=== PATIENT | female | born 1940 | race Caucasian/White ===

== ENCOUNTER → 2017-01-23 | Outpatient (CLI) | payer MEDICARE ==
[2017-01-23 17:57] LABS: Blood Urea Nitrogen 28 mg/dL (7-17); Non-African American GFR(MDRD) 54 (>60 ml/min/1.73 sqM)
== END | disposition home or self-care (01) ==
LOC: LABWHC1 17:04
PROVIDERS: ATTEND Orthopaedic Surgery Orthopaedic Surgery of the Spine
DX: M50.121 Cervical disc disorder at C4-C5 level with radiculopathy (principal); M43.16 Spondylolisthesis, lumbar region; M47.22 Other spondylosis with radiculopathy, cervical region; M41.86 Other forms of scoliosis, lumbar region
CPT/HCPCS: 36415; 82565; 84520

== ENCOUNTER → 2017-04-11 | Outpatient (CLI) | payer MEDICARE ==
[2017-04-11 14:38] LABS: Basophils % (A) 1 %; Eosinophils # (A) 0.2 k/uL (0-0.7); Eosinophils % (A) 3 %; HGB 10.4 gm/dL (11.4-16.0); Lymphocytes % (A) 13 %; MCH 30.5 pg (25.0-35.0); MCHC 31.5 g/dL (31.0-37.0); MCV 96.8 fL (80.0-100.0); Mean Platelet Volume 6.8; Monocytes # (A) 0.5 k/uL (0-1.0); Monocytes % (A) 6 %; Neutrophils # (A) 6.2 k/uL (1.3-7.7); Neutrophils % (A) 77 %; Platelet Count 387 k/uL (150-450); RBC 3.41 m/uL (3.80-5.40); WBC 8.1 k/uL (3.8-10.6)
[2017-04-11 14:49] LABS: ALT 59 U/L (9-52); AST 46 U/L (14-36); Creatine Kinase 59 U/L (30-135)
== END | disposition home or self-care (01) ==
LOC: LABWHC1 13:59
PROVIDERS: ATTEND Physical Medicine & Rehabilitation
DX: M51.36 Other intervertebral disc degeneration, lumbar region (principal); M47.817 Spondylosis without myelopathy or radiculopathy, lumbosacral region
CPT/HCPCS: 36415; 82550; 84450; 84460; 85025

== ENCOUNTER → 2017-08-09 | Outpatient (CLI) | payer MEDICARE ==
--- NOTE | 2017-08-09 20:16 | CT ---
EXAMINATION TYPE: CT abdomen pelvis w con DATE OF EXAM: 08/09/2017 HISTORY: Left sided abdominal pain, bloating and gas x [address] DLP: 413.5mGycm Automated Exposure Control for Dose Reduction was Utilized. CONTRAST: CT scan of the abdomen and pelvis is performed with IV Contrast, patient injected with 100 mL of Isov ue M300. COMPARISON: None. FINDINGS: LUNG BASES: No significant abnormality is appreciated. LIVER/GB: No significant abnormality is appreciated. PANCREAS: No significant abnormality is seen. SPLEEN: No significant abnormality is seen. ADRENALS: No significant abnormality is seen. KIDNEYS: There are a few small simple appearing cyst anteriorly in the right kidney. BOWEL: The oral contrast reaches level of the proximal transverse colon. There is no suspicious small or large bowel dilatation. Diverticula are seen in the sigmoid colon without CT evidence for acute d iverticulitis. UTERUS/ADNEXA: Anteverted uterus with calcifications likely calcified fibroids is noted. LYMPH NODES: No greater than 1cm abdominal or pelvic lymph nodes are appreciated. OSSEOUS STRUCTURES: There is right-sided pars defect L4 level. There is grade 2 anterolisthesis of L4 on L5 measured 10 mm sagittal image 63. There is advanced disc space narrowing with vacuum disc phen omenon at this level. There is moderate to advanced disc space narrowing with vacuum disc phenomenon left L1-L2 level. There is moderate to advanced disc space narrowing at L2-L3 level. Underlying scoli osis is present. There is facet arthropathy mid to lower lumbar levels. There is prior surgery with r ight laminectomy defect L4 level felt present. There is moderate joint space loss in both hips. OTHER: There is mild/moderate mixed plaque in the abdominal aorta IMPRESSION: No bowel obstruction is seen. No ascites is present. No significant acute finding is iden tified to account for patient's symptoms.
== END | disposition home or self-care (01) ==
LOC: RADCTMAIN 17:37
PROVIDERS: ATTEND Physician Assistant Medical
DX: R10.30 Lower abdominal pain, unspecified (principal); R14.0 Abdominal distension (gaseous)
CPT/HCPCS: 82565; 84520; 74177; 36415; Q9967

== ENCOUNTER → 2018-07-02 | Day surgery (SDC) | payer MEDICARE ==
[2018-06-26 11:35] VITALS: BMI 23.2
[~2018-07-02] MED LIST: ASPIRIN 81 MG PO SCH; ATENOLOL 50 MG TAB PO SCH; CHOLECALCIFEROL 1,000 UNIT TAB PO SCH; CITALOPRAM HYDROBROMIDE 10 MG TAB PO SCH; FERROUS SULFATE 325 MG TAB PO SCH; FLUTICASONE 50MCG/SPRAY NASAL 16GM EA NOSTRIL SCH; HYDROCHLOROTHIAZIDE 12.5 MG CAP PO SCH; LEVOTHYROXINE 75 MCG TAB PO SCH; LISINOPRIL 30 MG PO SCH; MULTIVITAMINS, THERA 1 EACH TAB PO SCH; NON-FORMULARY DRUG (Omeprazole 20 MG) PO SCH; NON-FORMULARY DRUG (Vitamin B Complex [Vitamin B Complex] 1 EACH) PO SCH; SODIUM CHLORIDE 0.9% 1,000 ML IV ONE; SODIUM CHLORIDE 0.9% 1,000 ML IV SCH; amLODIPine 2.5 MG TAB PO SCH; fentaNYL (PF) 50 MCG/ML 2 ML AMP ONE; predniSONE 2.5 MG TAB PO SCH; traMADol-ACETAMINOP 37.5-325MG 1 EACH TAB PO SCH
[2018-07-02 06:48] VITALS: RESP 18; TEMP 98.4
[2018-07-02] MEDS: BENZOCAINE SPRAY 1 CAN MUCOUS MEM ONE ×2 (07:02→07:06)
[2018-07-02] MEDS: MIDAZOLAM 2 MG/2 ML VIAL IVP ONE ×2 (07:06→07:09)
[2018-07-02] MEDS: fentaNYL (PF) 50 MCG/ML 2 ML AMP IVP ONE ×2 (07:06→07:08)
--- NOTE | 2018-07-02 08:01 | ECHOT ---
TRANSESOPHAGEAL ECHOCARDIOGRAM INDICATION: Evaluation of mitral valve. PROCEDURE: After explaining the procedure to the patient, its risks and the complication, blood pressure, heart rate, O2 saturation was monitored. The throat was sprayed with Cetacaine. She received 2 mg intravenous Versed and 50 mcg intravenous fentanyl. The probe was introduced in the esophagus without difficulty. Images were obtained. Following that, the probe was removed. There was no immediate complication. FINDINGS: Left atrial size is mildly dilated. Left atrial appendage is normal. Left ventricular size and systolic function normal. The aortic valve is tricuspid valve with mild atherosclerotic changes and preserved opening. Mitral valve revealed mitral anulus calcification and mild calcification of the leaflets. Tricuspid valve is normal. The descending thoracic aorta revealed mild atherosclerotic changes of descending thoracic aorta. No pericardial effusion was noted. Contrast bubble study revealed no evidence of shunting across the interatrial septum with Valsalva maneuver. Doppler pulse wave and color Doppler obtained and revealed moderate to severe mitral regurgitation with a central jet with moderate tricuspid regurgitation. Estimated right ventricular systolic pressure was 46 mmHg consistent with mild pulmonary hypertension. Mild aortic regurgitation was noted. No shunting by color Doppler study was noted. CONCLUSION: 1. Mildly dilated left atrium with normal appearance of left atrial appendage. 2. Normal left ventricular size and systolic function. 3. Moderate to severe mitral regurgitation, 3+ with calcification of the mitral valve apparatus. 4. Moderate tricuspid regurgitation and mild pulmonary hypertension. 5. Aortic sclerosis with no evident stenosis. 6. Mild aortic regurgitation. 7. Mild atherosclerotic changes of the descending thoracic aorta. 8. No shunting across the interatrial septum. MMODL / IJN: [id number] /
[2018-07-02 08:53] VITALS: BP 171/76; PULSE 64
== END | disposition home or self-care (01) ==
LOC: CATHCVL 06:06
PROVIDERS: ATTEND Internal Medicine Interventional Cardiology
DX: I08.3 Combined rheumatic disorders of mitral, aortic and tricuspid valves (principal); I25.10 Atherosclerotic heart disease of native coronary artery without angina pectoris; E78.2 Mixed hyperlipidemia; I10 Essential (primary) hypertension; E11.9 Type 2 diabetes mellitus without complications; Z79.82 Long term (current) use of aspirin; Z79.899 Other long term (current) drug therapy; Z79.52 Long term (current) use of systemic steroids; Z79.51 Long term (current) use of inhaled steroids; I70.0 Atherosclerosis of aorta; I27.20 Pulmonary hypertension, unspecified; Z88.1 Allergy status to other antibiotic agents; Z88.2 Allergy status to sulfonamides
CPT/HCPCS: 93312; 93320; 93325; 99152; J2250; J3010

== ENCOUNTER 2018-08-25 06:02 | Inpatient (IN) | payer MEDICARE ==
[2018-08-25] MEDS ORDERED: ceFAZolin IN SWFI 2 GM/20 ML SYRINGE IVP STA (06:34)
[2018-08-25] MEDS ORDERED: LIDOCAINE 1% INJ 10MG/ML (20 ML MDV) ONE (06:35)
[2018-08-25] MEDS ORDERED: ceFAZolin IN SWFI 2 GM/20 ML SYRINGE IVP ONE (07:00)
[2018-08-25] MEDS ORDERED: MIDAZOLAM (PF) 2 MG/2 ML VIAL IVP ONE (07:00)
[2018-08-25] MEDS ORDERED: LIDOCAINE 1% INJ 10MG/ML (20 ML MDV) SQ ONE (07:03)
[2018-08-25] MEDS ORDERED: IV FLUID CONTINUATION 1,000 ML IV ONE (07:06)
[2018-08-25] MEDS ORDERED: HEPARIN SOD,PORK IN 0.45% NACL 25,000 UNIT in 0.45% NACL 1 250ML.BAG IV ONE (07:10)
[2018-08-25] MEDS ORDERED: HEPARIN SODIUM,PORCINE 5,000 UNIT/ML 1 ML VIAL IV PRN (07:31)
[2018-08-25] MEDS ORDERED: DOPamine DRIP 800 MG in DEXTROSE/WATER 1 250ML.BAG IV ONE (07:33)
--- NOTE | 2018-08-25 07:41 | P.PCN ---
Preoperative Diagnosis: Transvenous temporary pacing procedure Indication for the procedure: Severe underlying bradycardia and pauses secondary to postconversion pauses, patient with atrial fibrillation/atrial flutter with RVR, tachybradycardia syndrome, syncopal spells while lying in bed during prolonged postconversion pauses Patient was brought to the EP lab in a fasting state. Written informed consent was obtained prior to the procedure. The right groin was prepped and draped as a protocol. A 6-[place] Helen[place] sheath was placed in the right femoral vein. Via this, a temporary pacing catheter was placed in the right ventricle. Thresholds were interrogated. Temporary pacing was performed through the rest of the procedure. At the end of the entire procedure, the TVP was removed. The sheath was removed and hemostasis was assured. Patient tolerated the procedure well without any acute complications. Procedure performed Transvenous temporary pacing Patient underwent EP procedure under conscious sedation/moderate sedation, monitoring of the level of consciousness and physiologic parameters including but not limited to vital signs and oxygenation. Patient tolerated the procedure well without any acute complications. Start time: 701 Stop time: 728
[2018-08-25 08:09] LABS: Glucose,Whole Blood 121 mg/dL (75-99)
--- NOTE | 2018-08-25 08:17 | P.PN ---
Subjective Progress Note Date: 08/25/18 Principal diagnosis: Tachybradycardia syndrome This is a 77-year-old female patient who was admitted to the [facility] with atrial fibrillation with RVR and she was experiencing intermittent episodes of sinus pauses. She was seen and evaluated by Dr. Allen who brought the patient to [facility] where she underwent transvenous temporary pacemaker from right groin approach. The patient was seen today, 08/25/2018. She seems to be hemodynamically stable beside heart rate around 120 bpm. I am going to restart the patient on her home dose of atenolol. Continue IV heparin. Obtain a basic blood work including CBC, BMP, TSH. Obtain an echocardiogram from [facility] and also the cardiac consult from the [facility]. Continue following up with the patient. Objective - Vital Signs Vital signs: Intake & Output 08/24/18 08/25/18 08/25/18 18:59 06:59 18:59 Intake Total 50 Balance 50 Weight 53 kg Intake: IV 50 - Constitutional General appearance: Present: no acute distress - Respiratory Respiratory: bilateral: diminished - Cardiovascular Rhythm: irregularly irregular Heart sounds: normal: S1, S2 - Labs Labs: Abnormal Lab Results - Last 24 Hours (Table) 08/25/18 Range/Units 07:47 POC Glucose (mg/dL) 121 H (75-99) mg/dL Assessment and Plan Assessment: Assessment #1 paroxysmal atrial fibrillation #2 tachybradycardia syndrome #3 hypertension #4 dyslipidemia #5 thyroid disorder Plan Continue the current medical regimen The patient is in process of having permanent pacemaker Follow-up with the patient
[2018-08-25] MEDS ORDERED: ATENOLOL 50 MG TAB PO SCH ×2 (09:00→21:00)
[2018-08-25] MEDS: HEPARIN SOD,PORK IN 0.45% NACL 25,000 UNIT in 0.45% NACL 1 250ML.BAG IV SCH (09:12)
[2018-08-25] MEDS ORDERED: SODIUM CHLORIDE 0.9% 1,000 ML IV SCH (09:30)
[2018-08-25] MEDS ORDERED: DILTIAZEM 125 MG in SODIUM CHLORIDE 0.9% 100 ML IV SCH (09:45)
[2018-08-25 09:53] LABS: Basophils % (A) 0 %; Eosinophils # (A) 0.3 k/uL (0-0.7); Eosinophils % (A) 2 %; HCT 39.7 % (34.0-46.0); HGB 12.6 gm/dL (11.4-16.0); Lymphocytes # (A) 1.7 k/uL (1.0-4.8); Lymphocytes % (A) 13 %; MCH 30.5 pg (25.0-35.0); MCHC 31.7 g/dL (31.0-37.0); MCV 96.1 fL (80.0-100.0); Mean Platelet Volume 7.5; Monocytes # (A) 0.6 k/uL (0-1.0); Monocytes % (A) 4 %; Neutrophils % (A) 80 %; Platelet Count 258 k/uL (150-450); RBC 4.13 m/uL (3.80-5.40); RDW 14.5 % (11.5-15.5); WBC 13.7 k/uL (3.8-10.6)
[2018-08-25 10:01] LABS: Prothrombin Time 10.5 sec (9.0-12.0)
[2018-08-25 10:13] LABS: Albumin 3.9 g/dL (3.5-5.0); Calcium 10.1 mg/dL (8.4-10.2); Magnesium 2.4 mg/dL (1.6-2.3); Potassium 4.2 mmol/L (3.5-5.1); Total Bilirubin 0.4 mg/dL (0.2-1.3); Total Protein 6.7 g/dL (6.3-8.2)
[2018-08-25] MEDS: PANTOPRAZOLE 40 MG TABLET PO SCH (10:14)
[2018-08-25 10:25] LABS: Partial Thromboplastin Time 194.3 sec (22.0-30.0)
[2018-08-25 10:29] LABS: T4, Free (Free Thyroxine) 1.46 ng/dL (0.78-2.19)
[2018-08-25] MEDS: SODIUM CHLORIDE 0.9% 1,000 ML IV SCH (10:42)
[2018-08-25] MEDS ORDERED: traMADol-ACETAMINOP 37.5-325MG 1 EACH TAB PO PRN (11:46)
[2018-08-25 13:09] VITALS: BMI 24.9
[2018-08-25] MEDS: predniSONE 5 MG TAB PO SCH (13:41)
[2018-08-25] MEDS: FLUCONAZOLE 100 MG TAB PO SCH (13:41)
[2018-08-25 14:10] LABS: Appearance,Urine Clear (Clear); Bilirubin,Urine Negative (Negative); Blood,Urine Moderate (Negative); Color,Urine Light Yellow; Glucose,Urine (UA) Negative (Negative); Ketones,Urine Negative (Negative); Leukocyte Esterase,Urine Trace (Negative); Mucus,Urine Rare /hpf; Nitrite,Urine Negative (Negative); PH, Urine 5.5 (5.0-8.0); Protein,Urine Negative (Negative); RBC,Urine >182 /hpf (0-5); Specific Gravity,Urine 1.018 (1.001-1.035); Urobilinogen,Urine <2.0 mg/dL (<2.0)
--- NOTE | 2018-08-25 14:53 | P.HPIM ---
History of Present Illness Chief Complaint: Tachybradycardia syndrome This very pleasant 77-year-old female who was transferred from [facility]. Patient at the time examination was alert oriented 3. Her daughter was there at the bedside. She went to [facility] last night as she was having heaviness in the chest, shortness of breath lightheadedness and she had a few passing out spells previously. She apparently was diagnosed with A. fib with RVR and was admitted over there overnight apparently the patient had sinus pauses and she passed out. She was evaluated by Dr. Allen from cardiology who got transferred to [facility] and she had a transvenous temporary pacemaker placed through a right groin approach. She is in ICU status post temporary pacemaker placement. She does not complain of any chest pain right now. She says that her shortness of breath is better. She does not complain of any racing heart, she complains of abdominal cramps but not anymore at this moment, no nausea and vomiting, no diarrhea constipation, no tingling numbness on in the extremities, and additional rest. She's been started on heparin drip. Patient had lab work done which showed WBC of 13.7 hemoglobin of 12.6 platelets 258 sodium 139 potassium 4.2 B1 21 creatinine 0.80 UA shows more than 182 RBCs. 9 WBCs. Review of Systems All systems: negative Past Medical History Past Medical History: Atrial Fibrillation, Cancer, Hyperlipidemia, Hypertension, Osteoarthritis (OA), Thyroid Disorder Additional Past Medical History / Comment(s): heart murmer, scoliosis, spondylolisthoesis, BREAST CANCER with radiation. CHRONIC BACK PAIN., anemia, "prediabetic"-no rx or special diet, pessary for prolapse, fx lower back from fall May 2018. PMR(polymyalgia rheumatica), unsteady on feet History of Any Multi-Drug Resistant Organisms: None Reported Past Surgical History: Back Surgery, Breast Surgery, Heart Catheterization, Hernia Repair, Orthopedic Surgery, Tonsillectomy Additional Past Surgical History / Comment(s): LEFT BREAST LUMPECTOMY, rt breast biopsy, back surgery x2-herniated disk L5S1 and L4 and 5 cyst, anuradha cataracts, anuradha hand trigger finger( 2 on left hand, one on rt hand), heel spur removed from left foot Past Anesthesia/Blood Transfusion Reactions: Previous Problems w/ Anesthesia Additional Past Anesthesia/Blood Transfusion Reaction / Comment(s): "slow coming out" Past Psychological History: Anxiety Smoking Status: Never smoker Past Alcohol Use History: None Reported Past Drug Use History: None Reported - Past Family History Brother(s) Family Medical History: Cancer Mother Family Medical History: Congestive Heart Failure (CHF) Medications and Allergies Home Medications Medication Instructions Recorded Confirmed Type Atenolol [Tenormin] 50 mg PO BID 08/04/14 08/25/18 History Citalopram Hydrobromide [CeleXA] 10 mg PO HS 08/04/14 08/25/18 History Lisinopril 30 mg PO BID 08/04/14 08/25/18 History Simvastatin [Zocor] 20 mg PO HS 08/04/14 08/25/18 History Hydrochlorothiazide 12.5 mg PO QAM 06/26/18 08/25/18 History Levothyroxine Sodium [Synthroid] 75 mcg PO MOTUWETHFRSA 06/26/18 08/25/18 History Omeprazole [PriLOSEC] 20 mg PO AC-BRKFST 06/26/18 08/25/18 History predniSONE 7.5 mg PO DAILY 06/26/18 08/25/18 History DULoxetine HCL [Cymbalta] 30 mg PO DAILY 08/25/18 08/25/18 History Fluconazole [Diflucan] 100 mg PO DAILY 08/25/18 08/25/18 History Fluticasone Nasal [place] [Flonase 1 spray EA NOSTRIL BID 08/25/18 08/25/18 History Nasal [place]] amLODIPine [Norvasc] 5 mg PO DAILY 08/25/18 08/25/18 History traMADol HCL/ACETAMINOPHEN 1 - 2 tab PO Q8H 08/25/18 08/25/18 History [Ultracet 37.5-325] Allergies Allergy/AdvReac Type Severity Reaction Status Date / Time doxycycline calcium Allergy SWELLING Verified 08/25/18 08:35 [From Vibramycin] AND RASH ON TONGUE doxycycline hyclate Allergy SWELLING Verified 08/25/18 08:35 [From Vibramycin] AND RASH ON TONGUE doxycycline monohydrate Allergy SWELLING Verified 08/25/18 08:35 [From Vibramycin] AND RASH ON TONGUE Milk Containing Products Allergy mouth sores Verified 08/25/18 08:35 [Dairy] propoxyphene HCl AdvReac Nausea & Verified 08/25/18 08:35 [From Darvon] Vomiting Sulfa (Sulfonamide AdvReac Nausea & Verified 08/25/18 08:35 Antibiotics) Vomiting Physical Exam Vitals: Vital Signs Temp Pulse Resp BP Pulse Ox 08/25/18 13:45 95 08/25/18 13:30 76 15 138/62 96 08/25/18 13:20 80 18 138/62 96 08/25/18 13:10 80 12 138/62 96 08/25/18 13:00 81 20 152/87 96 08/25/18 12:50 74 15 152/87 96 08/25/18 12:40 87 19 152/87 96 08/25/18 12:30 82 10 L 160/71 95 08/25/18 12:20 86 9 L 160/71 96 08/25/18 12:10 76 17 140/67 96 08/25/18 12:00 97.7 F 74 16 151/65 97 08/25/18 11:50 81 18 151/65 97 08/25/18 11:40 85 31 H 152/74 97 08/25/18 11:30 76 18 151/73 95 08/25/18 11:20 76 12 151/73 96 08/25/18 11:10 87 49 H 146/74 96 08/25/18 11:04 85 37 H 146/74 96 08/25/18 08:00 16 Intake and Output 08/24/18 08/25/18 08/25/18 22:59 06:59 14:59 Intake Total 58.056 Output Total 890 Balance -831.944 Intake: IV 50 Intake, IV Titration 8.056 Amount Heparin Sod,Pork in 0.45% 8.056 NaCl 25,000 unit In 0.45 % NaCl 1 250ml.bag @ 12 UNITS/KG/HR 6.36 mls/hr IV .Q24H [facility] Rx#: [id number] Output: Urine 890 Other: Voiding Method Indwelling Catheter Weight 53 kg On exam, alert and oriented x3. HEENT: Conjunctivae normal. eyes normal. NECK: No JVD. No thyroid enlargement. No LNs CARDIOVASCULAR: S1, S2 muffled. No murmur RESPIRATION: Breath sounds diminished in the bases. No rhonchi or crackles. No bronchial breathing. ABDOMEN: Soft, nontender . No guarding. no masses palpable. No ascites, No hepatosplenomegaly.Bowel sounds heard. LEGS: No edema. no swelling NERVOUS SYSTEM: Cranial N 2-12 grossly normal. Moves all 4 limbs. No focal deficits. No sensory deficit. No signs of cerebellar dysfucntion. Skin: no ulcer no rash Joints: No active swelling. No inflammation. Lymphatic system. No LN neck axilla or groin. Results CBC & Chem 7: 08/25/18 09:33 08/25/18 09:33 Labs: Abnormal Lab Results - Last 24 Hours (Table) 08/25/18 08/25/18 08/25/18 Range/Units 07:47 09:33 09:33 WBC 13.7 H (3.8-10.6) k/uL Neutrophils # 11.0 H (1.3-7.7) k/uL APTT (22.0-30.0) sec BUN 21 H (7-17) mg/dL Glucose 128 H (74-99) mg/dL POC Glucose (mg/dL) 121 H (75-99) mg/dL Magnesium 2.4 H (1.6-2.3) mg/dL Urine Blood (Negative) Ur Leukocyte Esterase (Negative) Urine RBC (0-5) /hpf Urine WBC (0-5) /hpf Urine Mucus (None) /hpf 08/25/18 08/25/18 Range/Units 09:40 13:20 WBC (3.8-10.6) k/uL Neutrophils # (1.3-7.7) k/uL APTT 194.3 H* (22.0-30.0) sec BUN (7-17) mg/dL Glucose (74-99) mg/dL POC Glucose (mg/dL) (75-99) mg/dL Magnesium (1.6-2.3) mg/dL Urine Blood Moderate H (Negative) Ur Leukocyte Esterase Trace H (Negative) Urine RBC >182 H (0-5) /hpf Urine WBC 9 H (0-5) /hpf Urine Mucus Rare H (None) /hpf Thrombosis Risk Factor Assmnt - Choose All That Apply Any of the Below Risk Factors Present?: Yes Each Factor Represents 1 point: Medical pt on bed rest, Minor surgery planned Other Risk Factors: Yes Each Risk Factor Represents 2 Points: Central venous access, Patient confined to bed Each Risk Factor Represents 3 Points: Age 75 years or older Thrombosis Risk Factor Assessment Total Risk Factor Score: 9 Thrombosis Risk Factor Assessment Level: High Risk Assessment and Plan Assessment: - Tachycardia bradycardia syndrome status post every pacemaker placement - Paroxysmal atrial fibrillation - Hypertension - Hyperlipidemia - Hypothyroidism plan - Patient is admitted to ICU - We'll resume the patient's home medications - Continue heparin drip as per cardiology recommendations - Patient to get permanent pacemaker tomorrow in the morning - Nothing by mouth after midnight - DVT and GI prophylaxis - We'll order for lab work in the morning - Expected length of stay more than 2 midnights - Patient is full code Time with Patient: Greater than 30
[2018-08-25] MEDS ORDERED: ceFAZolin IN SWFI 2 GM/20 ML SYRINGE IVP SCH (15:00)
[2018-08-25] MEDS: traMADol-ACETAMINOP 37.5-325MG 1 EACH TAB PO SCH (16:08)
[2018-08-25] MEDS ORDERED: ATORVASTATIN 20 MG TAB PO SCH (21:00)
[2018-08-25] MEDS ORDERED: CITALOPRAM HYDROBROMIDE 10 MG TAB PO SCH (21:00)
[2018-08-25] MEDS: ATORVASTATIN 10 MG TAB PO SCH (21:47)
[2018-08-25] MEDS: LISINOPRIL 10 MG TAB PO SCH (21:47)
[2018-08-25] MEDS: CITALOPRAM HYDROBROMIDE 10 MG TAB PO SCH (21:47)
[2018-08-25] MEDS: FLUTICASONE 50MCG/SPRAY NASAL 16GM EA NOSTRIL SCH (21:47)
[2018-08-26] MEDS: traMADol-ACETAMINOP 37.5-325MG 1 EACH TAB PO SCH ×3 (01:47→16:34)
[2018-08-26] MEDS: SODIUM CHLORIDE 0.9% 1,000 ML IV SCH (05:29)
[2018-08-26] MEDS ORDERED: ceFAZolin 1,000 MG in SODIUM CHLORIDE 0.9% IRRIGATIO 250 ML IRRIGATION ONE (06:00)
[2018-08-26] MEDS ORDERED: ceFAZolin IN SWFI 2 GM/20 ML SYRINGE IVP ONE ×2 (06:00→09:00)
[2018-08-26 06:02] LABS: Basophils % (A) 0 %; Eosinophils # (A) 0.1 k/uL (0-0.7); Eosinophils % (A) 1 %; HCT 37.7 % (34.0-46.0); HGB 11.7 gm/dL (11.4-16.0); Lymphocytes # (A) 1.3 k/uL (1.0-4.8); Lymphocytes % (A) 17 %; MCH 30.5 pg (25.0-35.0); MCHC 31.2 g/dL (31.0-37.0); MCV 97.9 fL (80.0-100.0); Mean Platelet Volume 7.7; Monocytes # (A) 0.5 k/uL (0-1.0); Monocytes % (A) 6 %; Neutrophils # (A) 5.8 k/uL (1.3-7.7); Neutrophils % (A) 74 %; Platelet Count 239 k/uL (150-450); RBC 3.85 m/uL (3.80-5.40); RDW 14.5 % (11.5-15.5); WBC 7.8 k/uL (3.8-10.6)
[2018-08-26 06:21] LABS: Calcium 8.8 mg/dL (8.4-10.2); Potassium 4.5 mmol/L (3.5-5.1)
[2018-08-26] MEDS: LEVOTHYROXINE 75 MCG TAB PO SCH (06:51)
[2018-08-26] MEDS ORDERED: NON-FORMULARY DRUG (Omeprazole 20 MG) PO SCH (07:30)
--- NOTE | 2018-08-26 07:44 | P.PN ---
Subjective Progress Note Date: 08/26/18 Principal diagnosis: Tachybradycardia syndrome This is a 77-year-old female patient who was admitted to the [facility] with atrial fibrillation with RVR and she was experiencing intermittent episodes of sinus pauses. She was seen and evaluated by Dr. Allen who brought the patient to [facility] where she underwent transvenous temporary pacemaker from right groin approach. On follow-up with the patient today, 08/26/2018, the patient seems to be he modynamically stable beside a heart rate around 110 bpm with atrial fibrillation. Currently she is on Cardizem IV. The blood pressure is stable. She continues to be on Cardizem IV as well as heparin IV and the plan is to have permanent pacemaker later on today. Objective - Vital Signs Vital signs: Vital Signs Temp 98.6 F 08/26/18 04:00 Pulse 82 08/26/18 07:00 Resp 8 L 08/26/18 07:00 BP 121/77 08/26/18 07:00 Pulse Ox 95 08/26/18 07:01 Intake & Output 08/25/18 08/26/18 08/26/18 18:59 06:59 18:59 Intake Total 0670.556 1987 50 Output Total 1215 865 130 Balance -48.315 275 -80 Weight 57.7 kg Intake: IV 650 700 50 Sodium Chloride 0.9% 1, 550 600 50 000 ml @ 50 mls/hr IV . Q20H [facility] Rx#:[id number] ceFAZolin 1,000 mg In 50 100 Sodium Chloride 0.9% 50 ml @ 100 mls/hr IVPB Q8HR [facility] Rx#:[id number] Intake, IV Titration 41.685 Amount Heparin Sod,Pork in 0.45% 41.685 NaCl 25,000 unit In 0.45 % NaCl 1 250ml.bag @ 12 UNITS/KG/HR 6.36 mls/hr IV .Q24H [facility] Rx#: [id number] Oral 475 440 Output: Urine 1215 865 130 Other: Voiding Method Indwelling Catheter Indwelling Catheter - Constitutional General appearance: Present: no acute distress - Respiratory Respiratory: bilateral: CTA - Cardiovascular Rhythm: irregularly irregular Heart sounds: normal: S1, S2 - Labs CBC & Chem 7: 08/26/18 05:08/26/18 05:05 Labs: Abnormal Lab Results - Last 24 Hours (Table) 08/25/18 08/25/18 08/25/18 Range/Units 07:47 09:33 09:33 WBC 13.7 H (3.8-10.6) k/uL Neutrophils # 11.0 H (1.3-7.7) k/uL APTT (22.0-30.0) sec Chloride (98-107) mmol/L BUN 21 H (7-17) mg/dL Glucose 128 H (74-99) mg/dL POC Glucose (mg/dL) 121 H (75-99) mg/dL Magnesium 2.4 H (1.6-2.3) mg/dL Urine Blood (Negative) Ur Leukocyte Esterase (Negative) Urine RBC (0-5) /hpf Urine WBC (0-5) /hpf Urine Mucus (None) /hpf 08/25/18 08/25/18 08/25/18 Range/Units 09:40 13:20 17:46 WBC (3.8-10.6) k/uL Neutrophils # (1.3-7.7) k/uL APTT 194.3 H* 38.8 H (22.0-30.0) sec Chloride (98-107) mmol/L BUN (7-17) mg/dL Glucose (74-99) mg/dL POC Glucose (mg/dL) (75-99) mg/dL Magnesium (1.6-2.3) mg/dL Urine Blood Moderate H (Negative) Ur Leukocyte Esterase Trace H (Negative) Urine RBC >182 H (0-5) /hpf Urine WBC 9 H (0-5) /hpf Urine Mucus Rare H (None) /hpf 08/26/18 08/26/18 Range/Units 00:57 05:05 WBC (3.8-10.6) k/uL Neutrophils # (1.3-7.7) k/uL APTT 60.4 H (22.0-30.0) sec Chloride 108 H (98-107) mmol/L BUN (7-17) mg/dL Glucose (74-99) mg/dL POC Glucose (mg/dL) (75-99) mg/dL Magnesium (1.6-2.3) mg/dL Urine Blood (Negative) Ur Leukocyte Esterase (Negative) Urine RBC (0-5) /hpf Urine WBC (0-5) /hpf Urine Mucus (None) /hpf Assessment and Plan Assessment: Assessment #1 paroxysmal atrial fibrillation #2 tachybradycardia syndrome #3 hypertension #4 dyslipidemia #5 thyroid disorder Plan Continue the current medical regimen The patient is in process of having permanent pacemaker later on today Follow-up with the patient
[2018-08-26] MEDS ORDERED: fentaNYL (PF) 50 MCG/ML 2 ML AMP ONE (08:10)
[2018-08-26] MEDS ORDERED: MIDAZOLAM 2 MG/2 ML VIAL ONE (08:10)
[2018-08-26] MEDS ORDERED: ESMOLOL 100 MG/10 ML VIAL ONE (08:10)
[2018-08-26] MEDS ORDERED: LIDOCAINE 1% INJ 10MG/ML (20 ML MDV) ONE ×3 (08:25→09:23)
[2018-08-26] MEDS ORDERED: SODIUM CHLORIDE 0.9% 1,000 ML IV ONE (08:34)
[2018-08-26] MEDS ORDERED: SODIUM CHLORIDE 0.9% 500 ML 500 ML IV ONE (08:34)
[2018-08-26] MEDS ORDERED: IOPAMIDOL-370 100ML BTL INJ ONE (08:50)
[2018-08-26] MEDS ORDERED: HYDROCHLOROTHIAZIDE 12.5 MG CAP PO SCH (09:00)
[2018-08-26] MEDS ORDERED: predniSONE 2.5 MG TAB PO SCH (09:00)
[2018-08-26] MEDS ORDERED: LIDOCAINE 1% INJ 10MG/ML (20 ML MDV) SQ ONE ×4 (09:01→09:30)
[2018-08-26] MEDS ORDERED: ACETAMINOPHEN TAB 325 MG TAB PO PRN (11:15)
[2018-08-26] MEDS ORDERED: HYDROcodone/APAP 5-325MG 1 EACH TAB PO PRN (11:15)
[2018-08-26] MEDS ORDERED: ONDANSETRON 4 MG/2 ML VIAL IVP PRN (11:40)
[2018-08-26] MEDS: HEPARIN SOD,PORK IN 0.45% NACL 25,000 UNIT in 0.45% NACL 1 250ML.BAG IV SCH (11:44)
[2018-08-26] MEDS ORDERED: ACETAMINOPHEN IV (For NPO) 1,000 MG in EMPTY BAG 1 BAG IVPB ONE (12:00)
[2018-08-26] MEDS: PANTOPRAZOLE 40 MG TABLET PO SCH (12:01)
[2018-08-26] MEDS: FLUCONAZOLE 100 MG TAB PO SCH (12:02)
[2018-08-26] MEDS: predniSONE 5 MG TAB PO SCH (12:02)
[2018-08-26] MEDS: amLODIPine 5 MG TAB PO SCH (12:02)
--- NOTE | 2018-08-26 12:04 | P.PCN ---
Preoperative Diagnosis: TVP removal After implantation of the bilateral ventricular pacemaker, transient was gently pace was removed under fluoroscopy. The atrial, His bundle and RV leads remained stable. Venous sheaths was removed hemostasis was assured
--- NOTE | 2018-08-26 13:08 | PCN ---
PROCEDURE NOTE Yanely Hilario is a 77-year-old female who presented with atrial fibrillation with RVR and recurrent syncope associated with post-conversion pauses. A TVP was placed yesterday. Today the biventricular pacemaker was placed since it is quite likely that she will pace the RV almost 100% following AV node modification in the future. Patient was brought to the EP lab in a fasting state. Written informed consent was obtained prior to the procedure. The left shoulder area was prepped and draped as per protocol. 1% lidocaine was used for local anesthesia. Left axillary vein was accessed at 3 separate points under fluoroscopy and via appropriately-sized introducer sheaths, 3 leads were positioned the right heart. The atrial lead was a model #4574, 53 cm in length, serial number [id number]. this was a tined lead placed in the right atrial appendage. The P waves were 1 mV. Pacing threshold 0.4 V at 0.5 milliseconds, pacing impedance 72 ohms, 10 V test negative. The RV lead was positioned in the right ventricular apex. This was also a passive lead tined lead model #4074, 58 cm length and serial number [id number]. The R-waves were 17 mV. Pacing impedance 1239, pacing threshold 0.4 V at 0.5 milliseconds. 10 V test negative. The third lead was screwed in the His bundle area. The HV interval was about 56 milliseconds at this point with nonselective capture was noted down to 3.3 V at 1 millisecond and thereafter there was RV capture with complete loss of R-wave capture at 1.3 V at 1 millisecond. All 3 leads were secured to the underlying pectoralis fascia using 2 nonabsorbable sutures. Pocket was irrigated with antibiotic solution. Leads were connected to the generator ([employer] Mary CRTP MRI model number W1TR02 serial number [id number]. The leads and the generator were then placed in subfascial pocket. The wound was closed in 3 layers and dressed per protocol. RESULTS: Successful biventricular pacemaker generator implantation with physiologic septal pacing. PLAN: Change atenolol to metoprolol 100 mg twice daily and maximize rate control medications. If rate control medications do not succeed, AV junction modification may be considered. MMODL / IJN: [id number] /
[2018-08-26] MEDS ORDERED: LEVOTHYROXINE 75 MCG TAB PO SCH (14:42)
[2018-08-26] MEDS: ceFAZolin IN SWFI 2 GM/20 ML SYRINGE IVP SCH ×2 (15:30→20:15)
[2018-08-26] MEDS: ATORVASTATIN 10 MG TAB PO SCH (20:14)
[2018-08-26] MEDS: CITALOPRAM HYDROBROMIDE 10 MG TAB PO SCH (20:15)
[2018-08-26] MEDS: FLUTICASONE 50MCG/SPRAY NASAL 16GM EA NOSTRIL SCH (20:16)
[2018-08-26] MEDS: LISINOPRIL 20 MG TAB PO SCH (20:16)
[2018-08-26] MEDS: METOPROLOL TARTRATE 50 MG TAB PO SCH (20:16)
[2018-08-26] MEDS ORDERED: APIXABAN 5 MG TAB PO SCH (21:00)
[2018-08-27] MEDS: LISINOPRIL 10 MG TAB PO SCH (00:09)
[2018-08-27] MEDS: traMADol-ACETAMINOP 37.5-325MG 1 EACH TAB PO SCH ×3 (00:21→17:31)
[2018-08-27] MEDS: ceFAZolin IN SWFI 2 GM/20 ML SYRINGE IVP SCH ×2 (05:31→08:55)
[2018-08-27] MEDS: LEVOTHYROXINE 75 MCG TAB PO SCH (05:35)
[2018-08-27] MEDS: PANTOPRAZOLE 40 MG TABLET PO SCH (05:36)
[2018-08-27 06:34] VITALS: RESP 18
[2018-08-27 07:30] LABS: Basophils % (A) 0 %; Eosinophils # (A) 0.2 k/uL (0-0.7); Eosinophils % (A) 2 %; HCT 39.4 % (34.0-46.0); HGB 11.8 gm/dL (11.4-16.0); Hypochromasia Slight; Lymphocytes # (A) 1.1 k/uL (1.0-4.8); Lymphocytes % (A) 12 %; MCH 29.5 pg (25.0-35.0); MCHC 29.9 g/dL (31.0-37.0); MCV 98.7 fL (80.0-100.0); Mean Platelet Volume 7.3; Monocytes # (A) 0.5 k/uL (0-1.0); Monocytes % (A) 5 %; Neutrophils # (A) 6.7 k/uL (1.3-7.7); Neutrophils % (A) 79 %; Platelet Count 206 k/uL (150-450); RBC 3.99 m/uL (3.80-5.40); RDW 14.4 % (11.5-15.5); WBC 8.5 k/uL (3.8-10.6)
[2018-08-27] MEDS: amLODIPine 5 MG TAB PO SCH (07:46)
[2018-08-27] MEDS: METOPROLOL TARTRATE 50 MG TAB PO SCH (07:46)
[2018-08-27] MEDS: FLUCONAZOLE 100 MG TAB PO SCH (07:46)
[2018-08-27] MEDS: predniSONE 5 MG TAB PO SCH (07:46)
[2018-08-27] MEDS: LISINOPRIL 20 MG TAB PO SCH (07:46)
--- NOTE | 2018-08-27 08:47 | XR ---
EXAMINATION TYPE: XR chest 2V DATE OF EXAM: 08/27/2018 COMPARISON: NONE HISTORY: Lead placement tract TECHNIQUE: Frontal and lateral views of the chest are obtained. FINDINGS: There is a multilead left-sided cardiac device with 3 cardiac leads, 2 ventricular and one sinonodal. Cardia mediastinal silhouette is mildly enlarged. There are bilateral trace pleural effus ions. No pulmonary vascular congestion or pneumothorax. Osseous structures are intact but diffusely d emineralized. Vertebral body heights within the thoracic spine are difficult to evaluate however ther e appears to be age-indeterminate mid thoracic compression deformities. IMPRESSION: 1. Multilead left-sided cardiac device without postprocedural pneumothorax. Trace pleural effusions a re seen. 2. Diffuse osseous demineralization limits evaluation of the osseous structures however there appear to be multiple midthoracic mild age-indeterminate compression deformities.
[2018-08-27] MEDS ORDERED: APIXABAN 5 MG TAB PO SCH (09:00)
[2018-08-27 11:47] VITALS: BP 136/65; PULSE 83; TEMP 97.7
[2018-08-27] MEDS ORDERED: POLYETHYLENE GLYCOL 3350 17 GM POWD.PACK PO STA (12:07)
--- NOTE | 2018-08-27 16:14 | P.PN ---
Subjective Progress Note Date: 08/27/18 This is a 77-year-old female patient who was admitted to the [facility] with atrial fibrillation with RVR and she was experiencing intermittent episodes of sinus pauses. She was seen and evaluated by Dr. Allen who brought the patient to [facility] where she underwent transvenous temporary pacemaker from right groin approach. Subsequent to that, yesterday patient underwent successful biventricular pacemaker implantation. She was seen and examined this morning sitting up in the chair at bedside, overall doing well. She is complaining of some mild discomfort at the pacemaker site. Blood pressure 136/60 with a heart rate in the 80s, 92% on room air. Device was interrogated and is functioning appropriately, chest x-ray was performed and there is no evidence of a pneumothorax. Objective - Vital Signs Vital signs: Vital Signs Temp 97.7 F 08/27/18 11:43 Pulse 83 08/27/18 11:43 Resp 18 08/27/18 11:43 BP 136/65 08/27/18 11:43 Pulse Ox 92 L 08/27/18 11:43 Intake & Output 08/26/18 08/27/18 08/27/18 18:59 06:59 18:59 Intake Total 1394.164 0 Output Total 515 1250 600 Balance 879.164 -1250 -600 Weight 54.3 kg Intake: IV 590 ACETAMINOPHEN IV (For NPO 100 ) 1,000 mg In Empty Bag 1 bag @ 400 mls/hr IVPB ONCE ONE Rx#:[id number] Sodium Chloride 0.9% 1, 140 000 ml @ 50 mls/hr IV . Q20H [facility] Rx#:[id number] Intake, IV Titration 444.164 Amount Heparin Sod,Pork in 0.45% 84.164 NaCl 25,000 unit In 0.45 % NaCl 1 250ml.bag @ 12 UNITS/KG/HR 6.36 mls/hr IV .Q24H [facility] Rx#: [id number] IV Fluid Continuation 1, 360 000 ml @ 0 mls/hr IV .STK -MED ONE Rx#:[id number] Oral 360 0 Output: Urine 515 1250 600 Other: Voiding Method Indwelling Catheter Toilet Toilet # Voids 1 - Exam PHYSICAL EXAMINATION: GENERAL: 77-year-old female in no acute distress at the time of my examination HEENT: Head is atraumatic, normocephalic. Pupils equal, round. Sclera anicteric. Conjunctiva are clear. Mucous membranes of the mouth are moist. Neck is supple. There is no elevated jugular venous pressure. No carotid bruit is heard. HEART EXAMINATION: Heart S1, S2 irregularly irregular . No murmur or gallop heard. CHEST EXAMINATION: Lungs are clear to auscultation and precussion. No chest wall tenderness is noted on palpation or with deep breathing. Site of pacemaker implantation dressing is dry and intact ABDOMEN: Soft, nontender. Bowel sounds are heard. No organomegaly noted. EXTREMITIES: 2+ peripheral pulses with no evidence of peripheral edema and no calf tenderness noted. NEUROLOGIC patient is awake, alert and oriented 3 . . - Labs CBC & Chem 7: 08/27/18 06:47 08/26/18 05:05 Labs: Abnormal Lab Results - Last 24 Hours (Table) 08/27/18 Range/Units 06:47 MCHC 29.9 L (31.0-37.0) g/dL Assessment and Plan Plan: Assessment #1 paroxysmal atrial fibrillation, on Eliquis for anticoagulation #2 tachybradycardia syndrome, status post implantation of a bi-V pacemaker #3 hypertension #4 dyslipidemia #5 thyroid disorder Plan Device was interrogated and is functioning appropriately. Chest x-ray does not reveal any evidence of a pneumothorax. Patient may be able to be discharged home from our perspective. Follow-up appointment in the device clinic and with lusterer as directed by Dr. Allen. DNP note has been reviewed, I agree with a documented findings and plan of care. Patient was seen and examined.
--- NOTE | 2018-08-29 01:46 | CDI ---
Documentation Clarification Form Date: 08/29/18 From: Rudy Valencia Phone: call to [phone] Admit Date: 08/25/2018 6:08:00 AM Patient Name: Yanely Hilario Visit Number: [id number] Discharge Date: 08/27/2018 7:10:00 PM ATTENTION: The Clinical Documentation Specialists (CDI) and [facility] Coding Staff appreciate your assistance in clarifying documentation. Please respond to the clarification below the line at the bottom and electronically sign. The CDI & [facility] Coding staff will review the response and follow-up if needed. Please note: Queries are made part of the Legal Health Record. If you have any questions, please contact the author of this message via ITS. Dr. Kasi Allen Atrial Flutter is documented in the Procedure note 08/25 under indication as "Severe underlying bradycardia and pauses secondary to postconversion pauses, patient with atrial fibrillation/atrial flutter with RVR," History/Risk factors:Tachybrady syndrome. Treatment: IV cardizem In your professional opinion, in order to capture the severity of condition; can you please clarify the type of Atrial Flutter if known? Typical/Type I Atypical/Type II Other, please specify Unable to determine MTDD
--- NOTE | 2018-09-04 21:59 | P.DS ---
Providers Date of admission: 08/25/18 06:08 Expected date of discharge: 08/27/18 Attending physician: Bibiana Oliveira Consults: 08/25/18 10:22 Consult Physician Routine Consulting Provider: Kasi Allen Consult Reason/Comments: TVP Do you want consulting provider notified?: Already Contacted Primary care physician: Smooth Patel [facility] Course: Discharge diagnosis - Tachycardia bradycardia syndrome status post biventricular pacemaker placement - Paroxysmal atrial fibrillation. On anticoagulation with Eliquis - Hypertension - Hyperlipidemia - Hypothyroidism Hospital course This very pleasant 77-year-old female who was transferred from [facility]. Patient at the time examination was alert oriented 3. Her daughter was there at the bedside. She went to [facility] last night as she was having heaviness in the chest, shortness of breath lightheadedness and she had a few passing out spells previously. She apparently was diagnosed with A. fib with RVR and was admitted over there overnight apparently the patient had sinus pauses and she passed out. She was evaluated by Dr. Allen from cardiology who got transferred to [facility] and she had a transvenous temporary pacemaker placed through a right groin approach. She is in ICU status post temporary pacemaker placement. She does not complain of any chest pain right now. She says that her shortness of breath is better. She does not complain of any racing heart, she complains of abdominal cramps but not anymore at this moment, no nausea and vomiting, no diarrhea constipation, no tingling numbness on in the extremities, and additional rest. She's been started on heparin drip. Patient had lab work done which showed WBC of 13.7 hemoglobin of 12.6 platelets 258 sodium 139 potassium 4.2 B1 21 creatinine 0.80 UA shows more than 182 RBCs. 9 WBCs. yesterday patient underwent successful biventricular pacemaker implantation. She was seen and examined this morning sitting up in the chair at bedside, overall doing well. She is complaining of some mild discomfort at the pacemaker site. Blood pressure 136/60 with a heart rate in the 80s, 92% on room air. Device was interrogated and is functioning appropriately, chest x-ray was performed and there is no evidence of a pneumothorax. PHYSICAL EXAMINATION: Patient is lying in the bed comfortably, no acute distress, awake alert and oriented.. HEENT: Normocephalic. Neck is supple. Pupils reactive. Nostrils clear. Oral cavity is moist. Ears reveal no drainage. Neck reveals no JVD, carotid bruits, or thyromegaly. CHEST EXAMINATION: Trachea is central. Symmetrical expansion. Lung cantu clear to auscultation and percussion. CARDIAC: Normal S1, S2 with no gallops. No murmurs ABDOMEN: Soft. Bowel sounds normal. No organomegaly. No abdominal bruits. Extremities: reveal no edema. No clubbing or cyanosis Neurologically awake, alert, oriented x3 with well-coordinated movements. No focal deficits noted Skin: No rash or skin lesions. Psychiatric: Coperative. Nonsuicidal Musculoskeletal: No joint swelling or deformity. Normal range of motion. Vital Signs Temp 97.7 F 08/27/18 11:43 Pulse 83 08/27/18 11:43 Resp 18 08/27/18 11:43 BP 136/65 08/27/18 11:43 Pulse Ox 92 L 08/27/18 11:43 Intake & Output 08/26/18 08/27/18 08/27/18 18:59 06:59 18:59 Intake Total 1394.164 0 Output Total 515 1250 600 Balance 879.164 -1250 -600 Weight 54.3 kg Intake: IV 590 ACETAMINOPHEN IV (For NPO 100 ) 1,000 mg In Empty Bag 1 bag @ 400 mls/hr IVPB ONCE ONE Rx#:[id number] Sodium Chloride 0.9% 1, 140 000 ml @ 50 mls/hr IV . Q20H [facility] Rx#:[id number] Intake, IV Titration 444.164 Amount Heparin Sod,Pork in 0.45% 84.164 NaCl 25,000 unit In 0.45 % NaCl 1 250ml.bag @ 12 UNITS/KG/HR 6.36 mls/hr IV .Q24H [facility] Rx#: [id number] IV Fluid Continuation 1, 360 000 ml @ 0 mls/hr IV .STK -MED ONE Rx#:[id number] Oral 360 0 Output: Urine 515 1250 600 Other: Voiding Method Indwelling Catheter Toilet Toilet # Voids 1 Patient Condition at Discharge: Stable Plan - Discharge Summary Discharge Rx Participant: No New Discharge Prescriptions: New Atorvastatin [Lipitor] 10 mg PO HS #30 tab Apixaban [Eliquis] 5 mg PO BID #60 tab Metoprolol Tartrate [Lopressor] 100 mg PO BID #60 tab Lisinopril [Zestril] 20 mg PO BID #60 tab Continue Citalopram Hydrobromide [CeleXA] 10 mg PO HS Omeprazole [PriLOSEC] 20 mg PO AC-BRKFST predniSONE 7.5 mg PO DAILY Levothyroxine Sodium [Synthroid] 75 mcg PO MOTUWETHFRSA Fluticasone Nasal [place] [Flonase Nasal [place]] 1 spray EA NOSTRIL BID traMADol HCL/ACETAMINOPHEN [Ultracet 37.5-325] 1 - 2 tab PO Q8H amLODIPine [Norvasc] 5 mg PO DAILY Fluconazole [Diflucan] 100 mg PO DAILY Discontinued Simvastatin [Zocor] 20 mg PO HS Lisinopril 30 mg PO BID Atenolol [Tenormin] 50 mg PO BID Hydrochlorothiazide 12.5 mg PO QAM DULoxetine HCL [Cymbalta] 30 mg PO DAILY Discharge Medication List Citalopram Hydrobromide [CeleXA] 10 mg PO HS 08/04/14 [History] Levothyroxine Sodium [Synthroid] 75 mcg PO MOTUWETHFRSA 06/26/18 [History] Omeprazole [PriLOSEC] 20 mg PO [facility] 06/26/18 [History] predniSONE 7.5 mg PO DAILY 06/26/18 [History] Fluconazole [Diflucan] 100 mg PO DAILY 08/25/18 [History] Fluticasone Nasal [place] [Flonase Nasal [place]] 1 spray EA NOSTRIL BID 08/25/18 [History] amLODIPine [Norvasc] 5 mg PO DAILY 08/25/18 [History] traMADol HCL/ACETAMINOPHEN [Ultracet 37.5-325] 1 - 2 tab PO Q8H 08/25/18 [History] Apixaban [Eliquis] 5 mg PO BID #60 tab 08/27/18 [Rx] Atorvastatin [Lipitor] 10 mg PO HS #30 tab 08/27/18 [Rx] Lisinopril [Zestril] 20 mg PO BID #60 tab 08/27/18 [Rx] Metoprolol Tartrate [Lopressor] 100 mg PO BID #60 tab 08/27/18 [Rx] Follow up Appointment(s)/Referral(s): Erlin Jack MD [STAFF PHYSICIAN] - 10/04/18 2:45 pm (Follow-up in the device clinic within 7 days - Sunday September 02, 2018 at 2:45 PM at cardiology [facility]. Dr. Jack as previously scheduled in September.) Smooth Dent III, MD [Primary Care Provider] - 09/04/18 11:00 am [facility] Visiting Nurse, [NON-STAFF] - Patient Instructions/Handouts: Safe Use of Anticoagulants (DC), Pacemaker (DC) Activity/Diet/Wound Care/Special Instructions: PATIENT EDUCATION MATERIAL Instructions following a heart rhythm device implant. 1. Keep dressing DRY for 5 DAYS. You may cover the area with Saran or Cling Wrap, prior to a shower. 2. The dressing will be removed in the Device Clinic at [facility]. Absorbable sutures were used to close the wound. 3. Avoid raising the left arm above the shoulder level. 4 week restriction 4. Avoid arm movements, like backscratching, rubbing the head, or pulling on a cord. 4 weeks restriction 5. Gentle range of motion movements of the shoulder, closest to the incision should be performed to avoid a frozen shoulder. (Pendulum exercises of the shoulder) 6. The opposite arm may be used freely. 7. Avoid driving for 7 days. 8. Avoid activities such as golfing, swimming, weed whacking, lifting more than 10 pounds weight, bowling, gymnastics and weight training/lifting. (6 weeks restriction) 9. Activities such as wood chopping with an axe, pull-ups in the gymnasium, power lifting, arc-welding, being close to home induction cooktops will always be a problem. 10. Arm sling is only a reminder not to raise the arm above the head. You do not need to keep the arm completely immobilized. Your free to move the arm and use it and for normal activities. In case of any problems, please call [facility], Angelia Amin, @ [phone], Attention: Device Clinic Device clinic follow-up in 5 days Follow-up with primary vending machine coin collector as previously scheduled Discharge Disposition: HOME WITH HOME HEALTH SERVICES
== END 2018-08-27 19:10 | disposition home health service (06) | DRG 243 ==
LOC: 2SICU 06:08 → 3SCARD 08-26 16:50
PROVIDERS: ADMIT Internal Medicine; ATTEND Internal Medicine
PROC: 4A023FZ Measurement of Cardiac Rhythm, Percutaneous Approach (ICD-10-PCS; principal; 2018-08-25 06:30)
PROC: 4A0234Z Measurement of Cardiac Electrical Activity, Percutaneous Approach (ICD-10-PCS; principal; 2018-08-25 06:30)
PROC: 02HK3JZ Insertion of Pacemaker Lead into Right Ventricle, Percutaneous Approach (ICD-10-PCS; 2018-08-26 07:45)
PROC: 02H63JZ Insertion of Pacemaker Lead into Right Atrium, Percutaneous Approach (ICD-10-PCS; 2018-08-26 07:45)
PROC: 0JH607Z Insertion of Cardiac Resynchronization Pacemaker Pulse Generator into Chest Subcutaneous Tissue and Fascia, Open Approach (ICD-10-PCS; 2018-08-26 07:45)
DX: I49.5 Sick sinus syndrome (principal); I48.92 Unspecified atrial flutter; I48.0 Paroxysmal atrial fibrillation; E78.5 Hyperlipidemia, unspecified; E03.9 Hypothyroidism, unspecified; M19.90 Unspecified osteoarthritis, unspecified site; I10 Essential (primary) hypertension; F41.9 Anxiety disorder, unspecified; M35.3 Polymyalgia rheumatica; Z90.89 Acquired absence of other organs; Z98.890 Other specified postprocedural states; Z98.42 Cataract extraction status, left eye; Z98.41 Cataract extraction status, right eye; Z82.49 Family history of ischemic heart disease and other diseases of the circulatory system; Z85.3 Personal history of malignant neoplasm of breast; Z92.3 Personal history of irradiation; Z80.9 Family history of malignant neoplasm, unspecified; Z79.01 Long term (current) use of anticoagulants; Z79.890 Hormone replacement therapy; Z79.899 Other long term (current) drug therapy; Z88.0 Allergy status to penicillin; Z88.2 Allergy status to sulfonamides; Z88.8 Allergy status to other drugs, medicaments and biological substances; Z88.1 Allergy status to other antibiotic agents; Z91.011 Allergy to milk products
CPT/HCPCS: 33208; 33210; 33225; 71046; 80048; 80053; 81001; 83735; 84439; 84443; 85025; 85610; 85730

== ENCOUNTER 2018-09-06 15:47 | Inpatient (IN) | payer MEDICARE ==
[2018-09-06] MEDS ORDERED: SODIUM CHLORIDE 0.9% 500 ML 500 ML IV ONE (16:35)
--- NOTE | 2018-09-06 16:38 | ED ---
General Adult HPI - General Chief complaint: Chest Pain Stated complaint: High heart rate Time Seen by Provider: 09/06/18 16:17 Source: patient, family, RN notes reviewed, old records reviewed Mode of arrival: wheelchair Limitations: no limitations - History of Present Illness Initial comments: 77 -year-old female presented for evaluation of tachycardia and palpitations. Patient has history of atrial fibrillation which was recently diagnosed, she had pacemaker placed approximately 2 weeks ago. She is currently anticoagulated and taking 100 mg of metoprolol twice daily. She took her morning dose at the usual time. In early afternoon hours she noted that her heart rate was in the 140s and 150s, she did call the hospital admissions clerk's office who recommended she present to the emergency department for evaluation. Prior to arrival she took a second do se of 100 mg of metoprolol. She states her symptoms have improved. She did endorse some mild chest tightness and dyspnea. Denies lower extremity swelling. Denies current significant chest pain. - Related Data Home Medications Medication Instructions Recorded Confirmed Citalopram Hydrobromide [CeleXA] 10 mg PO HS 08/04/14 09/06/18 Levothyroxine Sodium [Synthroid] 75 mcg PO MOTUWETHFRSA 06/26/18 09/06/18 Omeprazole [PriLOSEC] 20 mg PO AC-BRKFST 06/26/18 09/06/18 predniSONE 7.5 mg PO DAILY 06/26/18 09/06/18 Fluticasone Nasal [place] [Flonase 1 spray EA NOSTRIL BID 08/25/18 09/06/18 Nasal [place]] amLODIPine [Norvasc] 5 mg PO DAILY 08/25/18 09/06/18 traMADol HCL/ACETAMINOPHEN 1 - 2 tab PO Q8H 08/25/18 09/06/18 [Ultracet 37.5-325] DULoxetine HCL [Cymbalta] 30 mg PO BID 09/06/18 09/06/18 Hydrochlorothiazide 12.5 mg PO DAILY 09/06/18 09/06/18 Previous Rx's Medication Instructions Recorded Apixaban [Eliquis] 5 mg PO BID #60 tab 08/27/18 Atorvastatin [Lipitor] 10 mg PO HS #30 tab 08/27/18 Lisinopril [Zestril] 20 mg PO BID #60 tab 08/27/18 Metoprolol Tartrate [Lopressor] 100 mg PO BID #60 tab 08/27/18 Allergies Allergy/AdvReac Type Severity Reaction Status Date / Time doxycycline calcium Allergy SWELLING Verified 09/06/18 16:24 [From Vibramycin] AND RASH ON TONGUE doxycycline hyclate Allergy SWELLING Verified 09/06/18 16:24 [From Vibramycin] AND RASH ON TONGUE doxycycline monohydrate Allergy SWELLING Verified 09/06/18 16:24 [From Vibramycin] AND RASH ON TONGUE Milk Containing Products Allergy mouth sores Verified 09/06/18 16:24 [Dairy] propoxyphene HCl AdvReac Nausea & Verified 09/06/18 16:24 [From Darvon] Vomiting Sulfa (Sulfonamide AdvReac Nausea & Verified 09/06/18 16:24 Antibiotics) Vomiting Review of Systems ROS Statement: Those systems with pertinent positive or pertinent negative responses have been documented in the HPI. ROS Other: All systems not noted in ROS Statement are negative. Past Medical History Past Medical History: Atrial Fibrillation, Cancer, Hyperlipidemia, Hypertension, Osteoarthritis (OA), Thyroid Disorder Additional Past Medical History / Comment(s): heart murmer, scoliosis, spondylolisthoesis, BREAST CANCER with radiation. CHRONIC BACK PAIN., anemia, "prediabetic"-no rx or special diet, pessary for prolapse, fx lower back from fallMay 2018. PMR(polymyalgia rheumatica), unsteady on feet History of Any Multi-Drug Resistant Organisms: None Reported Past Surgical History: Back Surgery, Breast Surgery, Heart Catheterization, Hernia Repair, Orthopedic Surgery, Tonsillectomy Additional Past Surgical History / Comment(s): LEFT BREAST LUMPECTOMY, rt breast biopsy, back surgery x2-herniated disk L5S1 and L4 and 5 cyst, anuradha cataracts, anuradha hand trigger finger( 2 on left hand, one on rt hand), heel spur removed from left foot. pace maker placed Past Anesthesia/Blood Transfusion Reactions: Previous Problems w/ Anesthesia Additional Past Anesthesia/Blood Transfusion Reaction / Comment(s): "slow coming out" Past Psychological History: Anxiety Smoking Status: Never smoker Past Alcohol Use History: None Reported Past Drug Use History: None Reported - Past Family History Brother(s) Family Medical History: Cancer Mother Family Medical History: Congestive Heart Failure (CHF) General Exam Limitations: no limitations General appearance: alert, in no apparent distress Head exam: Present: atraumatic, normocephalic Eye exam: Present: normal appearance, PERRL ENT exam: Present: normal exam Neck exam: Present: normal inspection. Absent: tenderness, meningismus Respiratory exam: Present: normal lung sounds bilaterally. Absent: respiratory distress, wheezes, rales Cardiovascular Exam: Present: regular rate, irregular rhythm, systolic murmur GI/Abdominal exam: Present: soft. Absent: distended, tenderness, guarding Extremities exam: Present: normal inspection, normal capillary refill. Absent: pedal edema, calf tenderness Neurological exam: Present: alert, oriented X3, CN II-XII intact. Absent: motor sensory deficit Psychiatric exam: Present: normal affect, normal mood Skin exam: Present: warm, dry, intact. Absent: cyanosis, diaphoretic Course Vital Signs 09/06/18 15:53 Temperature 97.5 F L Pulse Rate 99 Respiratory 18 Rate Blood Pressure 85/61 O2 Sat by Pulse 96 Oximetry EKG Findings - EKG Comments: EKG Findings:: Atrial fibrillation with RVR, left axis deviation, left bundle branch block, rate of 104, QRS duration 118, QTC 426, similar compared to previous EKG on 08/25/2018, previous left bundle. Medical Decision Making - Medical Decision Making 77-year-old female with previous history of atrial fibrillation, anticoagulated presenting with palpitations, high heart rate and chest pain. Pain is quite minimal. EKG shows atrial fibrillation with left bundle branch block. She has a normal CBC, creatinine mildly elevated 1.07, magnesium is low at 1.3 which is replaced. Initial troponin 0.033, BNP is mildly elevated 3000. Chest x-ray negative for laura congestive heart failure. Patient is initiated on a Cardizem infusion, for rate control. She will be admitted with cardiology on consult, she is admitted to telemetry, serial cardiac enzymes will be obtained. Case discussed with the admitting physician. - Lab Data Result diagrams: 09/06/18 16:40 09/06/18 16:40 Lab Results 09/06/18 09/06/18 09/06/18 Range/Units 16:40 16:40 16:40 WBC 8.4 (3.8-10.6) k/uL RBC 4.16 (3.80-5.40) m/uL Hgb 12.7 (11.4-16.0) gm/dL Hct 40.0 (34.0-46.0) % MCV 96.2 (80.0-100.0) fL MCH 30.5 (25.0-35.0) pg MCHC 31.7 (31.0-37.0) g/dL RDW 13.7 (11.5-15.5) % Plt Count 270 (150-450) k/uL Neutrophils % 72 % Lymphocytes % 19 % Monocytes % 6 % Eosinophils % 2 % Basophils % 0 % Neutrophils # 6.1 (1.3-7.7) k/uL Lymphocytes # 1.6 (1.0-4.8) k/uL Monocytes # 0.5 (0-1.0) k/uL Eosinophils # 0.1 (0-0.7) k/uL Basophils # 0.0 (0-0.2) k/uL PT (9.0-12.0) sec INR (<1.2) APTT (22.0-30.0) sec Sodium 140 (137-145) mmol/L Potassium 4.6 (3.5-5.1) mmol/L Chloride 106 (98-107) mmol/L Carbon Dioxide 26 (22-30) mmol/L Anion Gap 8 mmol/L BUN 26 H (7-17) mg/dL Creatinine 1.07 H (0.52-1.04) mg/dL Est GFR (CKD-EPI)AfAm 58 (>60 ml/min/1.73 sqM) Est GFR (CKD-EPI)NonAf 50 (>60 ml/min/1.73 sqM) Glucose 163 H (74-99) mg/dL Calcium 10.0 (8.4-10.2) mg/dL Magnesium 1.3 L (1.6-2.3) mg/dL Total Bilirubin 0.3 (0.2-1.3) mg/dL AST 26 (14-36) U/L ALT 25 (9-52) U/L Alkaline Phosphatase 55 (38-126) U/L Troponin I (0.000-0.034) ng/mL NT-Pro-B Natriuret Pep 3170 pg/mL Total Protein 6.2 L (6.3-8.2) g/dL Albumin 3.8 (3.5-5.0) g/dL 09/06/18 09/06/18 Range/Units 16:40 16:40 WBC (3.8-10.6) k/uL RBC (3.80-5.40) m/uL Hgb (11.4-16.0) gm/dL Hct (34.0-46.0) % MCV (80.0-100.0) fL MCH (25.0-35.0) pg MCHC (31.0-37.0) g/dL RDW (11.5-15.5) % Plt Count (150-450) k/uL Neutrophils % % Lymphocytes % % Monocytes % % Eosinophils % % Basophils % % Neutrophils # (1.3-7.7) k/uL Lymphocytes # (1.0-4.8) k/uL Monocytes # (0-1.0) k/uL Eosinophils # (0-0.7) k/uL Basophils # (0-0.2) k/uL PT 10.9 (9.0-12.0) sec INR 1.0 (<1.2) APTT 23.5 (22.0-30.0) sec Sodium (137-145) mmol/L Potassium (3.5-5.1) mmol/L Chloride (98-107) mmol/L Carbon Dioxide (22-30) mmol/L Anion Gap mmol/L BUN (7-17) mg/dL Creatinine (0.52-1.04) mg/dL Est GFR (CKD-EPI)AfAm (>60 ml/min/1.73 sqM) Est GFR (CKD-EPI)NonAf (>60 ml/min/1.73 sqM) Glucose (74-99) mg/dL Calcium (8.4-10.2) mg/dL Magnesium (1.6-2.3) mg/dL Total Bilirubin (0.2-1.3) mg/dL AST (14-36) U/L ALT (9-52) U/L Alkaline Phosphatase (38-126) U/L Troponin I 0.033 (0.000-0.034) ng/mL NT-Pro-B Natriuret Pep pg/mL Total Protein (6.3-8.2) g/dL Albumin (3.5-5.0) g/dL Critical Care Time Critical Care Time: Yes Disposition Clinical Impression: Atrial fibrillation with RVR, Chest pain Disposition: ADMITTED IP TO THIS [facility] Condition: Stable Is patient prescribed a controlled substance at d/c from ED?: No Referrals: Smooth Dent III, MD [Primary Care Provider] - 1-2 days Decision to Admit Reason: Admit from EC Decision Date: 09/06/18 Decision Time: 18:36
[2018-09-06 17:15] LABS: Basophils % (A) 0 %; Eosinophils # (A) 0.1 k/uL (0-0.7); Eosinophils % (A) 2 %; HGB 12.7 gm/dL (11.4-16.0); Lymphocytes # (A) 1.6 k/uL (1.0-4.8); Lymphocytes % (A) 19 %; MCH 30.5 pg (25.0-35.0); MCHC 31.7 g/dL (31.0-37.0); MCV 96.2 fL (80.0-100.0); Mean Platelet Volume 6.9; Monocytes # (A) 0.5 k/uL (0-1.0); Monocytes % (A) 6 %; Neutrophils # (A) 6.1 k/uL (1.3-7.7); Neutrophils % (A) 72 %; Platelet Count 270 k/uL (150-450); RBC 4.16 m/uL (3.80-5.40); RDW 13.7 % (11.5-15.5); WBC 8.4 k/uL (3.8-10.6)
[2018-09-06 17:22] LABS: Albumin 3.8 g/dL (3.5-5.0); Magnesium 1.3 mg/dL (1.6-2.3); Potassium 4.6 mmol/L (3.5-5.1); Total Bilirubin 0.3 mg/dL (0.2-1.3); Total Protein 6.2 g/dL (6.3-8.2)
--- NOTE | 2018-09-06 17:26 | XR ---
EXAMINATION TYPE: XR chest 2V DATE OF EXAM: 09/06/2018 COMPARISON: 08/27/2018 HISTORY: Chest tightness TECHNIQUE: Frontal and lateral views of the chest are obtained. FINDINGS: There is no heart failure nor confluent pneumonic infiltrate. Thoracic aorta is atheromato us. There is a left axillary pacemaker. There are chest leads. There is osteopenia. There is 50% comp ression deformity of T7. There is 40% compression of T11. IMPRESSION: No active cardiopulmonary disease. There is clearing of small pleural effusions compared to old exam.
[2018-09-06 17:29] LABS: Partial Thromboplastin Time 23.5 sec (22.0-30.0); Prothrombin Time 10.9 sec (9.0-12.0)
[2018-09-06] MEDS ORDERED: NALOXONE 0.4 MG/ML 1 ML VIAL IV PRN (18:31)
[2018-09-06] MEDS ORDERED: ACETAMINOPHEN TAB 325 MG TAB PO PRN (18:31)
[2018-09-06] MEDS: MAGNESIUM SULFATE-D5W PMX 1 GM in DEXTROSE/WATER 1 100ML.BAG IVPB SCH ×2 (18:40→21:23)
[2018-09-06] MEDS ORDERED: ATORVASTATIN 10 MG TAB PO SCH (21:00)
[2018-09-06] MEDS ORDERED: CITALOPRAM HYDROBROMIDE 10 MG TAB PO SCH (21:00)
[2018-09-06] MEDS: METOPROLOL TARTRATE 50 MG TAB PO SCH (21:22)
[2018-09-06] MEDS: DULoxetine HCL 30 MG CAPSULE.DR PO SCH (21:22)
[2018-09-06] MEDS: APIXABAN 5 MG TAB PO SCH (21:22)
[2018-09-06] MEDS: FLUTICASONE 50MCG/SPRAY NASAL 16GM EA NOSTRIL SCH (22:01)
[2018-09-07 04:47] LABS: HCT 35.4 % (34.0-46.0); HGB 11.2 gm/dL (11.4-16.0); MCH 30.5 pg (25.0-35.0); MCHC 31.7 g/dL (31.0-37.0); MCV 96.3 fL (80.0-100.0); Mean Platelet Volume 7.2; Platelet Count 230 k/uL (150-450); RBC 3.67 m/uL (3.80-5.40); RDW 15.1 % (11.5-15.5); WBC 7.4 k/uL (3.8-10.6)
[2018-09-07 04:54] LABS: Calcium 9.1 mg/dL (8.4-10.2); Magnesium 1.8 mg/dL (1.6-2.3); Potassium 4.6 mmol/L (3.5-5.1); Total Bilirubin 0.1 mg/dL (0.2-1.3); Total Protein 5.2 g/dL (6.3-8.2)
[2018-09-07] MEDS ORDERED: LEVOTHYROXINE 75 MCG TAB PO SCH (06:30)
[2018-09-07] MEDS ORDERED: PANTOPRAZOLE 40 MG TABLET PO SCH (07:30)
[2018-09-07] MEDS: DULoxetine HCL 30 MG CAPSULE.DR PO SCH (08:29)
[2018-09-07] MEDS: DILTIAZEM 125 MG in SODIUM CHLORIDE 0.9% 100 ML IV SCH ×2 (08:31→11:00)
[2018-09-07] MEDS: METOPROLOL TARTRATE 50 MG TAB PO SCH (08:35)
[2018-09-07] MEDS: FLUTICASONE 50MCG/SPRAY NASAL 16GM EA NOSTRIL SCH (08:36)
[2018-09-07] MEDS: APIXABAN 5 MG TAB PO SCH (08:36)
[2018-09-07 08:37] VITALS: RESP 18
[2018-09-07] MEDS ORDERED: predniSONE 2.5 MG TAB PO SCH (09:00)
[2018-09-07] MEDS ORDERED: traMADol-ACETAMINOP 37.5-325MG 1 EACH TAB PO PRN (09:06)
--- NOTE | 2018-09-07 11:25 | P.CRDCN ---
History of Present Illness Consult date: 09/07/18 Requesting physician: Nickolas Serrano Consult reason: atrial fibrillation Chief complaint: Palpitations History of present illness: This is a pleasant 77-year-old female who follows with Dr. Jack in the office. She has a known history of diabetes, hypertension, hyperlipidemia, cardiac catheterization performed in 2007 revealed 70% disease in the ostial portion of the diagonal branch with a normal ejection fraction, echo performed in May 2018 revealed a normal LV function with mild to moderate AR, moderate to severe MR and moderate TR. Most recently the patient was in the hospital last month diagnosed at that time with atrial fibrillation, also underwent implantation of a permanent pacemaker by Dr. Allen. She presents to the hospital on this occasion with symptoms of palpitations and heart racing. Chest x-ray on arrival here did not reveal any active cardiopulmonary disease. Her EKG on presentation here showed atrial fibrillation with a rapid ventricular response. White blood cell count is normal, hemoglobin 11.2, platelet count 2:30. Sodium 139, potassium 4.6, BUN 21 and creatinine 0.8. Magnesium on arrival here was 1.3, 1.8 this morning. BNP level 3170, troponin 0.033, 0.028, 0.029. Blood pressure on arrival here 85/60 with a heart rate in the 120 range, afebrile, 96% on room air. Patient is currently in a normal sinus rhythm. Patient normally takes 100 mg of metoprolol twice a day, she today Her dose prior to coming to the hospital and subsequently converted to normal sinus rhythm. At the time of my examination this morning she continues to be in a normal sinus rhythm. Past Medical History Past Medical History: Atrial Fibrillation, Cancer, Hyperlipidemia, Hypertension, Osteoarthritis (OA), Thyroid Disorder Additional Past Medical History / Comment(s): heart murmer, scoliosis, spondylolisthoesis, BREAST CANCER with radiation. CHRONIC BACK PAIN., anemia, "prediabetic"-no rx or special diet, pessary for prolapse, fx lower back from fallMay 2018. PMR(polymyalgia rheumatica), unsteady on feet History of Any Multi-Drug Resistant Organisms: None Reported Past Surgical History: Back Surgery, Breast Surgery, Heart Catheterization, Hernia Repair, Orthopedic Surgery, Tonsillectomy Additional Past Surgical History / Comment(s): LEFT BREAST LUMPECTOMY, rt breast biopsy, back surgery x2-herniated disk L5S1 and L4 and 5 cyst, anuradha cataracts, anuradha hand trigger finger( 2 on left hand, one on rt hand), heel spur removed from left foot. pace maker placed Past Anesthesia/Blood Transfusion Reactions: Previous Problems w/ Anesthesia Additional Past Anesthesia/Blood Transfusion Reaction / Comment(s): "slow coming out" Past Psychological History: Anxiety Smoking Status: Never smoker Past Alcohol Use History: None Reported Past Drug Use History: None Reported - Past Family History Brother(s) Family Medical History: Cancer Mother Family Medical History: Congestive Heart Failure (CHF) Medications and Allergies Home Medications Medication Instructions Recorded Confirmed Type Citalopram Hydrobromide [CeleXA] 10 mg PO HS 08/04/14 09/06/18 History Levothyroxine Sodium [Synthroid] 75 mcg PO MOTUWETHFRSA 06/26/18 09/06/18 History Omeprazole [PriLOSEC] 20 mg PO AC-BRKFST 06/26/18 09/06/18 History predniSONE 7.5 mg PO DAILY 06/26/18 09/06/18 History Fluticasone Nasal [place] [Flonase 1 spray EA NOSTRIL BID 08/25/18 09/06/18 History Nasal [place]] amLODIPine [Norvasc] 5 mg PO DAILY 08/25/18 09/06/18 History traMADol HCL/ACETAMINOPHEN 1 - 2 tab PO Q8H 08/25/18 09/06/18 History [Ultracet 37.5-325] Apixaban [Eliquis] 5 mg PO BID #60 tab 08/27/18 09/06/18 Rx Atorvastatin [Lipitor] 10 mg PO HS #30 tab 08/27/18 09/06/18 Rx Lisinopril [Zestril] 20 mg PO BID #60 tab 08/27/18 09/06/18 Rx Metoprolol Tartrate [Lopressor] 100 mg PO BID #60 tab 08/27/18 09/06/18 Rx DULoxetine HCL [Cymbalta] 30 mg PO BID 09/06/18 09/06/18 History Hydrochlorothiazide 12.5 mg PO DAILY 09/06/18 09/06/18 History Allergies Allergy/AdvReac Type Severity Reaction Status Date / Time doxycycline calcium Allergy SWELLING Verified 09/06/18 16:24 [From Vibramycin] AND RASH ON TONGUE doxycycline hyclate Allergy SWELLING Verified 09/06/18 16:24 [From Vibramycin] AND RASH ON TONGUE doxycycline monohydrate Allergy SWELLING Verified 09/06/18 16:24 [From Vibramycin] AND RASH ON TONGUE Milk Containing Products Allergy mouth sores Verified 09/06/18 16:24 [Dairy] propoxyphene HCl AdvReac Nausea & Verified 09/06/18 16:24 [From Darvon] Vomiting Sulfa (Sulfonamide AdvReac Nausea & Verified 09/06/18 16:24 Antibiotics) Vomiting Physical Exam Vitals: Vital Signs Temp Pulse Pulse Resp BP BP Pulse Ox 09/07/18 11:09 81 09/07/18 08:00 97.8 F 81 18 131/70 96 09/07/18 03:20 97.9 F 74 16 176/77 96 09/06/18 23:40 97.8 F 71 16 156/72 94 L 09/06/18 20:23 97.6 F 105 H 16 126/92 98 09/06/18 18:35 96 18 115/87 95 09/06/18 15:53 97.5 F L 99 18 85/61 96 Intake and Output 09/06/18 09/07/18 09/07/18 22:59 06:59 14:59 Intake Total 240 Output Total 250 450 Balance -250 -450 240 Intake: Oral 240 Output: Urine 250 450 Other: Voiding Method Toilet # Voids 1 1 Weight 50.802 kg 53.5 kg PHYSICAL EXAMINATION: GENERAL: 77-year-old female in no acute distress at the time of my examination HEENT: Head is atraumatic, normocephalic. Pupils equal, round. Sclera anicteric. Conjunctiva are clear. Mucous membranes of the mouth are moist. Neck is supple. There is no elevated jugular venous pressure. No carotid] bruit is heard. HEART EXAMINATION: Heart S1 and S2 systolic ejection murmur is heard at the base , holosystolic murmur heard at the apex CHEST EXAMINATION: Lungs are clear to auscultation and precussion. No chest wall tenderness is noted on palpation or with deep breathing. ABDOMEN: Soft, nontender. Bowel sounds are heard. No organomegaly noted. EXTREMITIES: 2+ peripheral pulses with no evidence of peripheral edema and no calf tenderness noted. NEUROLOGIC patient is awake, alert and oriented 3. . Results 09/07/18 04:25 09/07/18 04:25 Cardiac Enzymes 09/06/18 09/06/18 09/06/18 Range/Units 16:40 16:40 22:21 AST 26 (14-36) U/L Troponin I 0.033 0.028 (0.000-0.034) ng/mL 09/07/18 09/07/18 Range/Units 04:25 04:25 AST 22 (14-36) U/L Troponin I 0.029 (0.000-0.034) ng/mL Coagulation 09/06/18 Range/Units 16:40 PT 10.9 (9.0-12.0) sec APTT 23.5 (22.0-30.0) sec CBC 09/06/18 09/07/18 Range/Units 16:40 04:25 WBC 8.4 7.4 (3.8-10.6) k/uL RBC 4.16 3.67 L (3.80-5.40) m/uL Hgb 12.7 11.2 L (11.4-16.0) gm/dL Hct 40.0 35.4 (34.0-46.0) % Plt Count 270 230 (150-450) k/uL Comprehensive Metabolic Panel 09/06/18 09/07/18 Range/Units 16:40 04:25 Sodium 140 139 (137-145) mmol/L Potassium 4.6 4.6 (3.5-5.1) mmol/L Chloride 106 108 H (98-107) mmol/L Carbon Dioxide 26 25 (22-30) mmol/L BUN 26 H 21 H (7-17) mg/dL Creatinine 1.07 H 0.82 (0.52-1.04) mg/dL Glucose 163 H 106 H (74-99) mg/dL Calcium 10.0 9.1 (8.4-10.2) mg/dL AST 26 22 (14-36) U/L ALT 25 24 (9-52) U/L Alkaline Phosphatase 55 50 (38-126) U/L Total Protein 6.2 L 5.2 L (6.3-8.2) g/dL Albumin 3.8 3.0 L (3.5-5.0) g/dL Current Medications Generic Name Dose Route Start Last Admin Trade Name Freq PRN Reason Stop Dose Admin Acetaminophen 650 mg 09/06/18 18:31 09/07/18 08:41 Tylenol Tab PO 650 mg Q6HR PRN Administration Mild Pain or Fever > 100.5 Apixaban 5 mg 09/06/18 21:00 09/07/18 08:36 Eliquis PO 5 mg BID CLAUDY Administration Atorvastatin Calcium 10 mg 09/06/18 21:00 09/06/18 21:22 Lipitor PO 10 mg HS CLAUDY Administration Citalopram Hydrobromide 10 mg 09/06/18 21:00 09/06/18 21:22 Celexa PO 10 mg HS CLAUDY Administration Duloxetine HCl 30 mg 09/06/18 21:00 09/07/18 08:29 Cymbalta PO Not Given BID CLAUDY Fluticasone Propionate 1 spray 09/06/18 21:00 09/07/18 08:36 Flonase Nasal [place] EA NOSTRIL Not Given BID CLAUDY Diltiazem HCl 125 mg/ Sodium 125 mls @ 5 mls/hr 09/06/18 18:45 09/07/18 11:00 Chloride IV Not Given .Q24H CLAUDY 5 MG/HR Levothyroxine Sodium 75 mcg 09/07/18 06:30 09/07/18 06:23 Synthroid PO 75 mcg [id number] CLAUDY Administration Metoprolol Tartrate 100 mg 09/06/18 21:00 09/07/18 08:35 Lopressor PO 100 mg BID CLAUDY Administration Naloxone HCl 0.2 mg 09/06/18 18:31 Narcan IV Q2M PRN Opioid Reversal Pantoprazole Sodium 40 mg 09/07/18 07:30 09/07/18 08:35 Protonix PO 40 mg AC-BRKFST CLAUDY Administration Prednisone 7.5 mg 09/07/18 09:00 09/07/18 08:35 PO 7.5 mg DAILY CLAUDY Administration Tramadol/Acetaminophen 2 each 09/07/18 09:06 09/07/18 09:14 Ultracet PO 2 each Q8HR PRN Administration Pain Intake and Output 09/06/18 09/07/18 09/07/18 22:59 06:59 14:59 Intake Total 240 Output Total 250 450 Balance -250 -450 240 Intake: Oral 240 Output: Urine 250 450 Other: Voiding Method Toilet # Voids 1 1 Weight 50.802 kg 53.5 kg 09/07/18 04:25 09/07/18 04:25 EKG Interpretations (text) Initial EKG shows atrial fibrillation with a rapid ventricular response Assessment and Plan Plan: Assessment and plan #1 atrial fibrillation with rapid ventricular response, paroxysmal, currently in normal sinus rhythm #2 recent pacemaker implantation for tachybradycardia syndrome #3 hypothyroidism #4 hypertension Plan Patient just had an echocardiogram with Doppler study performed in May which revealed a normal left ventricular systolic function, we will not repeat an echo at this time. We will increase the dose of beta consuelo to 100 mg by mouth 3 times a day, continue anticoagulation with Eliquis, and check a TSH level. From our perspective she should be able to be discharged home, she has a follow-up appointment with Dr. Jack in early September. DNP note has been reviewed, I agree with a documented findings and plan of care. Patient was seen and examined.
--- NOTE | 2018-09-07 12:47 | P.HPIM ---
History of Present Illness Patient is a pleasant 71-year-old female with known history of fatigability syndrome or sick sinus syndrome has a pacemaker in place takes metoprolol 100 twice a day came in with complaints of palpitations and elevated blood pressure. Patient is found to have elevated pulse when she checked her blood pressure. Patient took an additional dose of metoprolol and the patient came to ER even before she was to started on Cardizem patient converted to sinus rhythm. Troponins are minimally elevated to 0.033 0.028 and 0.029 which is stable at that level patient blood pressure is kind of low when she came in. Cardiology evaluated the patient increase the dose of metoprolol 200 3 times a day and patient will be discharged on the dose patient denied any fever chills cough patient does not have any signs or symptoms of sepsis at this time. Since her blood pressure is low I'll discontinue Norvasc and I'll leave the addition of t he continuing or discontinuing CADEN inhibitor to cardiology. Patient has not been taking her hydrochlorothiazide at home. Patient's TSH is within normal limits and was counseled regarding appropriate way of checking blood pressure and will be discharged today. Review of Systems REVIEW OF SYSTEMS: CONSTITUTIONAL: No fever, no malaise, no fatigue. HEENT: No recent visual problems or hearing problems. Denied any sore throat. CARDIOVASCULAR: No chest pain, orthopnea, PND, no syncope. PULMONARY: No shortness of breath, no cough, no hemoptysis. GASTROINTESTINAL: No diarrhea, no nausea, no vomiting, no abdominal pain. NEUROLOGICAL: No headaches, no weakness, no numbness. HEMATOLOGICAL: Denies any bleeding or petechiae. GENITOURINARY: Denies any burning micturition, frequency, or urgency. MUSCULOSKELETAL/RHEUMATOLOGICAL: Denies any joint pain, swelling, or any muscle pain. ENDOCRINE: Denies any polyuria or polydipsia. The rest of the 14-point review of systems is negative. Past Medical History Past Medical History: Atrial Fibrillation, Cancer, Hyperlipidemia, Hypertension, Osteoarthritis (OA), Thyroid Disorder Additional Past Medical History / Comment(s): heart murmer, scoliosis, spondylolisthoesis, BREAST CANCER with radiation. CHRONIC BACK PAIN., anemia, "prediabetic"-no rx or special diet, pessary for prolapse, fx lower back from fall May 2018. PMR(polymyalgia rheumatica), unsteady on feet History of Any Multi-Drug Resistant Organisms: None Reported Past Surgical History: Back Surgery, Breast Surgery, Heart Catheterization, Hernia Repair, Orthopedic Surgery, Tonsillectomy Additional Past Surgical History / Comment(s): LEFT BREAST LUMPECTOMY, rt breast biopsy, back surgery x2-herniated disk L5S1 and L4 and 5 cyst, anuradha cataracts, anuradha hand trigger finger( 2 on left hand, one on rt hand), heel spur removed from left foot. pace maker placed Past Anesthesia/Blood Transfusion Reactions: Previous Problems w/ Anesthesia Additional Past Anesthesia/Blood Transfusion Reaction / Comment(s): "slow coming out" Past Psychological History: Anxiety Smoking Status: Never smoker Past Alcohol Use History: None Reported Past Drug Use History: None Reported - Past Family History Brother(s) Family Medical History: Cancer Mother Family Medical History: Congestive Heart Failure (CHF) Medications and Allergies Home Medications Medication Instructions Recorded Confirmed Type Citalopram Hydrobromide [CeleXA] 10 mg PO HS 08/04/14 09/06/18 History Levothyroxine Sodium [Synthroid] 75 mcg PO MOTUWETHFRSA 06/26/18 09/06/18 History Omeprazole [PriLOSEC] 20 mg PO AC-BRKFST 06/26/18 09/06/18 History predniSONE 7.5 mg PO DAILY 06/26/18 09/06/18 History Fluticasone Nasal [place] [Flonase 1 spray EA NOSTRIL BID 08/25/18 09/06/18 History Nasal [place]] traMADol HCL/ACETAMINOPHEN 1 - 2 tab PO Q8H 08/25/18 09/06/18 History [Ultracet 37.5-325] Apixaban [Eliquis] 5 mg PO BID #60 tab 08/27/18 09/06/18 Rx Atorvastatin [Lipitor] 10 mg PO HS #30 tab 08/27/18 09/06/18 Rx Lisinopril [Zestril] 20 mg PO BID #60 tab 08/27/18 09/06/18 Rx DULoxetine HCL [Cymbalta] 30 mg PO BID 09/06/18 09/06/18 History Metoprolol Tartrate [Lopressor] 100 mg PO TID tab 09/07/18 Rx Allergies Allergy/AdvReac Type Severity Reaction Status Date / Time doxycycline calcium Allergy SWELLING Verified 09/06/18 16:24 [From Vibramycin] AND RASH ON TONGUE doxycycline hyclate Allergy SWELLING Verified 09/06/18 16:24 [From Vibramycin] AND RASH ON TONGUE doxycycline monohydrate Allergy SWELLING Verified 09/06/18 16:24 [From Vibramycin] AND RASH ON TONGUE Milk Containing Products Allergy mouth sores Verified 09/06/18 16:24 [Dairy] propoxyphene HCl AdvReac Nausea & Verified 09/06/18 16:24 [From Darvon] Vomiting Sulfa (Sulfonamide AdvReac Nausea & Verified 09/06/18 16:24 Antibiotics) Vomiting Physical Exam Vitals: Vital Signs Temp Pulse Pulse Resp BP BP Pulse Ox 09/07/18 11:09 81 09/07/18 08:00 97.8 F 81 18 131/70 96 09/07/18 03:20 97.9 F 74 16 176/77 96 09/06/18 23:40 97.8 F 71 16 156/72 94 L 09/06/18 20:23 97.6 F 105 H 16 126/92 98 09/06/18 18:35 96 18 115/87 95 09/06/18 15:53 97.5 F L 99 18 85/61 96 Intake and Output 09/06/18 09/07/18 09/07/18 22:59 06:59 14:59 Intake Total 240 Output Total 250 450 Balance -250 -450 240 Intake: Oral 240 Output: Urine 250 450 Other: Voiding Method Toilet # Voids 1 1 Weight 50.802 kg 53.5 kg PHYSICAL EXAMINATION: GENERAL: The patient is alert and oriented x3, not in any acute distress. Well developed, well nourished. HEENT: Pupils are round and equally reacting to light. EOMI. No scleral icterus. No conjunctival pallor. Normocephalic, atraumatic. No pharyngeal erythema. No thyromegaly. CARDIOVASCULAR: S1 and S2 present. No murmurs, rubs, or gallops. PULMONARY: Chest is clear to auscultation, no wheezing or crackles. ABDOMEN: Soft, nontender, nondistended, normoactive bowel sounds. No palpable organomegaly. MUSCULOSKELETAL: No joint swelling or deformity. EXTREMITIES: No cyanosis, clubbing, or pedal edema. NEUROLOGICAL: Gross neurological examination did not reveal any focal deficits. SKIN: No rashes. Results CBC & Chem 7: 09/07/18 04:25 09/07/18 04:25 Labs: Abnormal Lab Results - Last 24 Hours (Table) 09/06/18 09/07/18 09/07/18 Range/Units 16:40 04:25 04:25 RBC 3.67 L (3.80-5.40) m/uL Hgb 11.2 L (11.4-16.0) gm/dL Chloride 108 H (98-107) mmol/L BUN 26 H 21 H (7-17) mg/dL Creatinine 1.07 H (0.52-1.04) mg/dL Glucose 163 H 106 H (74-99) mg/dL Magnesium 1.3 L (1.6-2.3) mg/dL Total Bilirubin 0.1 L (0.2-1.3) mg/dL Total Protein 6.2 L 5.2 L (6.3-8.2) g/dL Albumin 3.0 L (3.5-5.0) g/dL Thrombosis Risk Factor Assmnt - Choose All That Apply Any of the Below Risk Factors Present?: Yes Each Factor Represents 1 point: Swollen legs (current) Other Risk Factors: Yes Each Risk Factor Represents 3 Points: Age 75 years or older Other congenital or acquired thrombophilia - If yes, enter type in comment: No Thrombosis Risk Factor Assessment Total Risk Factor Score: 4 Thrombosis Risk Factor Assessment Level: Moderate Risk Assessment and Plan Plan: Atrial fibrillation with rapid ventricular rate presently sinus rhythm rate controlled management as mentioned above -sinus syndrome for which patient has and pacemaker -Hypothyroidism -Hypertension -Hyperlipidemia -Osteoarthritis Plan as mentioned above possibly of discharge. By cardiology today
--- NOTE | 2018-09-07 12:47 | P.DS ---
Providers Date of admission: 09/06/18 18:31 Attending physician: Nickolas Serrano Consults: 09/06/18 18:32 Consult Physician Routine Consulting Provider: Jono Alanis Consult Reason/Comments: A. fib with RVR, chest pain Do you want consulting provider notified?: Yes Primary care physician: [facility] Course: As mentioned in HPI Patient Condition at Discharge: Stable Plan - Discharge Summary Discharge Rx Participant: Yes New Discharge Prescriptions: New Metoprolol Tartrate [Lopressor] 100 mg PO TID tab Continue Citalopram Hydrobromide [CeleXA] 10 mg PO HS Omeprazole [PriLOSEC] 20 mg PO AC-BRKFST predniSONE 7.5 mg PO DAILY Levothyroxine Sodium [Synthroid] 75 mcg PO MOTUWETHFRSA Fluticasone Nasal [place] [Flonase Nasal [place]] 1 spray EA NOSTRIL BID traMADol HCL/ACETAMINOPHEN [Ultracet 37.5-325] 1 - 2 tab PO Q8H Atorvastatin [Lipitor] 10 mg PO HS #30 tab Apixaban [Eliquis] 5 mg PO BID #60 tab DULoxetine HCL [Cymbalta] 30 mg PO BID Changed Lisinopril [Zestril] 20 mg PO DAILY #60 tab Discontinued amLODIPine [Norvasc] 5 mg PO DAILY Metoprolol Tartrate [Lopressor] 100 mg PO BID #60 tab Hydrochlorothiazide 12.5 mg PO DAILY Discharge Medication List Citalopram Hydrobromide [CeleXA] 10 mg PO HS 08/04/14 [History] Levothyroxine Sodium [Synthroid] 75 mcg PO MOTUWETHFRSA 06/26/18 [History] Omeprazole [PriLOSEC] 20 mg PO AC-BRKFST 06/26/18 [History] predniSONE 7.5 mg PO DAILY 06/26/18 [History] Fluticasone Nasal [place] [Flonase Nasal [place]] 1 spray EA NOSTRIL BID 08/25/18 [History] traMADol HCL/ACETAMINOPHEN [Ultracet 37.5-325] 1 - 2 tab PO Q8H 08/25/18 [History] Apixaban [Eliquis] 5 mg PO BID #60 tab 08/27/18 [Rx] Atorvastatin [Lipitor] 10 mg PO HS #30 tab 08/27/18 [Rx] DULoxetine HCL [Cymbalta] 30 mg PO BID 09/06/18 [History] Lisinopril [Zestril] 20 mg PO DAILY #60 tab 09/07/18 [Rx] Metoprolol Tartrate [Lopressor] 100 mg PO TID tab 09/07/18 [Rx] Follow up Appointment(s)/Referral(s): Smooth Dent III, MD [Primary Care Provider] - 3 Days Discharge Disposition: HOME SELF-CARE
[2018-09-07 13:46] VITALS: BP 145/70; PULSE 69; TEMP 97.5
[2018-09-07] MEDS ORDERED: METOPROLOL TARTRATE 50 MG TAB PO SCH (16:00)
== END 2018-09-07 14:04 | disposition home or self-care (01) | DRG 310 ==
LOC: EC 15:47 → 3SCARD 18:31
PROVIDERS: ADMIT Hospitalist; ATTEND Hospitalist
DX: I48.91 Unspecified atrial fibrillation (principal); E03.9 Hypothyroidism, unspecified; E11.9 Type 2 diabetes mellitus without complications; E78.5 Hyperlipidemia, unspecified; F41.9 Anxiety disorder, unspecified; I10 Essential (primary) hypertension; I44.7 Left bundle-branch block, unspecified; M19.90 Unspecified osteoarthritis, unspecified site; I49.5 Sick sinus syndrome; M35.3 Polymyalgia rheumatica; M41.9 Scoliosis, unspecified; G89.29 Other chronic pain; Z79.01 Long term (current) use of anticoagulants; Z79.890 Hormone replacement therapy; Z79.899 Other long term (current) drug therapy; Z82.49 Family history of ischemic heart disease and other diseases of the circulatory system; Z95.0 Presence of cardiac pacemaker; Z85.3 Personal history of malignant neoplasm of breast; Z90.89 Acquired absence of other organs; Z98.42 Cataract extraction status, left eye; Z98.41 Cataract extraction status, right eye; Z80.9 Family history of malignant neoplasm, unspecified; Z88.1 Allergy status to other antibiotic agents; Z88.2 Allergy status to sulfonamides; Z91.011 Allergy to milk products; Z98.61 Coronary angioplasty status; Z98.890 Other specified postprocedural states
CPT/HCPCS: 36415; 71046; 80053; 83735; 83880; 84443; 84484; 85025; 85027; 85610; 85730; 96361; 96365; 99285

== ENCOUNTER → 2020-04-12 | Outpatient (CLI) | payer MEDICARE ==
--- NOTE | 2020-04-12 12:41 | CT ---
EXAMINATION TYPE: CT chest w con DATE OF EXAM: 04/12/2020 COMPARISON: NONE HISTORY: Follow up scan. History of breast cancer. Lung nodule per order. CT DLP: 116.8 mGycm. Automated Exposure Control for Dose Reduction was Utilized. TECHNIQUE: CT scan of the thorax is performed following with IV Contrast, patient injected with 65 m L of Isovue 300. FINDINGS: LUNGS: Biapical pleural/parenchymal scarring. Additional scattered areas of mild linear scarring bila terally. There is nodularity medially in the right lower lobe in the linear distribution seen best sa gittal image 35 measuring over a 2.5 x 0.8 cm distribution inferior and lateral to this there is foca l mild to moderate linear scarring. No pleural effusion or pneumothorax seen bilaterally. MEDIASTINUM: There are no greater than 1 cm hilar or mediastinal lymph nodes. No pericardial effusi on is seen. Cardiomegaly with dual-lead pacemaker. Coronary artery calcification is present which is noted marker for underlying coronary artery disease. OTHER: Cortical thinning in both kidneys with a few simple appearing thin-walled cysts and visualized portion of right kidney. Osseous structures are demineralized. Underlying scoliosis is present. Mild to moderate chronic compression fracture deformity at T12 level. Additional mild chronic compression type fracture deformities in the midthoracic spine. IMPRESSION: Linear distributed small nodules or lobulated single nodule, former favored, findings see n best on sagittal imaging. Adjacent linear scarring. Findings favor postinflammatory. Without prior comparison PET CT may be warranted to exclude neoplasm.
== END | disposition home or self-care (01) ==
LOC: RADCTMAIN 10:47
PROVIDERS: ATTEND Internal Medicine Critical Care Medicine
DX: J98.4 Other disorders of lung (principal); Z88.2 Allergy status to sulfonamides; Z88.5 Allergy status to narcotic agent; Z88.8 Allergy status to other drugs, medicaments and biological substances; R91.1 Solitary pulmonary nodule
CPT/HCPCS: 82565; 84520; 71260; 36415; Q9967

== ENCOUNTER → 2020-10-15 | Outpatient (CLI) | payer MEDICARE ==
--- NOTE | 2020-10-15 14:37 | CT ---
EXAMINATION TYPE: CT chest wo con DATE OF EXAM: 10/15/2020 COMPARISON: 04/12/2020 HISTORY: Follow up scan per patient CT DLP: 161.3 mGycm. Automated Exposure Control for Dose Reduction was Utilized. TECHNIQUE: CT scan of the thorax is performed without IV contrast. FINDINGS: LUNGS: The lungs are grossly clear, there is no concerning parenchymal mass or nodule identified. T here is no pleural effusion or pneumothorax seen. The tracheobronchial tree is patent. Biapical pleu ral thickening. Area of tubular nodular density in the right lower lobe posterior segment measuring 2 .5 x 0.8 cm is similar in appearance the prior exam. Additional areas of subsegmental consolidation m ost typical of atelectasis. MEDIASTINUM: Lack of IV contrast is noted to limit evaluation for mediastinal and especially hilar ad enopathy. There are no definitive greater than 1 cm hilar or mediastinal lymph nodes. Cardiomegaly with dual-lead pacemaker. Coronary artery calcification is present which is noted marker for underlyi ng coronary artery disease. OTHER: Indeterminate renal lesions by noncontrast technique similar in size to the prior exam. Osseou s structures are demineralized. Underlying scoliosis is present. Mild to moderate degenerative change s. Chronic compression fracture deformity at T12 level. Additional mild chronic compression type frac ture deformities in the midthoracic spine. . IMPRESSION: 1. Area of nodularity or lobulated nodule in the right lower lobe is similar in appearance to the cassandra or exam demonstrating no significant interval change.
== END | disposition home or self-care (01) ==
LOC: RADCTMAIN 12:20
PROVIDERS: ATTEND Internal Medicine Critical Care Medicine
DX: R91.8 Other nonspecific abnormal finding of lung field (principal)
CPT/HCPCS: 36415; 71250; 82565; 84520

== ENCOUNTER → 2021-05-26 | Outpatient (CLI) | payer MEDICARE ==
[2021-05-26 09:37] VITALS: BP 143/65; PULSE 71; RESP 18
--- NOTE | 2021-05-26 09:55 | P.CON ---
Consult Note - . Consult date: 05/26/21 Assessment/Plan:: HISTORY OF PRESENT ILLNESS: 80 yr old wheelchair-bound female with daughter at side as a referral from Dr. Almeida presents today with lower back pain due to disc bulges, spondylolisthesis, bilateral neuroforaminal stenoses, facet arthropathy and left L4 nerve root encroachment for an evaluation. Patient states her lower back pain has been a problem since 1992, is 7 out of 10 in intensity, sore, achy, waxes and wanes in intensity with radiation of pain like a band left and right of midline, and shooting pain to the hips bilaterally, and right lower extremities. Patient also admits to numbness in her feet right greater than left. Pain is provoked when sitting for periods of 1 hour or more, standing for 20 minutes or more or walking for 5 minutes. Pain is relieved with Tylenol extra strength, topical Biofreeze gel, injections in the past, ice, heat, physical therapy on and off since 1992, use of a wheelchair or cane for ambulation, laying supine and rest. PMH: HTN, aFib, MDD, Hyperlipidemia, GERD, Hypothyroidism, Osteoporosis, Insulin Dependent Diabetes Mellitus PSH: LESI x 3. Lumbar surgeries x 2. Pacemaker insertion, Cataract repair SH: Negative x 3. FH: HTN All: See list Meds: See list REVIEW OF ORGAN SYSTEMS: CONSTITUTIONAL: No fevers or chills. No recent weight loss. HEENT: No visual acuity loss, eye pain, difficulties with hearing. No nosebleeds. No difficulty swallowing. RESPIRATORY: Denies any troubles with breathing or dyspnea on exertion. CARDIOVASCULAR: Denies any chest pain, palpitations, or recent heart attacks. GASTROINTESTINAL: Denies fatty food intolerance. Has change in bowel habits and gas bloat. GENITOURINARY: Denies any blood in urine. Has increased urinary frequency. NEUROLOGICAL: + numbness and tingling along the distal extremities. No seizure disorders or headaches. MUSCULOSKELETAL: + back pain SKIN: No skin cancer. No rash. PSYCHIATRIC: Denies current depression or suicidal thoughts. ENDOCRINE: Denies current thyroid disorders. Denies any blood sugar glucose intolerance. HEME/LYMPHATIC: Denies any lumps and bumps around the neck. History of deep venous thrombosis. ALLERGY/IMMUNOLOGY: No immunoglobulin therapy. No immune deficiencies. BREAST: Denies current breast lumps, pain or nipple discharge. Physical Examinations : Constitutional : Cooperative , not in acute distress . HEENT: Neck supple. No Lymphadenopathy. Normal thyroid size . Eyes no ptosis , no icterus, no photophobia . Hearing intact. Normal oropharynx. No Thrush. Respiratory : Chest clear to auscultations bilaterally. No wheezing. No rhonchi. Cardiovascular : Regular rate and rhythm , S1 / S2. No S3 . No S4. Gastrointestinal : Abdomen soft. No tenderness. Bowel sounds x 4. No organomegaly . Genitourinary : Deferred. Neurologic : Cranial nerve II to XII intact. No focal neurological deficits. Psychiatric : alert & oriented x 3. Matching mood & appropriate affect. Judgment & insight intact. Lymphatic No Lymphadenopathy. Musculoskeletal : Cervical Spine Motor strength in the deltoid and biceps: Normal right side. Normal Left side Motor strength biceps and the wrist extensors: Normal right side . Normal left side Motor strength in the triceps muscle: Normal right side. Normal left side Deep tendon reflexes: Normal at the biceps. Normal at Brachioradialis. Normal at triceps Cervical facet loading test: positive bilaterally Spurling test: positive bilaterally Neck distraction test: positive bilaterally Constantine sign: positive bilaterally Lumbar spine Motor strength lower extremities ,thigh and legs 5/5 Right side , 5/5 Left side Deep tendon reflexes : Normal Knee Jerk. Normal Ankle Jerk Vertebral body tenderness over L4, L5 Lumbar facet Loading Test: positive Right / positive Left Range of motion of the lumbar spine Flexion 30 degrees, extension 10 degrees Straight Leg Raise test: Left/ Right positive at 40 degree Roz test: positive right / positive left. Severe tenderness over the Sacroiliac joint on the Right / Left sides Gaenslen test: positive bilaterally Seated flexion test: positive bilaterally. Imaging: Computed tomography scan without contrast of the lumbar spine from 12/01/20 reviewed Assessment/ Plan : Recommendation of LESI L4-L5 May need a series of injections to obtain sufficient pain relief Risks, benefits of procedure discussed and patient verbalized understanding. Will need medical clearance from her medical artist regarding Eliquis use. Patient also admits to a medical history of diabetes. All questions answered. I have spent greater than 50 minutes on patient care today. Dr Phelan was available by phone for the evaluation of this patient. The time was used to review the medical records including relevant urine studies and Prescription history (MAPs), review of the available imaging, evaluation and examination of the patient, coordination of care with the medical staff and if applicable referring physicians, as well as creation of the medical record PQRS Measure Charge Sheet Mode of Arrival: Ambulatory - Pain Location Lower Back Non-Pharmacological Interventions: Heat, Ice Pharmacological Interventions: PRN Medication, Topical Medication PQRS Narrative: Smoking Status Never smoker Blood Pressure 143/65 Pain Intensity [Lower Back] 7 Scale Used Numeric (1 - 10) Hx Alcohol Use (MH) No Home Medications: Ambulatory Orders Levothyroxine Sodium [Synthroid] 75 mcg PO MOTUWETHFRSA 06/26/18 Omeprazole [PriLOSEC] 20 mg PO AC-BRKFST 06/26/18 Fluticasone Nasal [place] [Flonase Nasal [place]] 1 spray EA NOSTRIL BID 08/25/18 DULoxetine HCL [Cymbalta] 30 mg PO DAILY 09/06/18 lisinopriL [Zestril] 20 mg PO DAILY #60 tab 09/07/18 Alendronate Sodium [Fosamax] 70 mg PO WE 05/25/21 Apixaban [Eliquis] 2.5 mg PO BID 05/25/21 Cholecalciferol [Vitamin D3 (25 Mcg = 1000 Iu)] 50 mcg PO DAILY 05/25/21 Diphenox-Atrop 2.5-0.025 mg [Lomotil] 1 tab PO 5XD PRN 05/25/21 Ferrous Sulfate [Feosol] 325 mg PO DAILY 05/25/21 Furosemide [Lasix] 20 mg PO DAILY 05/25/21 Insulin Aspart [NovoLOG Flexpen] 0 units SQ ACHS 05/25/21 Insulin Glargine,Hum.rec.anlog [Toujeo Max Solostar] 30 units SQ HS 05/25/21 Loratadine [Claritin] 10 mg PO HS 05/25/21 Magnesium Oxide [Mag-Ox] 400 mg PO DAILY 05/25/21 Metoprolol Tartrate 25 mg PO 1700 05/25/21 Metoprolol Tartrate [Lopressor] 75 mg PO BID 05/25/21 Pantoprazole [Protonix] 40 mg PO DAILY 05/25/21 Vitamin B Complex 1 each PO DAILY 05/25/21 amLODIPine [Norvasc] 5 mg PO DAILY 05/25/21 hydroCHLOROthiazide [Hydrodiuril] 25 mg PO DAILY 05/25/21 predniSONE 5 mg PO DAILY 05/25/21
== END ==
LOC: PNWHC3 08:34
PROVIDERS: ATTEND Physician Assistant Medical
DX: M51.26 Other intervertebral disc displacement, lumbar region (principal); M43.16 Spondylolisthesis, lumbar region; M48.061 Spinal stenosis, lumbar region without neurogenic claudication; M47.816 Spondylosis without myelopathy or radiculopathy, lumbar region; I10 Essential (primary) hypertension; I48.91 Unspecified atrial fibrillation; E78.5 Hyperlipidemia, unspecified; E03.9 Hypothyroidism, unspecified; E11.9 Type 2 diabetes mellitus without complications; Z79.4 Long term (current) use of insulin; Z88.1 Allergy status to other antibiotic agents; Z88.2 Allergy status to sulfonamides; Z88.5 Allergy status to narcotic agent
CPT/HCPCS: 99211

== ENCOUNTER → 2021-06-14 | Outpatient (CLI) | payer MEDICARE ==
--- NOTE | 2021-06-15 08:19 | CT ---
EXAMINATION TYPE: CT chest wo con DATE OF EXAM: 06/14/2021 COMPARISON: CT chest 10/15/2020, CT 08/09/2017 HISTORY: nodule in lung, R 91.1 CT DLP: 177.7 mGycm. Automated Exposure Control for Dose Reduction was Utilized. TECHNIQUE: CT scan of the thorax is performed without IV contrast. FINDINGS: LUNGS: The lungs are stable, there is no concerning parenchymal mass or nodule identified. Right low er lobe lung nodule is documented as being stable for approximately 4 years. There is no pleural effu eliezer or pneumothorax seen. The tracheobronchial tree is patent. MEDIASTINUM: Lack of IV contrast is noted to limit evaluation for mediastinal and especially hilar ad enopathy. There are no definitive greater than 1 cm hilar or mediastinal lymph nodes. No cardiomega ly or pericardial effusion is seen. There are intracardiac leads present. Mitral annular metallic den sities present. OTHER: Upper pole cystic focus in the right kidney shows increased attenuation, possible proteinaceou s cyst measuring 19 mm, smaller focus is present in the upper pole the left kidney and the right kidn ey. Some punctate nonobstructive calculi present along the anterior pole calyx. IMPRESSION: Benign right lower lobe lung nodule
== END | disposition home or self-care (01) ==
LOC: RADCTMAIN 17:08
PROVIDERS: ATTEND Internal Medicine Critical Care Medicine
DX: R91.1 Solitary pulmonary nodule (principal)
CPT/HCPCS: 36415; 71250; 82565; 84520

== ENCOUNTER → 2021-07-21 | Outpatient (CLI) | payer MEDICARE ==
--- NOTE | 2021-07-22 15:52 | US ---
EXAMINATION TYPE: US pelvic complete DATE OF EXAM: 07/21/2021 COMPARISON: NONE CLINICAL HISTORY: N95.0 POST MENOPAUSAL BLEEDING. Patient states she had bleeding when her doctor rem deb her pessary TECHNIQUE: . Transabdominal sonographic images of the pelvis were acquired. Date of LMP: 30+ years ago EXAM MEASUREMENTS: Uterus: 5.8 x 3.0 x 4.5 cm Endometrial Stripe: 0.4 cm Right Ovary: 1.4 x 0.8 x 1.3 cm Left Ovary: 2.0 x 0.9 x 1.3 cm 1. Uterus: anteverted, calcified uterus 2. Endometrium: appears wnl 3. Right Ovary: wnl 4. Left Ovary: wnl 5. Bilateral Adnexa: wnl 6. Posterior cul-de-sac: wnl IMPRESSION: 1. No suspicious pelvic ultrasound changes
== END | disposition home or self-care (01) ==
LOC: RADUSWWP 16:33
PROVIDERS: ATTEND Obstetrics & Gynecology
DX: N95.0 Postmenopausal bleeding (principal)
CPT/HCPCS: 76856

== ENCOUNTER 2021-07-28 08:05 | Day surgery (SDC) | payer MEDICARE ==
[2021-07-27 11:07] VITALS: BMI 25.0
[2021-07-28 08:31] VITALS: BP 170/82; PULSE 74; RESP 16
== END 2021-07-28 08:34 | disposition home or self-care (01) ==
LOC: ORPAIN 08:05
DX: M51.36 Other intervertebral disc degeneration, lumbar region (principal); M51.26 Other intervertebral disc displacement, lumbar region; Z53.9 Procedure and treatment not carried out, unspecified reason

== ENCOUNTER 2021-08-02 08:07 | Day surgery (SDC) | payer MEDICARE ==
[2021-08-01 11:37] VITALS: BMI 25.7
[~2021-08-02 08:07] MED LIST changes: -ASPIRIN 81 MG PO SCH; -ATENOLOL 50 MG TAB PO SCH; -CHOLECALCIFEROL 1,000 UNIT TAB PO SCH; -CITALOPRAM HYDROBROMIDE 10 MG TAB PO SCH; -FERROUS SULFATE 325 MG TAB PO SCH; -FLUTICASONE 50MCG/SPRAY NASAL 16GM EA NOSTRIL SCH; -HYDROCHLOROTHIAZIDE 12.5 MG CAP PO SCH; +LACTATED RINGERS 1,000 ML IV SCH; -LEVOTHYROXINE 75 MCG TAB PO SCH; -LISINOPRIL 30 MG PO SCH; -MULTIVITAMINS, THERA 1 EACH TAB PO SCH; -NON-FORMULARY DRUG (Omeprazole 20 MG) PO SCH; -NON-FORMULARY DRUG (Vitamin B Complex [Vitamin B Complex] 1 EACH) PO SCH; -SODIUM CHLORIDE 0.9% 1,000 ML IV ONE; -SODIUM CHLORIDE 0.9% 1,000 ML IV SCH; -amLODIPine 2.5 MG TAB PO SCH; -fentaNYL (PF) 50 MCG/ML 2 ML AMP ONE; -predniSONE 2.5 MG TAB PO SCH; -traMADol-ACETAMINOP 37.5-325MG 1 EACH TAB PO SCH
[2021-08-02 08:39] VITALS: RESP 16; TEMP 97.7
[2021-08-02 08:46] LABS: Glucose,Whole Blood 84 mg/dL (75-99)
[2021-08-02] MEDS ORDERED: fentaNYL (PF) 50 MCG/ML 2 ML AMP ONE (08:46)
[2021-08-02] MEDS ORDERED: IOPAMIDOL M200 10 ML VIAL ONE (08:46)
[2021-08-02] MEDS ORDERED: methylPREDNISolone ACETATE 40 MG/ML 1 ML VIAL ONE (08:46)
[2021-08-02] MEDS ORDERED: MIDAZOLAM 2 MG/2 ML VIAL ONE (08:46)
--- NOTE | 2021-08-02 09:03 | P.PCN ---
Date of Procedure: 08/02/21 Description of Procedure: Procedure: 1. L4-L5 Epidural steroid injection under fluoroscopic guidance # 1 , 2. Lumbar epidurogram PREOPERATIVE DIAGNOSIS: Lumbar degenerative disc disease, and Lumbar radiculopathy. POSTOPERATIVE DIAGNOSIS: Lumbar degenerative disc disease, and Lumbar radiculopathy. SURGEON: Loreta El ANESTHESIA: Local with 1% lidocaine, and IV sedation with midazolam 1 mg, and fentanyl 50 g EBL: None. Specimen removed: None Fluoroscopic image: saved to electronic medical records PROCEDURE INDICATION: The patient had history of Lumbar degenerative disc disease and Lumbar radiculopathy. Failed to conservative therapy. Presented for epidural steroid injection. PROCEDURE DESCRIPTION: The patient was seen and identified in the preoperative area. Risks, benefits, complications, and alternatives were discussed with the patient. The patient agreed to proceed with the procedure and signed the consent. IV was started, and vital signs were stable. Patient was taken to the procedure area, and time out was completed. The patient was placed in the prone position on procedure table and a pillow was placed under the abdomen to reduce lumbar lordosis. The lumbosacral area was prepped and draped in the usual sterile fashion. Critical pause was taken. Vital signs were closely monitored during the procedure. Using anterior-posterior fluoroscopy, the L4-L5 interlaminar space was identified, and skin and deeper tissues were localized with 1% lidocaine. Using anterior-posterior fluoroscopy, lateral fluoroscopy, and [id number] technique, a 18 gauge 3.5 Tuohy epidural needle entered the epidural space. After negative aspiration of CSF and blood with no paresthesias, 2 ml of [id number] contrast dye was injected and an excellent epidurogram was seen. Again after negative aspiration of CSF and blood with no paresthesias, 8mL of block s olution was injected into the epidural space. Block solution contained 40 mg of Depo-Medrol, and 7 mL of preservative-free normal saline. Needle was withdrawn intact, skin was cleansed, and bandages were applied. COMPLICATIONS: None. DISPOSITION / PLANS: The patient was placed in a supine position and transferred to the recovery area in a stable condition for observation. Patient was discharged from the recovery room after meeting discharge criteria. Home discharge instructions given to the patient by the staff. The patient was reexamined prior to discharge. The patient will schedule a follow up in the clinic in 4 weeks.
[2021-08-02] MEDS ORDERED: IV FLUID CONTINUATION 1,000 ML IV ONE (09:11)
[2021-08-02 09:27] VITALS: BP 134/67; PULSE 65
--- NOTE | 2021-08-02 09:41 | FL ---
EXAMINATION TYPE: FL guided pain mgmt statistic DATE OF EXAM: 08/02/2021 CLINICAL HISTORY: Low back pain. TECHNIQUE: Fluoroscopy. COMPARISON: None. FINDINGS: Fluoroscopic guidance was provided during pain relief procedure performed by Dr. El . A total of 10 seconds of fluoroscopic time was utilized during the procedure and two spot images ar e acquired. Images acquired shows needle localization at L4-L5 level with contrast injection. IMPRESSION: As Above.
== END 2021-08-02 09:54 | disposition home or self-care (01) ==
LOC: ORPAIN 08:07
DX: M51.16 Intervertebral disc disorders with radiculopathy, lumbar region (principal)
CPT/HCPCS: 62323; J2250; J1030; J3010; Q9966; 99152

== ENCOUNTER → 2021-08-25 | Outpatient (CLI) | payer MEDICARE | LOC: PNWHC3 09:34 | PROVIDERS: ATTEND Specialist | DX: M54.50 Low back pain, unspecified (principal); Z88.1 Allergy status to other antibiotic agents; Z88.2 Allergy status to sulfonamides; Z88.0 Allergy status to penicillin; Z91.011 Allergy to milk products | CPT/HCPCS: 99211 ==

== ENCOUNTER 2021-09-29 07:39 | Day surgery (SDC) | payer MEDICARE ==
[~2021-09-29 07:39] MED LIST changes: +LIDOCAINE 1% (10MG/ML) FOR IV START INTRADERMA PRN
[2021-09-29 08:00] VITALS: TEMP 96
[2021-09-29 08:26] LABS: Glucose,Whole Blood 109 mg/dL (70-110)
[2021-09-29] MEDS ORDERED: MIDAZOLAM 2 MG/2 ML VIAL ONE (08:26)
[2021-09-29] MEDS ORDERED: fentaNYL (PF) 50 MCG/ML 2 ML AMP ONE (08:26)
[2021-09-29] MEDS ORDERED: IOPAMIDOL M200 10 ML VIAL ONE (08:26)
[2021-09-29] MEDS ORDERED: methylPREDNISolone ACETATE 40 MG/ML 1 ML VIAL ONE (08:26)
--- NOTE | 2021-09-29 08:47 | P.PCN ---
Date of Procedure: 09/29/21 Procedure(s) Performed: PREOPERATIVE DIAGNOSIS: 1-Lumbar radiculopathy . 2-lumbar degenerative disc disease. 3-lumbar spondylosis with lumbar facet arthropathy POSTOPERATIVE DIAGNOSIS: Same as preoperative diagnoses. PROCEDURE 1. Transforaminal epidural steroid injection under fluoroscopic guidance at right L4-5 level. (Fluoroscopy images stored on file in the radiology Department ) 2. Lumbar epidurogram . ANESTHESIA: Local with 1% lidocaine 3 ml , moderate sedation with intravenous Versed 0.5 mg and fentanyle 25 micrograms. EBL: Minimal PROCEDURE INDICATION: The patient with low back pain and radiculopathy symptoms unresponsive to conservative treatment. PROCEDURE DESCRIPTION / TECHNIQUE: The patient was seen and identified in the preoperative area. Risks, benefits, complications, and alternatives were discussed with the patient. The patient agreed to proceed with the procedure and signed the consent. IV was started, and vital signs were stable. Patient was taken to the OR and time out was completed. The patient was placed in the prone position on procedure table and a pillow was placed under the abdomen to reduce lumbar lordosis. The lumbosacral area was prepped and draped in the usual sterile fashion. Critical pause was taken. Vital signs were closely monitored during the procedure. Conscious sedation was used during the procedure to decrease patient s anxiety. Using oblique fluoroscopy, the chin of the `[place] dog at right L4-5 level was identified, and the skin and deeper tissues just below was localized with 1% lidocaine. Subsequently, a 22-gauge 3.5-inch spinal needle was advanced under a tunneled view fluoroscopic guidance just underneath the chin of the `[place] dog at the right L4-5 Under lateral fluoroscopy, the needle was then advanced to the posterior border of the interforaminal space. After negative aspiration of CSF and blood and with no paresthesias, 1 mL Isovue 200 contrast dye was injected excellent epidurogram and outlining of the nerve root Subsequently, 3 mL of block solution containing 40 mg Depo-Medrol and 2 mL of 0.9% normal saline PF was injected. Needle was removed . At the end of the procedure, skin was cleansed, and bandages were applied. COMPLICATIONS:none DISPOSITION / PLANS: The patient was placed in a supine position and transferred to the recovery area in a stable condition for observation. There was no evidence of lower extremity motor or sensory deficit after the procedure. Patient was discharged from the recovery room after meeting discharge criteria. Home discharge instructions were given to the patient by the staff. The patient was reexamined prior to discharge.
[2021-09-29] MEDS ORDERED: IV FLUID CONTINUATION 800 ML IV ONE (08:50)
--- NOTE | 2021-09-29 09:00 | FL ---
Fluoroscopy History: Transforaminal Inj 8sec fluoro time. Transforaminal Inj. 2 Images to PACS.
[2021-09-29 09:14] VITALS: BP 131/68; PULSE 58; RESP 20
== END 2021-09-29 09:45 | disposition home or self-care (01) ==
LOC: ORPAIN 07:39
PROVIDERS: ATTEND Specialist
DX: M51.16 Intervertebral disc disorders with radiculopathy, lumbar region (principal); M47.26 Other spondylosis with radiculopathy, lumbar region; Z79.01 Long term (current) use of anticoagulants
CPT/HCPCS: 64483; J2250; J1030; J3010; Q9966; 99152

== ENCOUNTER → 2021-10-13 | Outpatient (CLI) | payer MEDICARE ==
[2021-10-13 11:14] VITALS: BP 124/62; PULSE 63; RESP 18; TEMP 98.1
--- NOTE | 2021-10-13 11:40 | P.PAINPG ---
PQRS Measure Charge Sheet Comment: A 80 yr old female with a history of severe and chronic low back pain secondary to lumbar degenerative disc diseases and lumbar spondylosis with facet arthropathy presents today for evaluation s/p R TFESI L4-L5. Pt states she experienced 30% pain relief s/p procedure. Pain level is currently at 5/10 in intensity, constant, localized in R lower back, dull/ achy in character shooting towards the LLE. Pain is provoked by bending & lifting. Pain is alleviated with PT years ago and therapists are unsure if she can balance for PT currently, medications (Tylenol ), heat, repositioning and rest. Interventional pain procedures completed include R TFESI L4-L5, LESI L4-L5 Patient is currently on Tylenol Patient denies any side effects of the medication(s), denies excessive drowsiness or sleepiness, denies suicidal ideation and reports that the current pain medication is helping to control the pain and improve activities of daily living. Patient denies any motor or sensory deficits. Patient denies any fever or night sweats, denies any change in the bowel movements or urination. Physical Examination: -Constitutional: Cooperative. Not in acute distress . - Neurologic: Cranial nerve II to XII intact. No focal neurological deficits. - Psychatric: Alert & oriented x 3. Matching mood & appropriate affect. Judgment and insight intact. - Musculoskeletal: Cervical spine: Muscle bulk/ tone/ strength in the bilateral upper extremities normal Vertebral body tenderness to palpation over Spurling test positive Distraction test positive Facet loading test positive Thoracic spine Muscle bulk / tone/ strength in the bilateral paraspinal muscles normal Vertebral body tender to palpation over Facet loading test positive Lumbar spine: Motor bulk/ tone/ strength lower extremities , thigh and legs : 5/5 Deep tendon reflexes : Normal Knee Jerk. Normal Ankle Jerk . Vertebral body tenderness to palpation over Lumbar Facet Loading Test positive over BL L4-L5, L5-S1, R > L Straight Leg Raise: positive at 30 degrees right side/ left side Gaenslen's Test positive Sacral spine : Severe tenderness over the Sacroiliac joint: right side / left side Range of motion: Flexion of the lumbar spine <60 degrees Range of motion: Extension of the lumbar spine <20 degrees Gaenslen's Test positive Brodie's Test positive Roz test: positive right side / left side Thigh Thrust Test Sacral Thrust Test Assessment and plan: Chronic low back pain secondary to lumbar degenerative disc disease , lumbar spondylosis with facet arthropathy without myelopathy Recommendation of BL MBB of L4-L5, L5-S1 #1. May need a series of injections, up until RFA, for optimal pain relief. Risks, benefits of procedure discussed and pt verbalized understanding. Denies anticoagulant use or medical history of diabetes. All patient questions answered MAPS reviewed and it was appropriate. Fill Diclofenac gel 3% apply to AA QID prn pain, disp 1 tube w 1 refill. Use, side effects and adverse reactions discussed and pt verbalized understanding. I have spent less than 30 minutes on patient care today. Dr Phelan was available by phone for the evaluation of this patient. The time was used to review the medical records including relevant urine studies and Prescription history (MAPs), review of the available imaging, evaluation and examination of the patient, coordination of care with the medical staff and if applicable referring physicians, as well as creation of the medical record PQRS Narrative: Smoking Status Never smoker Hx Alcohol Use (MH) No Home Medications: Ambulatory Orders Levothyroxine Sodium [Synthroid] 75 mcg PO MOTUWETHFRSA 06/26/18 Fluticasone Nasal [place] [Flonase Nasal [place]] 1 spray EA NOSTRIL DAILY 08/25/18 DULoxetine HCL [Cymbalta] 30 mg PO DAILY 09/06/18 Alendronate Sodium [Fosamax] 70 mg PO WE 05/25/21 Apixaban [Eliquis] 2.5 mg PO BID 05/25/21 Cholecalciferol [Vitamin D3 (25 Mcg = 1000 Iu)] 50 mcg PO DAILY 05/25/21 Diphenox-Atrop 2.5-0.025 mg [Lomotil] 1 tab PO 5XD PRN 05/25/21 Ferrous Sulfate [Feosol] 325 mg PO DAILY 05/25/21 Furosemide [Lasix] 20 mg PO DAILY 05/25/21 Insulin Aspart [NovoLOG Flexpen] 0 units SQ AC-TID 05/25/21 Insulin Glargine,Hum.rec.anlog [Toujeo Max Solostar] 30 units SQ HS 05/25/21 Loratadine [Claritin] 10 mg PO HS 05/25/21 Magnesium Oxide [Mag-Ox] 400 mg PO DAILY 05/25/21 Metoprolol Tartrate 25 mg PO 1700 05/25/21 Metoprolol Tartrate [Lopressor] 75 mg PO BID 05/25/21 Pantoprazole [Protonix] 40 mg PO DAILY 05/25/21 Vitamin B Complex 1 each PO DAILY 05/25/21 amLODIPine [Norvasc] 5 mg PO HS 05/25/21 hydroCHLOROthiazide [Hydrodiuril] 25 mg PO DAILY 05/25/21 predniSONE 5 mg PO DAILY 05/25/21 lisinopriL [Zestril] 20 mg PO BID 07/27/21 Controlled Substance Measures - Controlled Substance Measures Is patient prescribed a controlled substance at discharge?: No
== END ==
LOC: PNWHC3 09:34
PROVIDERS: ATTEND Specialist
DX: M51.36 Other intervertebral disc degeneration, lumbar region (principal); M47.816 Spondylosis without myelopathy or radiculopathy, lumbar region; G89.29 Other chronic pain; Z88.1 Allergy status to other antibiotic agents; Z88.0 Allergy status to penicillin; Z88.2 Allergy status to sulfonamides; Z91.011 Allergy to milk products; Z88.5 Allergy status to narcotic agent
CPT/HCPCS: 99211

== ENCOUNTER 2022-02-14 09:30 | Day surgery (SDC) | payer MEDICARE ==
[2022-02-08 16:10] VITALS: BMI 25.0
[~2022-02-14 09:30] MED LIST changes: -LIDOCAINE 1% (10MG/ML) FOR IV START INTRADERMA PRN
[2022-02-14 09:54] VITALS: TEMP 96.9
[2022-02-14 10:01] LABS: Glucose,Whole Blood 66 mg/dL (70-110)
[2022-02-14] MEDS ORDERED: ROPIVACAINE 5 MG/ML 20 ML AMPULE ONE (10:03)
--- NOTE | 2022-02-14 10:14 | P.PCN ---
Date of Procedure: 02/14/22 Description of Procedure: Procedure: BILATERAL L4-5, L5-S1 Diagnosis: Lumbar spondylosis without myelopathy ANESTHESIA: Local only Imaging: Fluoroscopy was used, images where saved to the medical record The patient was seen and examined in the [facility]. Procedure risks and benefits were fully reviewed with the patient. The patient understands this is diagnostic if local only is used, as will be the case today. The goal of the procedure is to inject medication onto the medial branch or small nerves that innervate the facet joints. In this way, we can hopefully identify which of these joints, if any, may be contributing to their pain. Informed consent for procedure was obtained. The patient was taken into the office fluoroscopy procedure room and placed prone on the table. A pillow was placed under the abdomen to reduce lumbar lordosis. Vital signs were closely monitored during the procedure. The skin over the area was prepped with Betadine X 3 and draped in usual sterile manner. Sterile technique was observed throughout procedure. Under biplanar fluoroscopic guidance, the target injection area of the L4, L5, Sacral Ala were targeted. A 25 gauge 3 1/2 inch spinal needle was then placed at the most medial and superior aspect of the transverse process near the "eye of the Savage dog". Aspiration for blood was negative. 1 cc of 0.5% Ropivacaine was injected into the targeted areas separately. [place] were withdrawn intact. No complications were noted during the procedure. The patient tolerated the procedure well. The patient was placed in supine position and transferred to the recovery area for observation and remained stable until discharged home. Home discharge instructions were given to the patient by the staff. The patient will schedule a follow up as directed.
--- NOTE | 2022-02-14 10:23 | FL ---
Intraoperative/procedural fluoroscopic services were provided for bilateral lumbar facet block. Total fluoroscopy time is 9 seconds with a total of 6 submitted images to PACS. Please see the operative n ote for further details.
[2022-02-14 10:34] VITALS: RESP 20
[2022-02-14 10:47] VITALS: BP 124/64; PULSE 56
== END 2022-02-14 10:49 | disposition home or self-care (01) ==
LOC: ORPAIN 09:30
PROVIDERS: ATTEND Hospitalist
DX: M47.816 Spondylosis without myelopathy or radiculopathy, lumbar region (principal)
CPT/HCPCS: 64493; 64494 ×2; J2795

== ENCOUNTER → 2022-03-02 | Outpatient (CLI) | payer MEDICARE ==
[2022-03-02 11:54] VITALS: BP 121/60; PULSE 75; RESP 16; TEMP 98
--- NOTE | 2022-03-02 14:23 | P.PAINPG ---
Objective - Vital Signs Vital signs: Intake & Output 03/01/22 03/02/22 03/02/22 18:59 06:59 18:59 Weight 53.07 kg PQRS Measure Charge Sheet Comment: A 81 yr old female w daughter at side with a history of severe and chronic low back pain secondary to lumbar DDD and spondylosis with facet arthropathy without myelopathy presents today for evaluation s/p BL facet block of the medial branches L4-L5, L5-S1#1. Pt states she experienced 50% pain relief x 12 hrs s/p procedure. Pain level is currently at 8/10 in intensity, intermittent, achy/ sharp in charczter w shooting towards . Pain is provoked by sitting for periods of 20 min or more. Pain is alleviated with PT yrs ago, medications, heat, ice, topicals, sitting and laying supine. Interventional pain procedures completed include BL MBB L3-L5 x1 Patient is currently on Tylenol Patient denies any side effects of the medication(s), denies excessive drowsiness or sleepiness, denies suicidal ideation and reports that the current pain medication is helping to control the pain and improve activities of daily living. Patient denies any motor or sensory deficits. Patient denies any fever or night sweats, denies any change in the bowel movements or urination. Physical Examination: -Constitutional: Cooperative. Not in acute distress . - Neurologic: Cranial nerve II to XII intact. No focal neurological deficits. - Psychatric: Alert & oriented x 3. Matching mood & appropriate affect. Judgment and insight intact. - Musculoskeletal: Cervical spine: Muscle bulk/ tone/ strength in the bilateral upper extremities normal Vertebral body tenderness to palpation over Spurling test positive Distraction test positive Facet loading test positive Thoracic spine Muscle bulk / tone/ strength in the bilateral paraspinal muscles normal Vertebral body tender to palpation over Facet loading test positive Lumbar spine: Motor bulk/ tone/ strength lower extremities , thigh and legs : 5/5 Deep tendon reflexes : Normal Knee Jerk. Normal Ankle Jerk . Vertebral body tenderness to palpation over Lumbar Facet Loading Test positive w TTP over BL L4-L5, L5-S1 facets Straight Leg Raise: positive at 30 degrees right side/ left side Gaenslen's Test positive Sacral spine : Severe tenderness over the Sacroiliac joint: right side / left side Range of motion: Flexion of the lumbar spine <60 degrees Range of motion: Extension of the lumbar spine <20 degrees Gaenslen's Test positive Roz test: positive right side / left side Thigh Thrust Test Sacral Thrust Test Assessment and plan: Chronic low back pain secondary to lumbar degenerative disc disease, spondylosis with facet arthropathy without myelopathy Pt did not experience substantial pain relief w prior MBB procedure. Will consider IPG placement. Video provided. Script for Behavioral Health Eval provided. Will follow up within 4 wks for a re evaluation. Risks, benefits of procedure discussed and pt verbalized understanding. Denies anticoagulant use or medical history of diabetes. All patient questions answered I have spent less than 30 minutes on patient care today. Dr Phelan was available by phone for the evaluation of this patient. The time was used to review the medical records including relevant urine studies and Prescription history (MAPs), review of the available imaging, evaluation and examination of the patient, coordination of care with the medical staff and if applicable referring physicians, as well as creation of the medical record PQRS Narrative: Smoking Status Never smoker Hx Alcohol Use (MH) No Home Medications: Ambulatory Orders Levothyroxine Sodium [Synthroid] 75 mcg PO MOTUWETHFRSA 06/26/18 Fluticasone Nasal [place] [Flonase Nasal [place]] 1 spray EA NOSTRIL DAILY 08/25/18 DULoxetine HCL [Cymbalta] 30 mg PO DAILY 09/06/18 Alendronate Sodium [Fosamax] 70 mg PO WE 05/25/21 Apixaban [Eliquis] 2.5 mg PO BID 05/25/21 Cholecalciferol [Vitamin D3 (25 Mcg = 1000 Iu)] 50 mcg PO DAILY 05/25/21 Diphenox-Atrop 2.5-0.025 mg [Lomotil] 1 tab PO 5XD PRN 05/25/21 Ferrous Sulfate [Feosol] 325 mg PO DAILY 05/25/21 Furosemide [Lasix] 20 mg PO DAILY 05/25/21 Insulin Aspart [NovoLOG Flexpen] 0 units SQ AC-TID 05/25/21 Insulin Glargine,Hum.rec.anlog [Toujeo Max Solostar] 35 units SQ HS 05/25/21 Loratadine [Claritin] 10 mg PO HS 05/25/21 Metoprolol Tartrate 25 mg PO 1700 05/25/21 Metoprolol Tartrate [Lopressor] 75 mg PO BID 05/25/21 Pantoprazole [Protonix] 40 mg PO DAILY 05/25/21 Vitamin B Complex 1 each PO DAILY 05/25/21 amLODIPine [Norvasc] 5 mg PO HS 05/25/21 predniSONE 5 mg PO DAILY 05/25/21 lisinopriL [Zestril] 20 mg PO BID 07/27/21 Diclofenac Sodium Gel [Voltaren Gel] 100 gm TOPICAL QID PRN 30 Days #100 gm 10/13/21 Rosuvastatin [Crestor] 10 mg PO DAILY 02/08/22 hydroCHLOROthiazide 25 mg PO DAILY 02/08/22 sitaGLIPtin [Januvia] 25 mg PO DAILY 02/08/22 Controlled Substance Measures - Controlled Substance Measures Is patient prescribed a controlled substance at discharge?: No
== END ==
LOC: PNWHC3 09:52
PROVIDERS: ATTEND Specialist
DX: M47.816 Spondylosis without myelopathy or radiculopathy, lumbar region (principal); M51.36 Other intervertebral disc degeneration, lumbar region; G89.29 Other chronic pain; Z88.1 Allergy status to other antibiotic agents; Z88.2 Allergy status to sulfonamides; Z88.0 Allergy status to penicillin; Z91.011 Allergy to milk products; Z88.8 Allergy status to other drugs, medicaments and biological substances
CPT/HCPCS: 99211

== ENCOUNTER 2022-07-12 17:07 | Inpatient (IN) | payer MEDICARE ==
--- NOTE | 2022-07-12 19:57 | ED ---
SOB HPI - General Chief Complaint: Shortness of Breath Stated Complaint: SOB/COUGH REF BY DOCTOR Time Seen by Provider: 07/12/22 18:58 Source: patient Mode of arrival: wheelchair Limitations: no limitations - History of Present Illness Initial Comments: This is a 81-year-old female to the ER for evaluation. Patient presents today for evaluation multiple complaints cough congestion runny nose symptoms for 3+ weeks, patient seen by her primary care 3 different occasions with symptoms of been persistent not getting improved. Patient also becomes emotional during history of present illness recently lost her a few months ago and has been doing with senna motion increased regarding this issue. She denies chest pain. MD Complaint: shortness of breath, pain with inspiration, "asthma attack", anxiety -: week(s) Severity: mild Severity scale (1-10): 3 Consistency: intermittent Improves With: nothing Worsens With: nothing Known History Of: COPD Context: recent URI, recent illness Associated Symptoms: cough Treatments Prior to Arrival: none - Related Data Home Medications Medication Instructions Recorded Confirmed Levothyroxine Sodium [Synthroid] 75 mcg PO MOTUWETHFRSA 06/26/18 07/12/22 Fluticasone Nasal [place] [Flonase 1 spray EA NOSTRIL HS 08/25/18 07/12/22 Nasal [place]] Apixaban [Eliquis] 2.5 mg PO BID 05/25/21 07/12/22 Diphenox-Atrop 2.5-0.025 mg 1 tab PO QID PRN 05/25/21 07/12/22 [Lomotil] Furosemide [Lasix] 20 mg PO DAILY 05/25/21 07/12/22 Insulin Aspart [NovoLOG Flexpen] 10 units SQ AC-TID 05/25/21 07/12/22 Metoprolol Tartrate 25 mg PO TID 05/25/21 07/12/22 Metoprolol Tartrate [Lopressor] 50 mg PO TID 05/25/21 07/12/22 Pantoprazole [Protonix] 40 mg PO DAILY 05/25/21 07/12/22 amLODIPine [Norvasc] 5 mg PO DAILY 05/25/21 07/12/22 predniSONE See Taper PO DIRECTED 05/25/21 07/12/22 lisinopriL [Zestril] 20 mg PO BID 07/27/21 07/12/22 hydroCHLOROthiazide 25 mg PO DAILY 02/08/22 07/12/22 Budesonide [Pulmicort] 0.5 mg INHALATION RT-BID 07/12/22 07/12/22 Insulin Glargine,Hum.rec.anlog 35 units SQ DAILY 07/12/22 07/12/22 [[place] Joselinefinesse] Allergies Allergy/AdvReac Type Severity Reaction Status Date / Time doxycycline calcium Allergy SWELLING Verified 07/12/22 21:45 [From Vibramycin] AND RASH ON TONGUE doxycycline hyclate Allergy SWELLING Verified 07/12/22 21:45 [From Vibramycin] AND RASH ON TONGUE doxycycline monohydrate Allergy SWELLING Verified 07/12/22 21:45 [From Vibramycin] AND RASH ON TONGUE Milk Containing Products Allergy mouth sores Verified 07/12/22 21:45 [Dairy] Penicillins Allergy Unknown Verified 07/12/22 21:45 propoxyphene HCl AdvReac Nausea & Verified 07/12/22 21:45 [From Darvon] Vomiting Sulfa (Sulfonamide AdvReac Nausea & Verified 07/12/22 21:45 Antibiotics) Vomiting Review of Systems ROS Statement: Those systems with pertinent positive or pertinent negative responses have been documented in the HPI. ROS Other: All systems not noted in ROS Statement are negative. Past Medical History Past Medical History: Atrial Fibrillation, Cancer, Diabetes Mellitus, Hyperlipidemia, Hypertension, Osteoarthritis (OA), Thyroid Disorder Additional Past Medical History / Comment(s): heart murmer, scoliosis, spondylo listhoesis, BREAST CANCER with radiation. CHRONIC BACK PAIN., anemia, , pessary for prolapse, fx lower back from fallMay 2018. PMR(polymyalgia rheumatica), unsteady on feet,. frequent loose stools - takes lomotil. pt states she hurts all, more since last pain clinic visit. History of Any Multi-Drug Resistant Organisms: None Reported Past Surgical History: Back Surgery, Breast Surgery, Heart Catheterization, Hernia Repair, Orthopedic Surgery, Pacemaker, Tonsillectomy Additional Past Surgical History / Comment(s): LEFT BREAST LUMPECTOMY, rt breast biopsy, back surgery x2 -herniated disk L5S1 and L4 and 5 cyst, anuradha cataracts, anuradha hand trigger finger( 2 on left hand, one on rt hand), heel spur removed from left foot, COLONOSCOPY. Past Anesthesia/Blood Transfusion Reactions: Previous Problems w/ Anesthesia Additional Past Anesthesia/Blood Transfusion Reaction / Comment(s): "slow coming out" Type of Cardiac Device: Permanent Pacemaker Device Placement Date:: 2018 Past Psychological History: Anxiety Smoking Status: Never smoker Past Alcohol Use History: None Reported Past Drug Use History: None Reported - Past Family History Brother(s) Family Medical History: Cancer Mother Family Medical History: Congestive Heart Failure (CHF) General Exam Limitations: no limitations General appearance: alert, in no apparent distress, anxious Head exam: Present: atraumatic, normocephalic, normal inspection Eye exam: Present: normal appearance, PERRL, EOMI. Absent: scleral icterus, conjunctival injection, periorbital swelling ENT exam: Present: normal exam, mucous membranes moist Neck exam: Present: normal inspection. Absent: tenderness, meningismus, lymphadenopathy Respiratory exam: Present: normal lung sounds bilaterally. Absent: respiratory distress, wheezes, rales, rhonchi, stridor Cardiovascular Exam: Present: tachycardia, irregular rhythm, normal heart sounds. Absent: systolic murmur, diastolic murmur, rubs, gallop, clicks GI/Abdominal exam: Present: soft, normal bowel sounds. Absent: distended, tenderness, guarding, rebound, rigid Extremities exam: Present: normal inspection, full ROM, normal capillary refill. Absent: tenderness, pedal edema, joint swelling, calf tenderness Back exam: Present: normal inspection Neurological exam: Present: alert, oriented X3, CN II-XII intact Psychiatric exam: Present: depressed (sad and emotional during HPI) Skin exam: Present: warm, dry, intact, normal color. Absent: rash Course Vital Signs 07/12/22 07/12/22 07/12/22 17:40 20:00 21:00 Temperature 98.4 F Pulse Rate 79 85 82 Respiratory 20 17 16 Rate Blood Pressure 130/65 118/48 144/66 O2 Sat by Pulse 97 98 100 Oximetry 07/12/22 07/12/22 07/12/22 21:10 21:30 22:00 Temperature Pulse Rate 83 112 H 144 H Respiratory 16 Rate Blood Pressure 155/72 O2 Sat by Pulse 98 Oximetry 07/12/22 07/12/22 07/13/22 23:00 23:07 01:00 Temperature Pulse Rate 100 101 H 90 Respiratory 16 16 16 Rate Blood Pressure 124/67 134/65 O2 Sat by Pulse 97 98 96 Oximetry 07/13/22 07/13/22 07/13/22 02:00 04:00 06:00 Temperature 98.7 F Pulse Rate 93 86 158 H Respiratory 16 16 16 Rate Blood Pressure 153/64 154/68 148/68 O2 Sat by Pulse 95 96 97 Oximetry 07/13/22 07/13/22 07/13/22 06:42 07:35 08:30 Temperature Pulse Rate 149 H 128 H 126 H Respiratory 16 18 18 Rate Blood Pressure 111/88 123/69 116/68 O2 Sat by Pulse 95 97 97 Oximetry 07/13/22 07/13/22 07/13/22 08:32 11:17 11:47 Temperature Pulse Rate 70 67 Respiratory 18 18 Rate Blood Pressure 116/62 118/55 O2 Sat by Pulse 97 97 98 Oximetry 07/13/22 07/13/22 07/13/22 12:29 13:00 13:45 Temperature Pulse Rate 110 H 131 H 71 Respiratory 20 18 18 Rate Blood Pressure 149/78 156/80 145/84 O2 Sat by Pulse 95 97 97 Oximetry 07/13/22 07/13/22 14:00 14:34 Temperature Pulse Rate 57 L 53 L Respiratory 22 20 Rate Blood Pressure 116/64 108/69 O2 Sat by Pulse 98 97 Oximetry - Reevaluation(s) Reevaluation #1: 07/12/22 23:30 Medical records reviewed Reevaluation #2: 07/12/22 23:30 Patient has no change in symptoms here in the ER patient in ED today did develop Atrial Fibrillation here in the ED Reevaluation #3: 07/12/22 23:30 Patient informed results and questions answered Reevaluation #4: 07/12/22 23:30 Was pt. sent in by a medical professional or institution? @ -no Did you speak to anyone other than the patient for history? @ -daughter at bedside concern for how patient is dealing with husbands recent passing Did you review nursing and triage notes? @ -agree Were old charts reviewed? @ -prior admission records and ECHO Differential Diagnosis? @ -prior EKG interpreted by me (3pts min.)? @ -yes X-rays interpreted by me (1pt min.)? @ -yes CT interpreted by me (1pt min.)? @ -no U/S interpreted by me (1pt. min.)? @ -no What testing was considered but not performed? (CT, X-rays, U/S, labs)? Why? @ -no What meds were considered but not given? Why? @ -[none] Did you discuss the management of the patient with other professionals? @ -spoke with PCP re admission and they are agreeable Did you reconcile home meds? @ -yes Was smoking cessation discussed for >3mins.? @ -no Was critical care preformed (if so, how long)? @ -no Were there social determinants of health that impacted care today? How? (Homelessness, low income, unemployed, alcoholism, drug addiction, transportation, low edu. Level, literacy, decrease access to med. care, usp, rehab)? @ -[no Was there de-escalation of care discussed even if they declined? (Discuss DNR or withdrawal of care, Hospice)? @ -no What co-morbidities impacted this encounter? (DM, HTN, Smoking, COPD, CAD, Cancer, CVA, Hep., AIDS, mental health diagnosis, sleep apnea, morbid obesity)? @ -COPD not following with [facility] Was patient admitted / discharged? @ -admit Undiagnosed new problem with uncertain prognosis? @ -no Drug Therapy requiring intensive monitoring for toxicity (Heparin, Nitro, Insulin, Cardizem)? @ -no Were any procedures done? @ -no Diagnosis/symptom? @ -COPD,CHF,AfibRVR Acute, or Chronic, or Acute on Chronic? @ -acute Uncomplicated (without systemic symptoms) or Complicated (systemic symptoms)? @ -[default] Side effects of treatment? @ -no Exacerbation, Progression, or Severe Exacerbation] @ -exacerbation Poses a threat to life or bodily function? @ -no Reevaluation #5: 07/12/22 23:30 Differential Dyspnea: Coronary syndrome, arrhythmia, tamponade, asthma, COPD, pulmonary embolism, pneumonia, pneumothorax, pulmonary effusion, anaphylaxis, diabetic ketoacidosis, flailed chest, pulmonary contusion, diaphragmatic rupture, anemia, neuromuscular, this is not meant to be an all-inclusive list. - Consultations Consultation #1: Spoke with PMH were agreeable with this patient Medical Decision Making - Medical Decision Making 81 female to the ER for evaluation of weakness lightheadedness shortness of breath. Patient has multiple presentations recently for similar symptoms. Seen by primary care, patient is having mild CHF and is found to be a new onset atrial fibrillation with RVR. Patient goes in and out of A. fib here in the ER. Patient occasionally gets nature fibrillation at home. She does have a defibrillator which is checked and has not been checked here in the ER - Lab Data Result diagrams: 07/13/22 14:51 07/14/22 07:49 Lab Results 07/12/22 07/12/22 07/12/22 Range/Units 19:51 19:51 19:51 WBC 9.9 (3.8-10.6) k/uL RBC 3.75 L (3.80-5.40) m/uL Hgb 12.0 (11.4-16.0) gm/dL Hct 36.7 (34.0-46.0) % MCV 97.8 (80.0-100.0) fL MCH 32.0 (25.0-35.0) pg MCHC 32.7 (31.0-37.0) g/dL RDW 13.1 (11.5-15.5) % Plt Count 302 (150-450) k/uL MPV 8.7 Neutrophils % 90 % Lymphocytes % 6 % Monocytes % 4 % Eosinophils % 0 % Basophils % 0 % Neutrophils # 8.9 H (1.3-7.7) k/uL Lymphocytes # 0.6 L (1.0-4.8) k/uL Monocytes # 0.4 (0-1.0) k/uL Eosinophils # 0.0 (0-0.7) k/uL Basophils # 0.0 (0-0.2) k/uL PT 10.7 (9.0-12.0) sec INR 1.0 (<1.2) APTT 22.6 (22.0-30.0) sec Sodium 141 (137-145) mmol/L Potassium 4.5 (3.5-5.1) mmol/L Chloride 105 (98-107) mmol/L Carbon Dioxide 26 (22-30) mmol/L Anion Gap 10 mmol/L BUN 74 H (7-17) mg/dL Creatinine 1.68 H (0.52-1.04) mg/dL Est GFR (CKD-EPI)AfAm 32 (>60 ml/min/1.73 sqM) Est GFR (CKD-EPI)NonAf 28 (>60 ml/min/1.73 sqM) Glucose 75 (74-99) mg/dL Plasma Lactic Acid Ramon (0.7-2.0) mmol/L Calcium 9.5 (8.4-10.2) mg/dL Magnesium 2.1 (1.6-2.3) mg/dL Total Bilirubin 0.7 (0.2-1.3) mg/dL AST 38 H (14-36) U/L ALT 45 H (4-34) U/L Alkaline Phosphatase 48 (38-126) U/L Troponin I (0.000-0.034) ng/mL NT-Pro-B Natriuret Pep pg/mL Total Protein 6.8 (6.3-8.2) g/dL Albumin 4.1 (3.5-5.0) g/dL TSH (0.465-4.680) mIU/L Influenza Type A (PCR) (Not Detectd) Influenza Type B (PCR) (Not Detectd) RSV (PCR) (Not Detectd) SARS-CoV-2 (PCR) (Not Detectd) 07/12/22 07/12/22 07/12/22 Range/Units 19:51 19:51 19:51 WBC (3.8-10.6) k/uL RBC (3.80-5.40) m/uL Hgb (11.4-16.0) gm/dL Hct (34.0-46.0) % MCV (80.0-100.0) fL MCH (25.0-35.0) pg MCHC (31.0-37.0) g/dL RDW (11.5-15.5) % Plt Count (150-450) k/uL MPV Neutrophils % % Lymphocytes % % Monocytes % % Eosinophils % % Basophils % % Neutrophils # (1.3-7.7) k/uL Lymphocytes # (1.0-4.8) k/uL Monocytes # (0-1.0) k/uL Eosinophils # (0-0.7) k/uL Basophils # (0-0.2) k/uL PT (9.0-12.0) sec INR (<1.2) APTT (22.0-30.0) sec Sodium (137-145) mmol/L Potassium (3.5-5.1) mmol/L Chloride (98-107) mmol/L Carbon Dioxide (22-30) mmol/L Anion Gap mmol/L BUN (7-17) mg/dL Creatinine (0.52-1.04) mg/dL Est GFR (CKD-EPI)AfAm (>60 ml/min/1.73 sqM) Est GFR (CKD-EPI)NonAf (>60 ml/min/1.73 sqM) Glucose (74-99) mg/dL Plasma Lactic Acid Ramon 1.1 (0.7-2.0) mmol/L Calcium (8.4-10.2) mg/dL Magnesium (1.6-2.3) mg/dL Total Bilirubin (0.2-1.3) mg/dL AST (14-36) U/L ALT (4-34) U/L Alkaline Phosphatase (38-126) U/L Troponin I 0.054 H* (0.000-0.034) ng/mL NT-Pro-B Natriuret Pep 1890 pg/mL Total Protein (6.3-8.2) g/dL Albumin (3.5-5.0) g/dL TSH (0.465-4.680) mIU/L Influenza Type A (PCR) (Not Detectd) Influenza Type B (PCR) (Not Detectd) RSV (PCR) (Not Detectd) SARS-CoV-2 (PCR) (Not Detectd) 07/12/22 07/12/22 Range/Units 19:51 20:14 WBC (3.8-10.6) k/uL RBC (3.80-5.40) m/uL Hgb (11.4-16.0) gm/dL Hct (34.0-46.0) % MCV (80.0-100.0) fL MCH (25.0-35.0) pg MCHC (31.0-37.0) g/dL RDW (11.5-15.5) % Plt Count (150-450) k/uL MPV Neutrophils % % Lymphocytes % % Monocytes % % Eosinophils % % Basophils % % Neutrophils # (1.3-7.7) k/uL Lymphocytes # (1.0-4.8) k/uL Monocytes # (0-1.0) k/uL Eosinophils # (0-0.7) k/uL Basophils # (0-0.2) k/uL PT (9.0-12.0) sec INR (<1.2) APTT (22.0-30.0) sec Sodium (137-145) mmol/L Potassium (3.5-5.1) mmol/L Chloride (98-107) mmol/L Carbon Dioxide (22-30) mmol/L Anion Gap mmol/L BUN (7-17) mg/dL Creatinine (0.52-1.04) mg/dL Est GFR (CKD-EPI)AfAm (>60 ml/min/1.73 sqM) Est GFR (CKD-EPI)NonAf (>60 ml/min/1.73 sqM) Glucose (74-99) mg/dL Plasma Lactic Acid Ramon (0.7-2.0) mmol/L Calcium (8.4-10.2) mg/dL Magnesium (1.6-2.3) mg/dL Total Bilirubin (0.2-1.3) mg/dL AST (14-36) U/L ALT (4-34) U/L Alkaline Phosphatase (38-126) U/L Troponin I (0.000-0.034) ng/mL NT-Pro-B Natriuret Pep pg/mL Total Protein (6.3-8.2) g/dL Albumin (3.5-5.0) g/dL TSH 1.050 (0.465-4.680) mIU/L Influenza Type A (PCR) Not Detected (Not Detectd) Influenza Type B (PCR) Not Detected (Not Detectd) RSV (PCR) Not Detected (Not Detectd) SARS-CoV-2 (PCR) Not Detected (Not Detectd) - EKG Data -: EKG Interpreted by Me (EKG is paced 80 NC 131 QRS 152 QTC 453) Rate: tachycardia (EKG shows atrial fibrillation with RVR 134 QRS 134 QTc 44 interpreted by me) - Radiology Data Radiology results: report reviewed (Chest x-rays negative for acute disease), image reviewed Disposition Clinical Impression: New onset atrial fibrillation, Atrial fibrillation with RVR, NSTEMI (non-ST elevated myocardial infarction), Elevated troponin Disposition: ADMITTED IP TO THIS HOSP Condition: Fair Is patient prescribed a controlled substance at d/c from ED?: No Time of Disposition: 22:25
[2022-07-12] MEDS ORDERED: IPRATROPIUM-ALBUTEROL 3 ML NEB INHALATION STA (20:11)
[2022-07-12] MEDS ORDERED: SODIUM CHLORIDE 0.9% 1,000 ML IV STA (20:11)
[2022-07-12 20:23] LABS: Albumin 4.1 g/dL (3.5-5.0); Calcium 9.5 mg/dL (8.4-10.2); Magnesium 2.1 mg/dL (1.6-2.3); Potassium 4.5 mmol/L (3.5-5.1); Total Bilirubin 0.7 mg/dL (0.2-1.3); Total Protein 6.8 g/dL (6.3-8.2)
[2022-07-12 20:34] LABS: Basophils % (A) 0 %; Eosinophils % (A) 0 %; HCT 36.7 % (34.0-46.0); Lymphocytes # (A) 0.6 k/uL (1.0-4.8); Lymphocytes % (A) 6 %; MCHC 32.7 g/dL (31.0-37.0); MCV 97.8 fL (80.0-100.0); Mean Platelet Volume 8.7; Monocytes # (A) 0.4 k/uL (0-1.0); Monocytes % (A) 4 %; Neutrophils # (A) 8.9 k/uL (1.3-7.7); Neutrophils % (A) 90 %; Platelet Count 302 k/uL (150-450); RBC 3.75 m/uL (3.80-5.40); RDW 13.1 % (11.5-15.5); WBC 9.9 k/uL (3.8-10.6)
--- NOTE | 2022-07-12 20:58 | XR ---
EXAMINATION TYPE: XR chest 2V DATE OF EXAM: 07/12/2022 COMPARISON: 09/06/2018 TECHNIQUE: PA and lateral views submitted. HISTORY: Difficulty breathing FINDINGS: The lungs are clear and there is no pneumothorax, pleural effusion, or focal pneumonia. Heart size normal and no overt failure. Osseous structures demonstrate hypertrophic and degenerative changes of the spine. Elevated left hemidiaphragm. Cardiac device seen with atherosclerotic change aorta. Biapic al pleural thickening. IMPRESSION: 1. No acute process.
[2022-07-12 21:28] LABS: Partial Thromboplastin Time 22.6 sec (22.0-30.0); Prothrombin Time 10.7 sec (9.0-12.0)
[2022-07-12] MEDS ORDERED: NALOXONE 0.4 MG/ML 1 ML VIAL IV PRN (23:04)
[2022-07-12] MEDS: SODIUM CHLORIDE 0.9% 1,000 ML IV SCH (23:15)
[2022-07-13] MEDS: HYDROcodone/APAP 5-325MG 1 EACH TAB PO PRN (02:08)
[2022-07-13] MEDS ORDERED: DILTIAZEM 125 MG in SODIUM CHLORIDE 0.9% 100 ML IV SCH (05:45)
--- NOTE | 2022-07-13 06:31 | P.CNPUL ---
History of Present Illness Consult date: 07/13/22 Requesting physician: Pantera Esparza Reason for consult: COPD Chief complaint: Shortness of breath History of present illness: Seeing this patient in consultation today 07/13/2022 in the emergency room waiting for a bed on the selective care unit. Patient is an 81-year-old white female with past significant medical history of atrial fibrillation, permanent pacemaker, coronary artery disease, breast cancer post radiation therapy and lumpectomy, hypertension, hyperlipidemia, diabetes mellitus, hypothyroidism, and is a lifelong nonsmoker. Patient does follow with Dr. Haile in the office for a solitary lung nodule. Patient presented to the emergency room yesterday evening with chief complaint of shortness of breath over the past 2 weeks. Also, reports chest congestion and a frequent cough with occasional phlegm. Patient denies any chest pain, heart palpitations, lightheadedness or syncope, fever, hemoptysis. Patient apparently was seen by Dr Babcock, her primary care provider, and was given a course of prednisone and a Z-Sherman. Patient had no improvement in symptoms. Patient is currently resting emergency room, on room air, in no acute distress. Chest x-ray arrival showed no acute cardiopulmonary process. While the emergency room, patient did have an episode of A. fib RVR, which has currently resolved, as the patient is in normal sinus rhythm around 80 bpm. troponins are mildly elevated most recent troponin 0.068. EKG currently shows normal sinus rhythm without any obvious ischemic changes. NT proBNP is 1890. Normal saline is infusing at 130 mL per hour. Patient's CBC on arrival showed a WBC count 9.9, hemoglobin 12, hematocrit 36.7, platelets 302. 41, potassium 4.5, chloride 105, serum CO2 26, BUN 74, creatinine 1.68, 75. LFTs are mildly elevated. Patient was negative for influenza, RSV, COVID-19. Vital signs are stable. Review of Systems REVIEW OF SYSTEMS: CONSTITUTIONAL: Denies any recent significant weight loss or weight gain. EYES: Denies change in vision. EARS, NOSE, MOUTH, THROAT: Denies headaches, denies sore throat. CARDIOVASCULAR: Denies chest pain, palpitations or syncopal episodes. RESPIRATORY: See HPI GASTROINTESTINAL: Denies change in appetite, abdominal pain, nausea and vomiti ng, or diarrhea GENITOURINARY: Denies hematuria, denies infections. MUSKULOSKELETAL: Denies pain, denies swelling. INTEGUMENTARY: Denies rash, denies eczema. NEUROLOGICAL: Denies recent memory loss, no recent seizure activity. PSYCHIATRIC: Denies anxiety, denies depression. HEMATOLOGIC/LYMPHATIC: Denies anemia, denies enlarged lymph node Past Medical History Past Medical History: Atrial Fibrillation, Cancer, Diabetes Mellitus, Hyperlipidemia, Hypertension, Osteoarthritis (OA), Thyroid Disorder Additional Past Medical History / Comment(s): heart murmer, scoliosis, spondylolisthoesis, BREAST CANCER with radiation. CHRONIC BACK PAIN., anemia, , pessary for prolapse, fx lower back from fall May 2018. PMR(polymyalgia rheumatica), unsteady on feet,. frequent loose stools - takes lomotil. pt states she hurts all, more since last pain clinic visit. History of Any Multi-Drug Resistant Organisms: None Reported Past Surgical History: Back Surgery, Breast Surgery, Heart Catheterization, Hernia Repair, Orthopedic Surgery, Pacemaker, Tonsillectomy Additional Past Surgical History / Comment(s): LEFT BREAST LUMPECTOMY, rt breast biopsy, back surgery x2 -herniated disk L5S1 and L4 and 5 cyst, anuradha cataracts, anuradha hand trigger finger( 2 on left hand, one on rt hand), heel spur removed from left foot, COLONOSCOPY. Past Anesthesia/Blood Transfusion Reactions: Previous Problems w/ Anesthesia Additional Past Anesthesia/Blood Transfusion Reaction / Comment(s): "slow coming out" Type of Cardiac Device: Permanent Pacemaker Device Placement Date:: 2018 Past Psychological History: Anxiety Smoking Status: Never smoker Past Alcohol Use History: None Reported Past Drug Use History: None Reported - Past Family History Brother(s) Family Medical History: Cancer Mother Family Medical History: Congestive Heart Failure (CHF) Medications and Allergies Home Medications Medication Instructions Recorded Confirmed Type Levothyroxine Sodium [Synthroid] 75 mcg PO MOTUWETHFRSA 06/26/18 07/12/22 History Fluticasone Nasal [place] [Flonase 1 spray EA NOSTRIL HS 08/25/18 07/12/22 History Nasal [place]] Apixaban [Eliquis] 2.5 mg PO BID 05/25/21 07/12/22 History Diphenox-Atrop 2.5-0.025 mg 1 tab PO QID PRN 05/25/21 07/12/22 History [Lomotil] Furosemide [Lasix] 20 mg PO DAILY 05/25/21 07/12/22 History Insulin Aspart [NovoLOG Flexpen] 10 units SQ AC-TID 05/25/21 07/12/22 History Metoprolol Tartrate 25 mg PO TID 05/25/21 07/12/22 History Metoprolol Tartrate [Lopressor] 50 mg PO TID 05/25/21 07/12/22 History Pantoprazole [Protonix] 40 mg PO DAILY 05/25/21 07/12/22 History amLODIPine [Norvasc] 5 mg PO DAILY 05/25/21 07/12/22 History predniSONE See Taper PO DIRECTED 05/25/21 07/12/22 History lisinopriL [Zestril] 20 mg PO BID 07/27/21 07/12/22 History hydroCHLOROthiazide 25 mg PO DAILY 02/08/22 07/12/22 History Budesonide [Pulmicort] 0.5 mg INHALATION RT-BID 07/12/22 07/12/22 History Insulin Glargine,Hum.rec.anlog 35 units SQ DAILY 07/12/22 07/12/22 History [Tokelin Tovar] Allergies Allergy/AdvReac Type Severity Reaction Status Date / Time doxycycline calcium Allergy SWELLING Verified 07/12/22 21:45 [From Vibramycin] AND RASH ON TONGUE doxycycline hyclate Allergy SWELLING Verified 07/12/22 21:45 [From Vibramycin] AND RASH ON TONGUE doxycycline monohydrate Allergy SWELLING Verified 07/12/22 21:45 [From Vibramycin] AND RASH ON TONGUE Milk Containing Products Allergy mouth sores Verified 07/12/22 21:45 [Dairy] Penicillins Allergy Unknown Verified 07/12/22 21:45 propoxyphene HCl AdvReac Nausea & Verified 07/12/22 21:45 [From Darvon] Vomiting Sulfa (Sulfonamide AdvReac Nausea & Verified 07/12/22 21:45 Antibiotics) Vomiting Physical Exam Vitals: Vital Signs Temp Pulse Resp BP Pulse Ox 07/12/22 23:07 101 H 16 98 07/12/22 23:00 100 16 124/67 97 07/12/22 22:00 144 H 16 155/72 98 07/12/22 21:30 112 H 07/12/22 21:10 83 07/12/22 21:00 82 16 144/66 100 07/12/22 20:00 85 17 118/48 98 07/12/22 17:40 98.4 F 79 20 130/65 97 Intake and Output 07/12/22 07/12/22 07/13/22 14:59 22:59 06:59 Other: Weight 52.163 kg GENERAL EXAM: Alert, 81-year-old white female, comfortable in no apparent distress. HEAD: Normocephalic and atraumatic EYES: Normal reaction of pupils, equal size. NOSE: Clear with pink turbinates. THROAT: No erythema or exudates. NECK: No masses, no JVD. CHEST: No chest wall deformity. LUNGS: Equal air entry with scattered rhonchi. no crackles, wheeze, or dullness. On room air. No conversational dyspnea or accessory muscle use.. CVS: S1 and S2 normal with no audible murmur, regular rhythm. No extra heart sounds ABDOMEN: No hepatosplenomegaly, active bowel sounds, no guarding or rigidity. SPINE: No scoliosis or deformity SKIN: No rashes CENTRAL NERVOUS SYSTEM: No focal deficits, tone is normal in all 4 extremities. EXTREMITIES: There is no peripheral edema, clubbing, or cyanosis. Peripheral pulses are intact. Results - Laboratory Findings CBC and BMP: 07/12/22 19:51 07/12/22 19:51 PT/INR, D-dimer PT 10.7 sec (9.0-12.0) 07/12/22 19:51 INR 1.0 (<1.2) 07/12/22 19:51 Abnormal lab findings: Abnormal Labs 07/12/22 07/12/22 07/12/22 19:51 19:51 19:51 RBC 3.75 L Neutrophils # 8.9 H Lymphocytes # 0.6 L BUN 74 H Creatinine 1.68 H AST 38 H ALT 45 H Troponin I 0.054 H* 07/13/22 00:10 RBC Neutrophils # Lymphocytes # BUN Creatinine AST ALT Troponin I 0.052 H* - Diagnostic Findings Chest x-ray: image reviewed Assessment and Plan Assessment: Suspected acute bronchitis. Failing outpatient treatment with a course of prednisone and Z-Sherman. Negative for influenza, RSV, COVID-19 Atrial fibrillation with rapid ventricular rate. Currently in normal sinus rhythm Dyspnea secondary to above. Currently oxygenating at 98% on room air Elevated troponins, likely secondary to demand Acute kidney injury, creatinine 1.68 History of sick sinus syndrome post permanent pacemaker implantation coronary artery disease Diabetes mellitus, insulin-dependent Hypertension Hyperlipidemia History of pulmonary nodules History of breast cancer post radiation therapy and lumpectomy Lifelong nonsmoker Plan: Patient's medications, labs, chest x-ray reviewed On room air Continue bronchodilators Check procalcitonin Cardiology is consulted Consider restarting the patient's Eliquis Patient is stable Patient will be admitted to the selective care unit once bed available We will continue to follow I have personally seen and examined the patient, performed the documentation and the assessment and plan as written. Number of minutes spent on the visit:20 Time with Patient: Greater than 30
[2022-07-13] MEDS: SODIUM CHLORIDE 0.9% 1,000 ML IV SCH ×2 (06:40→14:12)
[2022-07-13 07:33] LABS: Glucose,Whole Blood 36 mg/dL (70-110)
[2022-07-13 08:46] LABS: Glucose,Whole Blood 159 mg/dL (70-110)
[2022-07-13 08:46] LABS: Glucose,Whole Blood 49 mg/dL (70-110)
[2022-07-13] MEDS ORDERED: DEXTROSE 50% SYRINGE 50 ML IVP PRN ×2 (08:50)
[2022-07-13] MEDS ORDERED: METOPROLOL TARTRATE 50 MG TAB PO SCH (12:15)
--- NOTE | 2022-07-13 12:53 | P.CRDCN ---
History of Present Illness Consult date: 07/13/22 Reason for Consult (text): NSTEMI Consult reason: atrial fibrillation (rvr) History of present illness: History of present illness: This is an 81-year-old female patient of Dr. Jack with past medical history of dyslipidemia, hypertension, diabetes, hypothyroidism, coronary artery disease, paroxysmal atrial fibrillation, status post pacemaker. Patient states that she has had a sore throat starting 2 weeks ago that gradually moved into her chest with a cough, had nasal congestion. She states the cough is been quite severe and uncontrolled despite being on antibiotic and redness on taper. Patient came in for those symptoms and after having a coughing spell she went into atrial fibrillation. Patient was started on Cardizem drip and subsequently was converted around 10:30 this morning. Currently her heart rate is 68 and blood pressure 118/50. Patient is seen today in the emergency center waiting for a bed on the cardiac stepdown unit. EKG atrial fibrillation with RVR, 134 bpm, #2 ventricular paced rhythm at 82 bpm Chest x-ray: No acute process WBC 9.9, hemoglobin 12, platelet count 302. INR 1.0. Electrodes are normal. BUN 74 creatinine 1.68. AST 38, ALT 45. Troponins 0.054, 0.052, 0.068. Pro- calcitonin 0.11. Home cardiac medications: Amlodipine 5 mg daily, eliquis 2.5 mg twice daily, [place] 20 mg daily, hydrochlorothiazide 25 mg daily, lisinopril 20 mg twice daily, Lopressor 75 mg 3 times daily, levothyroxine 75 g Sunday through Sunday. Cardiac catheterization 2007 normal EF, 70% ostial Echocardiogram 12/2021 normal EF, moderate MR, mild to moderate AR, moderate TR, estimated RVSP 54 mmHg Permanent pacemaker Medtronic 07/2018 Lexiscan stress test 2019: normal EF, normal study Review Of Systems: At the time of my evaluation: Constitutional: No fever, no chills. No weakness, fatigue or lethargy. EENT: No headache. No dizziness. Lungs: No shortness of breath, cough, no sputum production. No wheezing. Cardiovascular: No chest pain, no lower extremity edema. No palpitations. No paroxysmal nocturnal dyspnea. No orthopnea. No lightheadedness or dizziness. No syncopal episodes. Abdominal: No abdominal pain. No nausea, vomiting. No diarrhea. No constipation. No bloody or tarry stools. Genitourinary: No dysuria.. No urinary retention. Musculoskeletal: No myalgias. No muscle weakness, no frequent falls. No back pain. No neck pain. Integumentary: No wounds. No rash. No unusual bruising. Neurologic: No aphasia. No facial droop. No change in mentation. No head injury. No headache. Physical examination: Gen: This is an 81-year-old female. She is resting on the ER stretcher and appears to be comfortable and in no acute distress. VS: reviewed HEENT: Head is atraumatic, normocephalic. Pupils equal, round. Sclerae is anicteric. NECK: Supple. No JVD. . LUNGS: Clear to auscultation. No wheezes or rhonchi. No intercostal retractions. HEART: Regular rate and rhythm. 2/6 systolic murmur. ABDOMEN: Soft No tenderness. EXTREMITIES: No pedal edema. No calf tenderness. NEUROLOGICAL: Patient is awake, alert and oriented x3. Assessment: Bronchitis Paroxysmal atrial fibrillation presenting with RVR Hypertension Dyslipidemia Diabetes Hypothyroidism Coronary artery disease Status post pacemaker Plan: Discontinue Cardizem drip Start patient on Lopressor 75 mg 3 times daily Resume patient's home cardiac medications Start patient on azithromycin 500 mg daily 2 days to complete her course Obtain TSH free T4 Further recommendations to follow based upon clinical course Thank you kindly for this consultation. Nurse practitioner note has been reviewed, I agree with documented findings and plan of care. Patient was seen and examined. Past Medical History Past Medical History: Atrial Fibrillation, Cancer, Diabetes Mellitus, Hyperlipidemia, Hypertension, Osteoarthritis (OA), Thyroid Disorder Additional Past Medical History / Comment(s): heart murmer, scoliosis, s pondylolisthoesis, BREAST CANCER with radiation. CHRONIC BACK PAIN., anemia, , pessary for prolapse, fx lower back from fall May 2018. PMR(polymyalgia rheumatica), unsteady on feet,. frequent loose stools - takes lomotil. pt states she hurts all, more since last pain clinic visit. History of Any Multi-Drug Resistant Organisms: None Reported Past Surgical History: Back Surgery, Breast Surgery, Heart Catheterization, Hernia Repair, Orthopedic Surgery, Pacemaker, Tonsillectomy Additional Past Surgical History / Comment(s): LEFT BREAST LUMPECTOMY, rt breast biopsy, back surgery x2 -herniated disk L5S1 and L4 and 5 cyst, anuradha cataracts, anuradha hand trigger finger( 2 on left hand, one on rt hand), heel spur removed from left foot, COLONOSCOPY. Past Anesthesia/Blood Transfusion Reactions: Previous Problems w/ Anesthesia Additional Past Anesthesia/Blood Transfusion Reaction / Comment(s): "slow coming out" Type of Cardiac Device: Permanent Pacemaker Device Placement Date:: 2018 Past Psychological History: Anxiety Smoking Status: Never smoker Past Alcohol Use History: None Reported Past Drug Use History: None Reported - Past Family History Brother(s) Family Medical History: Cancer Mother Family Medical History: Congestive Heart Failure (CHF) Medications and Allergies Home Medications Medication Instructions Recorded Confirmed Type Levothyroxine Sodium [Synthroid] 75 mcg PO MOTUWETHFRSA 06/26/18 07/12/22 History Fluticasone Nasal [place] [Flonase 1 spray EA NOSTRIL HS 08/25/18 07/12/22 History Nasal [place]] Apixaban [Eliquis] 2.5 mg PO BID 05/25/21 07/12/22 History Diphenox-Atrop 2.5-0.025 mg 1 tab PO QID PRN 05/25/21 07/12/22 History [Lomotil] Furosemide [Lasix] 20 mg PO DAILY 05/25/21 07/12/22 History Insulin Aspart [NovoLOG Flexpen] 10 units SQ AC-TID 05/25/21 07/12/22 History Metoprolol Tartrate 25 mg PO TID 05/25/21 07/12/22 History Metoprolol Tartrate [Lopressor] 50 mg PO TID 05/25/21 07/12/22 History Pantoprazole [Protonix] 40 mg PO DAILY 05/25/21 07/12/22 History amLODIPine [Norvasc] 5 mg PO DAILY 05/25/21 07/12/22 History predniSONE See Taper PO DIRECTED 05/25/21 07/12/22 History lisinopriL [Zestril] 20 mg PO BID 07/27/21 07/12/22 History hydroCHLOROthiazide 25 mg PO DAILY 02/08/22 07/12/22 History Budesonide [Pulmicort] 0.5 mg INHALATION RT-BID 07/12/22 07/12/22 History Insulin Glargine,Hum.rec.anlog 35 units SQ DAILY 07/12/22 07/12/22 History [Dalila Tovar] Allergies Allergy/AdvReac Type Severity Reaction Status Date / Time doxycycline calcium Allergy SWELLING Verified 07/12/22 21:45 [From Vibramycin] AND RASH ON TONGUE doxycycline hyclate Allergy SWELLING Verified 07/12/22 21:45 [From Vibramycin] AND RASH ON TONGUE doxycycline monohydrate Allergy SWELLING Verified 07/12/22 21:45 [From Vibramycin] AND RASH ON TONGUE Milk Containing Products Allergy mouth sores Verified 07/12/22 21:45 [Dairy] Penicillins Allergy Unknown Verified 07/12/22 21:45 propoxyphene HCl AdvReac Nausea & Verified 07/12/22 21:45 [From Darvon] Vomiting Sulfa (Sulfonamide AdvReac Nausea & Verified 07/12/22 21:45 Antibiotics) Vomiting Physical Exam Vitals: Vital Signs Temp Pulse Resp BP Pulse Ox 07/13/22 11:47 67 18 118/55 98 07/13/22 08:32 97 07/13/22 08:30 126 H 18 116/68 97 07/13/22 07:35 128 H 18 123/69 97 07/13/22 06:42 149 H 16 111/88 95 07/13/22 06:00 158 H 16 148/68 97 07/13/22 04:00 98.7 F 86 16 154/68 96 07/13/22 02:00 93 16 153/64 95 07/13/22 01:00 90 16 134/65 96 07/12/22 23:07 101 H 16 98 07/12/22 23:00 100 16 124/67 97 07/12/22 22:00 144 H 16 155/72 98 07/12/22 21:30 112 H 07/12/22 21:10 83 07/12/22 21:00 82 16 144/66 100 07/12/22 20:00 85 17 118/48 98 07/12/22 17:40 98.4 F 79 20 130/65 97 Intake and Output 07/12/22 07/13/22 07/13/22 22:59 06:59 14:59 Other: Weight 52.163 kg Results 07/12/22 19:51 07/12/22 19:51 Cardiac Enzymes 07/12/22 07/12/22 07/13/22 Range/Units 19:51 19:51 00:10 AST 38 H (14-36) U/L Troponin I 0.054 H* 0.052 H* (0.000-0.034) ng/mL 07/13/22 Range/Units 03:55 AST (14-36) U/L Troponin I 0.068 H* (0.000-0.034) ng/mL Coagulation 07/12/22 Range/Units 19:51 PT 10.7 (9.0-12.0) sec APTT 22.6 (22.0-30.0) sec CBC 07/12/22 Range/Units 19:51 WBC 9.9 (3.8-10.6) k/uL RBC 3.75 L (3.80-5.40) m/uL Hgb 12.0 (11.4-16.0) gm/dL Hct 36.7 (34.0-46.0) % Plt Count 302 (150-450) k/uL Comprehensive Metabolic Panel 07/12/22 Range/Units 19:51 Sodium 141 (137-145) mmol/L Potassium 4.5 (3.5-5.1) mmol/L Chloride 105 (98-107) mmol/L Carbon Dioxide 26 (22-30) mmol/L BUN 74 H (7-17) mg/dL Creatinine 1.68 H (0.52-1.04) mg/dL Glucose 75 (74-99) mg/dL Calcium 9.5 (8.4-10.2) mg/dL AST 38 H (14-36) U/L ALT 45 H (4-34) U/L Alkaline Phosphatase 48 (38-126) U/L Total Protein 6.8 (6.3-8.2) g/dL Albumin 4.1 (3.5-5.0) g/dL Current Medications Generic Name Dose Route Start Last Admin Trade Name Freq PRN Reason Stop Dose Admin Hydrocodone Bitart/Acetaminophen 1 each 07/13/22 01:28 07/13/22 02:08 Hydrocodone/Apap 5-325mg 1 Each Tab PO 1 each Q6HR PRN Administration Pain Albuterol/Ipratropium 3 ml 07/12/22 23:04 Ipratropium-Albuterol 3 Ml Neb INHALATION RT-QID PRN Shortness Of Breath Or Wheezing Amlodipine Besylate 5 mg 07/14/22 09:00 Amlodipine 5 Mg Tab PO DAILY [facility] Apixaban 2.5 mg 07/13/22 12:00 Apixaban 2.5 Mg Tablet PO BID [facility] Protocol Azithromycin 500 mg 07/13/22 12:00 Azithromycin 500 Mg Tab PO 07/15/22 12:01 DAILY [facility] Protocol Budesonide 0.5 mg 07/13/22 20:00 Budesonide 0.5 Mg/2 Ml Nebu INHALATION RT-BID [facility] Dextrose/Water 25 ml 07/13/22 08:50 Dextrose 50% Syringe 50 Ml IVP PER PROTOCOL PRN Hypoglycemia Protocol Dextrose/Water 50 ml 07/13/22 08:50 Dextrose 50% Syringe 50 Ml IVP PER PROTOCOL PRN Hypoglycemia Protocol Fluticasone Propionate 1 spray 07/13/22 21:00 Fluticasone 50mcg/[place] Nasal 16gm EA NOSTRIL HS [facility] Furosemide 20 mg 07/14/22 09:00 Furosemide 20 Mg Tab PO DAILY [facility] Hydrochlorothiazide 25 mg 07/14/22 09:00 Hydrochlorothiazide 25 Mg Tab PO DAILY [facility] Sodium Chloride 1,000 mls @ 130 mls/hr 07/12/22 23:15 07/13/22 06:40 Saline 0.9% IV Not Given .[id number] [facility] Insulin Aspart 0 unit 07/13/22 12:30 Insulin Aspart (Novolog) 100 Unit/Ml Vial SQ ACHS [facility] Protocol Levothyroxine Sodium 75 mcg 07/13/22 12:15 Levothyroxine 75 Mcg Tab PO [id number] [facility] Lisinopril 20 mg 07/13/22 12:15 Lisinopril 20 Mg Tab PO BID [facility] Metoprolol Tartrate 75 mg 07/13/22 12:15 Metoprolol Tartrate 25 Mg Tab PO TID [facility] Naloxone HCl 0.2 mg 07/12/22 23:04 Naloxone 0.4 Mg/Ml 1 Ml Vial IV Q2M PRN Opioid Reversal Ondansetron HCl 4 mg 07/12/22 23:04 Ondansetron 4 Mg/2 Ml Vial IVP Q8HR PRN Nausea And Vomiting Pantoprazole Sodium 40 mg 07/14/22 07:30 Pantoprazole 40 Mg Tablet PO AC-BRKFST CLAUDY Intake and Output 07/12/22 07/13/22 07/13/22 22:59 06:59 14:59 Other: Weight 52.163 kg 07/12/22 19:51 07/12/22 19:51
[2022-07-13] MEDS: lisinopriL 20 MG TAB PO SCH ×2 (12:59→20:18)
[2022-07-13] MEDS: METOPROLOL TARTRATE 25 MG TAB PO SCH ×3 (12:59→20:17)
[2022-07-13] MEDS: LEVOTHYROXINE 75 MCG TAB PO SCH (12:59)
[2022-07-13] MEDS: APIXABAN 2.5 MG TABLET PO SCH ×2 (12:59→20:18)
[2022-07-13] MEDS: AZITHROMYCIN 500 MG TAB PO SCH (13:01)
[2022-07-13] MEDS: INSULIN ASPART (NovoLOG) 100 UNIT/ML VIAL SQ SCH ×3 (13:15→20:19)
[2022-07-13 13:16] LABS: Glucose,Whole Blood 142 mg/dL (70-110)
[2022-07-13 13:22] LABS: Glucose,Whole Blood 163 mg/dL (70-110)
--- NOTE | 2022-07-13 14:25 | P.CN ---
Psychiatric Consult - . Consult date: 07/13/22 Consult:: 07/13/22 14:24 IDENTIFYING DATA: This patient is a , retired, 81-year-old female with significant history of age of fibrillation, diabetes, hyperlipidemia, hypertension, thyroid disorder, and cancer who presented to our hospital on 07/13/2019. Chief complaint of shortness of breath. HISTORY OF PRESENT ILLNESS: The patient presented to the hospital on 07/12/2022 with a chief complaint of shortness of breath. Psychiatry has been consulted for evaluation of depression and grief. Upon evaluation by this provider, the patient reports that she is dealing with the passing of her of 60 years. She reports that he this past March. She does endorse significant symptoms of bereavement and grief including low mood, crying episodes, and at times excessive guilt. She is however not endorsing any suicidal or homicidal ideation, intention, and/or plan. She vehemently denies any prior attempts at suicide. She reports no issues regarding her appetite or her ability to take care of her hygiene and grooming. She does report that she has 3 daughters who occasionally check in on her however she feels guilty if she was to reach out to them. She was encouraged to do so regardless. She is not endorsing any significant symptoms of bipolar disorder. She reports no history of auditory or visual hallucinations. She denies any history of paranoia or other delusions. PAST PSYCHIATRIC HISTORY: Patient has no significant psychiatric history. Patient denies being on any psychiatric medications. Patient denies any previous psychiatric hospitalizations. Patient denies any psychiatric outpatient follow- up. Patient denies any history of suicide attempts in the past. PAST MEDICAL HISTORY: Past Medical History: Atrial Fibrillation, Cancer, Diabetes Mellitus, Hyperlipidemia, Hypertension, Osteoarthritis (OA), Thyroid Disorder Additional Past Medical History / Comment(s): heart murmer, scoliosis, spondylolisthoesis, BREAST CANCER with radiation. CHRONIC BACK PAIN., anemia, , pessary for prolapse, fx lower back from fallMay 2018. PMR(polymyalgia rheumatica), unsteady on feet,. frequent loose stools - takes lomotil. pt states she hurts all, more since last pain clinic visit. History of Any Multi-Drug Resistant Organisms: None Reported Past Surgical History: Back Surgery, Breast Surgery, Heart Catheterization, Hernia Repair, Orthopedic Surgery, Pacemaker, Tonsillectomy Additional Past Surgical History / Comment(s): LEFT BREAST LUMPECTOMY, rt breast biopsy, back surgery x2 -herniated disk L5S1 and L4 and 5 cyst, anuradha cataracts, anuradha hand trigger finger( 2 on left hand, one on rt hand), heel spur removed from left foot, COLONOSCOPY. Past Anesthesia/Blood Transfusion Reactions: Previous Problems w/ Anesthesia Additional Past Anesthesia/Blood Transfusion Reaction / Comment(s): "slow coming out" Type of Cardiac Device: Permanent Pacemaker Device Placement Date:: 2018 Past Psychological History: Anxiety Smoking Status: Never smoker Past Alcohol Use History: None Reported Past Drug Use History: None Reported ALLERGIES: Allergies Allergy/AdvReac Type Severity Reaction Status Date / Time doxycycline calcium Allergy SWELLING Verified 07/12/22 21:45 [From Vibramycin] AND RASH ON TONGUE doxycycline hyclate Allergy SWELLING Verified 07/12/22 21:45 [From Vibramycin] AND RASH ON TONGUE doxycycline monohydrate Allergy SWELLING Verified 07/12/22 21:45 [From Vibramycin] AND RASH ON TONGUE Milk Containing Products Allergy mouth sores Verified 07/12/22 21:45 [Dairy] Penicillins Allergy Unknown Verified 07/12/22 21:45 propoxyphene HCl AdvReac Nausea & Verified 07/12/22 21:45 [From Darvon] Vomiting Sulfa (Sulfonamide AdvReac Nausea & Verified 07/12/22 21:45 Antibiotics) Vomiting CHEMICAL DEPENDENCY HISTORY: Patient denies any tobacco, alcohol, marijuana, or illicit drug use. FAMILY PSYCHIATRIC/SUBSTANCE USE HISTORY: No reported family psychiatric history. SOCIAL HISTORY: Patient was born and raised in [place], [place]. Her of 60 years this past March. They have 3 daughters together who all have their own families. The patient lives by herself with her cat. She reports no access to transportation. 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 MENTAL STATUS EXAM: General Appearance: Patient appears to be stated age is alert, pleasant, and cooperative. Patient appears to have fair hygiene and grooming wearing hospital gown with fair eye contact. Behavior: Patient is calmly lying in bed without any agitated behavior. Appropriately tearful. Speech: Patient's speech is fluent and nonpressured. Mood/Affect: Patient reports their mood is "sad", affect is congruent and tearful. Suicidality/Homicidality: Patient denies any suicidal or homicidal ideation, intention, and/or plan. Perceptions: Patient denies any visual hallucinations and denies any auditory hallucinations Though content/process: There is no evidence of any delusional thought content and thought process is linear and goal-directed. Memory and concentration: AOX3, grossly intact for the purposes of this session. Can spell "WORLD" backwards Judgment and insight: Fair Vital Signs Temp 98.7 F 07/13/22 04:00 Pulse 57 L 07/13/22 14:00 Resp 22 07/13/22 14:00 BP 116/64 07/13/22 14:00 Pulse Ox 98 07/13/22 14:00 FiO2 Intake & Output 07/12/22 07/13/22 07/13/22 18:59 06:59 18:59 Weight 52.163 kg Laboratory Results WBC 9.9 k/uL (3.8-10.6) 07/12/22 19:51 RBC 3.75 m/uL (3.80-5.40) L 07/12/22 19:51 Hgb 12.0 gm/dL (11.4-16.0) 07/12/22 19:51 Hct 36.7 % (34.0-46.0) 07/12/22 19:51 MCV 97.8 fL (80.0-100.0) 07/12/22 19:51 MCH 32.0 pg (25.0-35.0) 07/12/22 19:51 MCHC 32.7 g/dL (31.0-37.0) 07/12/22 19:51 RDW 13.1 % (11.5-15.5) 07/12/22 19:51 Plt Count 302 k/uL (150-450) 07/12/22 19:51 MPV 8.7 07/12/22 19:51 Neutrophils % 90 % 07/12/22 19:51 Lymphocytes % 6 % 07/12/22 19:51 Monocytes % 4 % 07/12/22 19:51 Eosinophils % 0 % 07/12/22 19:51 Basophils % 0 % 07/12/22 19:51 Neutrophils # 8.9 k/uL (1.3-7.7) H 07/12/22 19:51 Lymphocytes # 0.6 k/uL (1.0-4.8) L 07/12/22 19:51 Monocytes # 0.4 k/uL (0-1.0) 07/12/22 19:51 Eosinophils # 0.0 k/uL (0-0.7) 07/12/22 19:51 Basophils # 0.0 k/uL (0-0.2) 07/12/22 19:51 PT 10.7 sec (9.0-12.0) 07/12/22 19:51 INR 1.0 (<1.2) 07/12/22 19:51 APTT 22.6 sec (22.0-30.0) 07/12/22 19:51 Sodium 141 mmol/L (137-145) 07/12/22 19:51 Potassium 4.5 mmol/L (3.5-5.1) 07/12/22 19:51 Chloride 105 mmol/L (98-107) 07/12/22 19:51 Carbon Dioxide 26 mmol/L (22-30) 07/12/22 19:51 Anion Gap 10 mmol/L 07/12/22 19:51 BUN 74 mg/dL (7-17) H 07/12/22 19:51 Creatinine 1.68 mg/dL (0.52-1.04) H 07/12/22 19:51 Est GFR (CKD-EPI)AfAm 32 (>60 ml/min/1.73 sqM) 07/12/22 19:51 Est GFR (CKD-EPI)NonAf 28 (>60 ml/min/1.73 sqM) 07/12/22 19:51 Glucose 75 mg/dL (74-99) 07/12/22 19:51 POC Glucose (mg/dL) 142 mg/dL (70-110) H 07/13/22 13:13 POC Glu Support Services Coordinator ID Tameka Gaona 07/13/22 13:13 Plasma Lactic Acid Ramon 1.1 mmol/L (0.7-2.0) 07/12/22 19:51 Calcium 9.5 mg/dL (8.4-10.2) 07/12/22 19:51 Magnesium 2.1 mg/dL (1.6-2.3) 07/12/22 19:51 Total Bilirubin 0.7 mg/dL (0.2-1.3) 07/12/22 19:51 AST 38 U/L (14-36) H 07/12/22 19:51 ALT 45 U/L (4-34) H 07/12/22 19:51 Alkaline Phosphatase 48 U/L (38-126) 07/12/22 19:51 Troponin I 0.068 ng/mL (0.000-0.034) H* 07/13/22 03:55 NT-Pro-B Natriuret Pep 1890 pg/mL 07/12/22 19:51 Total Protein 6.8 g/dL (6.3-8.2) 07/12/22 19:51 Albumin 4.1 g/dL (3.5-5.0) 07/12/22 19:51 Procalcitonin 0.11 ng/mL (0.02-0.09) H 07/13/22 06:35 Influenza Type A (PCR) Not Detected (Not Detectd) 07/12/22 20:14 Influenza Type B (PCR) Not Detected (Not Detectd) 07/12/22 20:14 RSV (PCR) Not Detected (Not Detectd) 07/12/22 20:14 SARS-CoV-2 (PCR) Not Detected (Not Detectd) 07/12/22 20:14 IMPRESSIONS: Bereavement PLAN: -Continue your medical management -At this time patient DOES NOT meet criteria for inpatient psychiatric admission. She is not overtly manic or psychotic. She is not endorsing any suicidal or homicidal ideation, intention, and/or plan. Although endorsing significant symptoms of bereavement she is not having any severe disruption in terms of her day-to-day functioning. -Would recommend the following medication changes/additions: No medication recommendations made at this time. The patient does not wish to start any medications. -Approximately 20 minutes was spent providing the patient with grief counseling. -Recommend outpatient resources for grief counseling, transportation services, and outpatient psychotherapy. -Psychiatry will sign off at this point, please contact with any questions. 07/13/22 14:25
[2022-07-13] MEDS ORDERED: SODIUM CHLORIDE 0.9% 1,000 ML IV SCH (14:45)
[2022-07-13 14:54] LABS: Basophils % (A) 0 %; Eosinophils # (A) 0.1 k/uL (0-0.7); Eosinophils % (A) 1 %; HCT 36.8 % (34.0-46.0); HGB 11.7 gm/dL (11.4-16.0); Lymphocytes # (A) 1.2 k/uL (1.0-4.8); Lymphocytes % (A) 11 %; MCH 31.4 pg (25.0-35.0); MCHC 31.9 g/dL (31.0-37.0); MCV 98.6 fL (80.0-100.0); Mean Platelet Volume 9.3; Monocytes # (A) 0.6 k/uL (0-1.0); Monocytes % (A) 6 %; Neutrophils # (A) 8.9 k/uL (1.3-7.7); Neutrophils % (A) 82 %; Platelet Count 306 k/uL (150-450); RBC 3.73 m/uL (3.80-5.40); RDW 13.2 % (11.5-15.5); WBC 10.8 k/uL (3.8-10.6)
[2022-07-13 14:55] LABS: Glucose,Whole Blood 137 mg/dL (70-110)
[2022-07-13 15:06] LABS: Calcium 9.4 mg/dL (8.4-10.2)
[2022-07-13 15:21] LABS: Glucose,Whole Blood 135 mg/dL (70-110)
[2022-07-13 16:48] LABS: Glucose,Whole Blood 147 mg/dL (70-110)
[2022-07-13] MEDS: ACETAMINOPHEN TAB 325 MG TAB PO PRN (18:32)
[2022-07-13] MEDS: polyethylene glycoL 3350 17 GM POWD.PACK PO SCH (18:33)
[2022-07-13] MEDS ORDERED: HYDROmorphone 0.5 MG/0.5 ML SYRINGE IVP ONE (19:00)
[2022-07-13 20:03] LABS: Glucose,Whole Blood 165 mg/dL (70-110)
[2022-07-13] MEDS: FLUTICASONE 50MCG/SPRAY NASAL 16GM EA NOSTRIL SCH (20:19)
[2022-07-13] MEDS: IPRATROPIUM-ALBUTEROL 3 ML NEB INHALATION PRN (22:22)
[2022-07-13] MEDS: BUDESONIDE 0.5 MG/2 ML NEBU INHALATION SCH (22:22)
--- NOTE | 2022-07-14 01:04 | P.HPIM ---
History of Present Illness H&P Date: 07/13/22 Chief Complaint: Cough and congestion Patient is a 81-year-old female with a known history of atrial fibrillation on anticoagulation with Eliquis, history of permanent pacemaker placement, hypertension, hyperlipidemia, diabetes type 2 insulin-dependent, hypothyroidism, osteoarthritis and chronic back pain and anxiety presents ER with complaints of shortness of breath for past 2 weeks. Patient was having chest congestion and cough with clear to greenish sputum production. Patient was seen by her primary care physician and was given Z-Sherman and prednisone course. Patient still having symptoms without much improvement presented to ER. Denies any fever or chills. No leg swelling. No nausea vomiting abdominal pain or diarrhea. Chest x-ray in the ER showed no acute process. EKG showed atrial fibrillation with rapid regular rate with heart rate 134 Laboratory data showed WBC 9.9 hemoglobin 12.0 and platelets 302 Sodium 141 potassium 4.5 chloride 105 bicarb is 26 BUN 74 and creatinine 1.68, AST 38 ALT 45 alk phos 48 and troponin 0.054, 0.052 and 0.068, procalcitonin level is 0.11 TSH within normal limits and proBNP is 1890 Influenza A, B, RSV and COVID-19 PCR not detected. Review of Systems Constitutional: Patient denies any fever or chills . no Generalized weakness. Abdomen: Patient denied any nausea or vomiting or abd. pain Cardiovascular: Patient was complaining of cough congestion shortness of breath. No palpitations. Respiratory: Cough with green sputum production and shortness of breath Neurologic: Patient denied any numbness or tingling headache. Musculoskeletal: Patient denies any complaints of joint swelling or deformity. Skin: Negative Psychiatric: Negative Endocrine: No heat or cold intolerance. No recent weight gain. Genitourinary: No dysuria or hematuria. All other 14 point ROS negative except the above Past Medical History Past Medical History: Atrial Fibrillation, Cancer, Diabetes Mellitus, Hyperlipidemia, Hypertension, Osteoarthritis (OA), Thyroid Disorder Additional Past Medical History / Comment(s): heart murmer, scoliosis, spon dylolisthoesis, BREAST CANCER with radiation. CHRONIC BACK PAIN., anemia, , pessary for prolapse, fx lower back from fall May 2018. PMR(polymyalgia rheumatica), unsteady on feet,. frequent loose stools - takes lomotil. pt states she hurts all, more since last pain clinic visit. History of Any Multi-Drug Resistant Organisms: None Reported Past Surgical History: Back Surgery, Breast Surgery, Heart Catheterization, Hernia Repair, Orthopedic Surgery, Pacemaker, Tonsillectomy Additional Past Surgical History / Comment(s): LEFT BREAST LUMPECTOMY, rt breast biopsy, back surgery x2 -herniated disk L5S1 and L4 and 5 cyst, anuradha cataracts, anuradha hand trigger finger( 2 on left hand, one on rt hand), heel spur removed from left foot, COLONOSCOPY. Past Anesthesia/Blood Transfusion Reactions: Previous Problems w/ Anesthesia Additional Past Anesthesia/Blood Transfusion Reaction / Comment(s): "slow coming out" Type of Cardiac Device: Permanent Pacemaker Device Placement Date:: 2018 Past Psychological History: Anxiety Smoking Status: Never smoker Past Alcohol Use History: None Reported Past Drug Use History: None Reported - Past Family History Brother(s) Family Medical History: Cancer Mother Family Medical History: Congestive Heart Failure (CHF) Medications and Allergies Home Medications Medication Instructions Recorded Confirmed Type Levothyroxine Sodium [Synthroid] 75 mcg PO MOTUWETHFRSA 06/26/18 07/12/22 History Fluticasone Nasal [place] [Flonase 1 spray EA NOSTRIL HS 08/25/18 07/12/22 History Nasal [place]] Apixaban [Eliquis] 2.5 mg PO BID 05/25/21 07/12/22 History Diphenox-Atrop 2.5-0.025 mg 1 tab PO QID PRN 05/25/21 07/12/22 History [Lomotil] Furosemide [Lasix] 20 mg PO DAILY 05/25/21 07/12/22 History Insulin Aspart [NovoLOG Flexpen] 10 units SQ AC-TID 05/25/21 07/12/22 History Metoprolol Tartrate 25 mg PO TID 05/25/21 07/12/22 History Metoprolol Tartrate [Lopressor] 50 mg PO TID 05/25/21 07/12/22 History Pantoprazole [Protonix] 40 mg PO DAILY 05/25/21 07/12/22 History amLODIPine [Norvasc] 5 mg PO DAILY 05/25/21 07/12/22 History predniSONE See Taper PO DIRECTED 05/25/21 07/12/22 History lisinopriL [Zestril] 20 mg PO BID 07/27/21 07/12/22 History hydroCHLOROthiazide 25 mg PO DAILY 02/08/22 07/12/22 History Budesonide [Pulmicort] 0.5 mg INHALATION RT-BID 07/12/22 07/12/22 History Insulin Glargine,Hum.rec.anlog 35 units SQ DAILY 07/12/22 07/12/22 History [Tokelin Tovar] Allergies Allergy/AdvReac Type Severity Reaction Status Date / Time doxycycline calcium Allergy SWELLING Verified 07/12/22 21:45 [From Vibramycin] AND RASH ON TONGUE doxycycline hyclate Allergy SWELLING Verified 07/12/22 21:45 [From Vibramycin] AND RASH ON TONGUE doxycycline monohydrate Allergy SWELLING Verified 07/12/22 21:45 [From Vibramycin] AND RASH ON TONGUE Milk Containing Products Allergy mouth sores Verified 07/12/22 21:45 [Dairy] Penicillins Allergy Unknown Verified 07/12/22 21:45 propoxyphene HCl AdvReac Nausea & Verified 07/12/22 21:45 [From Darvon] Vomiting Sulfa (Sulfonamide AdvReac Nausea & Verified 07/12/22 21:45 Antibiotics) Vomiting Physical Exam Vitals: Vital Signs Temp Pulse Resp BP Pulse Ox 07/13/22 14:00 57 L 22 116/64 98 07/13/22 13:45 71 18 145/84 97 07/13/22 13:00 131 H 18 156/80 97 07/13/22 12:29 110 H 20 149/78 95 07/13/22 11:47 67 18 118/55 98 07/13/22 11:17 70 18 116/62 97 07/13/22 08:32 97 07/13/22 08:30 126 H 18 116/68 97 07/13/22 07:35 128 H 18 123/69 97 07/13/22 06:42 149 H 16 111/88 95 07/13/22 06:00 158 H 16 148/68 97 07/13/22 04:00 98.7 F 86 16 154/68 96 07/13/22 02:00 93 16 153/64 95 07/13/22 01:00 90 16 134/65 96 07/12/22 23:07 101 H 16 98 07/12/22 23:00 100 16 124/67 97 07/12/22 22:00 144 H 16 155/72 98 07/12/22 21:30 112 H 07/12/22 21:10 83 07/12/22 21:00 82 16 144/66 100 07/12/22 20:00 85 17 118/48 98 07/12/22 17:40 98.4 F 79 20 130/65 97 Intake and Output 07/12/22 07/13/22 07/13/22 22:59 06:59 14:59 Other: Weight 52.163 kg PHYSICAL EXAMINATION: Patient is lying in the bed comfortably, no acute distress, awake alert and oriented.. HEENT: Normocephalic. Neck is supple. Pupils reactive. Nostrils clear. Oral cavity is moist. Neck reveals no JVD, carotid bruits, or thyromegaly. CHEST EXAMINATION: Trachea is central. Symmetrical expansion. Lung cantu clear to auscultation and percussion. CARDIAC: Normal S1, S2 with no gallops. No murmurs ABDOMEN: Soft. Bowel sounds present. Nontender. No organomegaly. No abdominal bruits. Extremities: reveal no edema. No clubbing or cyanosis Neurologically awake, alert, oriented x3 with well-coordinated movements. No focal deficits noted Skin: No rash or skin lesions. Psychiatric: Coperative. Nonsuicidal, Musculoskeletal: No joint swelling or deformity. Normal range of motion. Results CBC & Chem 7: 07/13/22 14:51 07/13/22 14:51 Labs: Abnormal Lab Results - Last 24 Hours (Table) 07/12/22 07/12/22 07/12/22 Range/Units 19:51 19:51 19:51 RBC 3.75 L (3.80-5.40) m/uL Neutrophils # 8.9 H (1.3-7.7) k/uL Lymphocytes # 0.6 L (1.0-4.8) k/uL BUN 74 H (7-17) mg/dL Creatinine 1.68 H (0.52-1.04) mg/dL POC Glucose (mg/dL) (70-110) mg/dL AST 38 H (14-36) U/L ALT 45 H (4-34) U/L Troponin I 0.054 H* (0.000-0.034) ng/mL Procalcitonin (0.02-0.09) ng/mL 07/13/22 07/13/22 07/13/22 Range/Units 00:10 03:55 06:35 RBC (3.80-5.40) m/uL Neutrophils # (1.3-7.7) k/uL Lymphocytes # (1.0-4.8) k/uL BUN (7-17) mg/dL Creatinine (0.52-1.04) mg/dL POC Glucose (mg/dL) (70-110) mg/dL AST (14-36) U/L ALT (4-34) U/L Troponin I 0.052 H* 0.068 H* (0.000-0.034) ng/mL Procalcitonin 0.11 H (0.02-0.09) ng/mL 07/13/22 07/13/22 07/13/22 Range/Units 07:31 07:52 08:43 RBC (3.80-5.40) m/uL Neutrophils # (1.3-7.7) k/uL Lymphocytes # (1.0-4.8) k/uL BUN (7-17) mg/dL Creatinine (0.52-1.04) mg/dL POC Glucose (mg/dL) 36 L 49 L 159 H (70-110) mg/dL AST (14-36) U/L ALT (4-34) U/L Troponin I (0.000-0.034) ng/mL Procalcitonin (0.02-0.09) ng/mL 07/13/22 07/13/22 Range/Units 12:14 13:13 RBC (3.80-5.40) m/uL Neutrophils # (1.3-7.7) k/uL Lymphocytes # (1.0-4.8) k/uL BUN (7-17) mg/dL Creatinine (0.52-1.04) mg/dL POC Glucose (mg/dL) 163 H 142 H (70-110) mg/dL AST (14-36) U/L ALT (4-34) U/L Troponin I (0.000-0.034) ng/mL Procalcitonin (0.02-0.09) ng/mL Thrombosis Risk Factor Assmnt - DVT/VTE Prophylaxis DVT/VTE Prophylaxis: Pharmacologic Prophylaxis ordered Assessment and Plan Assessment: Atrial fibrillation with rapid ventricular rate. On anticoagulation with Eliquis at home Acute tracheobronchitis. Patient was on Z-Sherman as an outpatient. Moderate to severe MR, moderate TR and mild pulmonary hypertension Elevated troponin possible demand ischemia Acute kidney injury with creatinine 1.68 on admission Diabetes type 2 Episode of hypoglycemia. Hypothyroidism Hypertension Hyperlipidemia Osteoarthritis Chronic back pain and fibromyalgia Anxiety History of pulm pacemaker placement Depression/bereavement. Plan: Patient was started on Cardizem drip. Heart rate is controlled today and patient was started on metoprolol 75 mg 3 times daily. Continue with antibiotic course with azithromycin and follow-up sputum culture report. Current insulin sliding scale and CBG before meals and at bedtime. Cardiology, pulmonary and psychiatry is on board. Discussed with the patient and her daughter at bedside in detail. Prognosis guarded. Time with Patient: Greater than 30
[2022-07-14 06:17] LABS: Glucose,Whole Blood 52 mg/dL (70-110)
[2022-07-14] MEDS: INSULIN ASPART (NovoLOG) 100 UNIT/ML VIAL SQ SCH ×4 (06:20→20:18)
[2022-07-14] MEDS: LEVOTHYROXINE 75 MCG TAB PO SCH (06:21)
[2022-07-14] MEDS: PANTOPRAZOLE 40 MG TABLET PO SCH (06:21)
[2022-07-14 06:34] LABS: Glucose,Whole Blood 62 mg/dL (70-110)
[2022-07-14 06:51] LABS: Glucose,Whole Blood 96 mg/dL (70-110)
[2022-07-14] MEDS: lisinopriL 20 MG TAB PO SCH ×2 (07:48→07:49)
[2022-07-14] MEDS: polyethylene glycoL 3350 17 GM POWD.PACK PO SCH (07:48)
[2022-07-14] MEDS: METOPROLOL TARTRATE 25 MG TAB PO SCH ×3 (07:48→20:14)
[2022-07-14] MEDS: hydroCHLOROthiazide 25 MG TAB PO SCH (07:49)
[2022-07-14] MEDS: FUROSEMIDE 20 MG TAB PO SCH (07:49)
[2022-07-14] MEDS: APIXABAN 2.5 MG TABLET PO SCH ×2 (07:49→20:15)
[2022-07-14] MEDS: AZITHROMYCIN 500 MG TAB PO SCH (07:49)
[2022-07-14 08:48] LABS: Potassium 5.2 mmol/L (3.5-5.1)
[2022-07-14 08:49] LABS: Calcium 9.2 mg/dL (8.4-10.2)
[2022-07-14] MEDS ORDERED: amLODIPine 5 MG TAB PO SCH (09:00)
[2022-07-14] MEDS: IPRATROPIUM-ALBUTEROL 3 ML NEB INHALATION PRN (09:29)
[2022-07-14] MEDS: BUDESONIDE 0.5 MG/2 ML NEBU INHALATION SCH (09:29)
[2022-07-14 11:54] LABS: Glucose,Whole Blood 114 mg/dL (70-110)
--- NOTE | 2022-07-14 12:36 | P.PN ---
Subjective Progress Note Date: 07/14/22 Principal diagnosis: Shortness of breath. Seeing this patient in consultation today 07/13/2022 in the emergency room waiting for a bed on the selective care unit. Patient is an 81-year-old white female with past significant medical history of atrial fibrillation, permanent pacemaker, coronary artery disease, breast cancer post radiation therapy and lumpectomy, hypertension, hyperlipidemia, diabetes mellitus, hypothyroidism, and is a lifelong nonsmoker. Patient does follow with Dr. Haile in the office for a solitary lung nodule. Patient presented to the emergency room yesterday evening with chief complaint of shortness of breath over the past 2 weeks. Also, reports chest congestion and a frequent cough with occasional phlegm. Patient denies any chest pain, heart palpitations, lightheadedness or syncope, fever, hemoptysis. Patient apparently was seen by Dr Babcock, her primary care provider, and was given a course of prednisone and a Z-Sherman. Patient had no improvement in symptoms. Patient is currently resting emergency room, on room air, in no acute distress. Chest x-ray arrival showed no acute cardiopulmonary process. While the emergency room, patient did have an episode of A. fib RVR, which has currently resolved, as the patient is in normal sinus rhythm around 80 bpm. troponins are mildly elevated most recent troponin 0.068. EKG currently shows no rmal sinus rhythm without any obvious ischemic changes. NT proBNP is 1890. Normal saline is infusing at 130 mL per hour. Patient's CBC on arrival showed a WBC count 9.9, hemoglobin 12, hematocrit 36.7, platelets 302. 41, potassium 4.5, chloride 105, serum CO2 26, BUN 74, creatinine 1.68, 75. LFTs are mildly elevated. Patient was negative for influenza, RSV, COVID-19. Vital signs are stable. Progress note dated 07/14/2022. 82-year-old female seen by myself and our nurse practitioner in the emergency department yesterday, in consultation. The patient presented with increasing shortness of breath, most likely secondary to atrial fibrillation. She has a history of atrial fibrillation, previous pacemaker implantation, CAD, rest cancer, hypertension, hyperlipidemia, diabetes, and hypothyroidism. Currently, the patient's on room air. She's not receiving any IV fluids. Laboratory data includes a sodium 140, potassium 5.2, chlorides 108, CO2 28, BUN 48 and creatinine 1.30. Glucose 131. Calcium is 9.2. Chest x-ray showed nothing acute. Objective - Vital Signs Vital signs: Vital Signs Temp 97.5 F L 07/14/22 12:18 Pulse 76 07/14/22 12:18 Resp 16 07/14/22 12:18 BP 127/68 07/14/22 12:18 Pulse Ox 94 L 07/14/22 12:18 FiO2 Intake & Output 07/13/22 07/14/22 07/14/22 18:59 06:59 18:59 Intake Total 10 Balance 10 Weight 52.163 kg 51.5 kg Intake: IV 10 Invasive Line 1 5 Invasive Line 2 5 Other: Voiding Method Toilet Toilet # Voids 1 # Bowel Movements 1 - Exam No acute distress, oriented 3. Currently on room air. HEENT examination is grossly unremarkable. Neck supple. Full range of motion. No adenopathy thyromegaly or neck vein distention. Cardiovascular examination reveals regular rhythm rate. S1-S2 normal. No S3 or S4. No discernible murmur noted. Heart rate 76 bpm. Lungs reveal few scattered crackles. No wheezes or rhonchi. Breath sounds equal bilaterally. Room air saturations are in the low 90s. Abdomen soft bowel sounds are heard. No masses or tenderness. Extremities are intact. No cyanosis clubbing or edema. Skin is without rash or lesion. Neurologic examination is brief but nonfocal. - Labs CBC & Chem 7: 07/13/22 14:51 07/14/22 07:49 Labs: Abnormal Lab Results - Last 24 Hours (Table) 07/13/22 07/13/22 07/13/22 Range/Units 12:14 13:13 14:51 WBC 10.8 H (3.8-10.6) k/uL RBC 3.73 L (3.80-5.40) m/uL Neutrophils # 8.9 H (1.3-7.7) k/uL Potassium (3.5-5.1) mmol/L Chloride (98-107) mmol/L BUN (7-17) mg/dL Creatinine (0.52-1.04) mg/dL Glucose (74-99) mg/dL POC Glucose (mg/dL) 163 H 142 H (70-110) mg/dL 07/13/22 07/13/22 07/13/22 Range/Units 14:51 14:52 15:19 WBC (3.8-10.6) k/uL RBC (3.80-5.40) m/uL Neutrophils # (1.3-7.7) k/uL Potassium (3.5-5.1) mmol/L Chloride 109 H (98-107) mmol/L BUN 63 H (7-17) mg/dL Creatinine 1.33 H (0.52-1.04) mg/dL Glucose 35 L* (74-99) mg/dL POC Glucose (mg/dL) 137 H 135 H (70-110) mg/dL 07/13/22 07/13/22 07/14/22 Range/Units 16:46 20:01 06:16 WBC (3.8-10.6) k/uL RBC (3.80-5.40) m/uL Neutrophils # (1.3-7.7) k/uL Potassium (3.5-5.1) mmol/L Chloride (98-107) mmol/L BUN (7-17) mg/dL Creatinine (0.52-1.04) mg/dL Glucose (74-99) mg/dL POC Glucose (mg/dL) 147 H 165 H 52 L (70-110) mg/dL 07/14/22 07/14/22 07/14/22 Range/Units 06:33 07:49 11:52 WBC (3.8-10.6) k/uL RBC (3.80-5.40) m/uL Neutrophils # (1.3-7.7) k/uL Potassium 5.2 H (3.5-5.1) mmol/L Chloride 108 H (98-107) mmol/L BUN 48 H (7-17) mg/dL Creatinine 1.30 H (0.52-1.04) mg/dL Glucose 131 H (74-99) mg/dL POC Glucose (mg/dL) 62 L 114 H (70-110) mg/dL Assessment and Plan Assessment: Acute bronchitis with bronchospasm and bronchial inflammation. Failed outpatient treatment with prednisone/Z-Sherman. Negative for influenza, RSV, COVID- 19. Atrial fibrillation with rapid ventricular rate. Currently in normal sinus rhythm. Elevated troponins, likely secondary to supply/demand mismatch. Acute kidney injury, creatinine 1.68. History of sick sinus syndrome S/P permanent pacemaker implantation. Coronary artery disease. Diabetes mellitus, insulin-dependent. Hypertension. Hyperlipidemia. History of pulmonary nodules. History of breast cancer S/P radiation therapy and lumpectomy. Lifelong nonsmoker. Plan: Plan dated 07/14/2022. The patient remains on breathing treatments, as well as oral azithromycin. We will continue to follow. She's feeling much better today. She's doing much better. She's on room air. Saturations are in the mid 90s labs, x-rays, and medications are all reviewed. The patient will start on a Medrol Dosepak today. We will continue to follow make recommendations along the way. Prognosis is guarded. Time with Patient: Less than 30
[2022-07-14] MEDS: methylPREDNISolone 4 MG TAB TAPER PO SCH (13:23)
--- NOTE | 2022-07-14 13:38 | P.PN ---
Subjective Progress Note Date: 07/14/22 History of present illness: This is an 81-year-old female patient of Dr. Jack with past medical history of dyslipidemia, hypertension, diabetes, hypothyroidism, coronary artery disease, paroxysmal atrial fibrillation, status post pacemaker. Patient states that she has had a sore throat starting 2 weeks ago that gradually moved into her chest with a cough, had nasal congestion. She states the cough is been quite severe and uncontrolled despite being on antibiotic and redness on taper. Patient came in for those symptoms and after having a coughing spell she went into atrial fibrillation. Patient was started on Cardizem drip and subsequently was converted around 10:30 this morning. Currently her heart rate is 68 and blood pressure 118/50. Patient is seen today in the emergency center waiting for a bed on the cardiac stepdown unit. EKG atrial fibrillation with RVR, 134 bpm, #2 ventricular paced rhythm at 82 bpm Chest x-ray: No acute process WBC 9.9, hemoglobin 12, platelet count 302. INR 1.0. Electrodes are normal. BUN 74 creatinine 1.68. AST 38, ALT 45. Troponins 0.054, 0.052, 0.068. Pro- calcitonin 0.11. Home cardiac medications: Amlodipine 5 mg daily, eliquis 2.5 mg twice daily, Lasix 20 mg daily, hydrochlorothiazide 25 mg daily, lisinopril 20 mg twice daily, Lopressor 75 mg 3 times daily, levothyroxine 75 g Sunday through Sunday. Cardiac catheterization 2007 normal EF, 70% ostial Echocardiogram 12/2021 normal EF, moderate MR, mild to moderate AR, moderate TR, estimated RVSP 54 mmHg Permanent pacemaker Med[employer] 07/2018 Lexiscan stress test 2018: normal EF, normal study 07/14 The patient is currently paced rhythm, 70s and 80s. Blood pressure 127/68. Repeat blood work reveals potassium of 5.2, BUN 48 creatinine 1.3. TSH 1.05. Patient states that she feels a little stronger today. She continues to cough with phlegm production. We are making some medication adjustments for her blood pressure. Physical examination: Gen: This is an 81-year-old female. She is resting in bed and appears to be comfortable and in no acute distress. VS: reviewed HEENT: Head is atraumatic, normocephalic. Pupils equal, round. Sclerae is anicteric. NECK: Supple. No JVD. . LUNGS: Clear to auscultation. No wheezes or rhonchi. No intercostal retractions. HEART: Regular rate and rhythm. 2/6 systolic murmur. ABDOMEN: Soft No tenderness. EXTREMITIES: No pedal edema. No calf tenderness. NEUROLOGICAL: Patient is awake, alert and oriented x3. Assessment: Bronchitis Paroxysmal atrial fibrillation presenting with RVR, in sinus rhythm Hypertension Dyslipidemia Diabetes Hypothyroidism Coronary artery disease Status post pacemaker Plan: Continue patient on Lopressor 75 mg 3 times daily Continue patient's home cardiac medications Start patient on Tessalon Perles Decrease frequency of lisinopril to 20 mg daily Change frequency of amlodipine to 5 mg twice daily. Patient is cleared for discharge from cardiology. Cardiology will sign off and follow on an as-needed basis. Nurse practitioner note has been reviewed, I agree with documented findings and plan of care. Patient was seen and examined. Objective - Vital Signs Vital signs: Vital Signs Temp 98.1 F 07/14/22 07:59 Pulse 91 07/14/22 07:59 Resp 18 07/14/22 07:59 BP 159/70 07/14/22 07:59 Pulse Ox 95 07/14/22 07:59 FiO2 Intake & Output 07/13/22 07/14/22 07/14/22 18:59 06:59 18:59 Intake Total 10 Balance 10 Weight 52.163 kg 51.5 kg Intake: IV 10 Invasive Line 1 5 Invasive Line 2 5 Other: Voiding Method Toilet Toilet - Labs CBC & Chem 7: 07/13/22 14:51 07/14/22 07:49 Labs: Abnormal Lab Results - Last 24 Hours (Table) 07/13/22 07/13/22 07/13/22 Range/Units 06:35 12:14 13:13 WBC (3.8-10.6) k/uL RBC (3.80-5.40) m/uL Neutrophils # (1.3-7.7) k/uL Potassium (3.5-5.1) mmol/L Chloride (98-107) mmol/L BUN (7-17) mg/dL Creatinine (0.52-1.04) mg/dL Glucose (74-99) mg/dL POC Glucose (mg/dL) 163 H 142 H (70-110) mg/dL Procalcitonin 0.11 H (0.02-0.09) ng/mL 07/13/22 07/13/22 07/13/22 Range/Units 14:51 14:51 14:52 WBC 10.8 H (3.8-10.6) k/uL RBC 3.73 L (3.80-5.40) m/uL Neutrophils # 8.9 H (1.3-7.7) k/uL Potassium (3.5-5.1) mmol/L Chloride 109 H (98-107) mmol/L BUN 63 H (7-17) mg/dL Creatinine 1.33 H (0.52-1.04) mg/dL Glucose 35 L* (74-99) mg/dL POC Glucose (mg/dL) 137 H (70-110) mg/dL Procalcitonin (0.02-0.09) ng/mL 07/13/22 07/13/22 07/13/22 Range/Units 15:19 16:46 20:01 WBC (3.8-10.6) k/uL RBC (3.80-5.40) m/uL Neutrophils # (1.3-7.7) k/uL Potassium (3.5-5.1) mmol/L Chloride (98-107) mmol/L BUN (7-17) mg/dL Creatinine (0.52-1.04) mg/dL Glucose (74-99) mg/dL POC Glucose (mg/dL) 135 H 147 H 165 H (70-110) mg/dL Procalcitonin (0.02-0.09) ng/mL 07/14/22 07/14/22 07/14/22 Range/Units 06:16 06:33 07:49 WBC (3.8-10.6) k/uL RBC (3.80-5.40) m/uL Neutrophils # (1.3-7.7) k/uL Potassium 5.2 H (3.5-5.1) mmol/L Chloride 108 H (98-107) mmol/L BUN 48 H (7-17) mg/dL Creatinine 1.30 H (0.52-1.04) mg/dL Glucose 131 H (74-99) mg/dL POC Glucose (mg/dL) 52 L 62 L (70-110) mg/dL Procalcitonin (0.02-0.09) ng/mL
[2022-07-14] MEDS: BENZONATATE 100 MG CAP PO SCH ×2 (15:57→20:15)
[2022-07-14 16:40] LABS: Glucose,Whole Blood 143 mg/dL (70-110)
[2022-07-14 20:10] LABS: Glucose,Whole Blood 149 mg/dL (70-110)
[2022-07-14] MEDS: amLODIPine 5 MG TAB PO SCH (20:14)
[2022-07-14] MEDS: FLUTICASONE 50MCG/SPRAY NASAL 16GM EA NOSTRIL SCH (20:15)
--- NOTE | 2022-07-15 01:44 | P.PN ---
Subjective Patient is a 81-year-old female with a known history of atrial fibrillation on anticoagulation with Eliquis, history of permanent pacemaker placement, hypertension, hyperlipidemia, diabetes type 2 insulin-dependent, hypothyroidism, osteoarthritis and chronic back pain and anxiety presents ER with complaints of shortness of breath for past 2 weeks. Patient was having chest congestion and cough with clear to greenish sputum production. Patient was seen by her primary care physician and was given Z-Sherman and prednisone course. Patient still having symptoms without much improvement presented to ER. Denies any fever or chills. No leg swelling. No nausea vomiting abdominal pain or diarrhea. Chest x-ray in the ER showed no acute process. EKG showed atrial fibrillation with rapid regular rate with heart rate 134 Laboratory data showed WBC 9.9 hemoglobin 12.0 and platelets 302 Sodium 141 potassium 4.5 chloride 105 bicarb is 26 BUN 74 and creatinine 1.68, AST 38 ALT 45 alk phos 48 and troponin 0.054, 0.052 and 0.068, procalcitonin level is 0.11 TSH within normal limits and proBNP is 1890 Influenza A, B, RSV and COVID-19 PCR not detected. 07/14/2022 This is a pleasant 81 years old female was admitted with A. fib and RVR consult with evidence with acute bronchitis. She's been treated with Zithromax, normal saline for acute kidney injury and her Lopressor dose was increased to 75 mg 3 times a day by hardware designer, currently heart rate is controlled and she is on Eliquis home dose of 2.5 mg However patient lying in bed and she still feels short of breath and she still was not ready for discharge.. Cartilage team adjusted some of her blood pressure medication and they cleared her for discharge Pulmonary team on the case and patient was started on Medrol Dosepak. Objective - Vital Signs Vital signs: Vital Signs Temp 98.1 F 07/14/22 07:59 Pulse 80 07/14/22 09:43 Resp 18 07/14/22 07:59 BP 159/70 07/14/22 07:59 Pulse Ox 94 L 07/14/22 10:03 FiO2 Intake & Output 07/13/22 07/14/22 07/14/22 18:59 06:59 18:59 Intake Total 10 Balance 10 Weight 52.163 kg 51.5 kg Intake: IV 10 Invasive Line 1 5 Invasive Line 2 5 Other: Voiding Method Toilet Toilet # Voids 1 # Bowel Movements 1 - Labs CBC & Chem 7: 07/13/22 14:51 07/14/22 07:49 Labs: Abnormal Lab Results - Last 24 Hours (Table) 07/13/22 07/13/22 07/13/22 Range/Units 12:14 13:13 14:51 WBC 10.8 H (3.8-10.6) k/uL RBC 3.73 L (3.80-5.40) m/uL Neutrophils # 8.9 H (1.3-7.7) k/uL Potassium (3.5-5.1) mmol/L Chloride (98-107) mmol/L BUN (7-17) mg/dL Creatinine (0.52-1.04) mg/dL Glucose (74-99) mg/dL POC Glucose (mg/dL) 163 H 142 H (70-110) mg/dL 07/13/22 07/13/22 07/13/22 Range/Units 14:51 14:52 15:19 WBC (3.8-10.6) k/uL RBC (3.80-5.40) m/uL Neutrophils # (1.3-7.7) k/uL Potassium (3.5-5.1) mmol/L Chloride 109 H (98-107) mmol/L BUN 63 H (7-17) mg/dL Creatinine 1.33 H (0.52-1.04) mg/dL Glucose 35 L* (74-99) mg/dL POC Glucose (mg/dL) 137 H 135 H (70-110) mg/dL 07/13/22 07/13/22 07/14/22 Range/Units 16:46 20:01 06:16 WBC (3.8-10.6) k/uL RBC (3.80-5.40) m/uL Neutrophils # (1.3-7.7) k/uL Potassium (3.5-5.1) mmol/L Chloride (98-107) mmol/L BUN (7-17) mg/dL Creatinine (0.52-1.04) mg/dL Glucose (74-99) mg/dL POC Glucose (mg/dL) 147 H 165 H 52 L (70-110) mg/dL 07/14/22 07/14/22 Range/Units 06:33 07:49 WBC (3.8-10.6) k/uL RBC (3.80-5.40) m/uL Neutrophils # (1.3-7.7) k/uL Potassium 5.2 H (3.5-5.1) mmol/L Chloride 108 H (98-107) mmol/L BUN 48 H (7-17) mg/dL Creatinine 1.30 H (0.52-1.04) mg/dL Glucose 131 H (74-99) mg/dL POC Glucose (mg/dL) 62 L (70-110) mg/dL Assessment and Plan Assessment: Atrial fibrillation with rapid ventricular rate. On anticoagulation with Eliquis at home Acute tracheobronchitis. Patient was on Z-Sherman as an outpatient. Moderate to severe MR, moderate TR and mild pulmonary hypertension Elevated troponin possible demand ischemia Acute kidney injury with creatinine 1.68 on admission Diabetes type 2 Episode of hypoglycemia. Hypothyroidism Hypertension Hyperlipidemia Osteoarthritis Chronic back pain and fibromyalgia Anxiety History of pulm pacemaker placement Depression/bereavement. Plan: Continue with Zithromax Continue with gentle hydration Continue with Lopressor and other cardiac medication per cardiology team She was started on Medrol Dosepak Scouring Machine Operator team signed off the case Pulmonary team on the case Labs and medication were reviewed.. Continue same treatment. Continue with symptomatic treatment. Resume home medication. Monitor labs and vitals. DVT and GI prophylaxis. Further recommendations as per clinical course of the patient DVT prophylaxis: Liquids GI Prophylaxis: Ppi PT/OT: Pending Prognosis is guarded
[2022-07-15 06:09] LABS: Glucose,Whole Blood 93 mg/dL (70-110)
[2022-07-15] MEDS: LEVOTHYROXINE 75 MCG TAB PO SCH (06:21)
[2022-07-15] MEDS: PANTOPRAZOLE 40 MG TABLET PO SCH (06:21)
[2022-07-15] MEDS: INSULIN ASPART (NovoLOG) 100 UNIT/ML VIAL SQ SCH ×4 (06:23→20:26)
[2022-07-15] MEDS: AZITHROMYCIN 500 MG TAB PO SCH (08:47)
[2022-07-15] MEDS: METOPROLOL TARTRATE 25 MG TAB PO SCH ×3 (08:47→20:27)
[2022-07-15] MEDS: lisinopriL 20 MG TAB PO SCH (08:47)
[2022-07-15] MEDS: polyethylene glycoL 3350 17 GM POWD.PACK PO SCH (08:47)
[2022-07-15] MEDS: BENZONATATE 100 MG CAP PO SCH ×3 (08:47→20:27)
[2022-07-15] MEDS: hydroCHLOROthiazide 25 MG TAB PO SCH (08:48)
[2022-07-15] MEDS: FUROSEMIDE 20 MG TAB PO SCH (08:48)
[2022-07-15] MEDS: amLODIPine 5 MG TAB PO SCH ×2 (08:48→20:27)
[2022-07-15] MEDS: methylPREDNISolone 4 MG TAB TAPER PO SCH (08:48)
[2022-07-15] MEDS: APIXABAN 2.5 MG TABLET PO SCH ×2 (08:48→20:27)
[2022-07-15] MEDS: IPRATROPIUM-ALBUTEROL 3 ML NEB INHALATION PRN ×2 (08:54→21:32)
--- NOTE | 2022-07-15 11:31 | P.PN ---
Subjective Progress Note Date: 07/15/22 Principal diagnosis: Shortness of breath. Seeing this patient in consultation today 07/13/2022 in the emergency room waiting for a bed on the selective care unit. Patient is an 81-year-old white female with past significant medical history of atrial fibrillation, permanent pacemaker, coronary artery disease, breast cancer post radiation therapy and lumpectomy, hypertension, hyperlipidemia, diabetes mellitus, hypothyroidism, and is a lifelong nonsmoker. Patient does follow with Dr. Haile in the office for a solitary lung nodule. Patient presented to the emergency room yesterday evening with chief complaint of shortness of breath over the past 2 weeks. Also, reports chest congestion and a frequent cough with occasional phlegm. Patient denies any chest pain, heart palpitations, lightheadedness or syncope, fever, hemoptysis. Patient apparently was seen by Dr Babcock, her primary care provider, and was given a course of prednisone and a Z-Sherman. Patient had no improvement in symptoms. Patient is currently resting emergency room, on room air, in no acute distress. Chest x-ray arrival showed no acute cardiopulmonary process. While the emergency room, patient did have an episode of A. fib RVR, which has currently resolved, as the patient is in normal sinus rhythm around 80 bpm. troponins are mildly elevated most recent troponin 0.068. EKG currently shows no rmal sinus rhythm without any obvious ischemic changes. NT proBNP is 1890. Normal saline is infusing at 130 mL per hour. Patient's CBC on arrival showed a WBC count 9.9, hemoglobin 12, hematocrit 36.7, platelets 302. 41, potassium 4.5, chloride 105, serum CO2 26, BUN 74, creatinine 1.68, 75. LFTs are mildly elevated. Patient was negative for influenza, RSV, COVID-19. Vital signs are stable. Progress note dated 07/14/2022. 82-year-old female seen by myself and our nurse practitioner in the emergency department yesterday, in consultation. The patient presented with increasing shortness of breath, most likely secondary to atrial fibrillation. She has a history of atrial fibrillation, previous pacemaker implantation, CAD, rest cancer, hypertension, hyperlipidemia, diabetes, and hypothyroidism. Currently, the patient's on room air. She's not receiving any IV fluids. Laboratory data includes a sodium 140, potassium 5.2, chlorides 108, CO2 28, BUN 48 and creatinine 1.30. Glucose 131. Calcium is 9.2. Chest x-ray showed nothing acute. Progress note dated 07/15/2022. 81-year-old female seen today in room 361. She was seen in consultation 2 days ago in the emergency department. She came in with complaints of shortness of breath, and was found have atrial fibrillation with rapid ventricular response. Currently, she's not receiving any supplemental oxygen, or IV fluids. She looks much more comfortable. No new labs today. Objective - Vital Signs Vital signs: Vital Signs Temp 98.2 F 07/15/22 08:45 Pulse 95 07/15/22 09:06 Resp 18 07/15/22 08:45 BP 124/73 07/15/22 08:45 Pulse Ox 91 L 07/15/22 08:55 FiO2 Intake & Output 07/14/22 07/15/22 07/15/22 18:59 06:59 18:59 Intake Total 10 Balance 10 Intake: IV 10 Invasive Line 1 5 Invasive Line 2 5 Other: Voiding Method Toilet Toilet Toilet # Voids 1 1 # Bowel Movements 1 - Exam No acute distress, oriented 3. Currently on room air. HEENT examination is grossly unremarkable. Neck supple. Full range of motion. No adenopathy thyromegaly or neck vein distention. Cardiovascular examination reveals regular rhythm rate. S1-S2 normal. No S3 or S4. No discernible murmur noted. Heart rate 95 bpm. Heart sounds are distant. Lungs reveal few scattered crackles. No wheezes or rhonchi. Breath sounds equal bilaterally. Room air saturation is 93%. Abdomen soft bowel sounds are heard. No masses or tenderness. Extremities are intact. No cyanosis clubbing or edema. Skin is without rash or lesion. Neurologic examination is brief but nonfocal. - Labs CBC & Chem 7: 07/13/22 14:51 07/14/22 07:49 Labs: Abnormal Lab Results - Last 24 Hours (Table) 07/14/22 07/14/22 07/14/22 Range/Units 11:52 16:39 20:08 POC Glucose (mg/dL) 114 H 143 H 149 H (70-110) mg/dL Assessment and Plan Assessment: Acute bronchitis with bronchospasm and bronchial inflammation. Failed outpatient treatment with prednisone/Z-Sherman. Negative for influenza, RSV, COVID- 19. Atrial fibrillation with rapid ventricular rate. Elevated troponins, likely secondary to supply/demand mismatch. Acute kidney injury, creatinine 1.68. History of sick sinus syndrome S/P permanent pacemaker implantation. Coronary artery disease. Diabetes mellitus, insulin-dependent. Hypertension. Hyperlipidemia. History of pulmonary nodules. History of breast cancer S/P radiation therapy and lumpectomy. Lifelong nonsmoker. Plan: Plan dated 07/14/2022. The patient remains on breathing treatments, as well as oral azithromycin. We will continue to follow. She's feeling much better today. She's doing much better. She's on room air. Saturations are in the mid 90s labs, x-rays, and medications are all reviewed. The patient will start on a Medrol Dosepak today. We will continue to follow make recommendations along the way. Prognosis is guarded. Plan dated 07/15/2022. The patient is stable, and is not receiving any supplemental oxygen or IVs. From our perspective, the patient could be considered for possible discharge. Labs, x-rays, and medications are reviewed. We will continue to follow the patient make recommendations along the way should she not be discharged. Vital signs are stable. Clinically she is very stable. She's not having any shortness of breath currently. Time with Patient: Less than 30
[2022-07-15 11:38] LABS: Glucose,Whole Blood 159 mg/dL (70-110)
--- NOTE | 2022-07-15 12:27 | CA ---
Transthoracic Echo Report Name: Yanely Hilario Age: 81 Gender: F : 1940 Exam Date: 07/14/2022 11:04 Exam Location: [facility] Ht (in): 58 Wt (lb): 113 Ordering Physician: Maxine Pelaez Attending/Referring Phys: [id number], Latanya Manager Skilled Bernardo Bardales RDCS Procedure CPT: Indications: LVF Cardiac Hx: HTN; CAD; Pacemaker rhythm; High Chol.; DM; Technical Quality: Good Contrast 1: Total Dose (mL): Contrast 2: Total Dose (mL): MEASUREMENTS (Male / Female) Normal Values 2D ECHO LV Diastolic Diameter PLAX 3.9 cm 4.2 - 5.9 / 3.9 - 5.3 cm LV Systolic Diameter PLAX 2.7 cm LV Fractional Shortening PLAX 29.8 % IVS Diastolic Thickness 1.0 cm 0.6 - 1.0 / 0.6 - 0.9 cm IVS Systolic Thickness 1.2 cm LVPW Diastolic Thickness 1.2 cm 0.6 - 1.0 / 0.6 - 0.9 cm LVPW Systolic Thickness 1.2 cm LV Relative Wall Thickness 0.6 RV Internal Dim ED PLAX 3.4 cm LVOT Diameter 1.7 cm LA Systolic Diameter LX 4.3 cm 3.0 - 4.0 / 2.7 - 3.8 cm LV Diastolic Volume MOD BP 63.9 cm??? 67 - 155 / 56 - 104 cm??? LV Systolic Volume MOD BP 30.9 cm??? 22 - 58 / 19 - 49 cm??? LV Ejection Fraction MOD BP 51.6 % >= 55 % LV Stroke Volume MOD BP 33.0 cm??? LV Diastolic Volume MOD 4C 60.0 cm??? LV Systolic Volume MOD 4C 24.7 cm??? LV Ejection Fraction MOD 4C 58.8 % LV Stroke Volume MOD 4C 35.3 cm??? LV Diastolic Length 4C 7.1 cm LV Systolic Length 4C 5.8 cm LV Diastolic Volume MOD 2C 62.6 cm??? LV Systolic Volume MOD 2C 38.6 cm??? LV Ejection Fraction MOD 2C 38.2 % LV Stroke Volume MOD 2C 23.9 cm??? LV Diastolic Length 2C 6.5 cm LV Systolic Length 2C 5.8 cm M-MODE Aortic Root Diameter MM 2.8 cm LA Systolic Diameter MM 3.7 cm LA Ao Ratio MM 1.3 AV Cusp Separation MM 1.4 cm DOPPLER AV Peak Velocity 132.5 cm/s AV Peak Gradient 7.0 mmHg AI Peak Velocity 422.2 cm/s AI Peak Gradient 71.3 mmHg AI Deceleration Park 311.9 cm/s??? AI Pressure Half Time 392.5 ms LVOT Peak Velocity 113.7 cm/s LVOT Peak Gradient 5.2 mmHg AV Area Cont Eq pk 1.9 cm??? MV Peak Velocity 186.7 cm/s MV Peak Gradient 13.9 mmHg MV Mean Velocity 132.0 cm/s MV Mean Gradient 7.5 mmHg MV Velocity Time Integral 63.3 cm MV Deceleration Park 487.6 cm/s??? MR Peak Velocity 463.6 cm/s MR Peak Gradient 86.0 mmHg MR Mean Velocity 344.1 cm/s MR Mean Gradient 53.2 mmHg MR Velocity Time Integral 133.4 cm MR Flow Rate PISA 48.5 cm???/s Mitral E Point Velocity 194.2 cm/s Mitral A Point Velocity 201.4 cm/s Mitral E to A Ratio 1.0 MV Deceleration Time 398.3 ms MV E' Velocity 5.4 cm/s Mitral E to MV E' Ratio 36.3 TR Peak Velocity 330.4 cm/s TR Peak Gradient 43.7 mmHg Right Ventricular Systolic Press 53.7 mmHg PV Peak Velocity 98.2 cm/s PV Peak Gradient 3.9 mmHg FINDINGS Left Ventricle Left ventricular ejection fraction is estimated at 50-55 %. Borderline left ventricular hypertrophy. Grade 1 diastolic dysfunction. Right Ventricle Normal right ventricular size and function. Catheter/pacemaker wire in the right ventricular cavity. RVSP-54 mm Hg. Right Atrium Mild right atrial dilatation. Catheter/pacemaker wire in the right atrial cavity. Left Atrium Moderate left atrial dilatation. Mitral Valve Moderate thickening/calcification of the anterior mitral valve leaflet. Moderate thickening/calcification of the posterior mitral valve leaflet. Moderate mitral annular calcification. Minimal mitral stenosis. Moderate mitral regurgitation. Aortic Valve Trileaflet aortic valve. Diffuse thickening (sclerosis) of the aortic valve cusps without reduced excursion. [id number] aortic regurgitation. Tricuspid Valve [id number] tricuspid regurgitation. Pulmonic Valve Structurally normal pulmonic valve. Pericardium Normal pericardium. No pericardial effusion. Aorta Normal size aortic root and proximal ascending aorta. CONCLUSIONS Left ventricular ejection fraction 50-55% Pulmonary hypertension RVSP 54 Moderate left atrial dilation Moderate mitral annular calcification Mild mitral stenosis Moderate mitral regurgitation Mild to moderate aortic regurgitation Mild to moderate tricuspid regurgitation Previewed by: Dr. Daniel Ignacio DO (Electronically Signed) Final Date: 15 July 2022 12:26
[2022-07-15] MEDS: ONDANSETRON 4 MG/2 ML VIAL IVP PRN (13:26)
--- NOTE | 2022-07-15 15:33 | P.PN ---
Subjective Progress Note Date: 07/15/22 History of present illness: This is an 81-year-old female patient of Dr. Jack with past medical history of dyslipidemia, hypertension, diabetes, hypothyroidism, coronary artery disease, paroxysmal atrial fibrillation, status post pacemaker. Patient states that she has had a sore throat starting 2 weeks ago that gradually moved into her chest with a cough, had nasal congestion. She states the cough is been quite severe and uncontrolled despite being on antibiotic and redness on taper. Patient came in for those symptoms and after having a coughing spell she went into atrial fibrillation. Patient was started on Cardizem drip and subsequently was converted around 10:30 this morning. Currently her heart rate is 68 and blood pressure 118/50. Patient is seen today in the emergency center waiting for a bed on the cardiac stepdown unit. EKG atrial fibrillation with RVR, 134 bpm, #2 ventricular paced rhythm at 82 bpm Chest x-ray: No acute process WBC 9.9, hemoglobin 12, platelet count 302. INR 1.0. Electrodes are normal. BUN 74 creatinine 1.68. AST 38, ALT 45. Troponins 0.054, 0.052, 0.068. Pro- calcitonin 0.11. Home cardiac medications: Amlodipine 5 mg daily, eliquis 2.5 mg twice daily, Lasix 20 mg daily, hydrochlorothiazide 25 mg daily, lisinopril 20 mg twice daily, Lopressor 75 mg 3 times daily, levothyroxine 75 g Sunday through Sunday. Cardiac catheterization 2007 normal EF, 70% ostial Echocardiogram 12/2021 normal EF, moderate MR, mild to moderate AR, moderate TR, estimated RVSP 54 mmHg Permanent pacemaker Medtronic 07/2018 Lexiscan stress test 2018: normal EF, normal study 07/14 The patient is currently paced rhythm, 70s and 80s. Blood pressure 127/68. Repeat blood work reveals potassium of 5.2, BUN 48 creatinine 1.3. TSH 1.05. Patient states that she feels a little stronger today. She continues to cough with phlegm production. We are making some medication adjustments for her blood pressure. 07/15 Notified by RN that patient was going into intermittent a-fib with RVR overnight and this morning. Patient reports not feeling well overnight with palpitations. Tele reviewed. She is currently in sinus rhythm with rate controlled. Denies any chest pain or shortness of breath. Complains of cough. ECHO reviewed and shows EF 50-55%, RVSP 54. Physical examination: Gen: This is an 81-year-old female. She is resting in bed and appears to be comfortable and in no acute distress. VS: reviewed HEENT: Head is atraumatic, normocephalic. Pupils equal, round. Sclerae is anicteric. NECK: Supple. No JVD. . LUNGS: Clear to auscultation. No wheezes or rhonchi. No intercostal retractions. HEART: Regular rate and rhythm. 2/6 systolic murmur. ABDOMEN: Soft No tenderness. EXTREMITIES: No pedal edema. No calf tenderness. NEUROLOGICAL: Patient is awake, alert and oriented x3. Assessment: Bronchitis Paroxysmal atrial fibrillation presenting with RVR, in sinus rhythm currently Hypertension Dyslipidemia Diabetes Hypothyroidism Coronary artery disease Status post pacemaker Plan: Discussed with patient the option for increasing metoprolol or considering adding amiodarone. Also discussed that she may benefit from an ablation in the future. Patient reports that she like to continue her current medications and will follow up with Dr. Jack in the office. Patient is cleared for discharge from cardiology. Cardiology will sign off and follow on an as-needed basis. Nurse practitioner note has been reviewed, I agree with documented findings and plan of care. Patient was seen and examined. Objective - Vital Signs Vital signs: Vital Signs Temp 97.5 F L 07/15/22 13:10 Pulse 74 07/15/22 13:10 Resp 16 07/15/22 13:10 BP 109/53 07/15/22 13:10 Pulse Ox 96 07/15/22 13:10 FiO2 Intake & Output 07/14/22 07/15/22 07/15/22 18:59 06:59 18:59 Intake Total 10 Output Total 1 Balance 10 -1 Intake: IV 10 Invasive Line 1 5 Invasive Line 2 5 Output: Stool 1 Other: Voiding Method Toilet Toilet Toilet # Voids 1 1 2 # Bowel Movements 1 - Labs CBC & Chem 7: 07/13/22 14:51 07/14/22 07:49 Labs: Abnormal Lab Results - Last 24 Hours (Table) 07/14/22 07/14/22 07/15/22 Range/Units 16:39 20:08 11:37 POC Glucose (mg/dL) 143 H 149 H 159 H (70-110) mg/dL
[2022-07-15 16:19] LABS: Glucose,Whole Blood 235 mg/dL (70-110)
[2022-07-15 20:18] LABS: Glucose,Whole Blood 204 mg/dL (70-110)
[2022-07-15] MEDS: FLUTICASONE 50MCG/SPRAY NASAL 16GM EA NOSTRIL SCH (20:32)
[2022-07-16 06:13] LABS: Glucose,Whole Blood 170 mg/dL (70-110)
[2022-07-16] MEDS: INSULIN ASPART (NovoLOG) 100 UNIT/ML VIAL SQ SCH ×4 (06:16→20:56)
[2022-07-16] MEDS: PANTOPRAZOLE 40 MG TABLET PO SCH (06:16)
--- NOTE | 2022-07-16 07:38 | P.PN ---
Subjective Principal diagnosis: Patient is a 81-year-old female with a known history of atrial fibrillation on anticoagulation with Eliquis, history of permanent pacemaker placement, hypertension, hyperlipidemia, diabetes type 2 insulin-dependent, hypothyroidism, osteoarthritis and chronic back pain and anxiety presents ER with complaints of shortness of breath for past 2 weeks. Patient was having chest congestion and cough with clear to greenish sputum production. Patient was seen by her primary care physician and was given Z-Sherman and prednisone course. Patient still having symptoms without much improvement presented to ER. Denies any fever or chills. No leg swelling. No nausea vomiting abdominal pain or diarrhea. Chest x-ray in the ER showed no acute process. EKG showed atrial fibrillation with rapid regular rate with heart rate 134 Laboratory data showed WBC 9.9 hemoglobin 12.0 and platelets 302 Sodium 141 potassium 4.5 chloride 105 bicarb is 26 BUN 74 and creatinine 1.68, AST 38 ALT 45 alk phos 48 and troponin 0.054, 0.052 and 0.068, procalcitonin level is 0.11 TSH within normal limits and proBNP is 1890 Influenza A, B, RSV and COVID-19 PCR not detected. 07/14/2022 This is a pleasant 81 years old female was admitted with A. fib and RVR consult with evidence with acute bronchitis. She's been treated with Zithromax, normal saline for acute kidney injury and her Lopressor dose was increased to 75 mg 3 times a day by lock expert, currently heart rate is controlled and she is on Eliquis home dose of 2.5 mg However patient lying in bed and she still feels short of breath and she still was not ready for discharge.. Cartilage team adjusted some of her blood pressure medication and they cleared her for discharge Pulmonary team on the case and patient was started on Medrol Dosepak. 07/15/2022 Patient clinically doing well and she is back to baseline, breathing significantly improved with no chest pain heart rate is controlled with occasional changes in heart rate, symptomatic goes back to normal quickly. Patient is currently clinically stable and she was cleared for discharge by both cardiology and pulmonary services, I discussed with the patient she does not want to go home today and she wants to be evaluated by physical therapy first. Discussed with bed side nurse to contact physical therapy to this morning and they're pending. Patient is a 81-year-old female with a known history of atrial fibrillation on anticoagulation with Eliquis, history of permanent pacemaker placement, hypertension, hyperlipidemia, diabetes type 2 insulin-dependent, hypothyroidism, osteoarthritis and chronic back pain and anxiety presents ER with complaints of shortness of breath for past 2 weeks. Patient was having chest congestion and cough with clear to greenish sputum production. Patient was seen by her primary care physician and was given Z-Sherman and prednisone course. Patient still having symptoms without much improvement presented to ER. Denies any fever or chills. No leg swelling. No nausea vomiting abdominal pain or diarrhea. Chest x-ray in the ER showed no acute process. EKG showed atrial fibrillation with rapid regular rate with heart rate 134 Laboratory data showed WBC 9.9 hemoglobin 12.0 and platelets 302 Sodium 141 potassium 4.5 chloride 105 bicarb is 26 BUN 74 and creatinine 1.68, A ST 38 ALT 45 alk phos 48 and troponin 0.054, 0.052 and 0.068, procalcitonin level is 0.11 TSH within normal limits and proBNP is 1890 Influenza A, B, RSV and COVID-19 PCR not detected. 07/14/2022 This is a pleasant 81 years old female was admitted with A. fib and RVR consult with evidence with acute bronchitis. She's been treated with Zithromax, normal saline for acute kidney injury and her Lopressor dose was increased to 75 mg 3 times a day by lock expert, currently heart rate is controlled and she is on Eliquis home dose of 2.5 mg However patient lying in bed and she still feels short of breath and she still was not ready for discharge.. Cartilage team adjusted some of her blood pressure medication and they cleared her for discharge Pulmonary team on the case and patient was started on Medrol Dosepak. Objective - Vital Signs Vital signs: Vital Signs Temp 98.2 F 07/15/22 08:45 Pulse 95 07/15/22 09:06 Resp 18 07/15/22 08:45 BP 124/73 07/15/22 08:45 Pulse Ox 91 L 07/15/22 08:55 FiO2 Intake & Output 07/14/22 07/15/22 07/15/22 18:59 06:59 18:59 Intake Total 10 Balance 10 Intake: IV 10 Invasive Line 1 5 Invasive Line 2 5 Other: Voiding Method Toilet Toilet # Voids 1 1 # Bowel Movements 1 - Exam GENERAL: The patient is alert and oriented x3, not in any acute distress. Well developed, well nourished. HEENT: Pupils are round and equally reacting to light. EOMI. No scleral icterus. No conjunctival pallor. Normocephalic, atraumatic. No pharyngeal erythema. No thyromegaly. CARDIOVASCULAR: S1 and S2 present. No murmurs, rubs, or gallops. PULMONARY: Chest is clear to auscultation, no wheezing or crackles. ABDOMEN: Soft, nontender, nondistended, normoactive bowel sounds. No palpable organomegaly. MUSCULOSKELETAL: No joint swelling or deformity. EXTREMITIES: No cyanosis, clubbing, or pedal edema. NEUROLOGICAL: Gross neurological examination did not reveal any focal deficits. SKIN: No rashes. no petechiae. - Labs CBC & Chem 7: 07/13/22 14:51 07/14/22 07:49 Labs: Abnormal Lab Results - Last 24 Hours (Table) 07/14/22 07/14/22 07/14/22 Range/Units 11:52 16:39 20:08 POC Glucose (mg/dL) 114 H 143 H 149 H (70-110) mg/dL Assessment and Plan Assessment: Atrial fibrillation with rapid ventricular rate. On anticoagulation with Eliquis at home Acute tracheobronchitis. Patient was on Z-Sherman as an outpatient. Moderate to severe MR, moderate TR and mild pulmonary hypertension Elevated troponin possible demand ischemia Acute kidney injury with creatinine 1.68 on admission Diabetes type 2 Episode of hypoglycemia. Hypothyroidism Hypertension Hyperlipidemia Osteoarthritis Chronic back pain and fibromyalgia Anxiety History of pulm pacemaker placement Depression/bereavement. Plan: Continue with Zithromax Appetite is good, DC IV fluid Patient was cleared for discharge by cardiology and pulmonary services Physical therapy evaluation is requested Continue with Medrol Dosepak and Lopressor Labs and medication were reviewed.. Continue same treatment. Continue with symptomatic treatment. Resume home medication. Monitor labs and vitals. DVT and GI prophylaxis. Further recommendations as per clinical course of the patient DVT prophylaxis: Liquids GI Prophylaxis: Ppi PT/OT: Pending Prognosis is guarded
[2022-07-16] MEDS: amLODIPine 5 MG TAB PO SCH ×2 (08:56→20:56)
[2022-07-16] MEDS: FUROSEMIDE 20 MG TAB PO SCH (08:56)
[2022-07-16] MEDS: hydroCHLOROthiazide 25 MG TAB PO SCH (08:56)
[2022-07-16] MEDS: lisinopriL 20 MG TAB PO SCH (08:56)
[2022-07-16] MEDS: APIXABAN 2.5 MG TABLET PO SCH ×2 (08:56→20:56)
[2022-07-16] MEDS: BENZONATATE 100 MG CAP PO SCH ×3 (08:57→22:46)
[2022-07-16] MEDS: methylPREDNISolone 4 MG TAB TAPER PO SCH (08:57)
[2022-07-16] MEDS: METOPROLOL TARTRATE 25 MG TAB PO SCH ×3 (08:57→22:46)
[2022-07-16] MEDS: polyethylene glycoL 3350 17 GM POWD.PACK PO SCH (08:58)
[2022-07-16 11:44] LABS: Glucose,Whole Blood 166 mg/dL (70-110)
--- NOTE | 2022-07-16 12:20 | P.PN ---
Subjective Progress Note Date: 07/16/22 Principal diagnosis: Shortness of breath. Seeing this patient in consultation today 07/13/2022 in the emergency room waiting for a bed on the selective care unit. Patient is an 81-year-old white female with past significant medical history of atrial fibrillation, permanent pacemaker, coronary artery disease, breast cancer post radiation therapy and lumpectomy, hypertension, hyperlipidemia, diabetes mellitus, hypothyroidism, and is a lifelong nonsmoker. Patient does follow with Dr. Haile in the office for a solitary lung nodule. Patient presented to the emergency room yesterday evening with chief complaint of shortness of breath over the past 2 weeks. Also, reports chest congestion and a frequent cough with occasional phlegm. Patient denies any chest pain, heart palpitations, lightheadedness or syncope, fever, hemoptysis. Patient apparently was seen by Dr Babcock, her primary care provider, and was given a course of prednisone and a Z-Sherman. Patient had no improvement in symptoms. Patient is currently resting emergency room, on room air, in no acute distress. Chest x-ray arrival showed no acute cardiopulmonary process. While the emergency room, patient did have an episode of A. fib RVR, which has currently resolved, as the patient is in normal sinus rhythm around 80 bpm. troponins are mildly elevated most recent troponin 0.068. EKG currently shows no rmal sinus rhythm without any obvious ischemic changes. NT proBNP is 1890. Normal saline is infusing at 130 mL per hour. Patient's CBC on arrival showed a WBC count 9.9, hemoglobin 12, hematocrit 36.7, platelets 302. 41, potassium 4.5, chloride 105, serum CO2 26, BUN 74, creatinine 1.68, 75. LFTs are mildly elevated. Patient was negative for influenza, RSV, COVID-19. Vital signs are stable. Progress note dated 07/14/2022. 82-year-old female seen by myself and our nurse practitioner in the emergency department yesterday, in consultation. The patient presented with increasing shortness of breath, most likely secondary to atrial fibrillation. She has a history of atrial fibrillation, previous pacemaker implantation, CAD, rest cancer, hypertension, hyperlipidemia, diabetes, and hypothyroidism. Currently, the patient's on room air. She's not receiving any IV fluids. Laboratory data includes a sodium 140, potassium 5.2, chlorides 108, CO2 28, BUN 48 and creatinine 1.30. Glucose 131. Calcium is 9.2. Chest x-ray showed nothing acute. Progress note dated 07/15/2022. 81-year-old female seen today in room 361. She was seen in consultation 2 days ago in the emergency department. She came in with complaints of shortness of breath, and was found have atrial fibrillation with rapid ventricular response. Currently, she's not receiving any supplemental oxygen, or IV fluids. She looks much more comfortable. No new labs today. Progress note dated 07/16/2022. 82-year-old female seen in room 361. The patient is feeling much better. She was admitted with a diagnosis of shortness of breath and cough, secondary to both bronchitis, as well as atrial fibrillation with rapid ventricular response. Currently, she's been weaned off of oxygen. She's not receiving any IV fluids. Her cough and shortness of breath are much improved. No new labs today other than a glucose of 166. Objective - Vital Signs Vital signs: Vital Signs Temp 98 F 07/16/22 08:55 Pulse 96 07/16/22 08:55 Resp 16 07/16/22 08:55 BP 108/61 07/16/22 08:55 Pulse Ox 93 L 07/16/22 08:55 FiO2 Intake & Output 07/15/22 07/16/22 07/16/22 18:59 06:59 18:59 Intake Total 240 200 Output Total 1 1 Balance 239 -1 200 Intake: Oral 240 200 Output: Stool 1 1 Other: Voiding Method Toilet Toilet Toilet # Voids 2 - Exam No acute distress, oriented 3. Currently on room air. HEENT examination is grossly unremarkable. Neck supple. Full range of motion. No adenopathy thyromegaly or neck vein distention. Cardiovascular examination reveals regular rhythm rate. S1-S2 normal. No S3 or S4. No discernible murmur noted. Heart rate 89 bpm. Heart sounds are distant. Lungs reveal few scattered crackles. No wheezes or rhonchi. Breath sounds equal bilaterally. Room air saturation is 93%. Abdomen soft bowel sounds are heard. No masses or tenderness. Extremities are intact. No cyanosis clubbing or edema. Skin is without rash or lesion. Neurologic examination is brief but nonfocal. - Labs CBC & Chem 7: 07/13/22 14:51 07/14/22 07:49 Labs: Abnormal Lab Results - Last 24 Hours (Table) 07/15/22 07/15/22 07/16/22 Range/Units 16:12 20:17 06:12 POC Glucose (mg/dL) 235 H 204 H 170 H (70-110) mg/dL 07/16/22 Range/Units 11:40 POC Glucose (mg/dL) 166 H (70-110) mg/dL Assessment and Plan Assessment: Acute bronchitis with bronchospasm and bronchial inflammation. Failed outpatient treatment with prednisone/Z-Sherman. Negative for influenza, RSV, COVID- 19. Atrial fibrillation with rapid ventricular rate, improved. Elevated troponins, likely secondary to supply/demand mismatch. Acute kidney injury, creatinine 1.68. History of sick sinus syndrome S/P permanent pacemaker implantation. Coronary artery disease. Diabetes mellitus, insulin-dependent. Hypertension. Hyperlipidemia. History of pulmonary nodules. History of breast cancer S/P radiation therapy and lumpectomy. Lifelong nonsmoker. Plan: Plan dated 07/14/2022. The patient remains on breathing treatments, as well as oral azithromycin. We will continue to follow. She's feeling much better today. She's doing much better. She's on room air. Saturations are in the mid 90s labs, x-rays, and medications are all reviewed. The patient will start on a Medrol Dosepak today. We will continue to follow make recommendations along the way. Prognosis is guarded. Plan dated 07/15/2022. The patient is stable, and is not receiving any supplemental oxygen or IVs. From our perspective, the patient could be considered for possible discharge. Labs, x-rays, and medications are reviewed. We will continue to follow the patient make recommendations along the way should she not be discharged. Vital signs are stable. Clinically she is very stable. She's not having any shortness of breath currently. Plan dated 07/16/2022. The patient's doing much better. She's on room air. No IV fluids. Her bronchitis is much improved. Her shortness of breath and cough are much improved. We will continue to follow and make recommendations along the way. Hopeful discharge within the next 24-48 hours. Time with Patient: Less than 30
[2022-07-16 16:34] LABS: Glucose,Whole Blood 244 mg/dL (70-110)
[2022-07-16 20:49] LABS: Glucose,Whole Blood 286 mg/dL (70-110)
[2022-07-16] MEDS: FLUTICASONE 50MCG/SPRAY NASAL 16GM EA NOSTRIL SCH (20:56)
[2022-07-16] MEDS: ONDANSETRON 4 MG/2 ML VIAL IVP PRN (23:12)
--- NOTE | 2022-07-17 01:55 | P.PN ---
Subjective Progress Note Date: 07/16/22 Patient is a 81-year-old female with a known history of atrial fibrillation on anticoagulation with Eliquis, history of permanent pacemaker placement, hypertension, hyperlipidemia, diabetes type 2 insulin-dependent, hypothyroidism, osteoarthritis and chronic back pain and anxiety presents ER with complaints of shortness of breath for past 2 weeks. Patient was having chest congestion and cough with clear to greenish sputum production. Patient was seen by her primary care physician and was given Z-Sherman and prednisone course. Patient still having symptoms without much improvement presented to ER. Denies any fever or chills. No leg swelling. No nausea vomiting abdominal pain or diarrhea. Chest x-ray in the ER showed no acute process. EKG showed atrial fibrillation with rapid regular rate with heart rate 134 Laboratory data showed WBC 9.9 hemoglobin 12.0 and platelets 302 Sodium 141 potassium 4.5 chloride 105 bicarb is 26 BUN 74 and creatinine 1.68, AST 38 ALT 45 alk phos 48 and troponin 0.054, 0.052 and 0.068, procalcitonin level is 0.11 TSH within normal limits and proBNP is 1890 Influenza A, B, RSV and COVID-19 PCR not detected. 07/14/2022 This is a pleasant 81 years old female was admitted with A. fib and RVR consult with evidence with acute bronchitis. She's been treated with Zithromax, normal saline for acute kidney injury and her Lopressor dose was increased to 75 mg 3 times a day by life sciences manager, currently heart rate is controlled and she is on Eliquis home dose of 2.5 mg However patient lying in bed and she still feels short of breath and she still was not ready for discharge.. Cartilage team adjusted some of her blood pressure medication and they cleared her for discharge Pulmonary team on the case and patient was started on Medrol Dosepak. 07/15/2022 Patient clinically doing well and she is back to baseline, breathing significantly improved with no chest pain heart rate is controlled with occasional changes in heart rate, symptomatic goes back to normal quickly. Patient is currently clinically stable and she was cleared for discharge by both cardiology and pulmonary services, I discussed with the patient she does not want to go home today and she wants to be evaluated by physical therapy first. Discussed with bed side nurse to contact physical therapy to this morning and they're pending. Patient is a 81-year-old female with a known history of atrial fibrillation on anticoagulation with Eliquis, history of permanent pacemaker placement, hyperte nsion, hyperlipidemia, diabetes type 2 insulin-dependent, hypothyroidism, osteoarthritis and chronic back pain and anxiety presents ER with complaints of shortness of breath for past 2 weeks. Patient was having chest congestion and cough with clear to greenish sputum production. Patient was seen by her primary care physician and was given Z-Sherman and prednisone course. Patient still having symptoms without much improvement presented to ER. Denies any fever or chills. No leg swelling. No nausea vomiting abdominal pain or diarrhea. Chest x-ray in the ER showed no acute process. EKG showed atrial fibrillation with rapid regular rate with heart rate 134 Laboratory data showed WBC 9.9 hemoglobin 12.0 and platelets 302 Sodium 141 potassium 4.5 chloride 105 bicarb is 26 BUN 74 and creatinine 1.68, AST 38 ALT 45 alk phos 48 and troponin 0.054, 0.052 and 0.068, procalcitonin level is 0.11 TSH within normal limits and proBNP is 1890 Influenza A, B, RSV and COVID-19 PCR not detected. 07/14/2022 This is a pleasant 81 years old female was admitted with A. fib and RVR consult with evidence with acute bronchitis. She's been treated with Zithromax, normal saline for acute kidney injury and her Lopressor dose was increased to 75 mg 3 times a day by life sciences manager, currently heart rate is controlled and she is on Eliquis home dose of 2.5 mg However patient lying in bed and she still feels short of breath and she still was not ready for discharge.. Cartilage team adjusted some of her blood pressure medication and they cleared her for discharge Pulmonary team on the case and patient was started on Medrol Dosepak. 2022 Patient is currently lying in bed. Awake alert and oriented x3. Denies any complaints of chest pain. Shortness of breath is much improved. No cough or sputum production. Otherwise patient is still feeling generalized weakness and needs assistance with walking to the bathroom. PT OT was consulted and family is concerned about going home. Anticipate discharge home versus rehab in the next 24 to 48 hours. High risk with history of sustaining. Laboratory data reviewed. Cleared from pulmonary and cardiology standpoint. Current medications reviewed. Objective - Vital Signs Vital signs: Vital Signs Temp 98.7 F 07/16/22 12:40 Pulse 70 07/16/22 12:40 Resp 16 07/16/22 12:40 BP 113/60 07/16/22 12:40 Pulse Ox 93 L 07/16/22 12:40 FiO2 Intake & Output 07/15/22 07/16/22 07/16/22 18:59 06:59 18:59 Intake Total 240 500 Output Total 1 1 Balance 239 -1 500 Intake: Oral 240 500 Output: Stool 1 1 Other: Voiding Method Toilet Toilet Toilet # Voids 2 2 - Exam - Exam GENERAL: The patient is alert and oriented x3, not in any acute distress. Well developed, well nourished. HEENT: Pupils are round and equally reacting to light. EOMI. No scleral icterus. No conjunctival pallor. Normocephalic, atraumatic. No pharyngeal erythema. No thyromegaly. CARDIOVASCULAR: S1 and S2 present. No murmurs, rubs, or gallops. PULMONARY: Chest is clear to auscultation, no wheezing or crackles. ABDOMEN: Soft, nontender, nondistended, normoactive bowel sounds. No palpable organomegaly. MUSCULOSKELETAL: No joint swelling or deformity. EXTREMITIES: No cyanosis, clubbing, or pedal edema. NEUROLOGICAL: Gross neurological examination did not reveal any focal deficits. SKIN: No rashes. no petechiae. - Labs CBC & Chem 7: 07/13/22 14:51 07/14/22 07:49 Labs: Abnormal Lab Results - Last 24 Hours (Table) 07/15/22 07/15/22 07/16/22 Range/Units 16:12 20:17 06:12 POC Glucose (mg/dL) 235 H 204 H 170 H (70-110) mg/dL 07/16/22 Range/Units 11:40 POC Glucose (mg/dL) 166 H (70-110) mg/dL Assessment and Plan Assessment: Atrial fibrillation with rapid ventricular rate. On anticoagulation with Eliquis at home Acute tracheobronchitis. Patient was on Z-Sherman as an outpatient. Moderate to severe MR, moderate TR and mild pulmonary hypertension Elevated troponin possible demand ischemia Acute kidney injury with creatinine 1.68 on admission Diabetes type 2 Episode of hypoglycemia. Hypothyroidism Hypertension Hyperlipidemia Osteoarthritis Chronic back pain and fibromyalgia Anxiety History of pulm pacemaker placement Depression/bereavement. Plan: completed with Zithromax Appetite is good, DC IV fluid Patient was cleared for discharge by cardiology and pulmonary services Physical therapy evaluation is requested Continue with Medrol Dosepak and Lopressor. Follow-up renal function. Labs and medication were reviewed. DVT prophylaxis: Liquids GI Prophylaxis: Ppi PT/OT: Pending Discussed with family at bedside in detail. Time with Patient: Greater than 30
--- NOTE | 2022-07-17 05:46 | P.PN ---
Subjective Progress Note Date: 07/17/22 Principal diagnosis: Shortness of breath Seeing this patient in consultation today 07/13/2022 in the emergency room waiting for a bed on the selective care unit. Patient is an 81-year-old white female with past significant medical history of atrial fibrillation, permanent pacemaker, coronary artery disease, breast cancer post radiation therapy and lumpectomy, hypertension, hyperlipidemia, diabetes mellitus, hypothyroidism, and is a lifelong nonsmoker. Patient does follow with Dr. Haile in the office for a solitary lung nodule. Patient presented to the emergency room yesterday evening with chief complaint of shortness of breath over the past 2 weeks. Also, reports chest congestion and a frequent cough with occasional phlegm. Patient denies any chest pain, heart palpitations, lightheadedness or syncope, fever, hemoptysis. Patient apparently was seen by Dr Babcock, her primary care provider, and was given a course of prednisone and a Z-Sherman. Patient had no improvement in symptoms. Patient is currently resting emergency room, on room air, in no acute distress. Chest x-ray arrival showed no acute cardiopulmonary process. While the emergency room, patient did have an episode of A. fib RVR, which has currently resolved, as the patient is in normal sinus rhythm around 80 bpm. troponins are mildly elevated most recent troponin 0.068. EKG currently shows normal sinus rhythm without any obvious ischemic changes. NT proBNP is 1890. Normal saline is infusing at 130 mL per hour. Patient's CBC on arrival showed a WBC count 9.9, hemoglobin 12, hematocrit 36.7, platelets 302. 41, potassium 4.5, chloride 105, serum CO2 26, BUN 74, creatinine 1.68, 75. LFTs are mildly elevated. Patient was negative for influenza, RSV, COVID-19. Vital signs are stable. Progress note dated 07/14/2022. 82-year-old female seen by myself and our nurse practitioner in the emergency department yesterday, in consultation. The patient presented with increasing shortness of breath, most likely secondary to atrial fibrillation. She has a history of atrial fibrillation, previous pacemaker implantation, CAD, rest cancer, hypertension, hyperlipidemia, diabetes, and hypothyroidism. Currently, the patient's on room air. She's not receiving any IV fluids. Laboratory data includes a sodium 140, potassium 5.2, chlorides 108, CO2 28, BUN 48 and creatinine 1.30. Glucose 131. Calcium is 9.2. Chest x-ray showed nothing acute. Progress note dated 07/15/2022. 81-year-old female seen today in room 361. She was seen in consultation 2 days ago in the emergency department. She came in with complaints of shortness of breath, and was found have atrial fibrillation with rapid ventricular response. Currently, she's not receiving any supplemental oxygen, or IV fluids. She looks much more comfortable. No new labs today. Progress note dated 07/16/2022. 82-year-old female seen in room 361. The patient is feeling much better. She was admitted with a diagnosis of shortness of breath and cough, secondary to both bronchitis, as well as atrial fibrillation with rapid ventricular response. Currently, she's been weaned off of oxygen. She's not receiving any IV fluids. Her cough and shortness of breath are much improved. No new labs today other than a glucose of 166. I am reevaluating this patient today 07/17/2022 in follow-up on the general medical floor. She is currently resting in bed, on room air, in no acute distress. Patient continues to improve clinically. No new labs today. Cough has improved with addition of Tessalon Perles. Heart rhythm is regular and she is anticoagulated with Eliquis. Vital signs remain stable. Objective - Vital Signs Vital signs: Vital Signs Temp 97.9 F 07/17/22 03:25 Pulse 75 07/17/22 03:25 Resp 16 07/17/22 03:25 BP 131/69 07/17/22 03:25 Pulse Ox 92 L 07/17/22 03:25 FiO2 Intake & Output 07/16/22 07/16/22 07/17/22 06:59 18:59 06:59 Intake Total 500 Output Total 1 2 Balance -1 500 -2 Intake: Oral 500 Output: Stool 1 2 Other: Voiding Method Toilet Toilet Toilet # Voids 2 - Exam GENERAL EXAM: Alert, 81-year-old white female, comfortable in no apparent distress. HEAD: Normocephalic and atraumatic EYES: Normal reaction of pupils, equal size. NOSE: Clear with pink turbinates. THROAT: No erythema or exudates. NECK: No masses, no JVD. CHEST: No chest wall deformity. LUNGS: Equal air entry with no crackles, wheeze, rhonchi or dullness. On room air. No conversational dyspnea or accessory muscle use.. CVS: S1 and S2 normal with no audible murmur, regular rhythm. No extra heart sounds ABDOMEN: No hepatosplenomegaly, active bowel sounds, no guarding or rigidity. SPINE: No scoliosis or deformity SKIN: No rashes CENTRAL NERVOUS SYSTEM: No focal deficits, tone is normal in all 4 extremities. EXTREMITIES: There is no peripheral edema, clubbing, or cyanosis. Peripheral pulses are intact. - Labs CBC & Chem 7: 07/13/22 14:51 07/14/22 07:49 Labs: Abnormal Lab Results - Last 24 Hours (Table) 07/16/22 07/16/22 07/16/22 Range/Units 06:12 11:40 16:31 POC Glucose (mg/dL) 170 H 166 H 244 H (70-110) mg/dL 07/16/22 Range/Units 20:48 POC Glucose (mg/dL) 286 H (70-110) mg/dL Assessment and Plan Assessment: Acute bronchitis with bronchospasm and bronchial inflammation. Failed ou tpatient treatment with prednisone/Z-Sherman. Negative for influenza, RSV, COVID- 19. Atrial fibrillation with rapid ventricular rate, improved. Elevated troponins, likely secondary to supply/demand mismatch. Acute kidney injury, improving creatinine down to 1.3 History of sick sinus syndrome S/P permanent pacemaker implantation. Coronary artery disease. Diabetes mellitus, insulin-dependent. Hypertension. Hyperlipidemia. History of pulmonary nodules. History of breast cancer S/P radiation therapy and lumpectomy. Lifelong nonsmoker. Plan: Patient's medications reviewed On room air Continue bronchodilators when necessary Continue antitussive medication On a Medrol Dosepak Eliquis was restarted for anticoagulation From a pulmonary standpoint, patient is cleared for discharge I have personally seen and examined the patient, performed the documentation and the assessment and plan as written. Number of minutes spent on the visit:10 Time with Patient: Less than 30
[2022-07-17] MEDS: LEVOTHYROXINE 75 MCG TAB PO SCH (05:48)
[2022-07-17 07:06] LABS: Glucose,Whole Blood 180 mg/dL (70-110)
[2022-07-17] MEDS: polyethylene glycoL 3350 17 GM POWD.PACK PO SCH (09:01)
[2022-07-17] MEDS: BENZONATATE 100 MG CAP PO SCH ×3 (09:05→21:23)
[2022-07-17] MEDS: PANTOPRAZOLE 40 MG TABLET PO SCH (09:05)
[2022-07-17] MEDS: APIXABAN 2.5 MG TABLET PO SCH ×2 (09:05→21:23)
[2022-07-17] MEDS: lisinopriL 20 MG TAB PO SCH (09:05)
[2022-07-17] MEDS: METOPROLOL TARTRATE 25 MG TAB PO SCH ×3 (09:05→21:23)
[2022-07-17] MEDS: hydroCHLOROthiazide 25 MG TAB PO SCH (09:05)
[2022-07-17] MEDS: FUROSEMIDE 20 MG TAB PO SCH (09:05)
[2022-07-17] MEDS: INSULIN ASPART (NovoLOG) 100 UNIT/ML VIAL SQ SCH ×4 (09:05→21:23)
[2022-07-17] MEDS: amLODIPine 5 MG TAB PO SCH ×2 (09:05→21:23)
[2022-07-17] MEDS: methylPREDNISolone 4 MG TAB TAPER PO SCH (09:06)
[2022-07-17 11:17] LABS: Glucose,Whole Blood 166 mg/dL (70-110)
[2022-07-17 11:44] LABS: Basophils % (A) 0 %; Eosinophils % (A) 0 %; HCT 36.8 % (34.0-46.0); HGB 12.1 gm/dL (11.4-16.0); Lymphocytes # (A) 0.8 k/uL (1.0-4.8); Lymphocytes % (A) 7 %; MCH 32.3 pg (25.0-35.0); MCV 97.8 fL (80.0-100.0); Mean Platelet Volume 8.1; Monocytes # (A) 0.5 k/uL (0-1.0); Monocytes % (A) 4 %; Neutrophils # (A) 9.8 k/uL (1.3-7.7); Neutrophils % (A) 88 %; Platelet Count 243 k/uL (150-450); RBC 3.76 m/uL (3.80-5.40); RDW 13.2 % (11.5-15.5); WBC 11.2 k/uL (3.8-10.6)
[2022-07-17 12:13] LABS: African American GFR (CKD) 24 (>60 ml/min/1.73 sqM); Anion Gap 10 mmol/L; Blood Urea Nitrogen 57 mg/dL (7-17); Calcium 9.1 mg/dL (8.4-10.2); Carbon Dioxide 28 mmol/L (22-30); Chloride 101 mmol/L (98-107); Glucose 147 mg/dL (74-99); Magnesium 1.8 mg/dL (1.6-2.3); Non-African American GFR(CKD) 21 (>60 ml/min/1.73 sqM); Sodium 139 mmol/L (137-145)
[2022-07-17] MEDS: ONDANSETRON 4 MG/2 ML VIAL IVP PRN (13:31)
[2022-07-17 17:18] LABS: Glucose,Whole Blood 288 mg/dL (70-110)
[2022-07-17] MEDS: ALBUTEROL NEBULIZED 2.5 MG/3 ML INHALATION SCH (19:45)
[2022-07-17 20:51] LABS: Glucose,Whole Blood 253 mg/dL (70-110)
[2022-07-17] MEDS: FLUTICASONE 50MCG/SPRAY NASAL 16GM EA NOSTRIL SCH (21:24)
[2022-07-18] MEDS: LEVOTHYROXINE 75 MCG TAB PO SCH (05:01)
--- NOTE | 2022-07-18 07:01 | P.PN ---
Subjective Progress Note Date: 07/17/22 Patient is a 81-year-old female with a known history of atrial fibrillation on anticoagulation with Eliquis, history of permanent pacemaker placement, hypertension, hyperlipidemia, diabetes type 2 insulin-dependent, hypothyroidism, osteoarthritis and chronic back pain and anxiety presents ER with complaints of shortness of breath for past 2 weeks. Patient was having chest congestion and cough with clear to greenish sputum production. Patient was seen by her primary care physician and was given Z-Sherman and prednisone course. Patient still having symptoms without much improvement presented to ER. Denies any fever or chills. No leg swelling. No nausea vomiting abdominal pain or diarrhea. Chest x-ray in the ER showed no acute process. EKG showed atrial fibrillation with rapid regular rate with heart rate 134 Laboratory data showed WBC 9.9 hemoglobin 12.0 and platelets 302 Sodium 141 potassium 4.5 chloride 105 bicarb is 26 BUN 74 and creatinine 1.68, AST 38 ALT 45 alk phos 48 and troponin 0.054, 0.052 and 0.068, procalcitonin level is 0.11 TSH within normal limits and proBNP is 1890 Influenza A, B, RSV and COVID-19 PCR not detected. 07/14/2022 This is a pleasant 81 years old female was admitted with A. fib and RVR consult with evidence with acute bronchitis. She's been treated with Zithromax, normal saline for acute kidney injury and her Lopressor dose was increased to 75 mg 3 times a day by nutritional services cook, currently heart rate is controlled and she is on Eliquis home dose of 2.5 mg However patient lying in bed and she still feels short of breath and she still was not ready for discharge.. Cartilage team adjusted some of her blood pressure medication and they cleared her for discharge Pulmonary team on the case and patient was started on Medrol Dosepak. 07/15/2022 Patient clinically doing well and she is back to baseline, breathing significantly improved with no chest pain heart rate is controlled with occasional changes in heart rate, symptomatic goes back to normal quickly. Patient is currently clinically stable and she was cleared for discharge by both cardiology and pulmonary services, I discussed with the patient she does not want to go home today and she wants to be evaluated by physical therapy first. Discussed with bed side nurse to contact physical therapy to this morning and they're pending. Patient is a 81-year-old female with a known history of atrial fibrillation on anticoagulation with Eliquis, history of permanent pacemaker placement, hyper tension, hyperlipidemia, diabetes type 2 insulin-dependent, hypothyroidism, osteoarthritis and chronic back pain and anxiety presents ER with complaints of shortness of breath for past 2 weeks. Patient was having chest congestion and cough with clear to greenish sputum production. Patient was seen by her primary care physician and was given Z-Sherman and prednisone course. Patient still having symptoms without much improvement presented to ER. Denies any fever or chills. No leg swelling. No nausea vomiting abdominal pain or diarrhea. Chest x-ray in the ER showed no acute process. EKG showed atrial fibrillation with rapid regular rate with heart rate 134 Laboratory data showed WBC 9.9 hemoglobin 12.0 and platelets 302 Sodium 141 potassium 4.5 chloride 105 bicarb is 26 BUN 74 and creatinine 1.68, AST 38 ALT 45 alk phos 48 and troponin 0.054, 0.052 and 0.068, procalcitonin level is 0.11 TSH within normal limits and proBNP is 1890 Influenza A, B, RSV and COVID-19 PCR not detected. 07/14/2022 This is a pleasant 81 years old female was admitted with A. fib and RVR consult with evidence with acute bronchitis. She's been treated with Zithromax, normal saline for acute kidney injury and her Lopressor dose was increased to 75 mg 3 times a day by nutritional services cook, currently heart rate is controlled and she is on Eliquis home dose of 2.5 mg However patient lying in bed and she still feels short of breath and she still was not ready for discharge.. Cartilage team adjusted some of her blood pressure medication and they cleared her for discharge Pulmonary team on the case and patient was started on Medrol Dosepak. 16 2022 Patient is currently lying in bed. Awake alert and oriented x3. Denies any complaints of chest pain. Shortness of breath is much improved. No cough or sputum production. Otherwise patient is still feeling generalized weakness and needs assistance with walking to the bathroom. PT OT was consulted and family is concerned about going home. Anticipate discharge home versus rehab in the next 24 to 48 hours. High risk with history of sustaining. Laboratory data reviewed. Cleared from pulmonary and cardiology standpoint. 07/17/2022 Patient is seen and evaluated in follow-up and continues with weakness and being evaluated by physical therapy. Patient does have some cough and reports her shortness of breath is improved. Patient taking a number of medications causing an increase in kidney functions and will hold the splint pressure medications and Lasix and follow-up with repeat labs. Patient prefers to go home and arranging for home care in the outpatient setting. Patient is currently afebrile continues to report cough although denies shortness of breath. Patient is tolerating diet with no reports of nausea or vomiting noted. Review of systems: Constitutional: No reports of fatigue, fever, or chills Cardiovascular: No reports of chest pain or palpitations Respiratory: No reports of shortness of breath , reports cough GI: No reports of nausea, vomiting, or diarrhea : No reports of dysuria or retention Neurovascular: reports of generalized weakness although feels somewhat improved and did well with physical therapy All medications have been reviewed Active Medications Acetaminophen (Acetaminophen Tab 325 Mg Tab) 650 mg PO Q6HR PRN PRN Reason: Fever and/ or Pain Last Admin: 07/13/22 18:32 Dose: 650 mg Hydrocodone Bitart/Acetaminophen (Hydrocodone/Apap 5-325mg 1 Each Tab) 1 each PO Q6HR PRN PRN Reason: Pain Last Admin: 07/13/22 02:08 Dose: 1 each Albuterol/Ipratropium (Ipratropium-Albuterol 3 Ml Neb) 3 ml INHALATION RT-QID PRN PRN Reason: Shortness Of Breath Or Wheezing Last Admin: 07/15/22 21:32 Dose: 3 ml Amlodipine Besylate (Amlodipine 5 Mg Tab) 5 mg PO BID [facility] Last Admin: 07/17/22 09:05 Dose: 5 mg Apixaban (Apixaban 2.5 Mg Tablet) 2.5 mg PO BID [facility]; Protocol Last Admin: 07/17/22 09:05 Dose: 2.5 mg Benzonatate (Benzonatate 100 Mg Cap) 100 mg PO TID [facility] Last Admin: 07/17/22 09:05 Dose: 100 mg Dextrose/Water (Dextrose 50% Syringe 50 Ml) 25 ml IVP PER PROTOCOL PRN; Protocol PRN Reason: Hypoglycemia Dextrose/Water (Dextrose 50% Syringe 50 Ml) 50 ml IVP PER PROTOCOL PRN; Protocol PRN Reason: Hypoglycemia Fluticasone Propionate (Fluticasone 50mcg/Ironside Nasal 16gm) 1 spray EA NOSTRIL HS [facility] Last Admin: 07/16/22 20:56 Dose: 1 spray Furosemide (Furosemide 20 Mg Tab) 20 mg PO DAILY [facility] Last Admin: 07/17/22 09:05 Dose: 20 mg Hydrochlorothiazide (Hydrochlorothiazide 25 Mg Tab) 25 mg PO DAILY [facility] Last Admin: 07/17/22 09:05 Dose: 25 mg Insulin Aspart (Insulin Aspart (Novolog) 100 Unit/Ml Vial) 0 unit SQ ACHS [facility]; Protocol Last Admin: 07/17/22 09:05 Dose: 1 unit Levothyroxine Sodium (Levothyroxine 75 Mcg Tab) 75 mcg PO [id number] [facility] Last Admin: 07/17/22 05:48 Dose: 75 mcg Lisinopril (Lisinopril 20 Mg Tab) 20 mg PO DAILY [facility] Last Admin: 07/17/22 09:05 Dose: 20 mg Methylprednisolone (Methylprednisolone 4 Mg Tab Taper) 16 mg PO DAILY [facility]; Taper Stop: 07/20/22 12:44 Last Admin: 07/17/22 09:06 Dose: 16 mg Metoprolol Tartrate (Metoprolol Tartrate 25 Mg Tab) 75 mg PO TID [facility] Last Admin: 07/17/22 09:05 Dose: 75 mg Naloxone HCl (Naloxone 0.4 Mg/Ml 1 Ml Vial) 0.2 mg IV Q2M PRN PRN Reason: Opioid Reversal Ondansetron HCl (Ondansetron 4 Mg/2 Ml Vial) 4 mg IVP Q8HR PRN PRN Reason: Nausea And Vomiting Last Admin: 07/16/22 23:12 Dose: 4 mg Pantoprazole Sodium (Pantoprazole 40 Mg Tablet) 40 mg PO [id number]-[id number] [facility] Last Admin: 07/17/22 09:05 Dose: 40 mg Polyethylene Glycol (Polyethylene Glycol 3350 17 Gm Powd.Pack) 17 gm PO DAILY [facility] Last Admin: 07/17/22 09:01 Dose: Not Given Physical exam: GENERAL: The patient is alert and oriented x3, not in any acute distress. Well developed, well nourished. HEENT: Pupils are round and equally reacting to light. EOMI. No scleral icterus. No conjunctival pallor. Normocephalic, atraumatic. No pharyngeal erythema. No thyromegaly. CARDIOVASCULAR: S1 and S2 present. No murmurs, rubs, or gallops. PULMONARY: Chest is clear to auscultation, no wheezing or crackles. ABDOMEN: Soft, nontender, nondistended, normoactive bowel sounds. No palpable organomegaly. MUSCULOSKELETAL: No joint swelling or deformity. EXTREMITIES: No cyanosis, clubbing, or pedal edema. NEUROLOGICAL: Gross neurological examination did not reveal any focal deficits. SKIN: No rashes. no petechiae. Assessment: Atrial fibrillation with rapid ventricular rate. Currently rate controlled On anticoagulation with Eliquis at home Acute tracheobronchitis. Patient was on Z-Sherman as an outpatient. Moderate to severe MR, moderate TR and mild pulmonary hypertension Elevated troponin possible demand ischemia Acute kidney injury with creatinine 1.68 on admission Diabetes type 2 Episode of hypoglycemia. Hypothyroidism Hypertension Hyperlipidemia Osteoarthritis Chronic back pain and fibromyalgia Anxiety History of permanent pacemaker placement Depression/bereavement. Plan: Recommend to hold blood pressure medication Lasix his kidney functions worsened and will follow-up with repeat labs PT/OT therapy evaluated the patient and did well with plans for returning home with home care in case management following arranging this Patient has been seen and evaluated by cardiology and pulmonary and cleared for discharge Continue with inhaler and Medrol Dosepak Recommend follow-up labs in a.m. possible discharge in 24 hours The impression and plan of care has been dictated by Pratibha Kasper, Nurse Practitioner as directed. Dr. Tee MD I have performed a history and examination and MDM of this patient, discussed the same with the dictator, and agree with the dictator's assessment and plan as written ,documented as a scribe. Based on total visit time, I have performed more than 50% of the visit. Objective - Vital Signs Vital signs: Vital Signs Temp 98.3 F 07/17/22 07:06 Pulse 77 07/17/22 07:06 Resp 16 07/17/22 07:06 BP 123/62 07/17/22 07:06 Pulse Ox 94 L 07/17/22 08:45 FiO2 Intake & Output 07/16/22 07/17/22 07/17/22 18:59 06:59 18:59 Intake Total 500 240 Output Total 2 Balance 500 238 Intake: Oral 500 240 Output: Stool 2 Other: Voiding Method Toilet Toilet Toilet # Voids 2 1 - Labs CBC & Chem 7: 07/17/22 11:07 07/17/22 11:07 Labs: Abnormal Lab Results - Last 24 Hours (Table) 07/16/22 07/16/22 07/16/22 Range/Units 11:40 16:31 20:48 POC Glucose (mg/dL) 166 H 244 H 286 H (70-110) mg/dL 07/17/22 Range/Units 07:05 POC Glucose (mg/dL) 180 H (70-110) mg/dL
[2022-07-18 07:04] LABS: Glucose,Whole Blood 165 mg/dL (70-110)
[2022-07-18 07:43] LABS: African American GFR (CKD) 25 (>60 ml/min/1.73 sqM); Anion Gap 8 mmol/L; Blood Urea Nitrogen 69 mg/dL (7-17); Carbon Dioxide 29 mmol/L (22-30); Chloride 102 mmol/L (98-107); Glucose 159 mg/dL (74-99); Non-African American GFR(CKD) 21 (>60 ml/min/1.73 sqM); Potassium 4.7 mmol/L (3.5-5.1); Sodium 139 mmol/L (137-145)
[2022-07-18] MEDS: polyethylene glycoL 3350 17 GM POWD.PACK PO SCH (08:26)
[2022-07-18] MEDS: ALBUTEROL NEBULIZED 2.5 MG/3 ML INHALATION SCH ×4 (09:09→18:37)
[2022-07-18] MEDS: BENZONATATE 100 MG CAP PO SCH ×3 (09:33→20:27)
[2022-07-18] MEDS: APIXABAN 2.5 MG TABLET PO SCH ×2 (09:33→20:27)
[2022-07-18] MEDS: amLODIPine 5 MG TAB PO SCH ×2 (09:33→20:30)
[2022-07-18] MEDS: INSULIN ASPART (NovoLOG) 100 UNIT/ML VIAL SQ SCH ×4 (09:33→21:01)
[2022-07-18] MEDS: METOPROLOL TARTRATE 25 MG TAB PO SCH ×3 (09:33→20:27)
[2022-07-18] MEDS: PANTOPRAZOLE 40 MG TABLET PO SCH (09:33)
[2022-07-18] MEDS: methylPREDNISolone 4 MG TAB TAPER PO SCH (09:34)
[2022-07-18] MEDS: ACETAMINOPHEN TAB 325 MG TAB PO PRN (10:50)
[2022-07-18 11:16] LABS: Glucose,Whole Blood 193 mg/dL (70-110)
[2022-07-18] MEDS ORDERED: DICYCLOMINE 20 MG TAB PO STA (12:16)
[2022-07-18] MEDS ORDERED: DICYCLOMINE 10 MG/ML 2 ML AMP IM STA (13:39)
[2022-07-18] MEDS ORDERED: bisacodyL 10 MG SUPP RECTAL STA (13:39)
--- NOTE | 2022-07-18 14:27 | P.PN ---
Subjective Progress Note Date: 07/18/22 Seeing this patient in consultation today 07/13/2022 in the emergency room waiting for a bed on the selective care unit. Patient is an 81-year-old white female with past significant medical history of atrial fibrillation, permanent pacemaker, coronary artery disease, breast cancer post radiation therapy and lumpectomy, hypertension, hyperlipidemia, diabetes mellitus, hypothyroidism, and is a lifelong nonsmoker. Patient does follow with Dr. Haile in the office for a solitary lung nodule. Patient presented to the emergency room yesterday evening with chief complaint of shortness of breath over the past 2 weeks. Also, reports chest congestion and a frequent cough with occasional phlegm. Patient denies any chest pain, heart palpitations, lightheadedness or syncope, fever, hemoptysis. Patient apparently was seen by Dr Babcock, her primary care provider, and was given a course of prednisone and a Z-Sherman. Patient had no improvement in symptoms. Patient is currently resting emergency room, on room air, in no acute distress. Chest x-ray arrival showed no acute cardiopulmonary process. While the emergency room, patient did have an episode of A. fib RVR, which has currently resolved, as the patient is in normal sinus rhythm around 80 bpm. troponins are mildly elevated most recent troponin 0.068. EKG currently shows normal sinus rhythm without any obvious ischemic changes. NT proBNP is 1890. Normal saline is infusing at 130 mL per hour. Patient's CBC on arrival showed a WBC count 9.9, hemoglobin 12, hematocrit 36.7, platelets 302. 41, potassium 4.5, chloride 105, serum CO2 26, BUN 74, creatinine 1.68, 75. LFTs are mildly elevated. Patient was negative for influenza, RSV, COVID-19. Vital signs are stable. Progress note dated 07/14/2022. 82-year-old female seen by myself and our nurse practitioner in the emergency department yesterday, in consultation. The patient presented with increasing shortness of breath, most likely secondary to atrial fibrillation. She has a history of atrial fibrillation, previous pacemaker implantation, CAD, rest cancer, hypertension, hyperlipidemia, diabetes, and hypothyroidism. Currently, the patient's on room air. She's not receiving any IV fluids. Laboratory data includes a sodium 140, potassium 5.2, chlorides 108, CO2 28, BUN 48 and creatinine 1.30. Glucose 131. Calcium is 9.2. Chest x-ray showed nothing acute. Progress note dated 07/15/2022. 81-year-old female seen today in room 361. She was seen in consultation 2 days ago in the emergency department. She came in with complaints of shortness of breath, and was found have atrial fibrillation with rapid ventricular response. Currently, she's not receiving any supplemental oxygen, or IV fluids. She looks much more comfortable. No new labs today. Progress note dated 07/16/2022. 82-year-old female seen in room 361. The patient is feeling much better. She was admitted with a diagnosis of shortness of breath and cough, secondary to both bronchitis, as well as atrial fibrillation with rapid ventricular response. Currently, she's been weaned off of oxygen. She's not receiving any IV fluids. Her cough and shortness of breath are much improved. No new labs today other than a glucose of 166. I am reevaluating this patient today 07/17/2022 in follow-up on the general medical floor. She is currently resting in bed, on room air, in no acute distress. Patient continues to improve clinically. No new labs today. Cough has improved with addition of Tessalon Perles. Heart rhythm is regular and she is anticoagulated with Eliquis. Vital signs remain stable. On today's evaluation of 07/18/2022, the main issue remains bowed related factors including episodic constipation. The patient is currently on MiraLAX once a day. Less short of breath and the cough has subsided significantly. Currently on a Medrol Dosepak. X-ray shows stable and the patient is currently on room air oxygen and she completed antibiotics. IV fluids are currently at KVO. Objective - Vital Signs Vital signs: Vital Signs Temp 97.5 F L 07/18/22 13:04 Pulse 56 L 07/18/22 13:04 Resp 18 07/18/22 13:04 BP 119/53 07/18/22 13:04 Pulse Ox 95 07/18/22 13:04 FiO2 Intake & Output 07/17/22 07/18/22 07/18/22 18:59 06:59 18:59 Intake Total 480 Balance 480 Intake: Oral 480 Other: Voiding Method Toilet Toilet Toilet # Voids 2 2 - Exam GENERAL EXAM: Alert, 81-year-old white female, comfortable in no apparent distress. HEAD: Normocephalic and atraumatic EYES: Normal reaction of pupils, equal size. NOSE: Clear with pink turbinates. THROAT: No erythema or exudates. NECK: No masses, no JVD. CHEST: No chest wall deformity. LUNGS: Equal air entry with no crackles, wheeze, rhonchi or dullness. On room a ir. No conversational dyspnea or accessory muscle use.. CVS: S1 and S2 normal with no audible murmur, regular rhythm. No extra heart sounds ABDOMEN: No hepatosplenomegaly, active bowel sounds, no guarding or rigidity. SPINE: No scoliosis or deformity SKIN: No rashes CENTRAL NERVOUS SYSTEM: No focal deficits, tone is normal in all 4 extremities. EXTREMITIES: There is no peripheral edema, clubbing, or cyanosis. Peripheral pulses are intact. - Labs CBC & Chem 7: 07/17/22 11:07 07/18/22 06:12 Labs: Abnormal Lab Results - Last 24 Hours (Table) 07/17/22 07/17/22 07/18/22 Range/Units 17:16 20:50 06:12 BUN 69 H (7-17) mg/dL Creatinine 2.12 H (0.52-1.04) mg/dL Glucose 159 H (74-99) mg/dL POC Glucose (mg/dL) 288 H 253 H (70-110) mg/dL 07/18/22 07/18/22 Range/Units 07:03 11:14 BUN (7-17) mg/dL Creatinine (0.52-1.04) mg/dL Glucose (74-99) mg/dL POC Glucose (mg/dL) 165 H 193 H (70-110) mg/dL Assessment and Plan Plan: Acute bronchitis with bronchospasm and bronchial inflammation. Failed outpatient treatment with prednisone/Z-Sherman. Negative for influenza, RSV, COVID- 19. Atrial fibrillation with rapid ventricular rate, improved. The patient's cardiac rhythm is back to sinus this afternoon Elevated troponins, likely secondary to supply/demand mismatch. Acute kidney injury, improving creatinine down to 1.3 History of sick sinus syndrome S/P permanent pacemaker implantation. Coronary artery disease. Diabetes mellitus, insulin-dependent. Hypertension. Hyperlipidemia. History of pulmonary nodules. History of breast cancer S/P radiation therapy and lumpectomy. Lifelong nonsmoker. Plan: MiraLAX for constipation May benefit also from Colace if needed Medrol Dosepak Clinically improving Cardiac rhythm is back to sinus Patient's medications reviewed On room air Continue bronchodilators when necessary Continue antitussive medication On a Medrol Dosepak Eliquis was restarted for anticoagulation From a pulmonary standpoint, patient is cleared for discharge
[2022-07-18] MEDS: ONDANSETRON 4 MG/2 ML VIAL IVP PRN ×2 (15:24→22:59)
[2022-07-18] MEDS ORDERED: traMADol 50 MG TAB PO PRN (15:35)
[2022-07-18 17:34] LABS: Glucose,Whole Blood 303 mg/dL (70-110)
[2022-07-18] MEDS: METOCLOPRAMIDE 5 MG/ML 2 ML VIAL IVP SCH ×2 (18:08→23:34)
[2022-07-18] MEDS ORDERED: MORPHINE SULFATE 2 MG/ML SYRINGE IVP STA (20:11)
--- NOTE | 2022-07-18 20:11 | CDI ---
Documentation Clarification Form Date: 07/18/2022 7:51:12 PM From: Kina Trujillo RN, CCDS Email: [email or web address] Admit Date: 07/12/2022 11:04:00 PM Patient Name: Yanely Hilario Visit Number: [id number] Discharge Date: ATTENTION: The Clinical Documentation Specialists (CDI) and [facility] Coding Staff appreciate your assistance in clarifying documentation. Please respond to the clarification below the line at the bottom and electronically sign. The CDI & [facility] Coding staff will review the response and follow-up if needed. Please note: Queries are made part of the Legal Health Record. If you have any questions, please contact the author of this message via ITS. Dr. Maurice Avalos Your patient has elevated troponin levels. Please clarify if there is an additional diagnosis and/or clinical significance related to this value. Patient history/risk factors: A fib on anticoagulation, pacemaker, HTN, HLD. Came to ED with shortness of breath, cough and congestion. Diagnosed with acute bronchitis and A fib with RVR. Clinical indicators: 07/12-07/13 Troponins: 0.054-0.052-0.068 ED: "New onset atrial fibrillation, Atrial fibrillation with RVR, NSTEMI, Elevated troponin." Cardiology consult: "Reason for Consult-NSTEMI, atrial fibrillation (rvr). Paroxysmal atrial fibrillation presenting with RVR. Discontinue Cardizem drip. Start patient on Lopressor." H&P: "Moderate to severe MR, moderate TR and mild pulmonary hypertension. Elevated troponin possible demand ischemia." Treatment: Cardizem drip 07/13-07/14. Metoprolol 75mg po TID. IV bolus and IVF's. Is there an additional diagnosis and/or clinical significance related to the above lab result/information: [ ] NSTEMI type 1 [ x ] Type 2 AR due to (specify cause _atrial fibrillation___) [ ] No additional diagnosis/Not clinically significant [ ] Other, please specify [ ] Unable to determine MTDD
[2022-07-18] MEDS: DICYCLOMINE 10 MG CAP PO SCH (20:27)
[2022-07-18] MEDS: FLUTICASONE 50MCG/SPRAY NASAL 16GM EA NOSTRIL SCH (20:28)
[2022-07-18 20:56] LABS: Glucose,Whole Blood 272 mg/dL (70-110)
[2022-07-19] MEDS: METOCLOPRAMIDE 5 MG/ML 2 ML VIAL IVP SCH ×3 (05:05→17:57)
[2022-07-19] MEDS: LEVOTHYROXINE 75 MCG TAB PO SCH (05:05)
[2022-07-19] MEDS: ONDANSETRON 4 MG/2 ML VIAL IVP PRN (06:04)
--- NOTE | 2022-07-19 06:47 | P.PN ---
Subjective Progress Note Date: 07/18/22 Patient is a 81-year-old female with a known history of atrial fibrillation on anticoagulation with Eliquis, history of permanent pacemaker placement, hypertension, hyperlipidemia, diabetes type 2 insulin-dependent, hypothyroidism, osteoarthritis and chronic back pain and anxiety presents ER with complaints of shortness of breath for past 2 weeks. Patient was having chest congestion and cough with clear to greenish sputum production. Patient was seen by her primary care physician and was given Z-Sherman and prednisone course. Patient still having symptoms without much improvement presented to ER. Denies any fever or chills. No leg swelling. No nausea vomiting abdominal pain or diarrhea. Chest x-ray in the ER showed no acute process. EKG showed atrial fibrillation with rapid regular rate with heart rate 134 Laboratory data showed WBC 9.9 hemoglobin 12.0 and platelets 302 Sodium 141 potassium 4.5 chloride 105 bicarb is 26 BUN 74 and creatinine 1.68, AST 38 ALT 45 alk phos 48 and troponin 0.054, 0.052 and 0.068, procalcitonin level is 0.11 TSH within normal limits and proBNP is 1890 Influenza A, B, RSV and COVID-19 PCR not detected. 07/14/2022 This is a pleasant 81 years old female was admitted with A. fib and RVR consult with evidence with acute bronchitis. She's been treated with Zithromax, normal saline for acute kidney injury and her Lopressor dose was increased to 75 mg 3 times a day by paint prep technician, currently heart rate is controlled and she is on Eliquis home dose of 2.5 mg However patient lying in bed and she still feels short of breath and she still was not ready for discharge.. Cartilage team adjusted some of her blood pressure medication and they cleared her for discharge Pulmonary team on the case and patient was started on Medrol Dosepak. 07/15/2022 Patient clinically doing well and she is back to baseline, breathing significantly improved with no chest pain heart rate is controlled with occasional changes in heart rate, symptomatic goes back to normal quickly. Patient is currently clinically stable and she was cleared for discharge by both cardiology and pulmonary services, I discussed with the patient she does not want to go home today and she wants to be evaluated by physical therapy first. Discussed with bed side nurse to contact physical therapy to this morning and they're pending. Patient is a 81-year-old female with a known history of atrial fibrillation on anticoagulation with Eliquis, history of permanent pacemaker placement, hyper tension, hyperlipidemia, diabetes type 2 insulin-dependent, hypothyroidism, osteoarthritis and chronic back pain and anxiety presents ER with complaints of shortness of breath for past 2 weeks. Patient was having chest congestion and cough with clear to greenish sputum production. Patient was seen by her primary care physician and was given Z-Sherman and prednisone course. Patient still having symptoms without much improvement presented to ER. Denies any fever or chills. No leg swelling. No nausea vomiting abdominal pain or diarrhea. Chest x-ray in the ER showed no acute process. EKG showed atrial fibrillation with rapid regular rate with heart rate 134 Laboratory data showed WBC 9.9 hemoglobin 12.0 and platelets 302 Sodium 141 potassium 4.5 chloride 105 bicarb is 26 BUN 74 and creatinine 1.68, AST 38 ALT 45 alk phos 48 and troponin 0.054, 0.052 and 0.068, procalcitonin level is 0.11 TSH within normal limits and proBNP is 1890 Influenza A, B, RSV and COVID-19 PCR not detected. 07/14/2022 This is a pleasant 81 years old female was admitted with A. fib and RVR consult with evidence with acute bronchitis. She's been treated with Zithromax, normal saline for acute kidney injury and her Lopressor dose was increased to 75 mg 3 times a day by paint prep technician, currently heart rate is controlled and she is on Eliquis home dose of 2.5 mg However patient lying in bed and she still feels short of breath and she still was not ready for discharge.. Cartilage team adjusted some of her blood pressure medication and they cleared her for discharge Pulmonary team on the case and patient was started on Medrol Dosepak. 16 2022 Patient is currently lying in bed. Awake alert and oriented x3. Denies any complaints of chest pain. Shortness of breath is much improved. No cough or sputum production. Otherwise patient is still feeling generalized weakness and needs assistance with walking to the bathroom. PT OT was consulted and family is concerned about going home. Anticipate discharge home versus rehab in the next 24 to 48 hours. High risk with history of sustaining. Laboratory data reviewed. Cleared from pulmonary and cardiology standpoint. 07/17/2022 Patient is seen and evaluated in follow-up and continues with weakness and being evaluated by physical therapy. Patient does have some cough and reports her shortness of breath is improved. Patient taking a number of medications causing an increase in kidney functions and will hold the splint pressure medications and Lasix and follow-up with repeat labs. Patient prefers to go home and arranging for home care in the outpatient setting. Patient is currently afebrile continues to report cough although denies shortness of breath. Patient is tolerating diet with no reports of nausea or vomiting noted. 07/18/2022 Patient is seen and evaluated in follow-up this morning with kidney functions trending down low not much improved as patient did receive the Lasix and lisinopril yesterday. Patient is having increased abdominal pain with severe cramping and nausea and reports she feels she has to have a bowel movement but is unable to. Patient does have history of IBS although was not having any loose stools. Patient is reporting 10/10 pain and unable to stand due to the intensity of the cramping and laying in the position in bed. Will add Bentyl and additional medications. Patient encouraged to increase activity as tolerated. Cardiology and pulmonary following and have cleared the patient for discharge. Will monitor overnight with probable discharge in 24 hours. Review of systems: Constitutional: No reports of fatigue, fever, or chills Cardiovascular: No reports of chest pain or palpitations Respiratory: No reports of shortness of breath , reports cough GI: reports of nausea, no vomiting or diarrhea, reports severe abdominal cramping : No reports of dysuria or retention Neurovascular: reports of generalized weakness although feels somewhat improved and did well with physical therapy All medications have been reviewed Active Medications Acetaminophen (Acetaminophen Tab 325 Mg Tab) 650 mg PO Q6HR PRN PRN Reason: Fever and/ or Pain Last Admin: 07/18/22 10:50 Dose: 650 mg Hydrocodone Bitart/Acetaminophen (Hydrocodone/Apap 5-325mg 1 Each Tab) 1 each PO Q6HR PRN PRN Reason: Pain Last Admin: 07/13/22 02:08 Dose: 1 each Albuterol Sulfate (Albuterol Nebulized 2.5 Mg/3 Ml) 2.5 mg INHALATION RT-QID [facility] Last Admin: 07/18/22 18:37 Dose: Not Given Albuterol/Ipratropium (Ipratropium-Albuterol 3 Ml Neb) 3 ml INHALATION RT-QID PRN PRN Reason: Shortness Of Breath Or Wheezing Last Admin: 07/15/22 21:32 Dose: 3 ml Amlodipine Besylate (Amlodipine 5 Mg Tab) 5 mg PO BID [facility] Last Admin: 07/18/22 20:30 Dose: 5 mg Apixaban (Apixaban 2.5 Mg Tablet) 2.5 mg PO BID [facility]; Protocol Last Admin: 07/18/22 20:27 Dose: 2.5 mg Benzonatate (Benzonatate 100 Mg Cap) 100 mg PO TID [facility] Last Admin: 07/18/22 20:27 Dose: 100 mg Dextrose/Water (Dextrose 50% Syringe 50 Ml) 25 ml IVP PER PROTOCOL PRN; Protocol PRN Reason: Hypoglycemia Dextrose/Water (Dextrose 50% Syringe 50 Ml) 50 ml IVP PER PROTOCOL PRN; Protocol PRN Reason: Hypoglycemia Dicyclomine HCl (Dicyclomine 10 Mg Cap) 10 mg PO TID [facility] Last Admin: 07/18/22 20:27 Dose: 10 mg Fluticasone Propionate (Fluticasone 50mcg/[place] Nasal 16gm) 1 spray EA NOSTRIL [facility] Last Admin: 07/18/22 20:28 Dose: Not Given Insulin Aspart (Insulin Aspart (Novolog) 100 Unit/Ml Vial) 0 unit SQ ACHS [facility]; Protocol Last Admin: 07/18/22 21:01 Dose: 3 unit Levothyroxine Sodium (Levothyroxine 75 Mcg Tab) 75 mcg PO [id number] [facility] Last Admin: 07/19/22 05:05 Dose: 75 mcg Methylprednisolone (Methylprednisolone 4 Mg Tab Taper) 8 mg PO DAILY [facility]; Taper Stop: 07/20/22 12:44 Last Admin: 07/18/22 09:34 Dose: 12 mg Metoclopramide HCl (Metoclopramide 5 Mg/Ml 2 Ml Vial) 5 mg IVP Q6HR [facility] Last Admin: 07/19/22 05:05 Dose: 5 mg Metoprolol Tartrate (Metoprolol Tartrate 25 Mg Tab) 75 mg PO TID [facility] Last Admin: 07/18/22 20:27 Dose: 75 mg Naloxone HCl (Naloxone 0.4 Mg/Ml 1 Ml Vial) 0.2 mg IV Q2M PRN PRN Reason: Opioid Reversal Ondansetron HCl (Ondansetron 4 Mg/2 Ml Vial) 4 mg IVP Q8HR PRN PRN Reason: Nausea And Vomiting Last Admin: 07/19/22 06:04 Dose: 4 mg Pantoprazole Sodium (Pantoprazole 40 Mg Tablet) 40 mg PO [id number]-[id number] [facility] Last Admin: 07/18/22 09:33 Dose: 40 mg Polyethylene Glycol (Polyethylene Glycol 3350 17 Gm Powd.Pack) 17 gm PO DAILY [facility] Last Admin: 07/18/22 08:26 Dose: Not Given Tramadol HCl (Tramadol 50 Mg Tab) 50 mg PO TID PRN PRN Reason: Pain Last Admin: 07/18/22 22:59 Dose: 50 mg Physical exam: GENERAL: The patient is alert and oriented x3, curled up in bed in the position. Thin built, elderly HEENT: Pupils are round and equally reacting to light. EOMI. No scleral icterus. No conjunctival pallor. Normocephalic, atraumatic. No pharyngeal erythema. No thyromegaly. CARDIOVASCULAR: S1 and S2 present. No murmurs, rubs, or gallops. PULMONARY: Chest is clear to auscultation, no wheezing or crackles. ABDOMEN: Soft, tender on palpation of the left and right lower quadrants, nondistended, normoactive bowel sounds. No palpable organomegaly. MUSCULOSKELETAL: No joint swelling or deformity. EXTREMITIES: No cyanosis, clubbing, or pedal edema. NEUROLOGICAL: Gross neurological examination did not reveal any focal deficits. SKIN: No rashes. no petechiae. Assessment: Atrial fibrillation with rapid ventricular rate. Currently rate controlled On anticoagulation with Eliquis at home Acute tracheobronchitis. Patient was on Z-Sherman as an outpatient. Moderate to severe MR, moderate TR and mild pulmonary hypertension Elevated troponin, likely type II [place] secondary to atrial fibrillation with RVR Abdominal cramping, possibly secondary to constipation Acute kidney injury with creatinine 1.68 on admission Diabetes type 2 Episode of hypoglycemia. Hypothyroidism Hypertension Hyperlipidemia Osteoarthritis Chronic back pain and fibromyalgia Anxiety History of permanent pacemaker placement Depression/bereavement. Plan: Recommend to hold blood pressure medication Lasix as kidney functions worsened and will follow-up with repeat labs. Repeat labs showing minimal improvement although patient did receive her meds yesterday will follow-up with repeat labs in the a.m. Patient having severe 10/10 abdominal cramping and pain with nausea and feels she has to have a bowel movement with concerns of constipation and normally has IBS. Will add Bentyl as well as a suppository and continue with Reglan Patient has been seen and evaluated by cardiology and pulmonary and cleared for discharge Continue with inhaler and Medrol Dosepak Recommend follow-up labs in a.m. to monitor kidney functions discharge in 24 hours The impression and plan of care has been dictated by Pratibha Kasper, Nurse Practitioner as directed. Dr. Tee MD I have performed a history and examination and MDM of this patient, discussed the same with the dictator, and agree with the dictator's assessment and plan as written ,documented as a scribe. Based on total visit time, I have performed more than 50% of the visit. Objective - Vital Signs Vital signs: Vital Signs Temp 97.9 F 07/18/22 07:05 Pulse 80 07/18/22 09:22 Resp 16 07/18/22 07:05 BP 119/69 07/18/22 07:05 Pulse Ox 94 L 07/18/22 07:05 FiO2 Intake & Output 07/17/22 07/18/22 07/18/22 18:59 06:59 18:59 Intake Total 480 Balance 480 Intake: Oral 480 Other: Voiding Method Toilet Toilet # Voids 2 2 - Labs CBC & Chem 7: 07/17/22 11:07 07/18/22 06:12 Labs: Abnormal Lab Results - Last 24 Hours (Table) 07/17/22 07/17/22 07/17/22 Range/Units 11:07 11:07 11:16 WBC 11.2 H (3.8-10.6) k/uL RBC 3.76 L (3.80-5.40) m/uL Neutrophils # 9.8 H (1.3-7.7) k/uL Lymphocytes # 0.8 L (1.0-4.8) k/uL BUN 57 H (7-17) mg/dL Creatinine 2.18 H (0.52-1.04) mg/dL Glucose 147 H (74-99) mg/dL POC Glucose (mg/dL) 166 H (70-110) mg/dL 07/17/22 07/17/22 07/18/22 Range/Units 17:16 20:50 06:12 WBC (3.8-10.6) k/uL RBC (3.80-5.40) m/uL Neutrophils # (1.3-7.7) k/uL Lymphocytes # (1.0-4.8) k/uL BUN 69 H (7-17) mg/dL Creatinine 2.12 H (0.52-1.04) mg/dL Glucose 159 H (74-99) mg/dL POC Glucose (mg/dL) 288 H 253 H (70-110) mg/dL 07/18/22 Range/Units 07:03 WBC (3.8-10.6) k/uL RBC (3.80-5.40) m/uL Neutrophils # (1.3-7.7) k/uL Lymphocytes # (1.0-4.8) k/uL BUN (7-17) mg/dL Creatinine (0.52-1.04) mg/dL Glucose (74-99) mg/dL POC Glucose (mg/dL) 165 H (70-110) mg/dL
[2022-07-19 07:04] LABS: Glucose,Whole Blood 277 mg/dL (70-110)
[2022-07-19] MEDS: APIXABAN 2.5 MG TABLET PO SCH (08:29)
[2022-07-19] MEDS: methylPREDNISolone 4 MG TAB TAPER PO SCH (08:29)
[2022-07-19] MEDS: PANTOPRAZOLE 40 MG TABLET PO SCH (08:29)
[2022-07-19] MEDS: METOPROLOL TARTRATE 25 MG TAB PO SCH ×3 (08:29→21:10)
[2022-07-19] MEDS: amLODIPine 5 MG TAB PO SCH (08:29)
[2022-07-19] MEDS: BENZONATATE 100 MG CAP PO SCH ×3 (08:29→21:10)
[2022-07-19] MEDS: INSULIN ASPART (NovoLOG) 100 UNIT/ML VIAL SQ SCH ×4 (08:29→21:10)
[2022-07-19] MEDS: DICYCLOMINE 10 MG CAP PO SCH (08:29)
[2022-07-19] MEDS: polyethylene glycoL 3350 17 GM POWD.PACK PO SCH (08:30)
[2022-07-19] MEDS: ALBUTEROL NEBULIZED 2.5 MG/3 ML INHALATION SCH ×4 (08:33→18:12)
[2022-07-19] MEDS ORDERED: METOPROLOL TARTRATE 25 MG TAB PO ONE (09:00)
[2022-07-19] MEDS ORDERED: NA PHOS,M-B/NA PHOS,DI-BA 133 ML ENEMA RECTAL ONE (09:42)
[2022-07-19] MEDS ORDERED: DILTIAZEM DRIP BOLUS FROM BAG 1 MG SOLN IV ONE (11:09)
[2022-07-19] MEDS ORDERED: DILTIAZEM 125 MG in SODIUM CHLORIDE 0.9% 100 ML IV SCH (11:15)
[2022-07-19 11:19] LABS: Glucose,Whole Blood 272 mg/dL (70-110)
--- NOTE | 2022-07-19 11:22 | P.PN ---
Subjective Progress Note Date: 07/19/22 Patient is a 81-year-old female with a known history of atrial fibrillation on anticoagulation with Eliquis, history of permanent pacemaker placement, hypertension, hyperlipidemia, diabetes type 2 insulin-dependent, hypothyroidism, osteoarthritis and chronic back pain and anxiety presents ER with complaints of shortness of breath for past 2 weeks. Patient was having chest congestion and cough with clear to greenish sputum production. Patient was seen by her primary care physician and was given Z-Sherman and prednisone course. Patient still having symptoms without much improvement presented to ER. Denies any fever or chills. No leg swelling. No nausea vomiting abdominal pain or diarrhea. Chest x-ray in the ER showed no acute process. EKG showed atrial fibrillation with rapid regular rate with heart rate 134 Laboratory data showed WBC 9.9 hemoglobin 12.0 and platelets 302 Sodium 141 potassium 4.5 chloride 105 bicarb is 26 BUN 74 and creatinine 1.68, AST 38 ALT 45 alk phos 48 and troponin 0.054, 0.052 and 0.068, procalcitonin level is 0.11 TSH within normal limits and proBNP is 1890 Influenza A, B, RSV and COVID-19 PCR not detected. 07/14/2022 This is a pleasant 81 years old female was admitted with A. fib and RVR consult with evidence with acute bronchitis. She's been treated with Zithromax, normal saline for acute kidney injury and her Lopressor dose was increased to 75 mg 3 times a day by wind farm engineer, currently heart rate is controlled and she is on Eliquis home dose of 2.5 mg However patient lying in bed and she still feels short of breath and she still was not ready for discharge.. Cartilage team adjusted some of her blood pressure medication and they cleared her for discharge Pulmonary team on the case and patient was started on Medrol Dosepak. 07/15/2022 Patient clinically doing well and she is back to baseline, breathing significantly improved with no chest pain heart rate is controlled with occasional changes in heart rate, symptomatic goes back to normal quickly. Patient is currently clinically stable and she was cleared for discharge by both cardiology and pulmonary services, I discussed with the patient she does not want to go home today and she wants to be evaluated by physical therapy first. Discussed with bed side nurse to contact physical therapy to this morning and they're pending. Patient is a 81-year-old female with a known history of atrial fibrillation on anticoagulation with Eliquis, history of permanent pacemaker placement, hyper tension, hyperlipidemia, diabetes type 2 insulin-dependent, hypothyroidism, osteoarthritis and chronic back pain and anxiety presents ER with complaints of shortness of breath for past 2 weeks. Patient was having chest congestion and cough with clear to greenish sputum production. Patient was seen by her primary care physician and was given Z-Sherman and prednisone course. Patient still having symptoms without much improvement presented to ER. Denies any fever or chills. No leg swelling. No nausea vomiting abdominal pain or diarrhea. Chest x-ray in the ER showed no acute process. EKG showed atrial fibrillation with rapid regular rate with heart rate 134 Laboratory data showed WBC 9.9 hemoglobin 12.0 and platelets 302 Sodium 141 potassium 4.5 chloride 105 bicarb is 26 BUN 74 and creatinine 1.68, AST 38 ALT 45 alk phos 48 and troponin 0.054, 0.052 and 0.068, procalcitonin level is 0.11 TSH within normal limits and proBNP is 1890 Influenza A, B, RSV and COVID-19 PCR not detected. 07/14/2022 This is a pleasant 81 years old female was admitted with A. fib and RVR consult with evidence with acute bronchitis. She's been treated with Zithromax, normal saline for acute kidney injury and her Lopressor dose was increased to 75 mg 3 times a day by wind farm engineer, currently heart rate is controlled and she is on Eliquis home dose of 2.5 mg However patient lying in bed and she still feels short of breath and she still was not ready for discharge.. Cartilage team adjusted some of her blood pressure medication and they cleared her for discharge Pulmonary team on the case and patient was started on Medrol Dosepak. 16 2022 Patient is currently lying in bed. Awake alert and oriented x3. Denies any complaints of chest pain. Shortness of breath is much improved. No cough or sputum production. Otherwise patient is still feeling generalized weakness and needs assistance with walking to the bathroom. PT OT was consulted and family is concerned about going home. Anticipate discharge home versus rehab in the next 24 to 48 hours. High risk with history of sustaining. Laboratory data reviewed. Cleared from pulmonary and cardiology standpoint. 07/17/2022 Patient is seen and evaluated in follow-up and continues with weakness and being evaluated by physical therapy. Patient does have some cough and reports her shortness of breath is improved. Patient taking a number of medications causing an increase in kidney functions and will hold the splint pressure medications and Lasix and follow-up with repeat labs. Patient prefers to go home and arranging for home care in the outpatient setting. Patient is currently afebrile continues to report cough although denies shortness of breath. Patient is tolerating diet with no reports of nausea or vomiting noted. 07/18/2022 Patient is seen and evaluated in follow-up this morning with kidney functions trending down low not much improved as patient did receive the Lasix and lisinopril yesterday. Patient is having increased abdominal pain with severe cramping and nausea and reports she feels she has to have a bowel movement but is unable to. Patient does have history of IBS although was not having any loose stools. Patient is reporting 10/10 pain and unable to stand due to the intensity of the cramping and laying in the position in bed. Will add Bentyl and additional medications. Patient encouraged to increase activity as tolerated. Cardiology and pulmonary following and have cleared the patient for discharge. Will monitor overnight with probable discharge in 24 hours. 07/19/2022 Patient is seen and evaluated in follow-up today reports to not feeling well at all with extreme nausea and some vomiting. Patient unable to keep her medications down and heart rate noted to be elevated into the 140s. Cardiology had been following although signed off and will reconsult. Cardiology following back up given additional dose of metoprolol although patient not able to tolerate and unsure if she took the medication. Patient continues to show atrial fibrillation with RVR and cardiology starting Cardizem drip. Patient will need transfer to cardiology floor for monitoring of the strep as she is cu rrently on 5 N. and they do not handle Cardizem drips. Patient is currently afebrile does report some palpitations although denies chest pain. Patient having extreme nausea with some vomiting and abdominal pain. Patient also feels to having some constipation and reports did have a very minimal difficult time having a small bowel movement yesterday after suppository, will add enema. Review of systems: Constitutional: No reports of fatigue, fever, or chills Cardiovascular: No reports of chest pain , reports palpitations Respiratory: reports of some shortness of breath , reports cough is improving GI: reports of nausea, with vomiting , no diarrhea, reports continued severe abdominal pain and feels constipated : No reports of dysuria or retention Neurovascular: reports of generalized weakness and not feeling well All medications have been reviewed Active Medications Acetaminophen (Acetaminophen Tab 325 Mg Tab) 650 mg PO Q6HR PRN PRN Reason: Fever and/ or Pain Last Admin: 07/18/22 10:50 Dose: 650 mg Hydrocodone Bitart/Acetaminophen (Hydrocodone/Apap 5-325mg 1 Each Tab) 1 each PO Q6HR PRN PRN Reason: Pain Last Admin: 07/13/22 02:08 Dose: 1 each Albuterol Sulfate (Albuterol Nebulized 2.5 Mg/3 Ml) 2.5 mg INHALATION RT-QID [facility] Last Admin: 07/19/22 08:33 Dose: Not Given Albuterol/Ipratropium (Ipratropium-Albuterol 3 Ml Neb) 3 ml INHALATION RT-QID PRN PRN Reason: Shortness Of Breath Or Wheezing Last Admin: 07/15/22 21:32 Dose: 3 ml Amlodipine Besylate (Amlodipine 5 Mg Tab) 5 mg PO BID [facility] Last Admin: 07/19/22 08:29 Dose: 5 mg Apixaban (Apixaban 2.5 Mg Tablet) 2.5 mg PO BID [facility]; Protocol Last Admin: 07/19/22 08:29 Dose: 2.5 mg Benzonatate (Benzonatate 100 Mg Cap) 100 mg PO TID [facility] Last Admin: 07/19/22 08:29 Dose: 100 mg Dextrose/Water (Dextrose 50% Syringe 50 Ml) 25 ml IVP PER PROTOCOL PRN; Protocol PRN Reason: Hypoglycemia Dextrose/Water (Dextrose 50% Syringe 50 Ml) 50 ml IVP PER PROTOCOL PRN; Protoco l PRN Reason: Hypoglycemia Dicyclomine HCl (Dicyclomine 10 Mg Cap) 10 mg PO TID [facility] Last Admin: 07/19/22 08:29 Dose: 10 mg Diltiazem HCl (Diltiazem Drip Bolus From Bag 1 Mg Soln) 5 mg IV ONCE ONE Stop: 07/19/22 11:10 Fluticasone Propionate (Fluticasone 50mcg/[place] Nasal 16gm) 1 spray EA NOSTRIL [facility] Last Admin: 07/18/22 20:28 Dose: Not Given Diltiazem HCl 125 mg/ Sodium (Chloride) 125 mls @ 5 mls/hr IV .Q24H [facility] Insulin Aspart (Insulin Aspart (Novolog) 100 Unit/Ml Vial) 0 unit SQ ACHS [facility]; Protocol Last Admin: 07/19/22 08:29 Dose: 3 unit Levothyroxine Sodium (Levothyroxine 75 Mcg Tab) 75 mcg PO [id number] [facility] Last Admin: 07/19/22 05:05 Dose: 75 mcg Methylprednisolone (Methylprednisolone 4 Mg Tab Taper) 8 mg PO DAILY [facility]; Taper Stop: 07/20/22 12:44 Last Admin: 07/19/22 08:29 Dose: 8 mg Metoclopramide HCl (Metoclopramide 5 Mg/Ml 2 Ml Vial) 5 mg IVP Q6HR [facility] Last Admin: 07/19/22 05:05 Dose: 5 mg Metoprolol Tartrate (Metoprolol Tartrate 25 Mg Tab) 75 mg PO TID [facility] Last Admin: 07/19/22 08:29 Dose: 75 mg Naloxone HCl (Naloxone 0.4 Mg/Ml 1 Ml Vial) 0.2 mg IV Q2M PRN PRN Reason: Opioid Reversal Ondansetron HCl (Ondansetron 4 Mg/2 Ml Vial) 4 mg IVP Q8HR PRN PRN Reason: Nausea And Vomiting Last Admin: 07/19/22 06:04 Dose: 4 mg Pantoprazole Sodium (Pantoprazole 40 Mg Tablet) 40 mg PO AC-BRKFST [facility] Last Admin: 07/19/22 08:29 Dose: 40 mg Polyethylene Glycol (Polyethylene Glycol 3350 17 Gm Powd.Pack) 17 gm PO DAILY [facility] Last Admin: 07/19/22 08:30 Dose: 17 gm Tramadol HCl (Tramadol 50 Mg Tab) 50 mg PO TID PRN PRN Reason: Pain Last Admin: 07/18/22 22:59 Dose: 50 mg Physical exam: GENERAL: The patient is alert and oriented x3, sleeping but arousable with an emesis basin by her face. Thin built, elderly HEENT: Pupils are round and equally reacting to light. EOMI. No scleral icterus. No conjunctival pallor. Normocephalic, atraumatic. No pharyngeal erythema. No thyromegaly. CARDIOVASCULAR: Irregular, A. fib with RVR on the monitor PULMONARY: Chest is clear to auscultation, no wheezing or crackles. ABDOMEN: Soft, tender on palpation of the left and right lower quadrants, nondistended, normoactive bowel sounds. No palpable organomegaly. MUSCULOSKELETAL: No joint swelling or deformity. EXTREMITIES: No cyanosis, clubbing, or pedal edema. NEUROLOGICAL: Gross neurological examination did not reveal any focal deficits. SKIN: No rashes. no petechiae. Assessment: Atrial fibrillation with rapid ventricular rate. Back in A. fib with RVR uncontrolled rate on 07/19/2022 Acute tracheobronchitis. Patient was on Z-Sherman as an outpatient. Moderate to severe MR, moderate TR and mild pulmonary hypertension Elevated troponin, likely type II MS secondary to atrial fibrillation with RVR Abdominal cramping, possibly secondary to constipation Acute kidney injury with creatinine 1.68 on admission Diabetes type 2 Episode of hypoglycemia. Resolved Hypothyroidism Hypertension Hyperlipidemia Osteoarthritis Chronic back pain and fibromyalgia Anxiety History of permanent pacemaker placement Depression/bereavement. Plan: Recommend to hold blood pressure medication as well as Lasix as kidney functions worsened and awaiting repeat a.m. labs Patient having continued abdominal cramping with now nausea and vomiting unable to tolerate oral meds and reports to not eating dinner and/or breakfast Patient's heart rates in the 140s to 150s in A. fib with RVR and cardiology had signed off. Placed a reconsult to cardiology and was given an additional dose of metoprolol with no change in cardiology ordering a Cardizem drip and patient will need to be transferred off [address]. as they do not manage Cardizem drip here. Patient has been seen and evaluated by pulmonary and cleared for discharge Continue with inhaler and Medrol Dosepak Awaiting labs from a.m. to monitor kidney functions Awaiting a bed on 3 [address]. to manage the Cardizem drip The impression and plan of care has been dictated by Pratibha Kasper, Nurse Practitioner as directed. Dr. Tee MD I have performed a history and examination and MDM of this patient, discussed the same with the dictator, and agree with the dictator's assessment and plan as written ,documented as a scribe. Based on total visit time, I have performed more than 50% of the visit. Objective - Vital Signs Vital signs: Vital Signs Temp 98.2 F 07/19/22 07:05 Pulse 115 H 07/19/22 07:05 Resp 18 07/19/22 07:05 BP 143/76 07/19/22 07:05 Pulse Ox 92 L 07/19/22 08:33 FiO2 Intake & Output 07/18/22 07/19/22 07/19/22 18:59 06:59 18:59 Intake Total 240 Balance 240 Intake: Oral 240 Other: Voiding Method Toilet Toilet # Voids 3 1 # Bowel Movements 1 1 - Labs CBC & Chem 7: 07/17/22 11:07 07/18/22 06:12 Labs: Abnormal Lab Results - Last 24 Hours (Table) 07/18/22 07/18/22 07/18/22 Range/Units 11:14 17:33 20:52 POC Glucose (mg/dL) 193 H 303 H 272 H (70-110) mg/dL 07/19/22 Range/Units 07:03 POC Glucose (mg/dL) 277 H (70-110) mg/dL
--- NOTE | 2022-07-19 12:25 | P.PN ---
Subjective Progress Note Date: 07/19/22 History of present illness: This is an 81-year-old female patient of Dr. Jack with past medical history of dyslipidemia, hypertension, diabetes, hypothyroidism, coronary artery disease, paroxysmal atrial fibrillation, status post pacemaker. Patient states that she has had a sore throat starting 2 weeks ago that gradually moved into her chest with a cough, had nasal congestion. She states the cough is been quite severe and uncontrolled despite being on antibiotic and redness on taper. Patient came in for those symptoms and after having a coughing spell she went into atrial fibrillation. Patient was started on Cardizem drip and subsequently was converted around 10:30 this morning. Currently her heart rate is 68 and blood pressure 118/50. Patient is seen today in the emergency center waiting for a bed on the cardiac stepdown unit. EKG atrial fibrillation with RVR, 134 bpm, #2 ventricular paced rhythm at 82 bpm Chest x-ray: No acute process WBC 9.9, hemoglobin 12, platelet count 302. INR 1.0. Electrodes are normal. BUN 74 creatinine 1.68. AST 38, ALT 45. Troponins 0.054, 0.052, 0.068. Pro- calcitonin 0.11. Home cardiac medications: Amlodipine 5 mg daily, eliquis 2.5 mg twice daily, Lasix 20 mg daily, hydrochlorothiazide 25 mg daily, lisinopril 20 mg twice daily, Lopressor 75 mg 3 times daily, levothyroxine 75 g Sunday through Sunday. Cardiac catheterization 2007 normal EF, 70% ostial Echocardiogram 12/2021 normal EF, moderate MR, mild to moderate AR, moderate TR, estimated RVSP 54 mmHg Permanent pacemaker Med[employer]onic 07/2018 Lexiscan stress test 2018: normal EF, normal study 07/14 The patient is currently paced rhythm, 70s and 80s. Blood pressure 127/68. Repeat blood work reveals potassium of 5.2, BUN 48 creatinine 1.3. TSH 1.05. Patient states that she feels a little stronger today. She continues to cough with phlegm production. We are making some medication adjustments for her blood pressure. 07/15 Notified by RN that patient was going into intermittent a-fib with RVR overnight and this morning. Patient reports not feeling well overnight with palpitations. Tele reviewed. She is currently in sinus rhythm with rate controlled. Denies any chest pain or shortness of breath. Complains of cough. ECHO reviewed and shows EF 50-55%, RVSP 54. 07/19 Cardiology signed off on 07/15 but patient went into A. fib with RVR at 150 ventricular rate this morning and we have been asked to reevaluate the patient. She is currently on eliquis, Lopressor 75 mg 3 times daily. We ordered a Cardizem drip which was delayed and starting because patient would have to be transferred to a different floor. Patient was feeling very sick with nausea vomiting abdominal cramping. She was in the bathroom and subsequently converted to a sinus rhythm now in the 70s. Cardizem drip discontinued. Patient will not require transfer. Physical examination: Gen: This is an 81-year-old female. She is resting in bed and appears to be comfortable and in no acute distress. VS: reviewed HEENT: Head is atraumatic, normocephalic. Pupils equal, round. Sclerae is anicteric. NECK: Supple. No JVD. . LUNGS: Clear to auscultation. No wheezes or rhonchi. No intercostal re tractions. HEART: Regular rate and rhythm. 2/6 systolic murmur. ABDOMEN: Soft No tenderness. EXTREMITIES: No pedal edema. No calf tenderness. NEUROLOGICAL: Patient is awake, alert and oriented x3. Assessment: Bronchitis Paroxysmal atrial fibrillation presenting with RVR, in sinus rhythm currently Hypertension Dyslipidemia Diabetes Hypothyroidism Coronary artery disease Status post pacemaker Plan: Discussed with patient the option for increasing metoprolol or considering adding amiodarone. Also discussed that she may benefit from an ablation in the future. Patient reports that she like to continue her current medications and will follow up with Dr. Jack in the office. Patient is cleared for discharge from cardiology. Nurse practitioner note has been reviewed, I agree with documented findings and plan of care. Patient was seen and examined. Objective - Vital Signs Vital signs: Vital Signs Temp 98.2 F 07/19/22 07:05 Pulse 115 H 07/19/22 07:05 Resp 18 07/19/22 07:05 BP 143/76 07/19/22 07:05 Pulse Ox 92 L 07/19/22 08:33 FiO2 Intake & Output 07/18/22 07/19/22 07/19/22 18:59 06:59 18:59 Intake Total 240 Balance 240 Intake: Oral 240 Other: Voiding Method Toilet Toilet # Voids 3 1 # Bowel Movements 1 1 - Labs CBC & Chem 7: 07/17/22 11:07 07/18/22 06:12 Labs: Abnormal Lab Results - Last 24 Hours (Table) 07/18/22 07/18/22 07/18/22 Range/Units 11:14 17:33 20:52 POC Glucose (mg/dL) 193 H 303 H 272 H (70-110) mg/dL 07/19/22 Range/Units 07:03 POC Glucose (mg/dL) 277 H (70-110) mg/dL
--- NOTE | 2022-07-19 13:03 | XR ---
EXAMINATION TYPE: XR abdomen acute w cxr DATE OF EXAM: 07/19/2022 COMPARISON: Chest x-ray 07/12/2022, CT abdomen 12/01/2020 HISTORY: Abdominal pain, shortness of breath TECHNIQUE: Supine, upright, and left side down lateral decubitus views of the abdomen are obtained. FINDINGS: There is a left-sided triple lead pacemaker. The heart size is at the upper limits of normal. The car diac mediastinal silhouette is unchanged. There is redemonstration of unchanged elevation of the left hemidiaphragm. There is no focal consolidation, significant pleural effusion, or pneumothorax. There is no free air. There are multiple air-fluid levels within the small bowel. There are a few mil dly dilated loops of small bowel. There is a small amount of gas and stool present within the colon. There are a few calcifications within the pelvis, which likely relate to partly calcified fibroids. T here are no suspicious osseous abnormalities. IMPRESSION: 1. Stable elevation of the left hemidiaphragm without an acute cardiopulmonary process identified. 2. Few mildly dilated loops of small bowel with multiple air-fluid levels. This finding is concerning for a developing bowel obstruction. Recommend radiographic or CT follow-up.
[2022-07-19 13:18] LABS: Anion Gap 22.3 mmol/L (10.00-18.00); BUN/Creat Ratio 33.35 Ratio (12.00-20.00); Blood Urea Nitrogen 56.7 mg/dL (9.0-27.0); Carbon Dioxide 18.7 mmol/L (20.0-27.5); Non-African American GFR(CKD) 27.6 (60.0-200.0); Potassium 5.5 mmol/L (3.5-5.5)
--- NOTE | 2022-07-19 16:01 | CT ---
EXAMINATION TYPE: CT abdomen wo con CT DLP: 285.40 mGycm, Automated exposure control for dose reduction was used. DATE OF EXAM: 07/19/2022 3:43 PM COMPARISON: CT abdomen 12/01/2020. CLINICAL INDICATION:Female, 81 years old with history of abdominal pain, poss bowel obstruction; abdo nirmal pain, poss bowel obstruction TECHNIQUE: Standard CT of the abdomen without IV or oral contrast. Lack of IV or oral contrast limi ts evaluation of solid and hollow organ viscera. Coronal and sagittal reformats were performed. FINDINGS: LOWER CHEST: Left lower lobe subsegmental atelectasis. Mild cardiomegaly. Partial visualization of ca rdiac pacemaking leads. Mitral annulus calcifications. Elevation the left hemidiaphragm. ABDOMEN LIVER: Unremarkable noncontrast appearance. GALLBLADDER AND BILE DUCTS: Unremarkable. PANCREAS: Unremarkable noncontrast appearance. SPLEEN: Unremarkable noncontrast appearance. ADRENAL GLANDS: Unremarkable noncontrast appearance.. KIDNEYS AND URETERS: No evidence of hydronephrosis. Scattered small subcentimeter likely cortical cys t redemonstrated. Nonobstructive right renal calculus measuring up to 3 mm redemonstrated. PELVIS BLADDER: The visualized portion of the bladder is unremarkable. REPRODUCTIVE: Dystrophic calcifications in the uterus consistent with calcified fibroids. ABDOMEN & PELVIS STOMACH AND BOWEL: Stomach and duodenum are unremarkable. Mildly distended fluid and gas-filled small bowel loops with air-fluid levels. No pneumatosis. Dilated small bowel extends into a partially visu alized right inguinal hernia. There is subsequent decompressed distal small bowel in the right lower quadrant. Distal colonic diverticulosis without evidence for acute diverticulitis. No evidence of bow el obstruction. PERITONEUM: No evidence of pneumoperitoneum or free fluid. VASCULATURE: Moderate atherosclerotic calcifications are present throughout the abdominal aorta and i ts branches. No evidence of aortic aneurysm. MUSCULOSKELETAL: No acute osseous abnormalities. Scoliotic curvature. Grade 1 to anterolisthesis of L 4 on L5 with right pars defect. LYMPH NODES: No gross evidence for lymphadenopathy. SOFT TISSUE/ABDOMINAL WALL: Moderate size right inguinal hernia partially visualized with loop of sma ll bowel bowel extending into it. IMPRESSION: 1. Findings suspicious for small bowel obstruction with suspected transition point within a partiall y visualized right inguinal hernia. Evaluation is limited due to only a CT abdomen was ordered. 2. Fibroid changes of the uterus. 3. Nonobstructive right renal calculus. 4. Colonic diverticulosis without evidence for acute diverticulitis.
--- NOTE | 2022-07-19 16:49 | P.PN ---
Subjective Progress Note Date: 07/19/22 Seeing this patient in consultation today 07/13/2022 in the emergency room waiting for a bed on the selective care unit. Patient is an 81-year-old white female with past significant medical history of atrial fibrillation, permanent pacemaker, coronary artery disease, breast cancer post radiation therapy and lumpectomy, hypertension, hyperlipidemia, diabetes mellitus, hypothyroidism, and is a lifelong nonsmoker. Patient does follow with Dr. Haile in the office for a solitary lung nodule. Patient presented to the emergency room yesterday evening with chief complaint of shortness of breath over the past 2 weeks. Also, reports chest congestion and a frequent cough with occasional phlegm. Patient denies any chest pain, heart palpitations, lightheadedness or syncope, fever, hemoptysis. Patient apparently was seen by Dr Babcock, her primary care provider, and was given a course of prednisone and a Z-Sherman. Patient had no improvement in symptoms. Patient is currently resting emergency room, on room air, in no acute distress. Chest x-ray arrival showed no acute cardiopulmonary process. While the emergency room, patient did have an episode of A. fib RVR, which has currently resolved, as the patient is in normal sinus rhythm around 80 bpm. troponins are mildly elevated most recent troponin 0.068. EKG currently shows normal sinus rhythm without any obvious ischemic changes. NT proBNP is 1890. Normal saline is infusing at 130 mL per hour. Patient's CBC on arrival showed a WBC count 9.9, hemoglobin 12, hematocrit 36.7, platelets 302. 41, potassium 4.5, chloride 105, serum CO2 26, BUN 74, creatinine 1.68, 75. LFTs are mildly elevated. Patient was negative for influenza, RSV, COVID-19. Vital signs are stable. Progress note dated 07/14/2022. 82-year-old female seen by myself and our nurse practitioner in the emergency department yesterday, in consultation. The patient presented with increasing shortness of breath, most likely secondary to atrial fibrillation. She has a history of atrial fibrillation, previous pacemaker implantation, CAD, rest cancer, hypertension, hyperlipidemia, diabetes, and hypothyroidism. Currently, the patient's on room air. She's not receiving any IV fluids. Laboratory data includes a sodium 140, potassium 5.2, chlorides 108, CO2 28, BUN 48 and creatinine 1.30. Glucose 131. Calcium is 9.2. Chest x-ray showed nothing acute. Progress note dated 07/15/2022. 81-year-old female seen today in room 361. She was seen in consultation 2 days ago in the emergency department. She came in with complaints of shortness of breath, and was found have atrial fibrillation with rapid ventricular response. Currently, she's not receiving any supplemental oxygen, or IV fluids. She looks much more comfortable. No new labs today. Progress note dated 07/16/2022. 82-year-old female seen in room 361. The patient is feeling much better. She was admitted with a diagnosis of shortness of breath and cough, secondary to both bronchitis, as well as atrial fibrillation with rapid ventricular response. Currently, she's been weaned off of oxygen. She's not receiving any IV fluids. Her cough and shortness of breath are much improved. No new labs today other than a glucose of 166. I am reevaluating this patient today 07/17/2022 in follow-up on the general medical floor. She is currently resting in bed, on room air, in no acute distress. Patient continues to improve clinically. No new labs today. Cough has improved with addition of Tessalon Perles. Heart rhythm is regular and she is anticoagulated with Eliquis. Vital signs remain stable. On today's evaluation of 07/18/2022, the main issue remains bowed related factors including episodic constipation. The patient is currently on MiraLAX once a day. Less short of breath and the cough has subsided significantly. Currently on a Medrol Dosepak. X-ray shows stable and the patient is currently on room air oxygen and she completed antibiotics. IV fluids are currently at KVO. On today's evaluation of 07/19/2022, the patient's overall respiratory status is stable. The patient has no symptoms and cough or sputum production. Bronchospasm wheezing has subsided. She continues to have constipation. She was given laxatives. She was also having some abdominal pain diminished appetite. Based on that, a CAT scan of the abdomen was done and the patient had findings suspicious for a small bowel obstruction with suspected transition point within a partially visualized right inguinal hernia. Evaluation was limited as on a CAT scan of the abdomen was ordered. There is a nonobstructive right renal calculus. She was also found to have colonic diverticulosis. The patient was given an enema with limited output. There is no evidence of any diverticulitis. No evidence of any large bowel obstruction. No evidence of any pneumoperitoneum. The patient has a BUN of 56 and a creatinine of 1.7 and a sodium level is at 142, as such, the renal function continues to improve. She remains in normal sinus rhythm. Objective - Vital Signs Vital signs: Vital Signs Temp 97.5 F L 07/19/22 12:30 Pulse 63 07/19/22 12:30 Resp 16 07/19/22 12:30 BP 122/57 07/19/22 12:30 Pulse Ox 95 07/19/22 12:30 FiO2 Intake & Output 07/18/22 07/19/22 07/19/22 18:59 06:59 18:59 Intake Total 240 Balance 240 Weight 51.5 kg Intake: Oral 240 Other: Voiding Method Toilet Toilet # Voids 3 1 # Bowel Movements 1 1 1 - Exam GENERAL EXAM: Alert, 81-year-old white female, comfortable in no apparent distress. HEAD: Normocephalic and atraumatic EYES: Normal reaction of pupils, equal size. NOSE: Clear with pink turbinates. THROAT: No erythema or exudates. NECK: No masses, no JVD. CHEST: No chest wall deformity. LUNGS: Equal air entry with no crackles, wheeze, rhonchi or dullness. On room air. No conversational dyspnea or accessory muscle use.. CVS: S1 and S2 normal with no audible murmur, regular rhythm. No extra heart sounds ABDOMEN: No hepatosplenomegaly, active bowel sounds, no guarding or rigidity. SPINE: No scoliosis or deformity SKIN: No rashes CENTRAL NERVOUS SYSTEM: No focal deficits, tone is normal in all 4 extremities. EXTREMITIES: There is no peripheral edema, clubbing, or cyanosis. Peripheral pulses are intact. - Labs CBC & Chem 7: 07/17/22 11:07 07/19/22 05:42 Labs: Abnormal Lab Results - Last 24 Hours (Table) 07/18/22 07/18/22 07/19/22 Range/Units 17:33 20:52 05:42 Carbon Dioxide 18.7 L (20.0-27.5) mmol/L Anion Gap 22.30 H (10.00-18.00) mmol/L BUN 56.7 H (9.0-27.0) mg/dL Creatinine 1.7 H (0.6-1.5) mg/dL Est GFR (CKD-EPI)AfAm 32.0 L (60.0-200.0) Est GFR (CKD-EPI)NonAf 27.6 L (60.0-200.0) BUN/Creatinine Ratio 33.35 H (12.00-20.00) Ratio Glucose 283 H (70-110) mg/dL POC Glucose (mg/dL) 303 H 272 H (70-110) mg/dL 07/19/22 07/19/22 Range/Units 07:03 11:17 Carbon Dioxide (20.0-27.5) mmol/L Anion Gap (10.00-18.00) mmol/L BUN (9.0-27.0) mg/dL Creatinine (0.6-1.5) mg/dL Est GFR (CKD-EPI)AfAm (60.0-200.0) Est GFR (CKD-EPI)NonAf (60.0-200.0) BUN/Creatinine Ratio (12.00-20.00) Ratio Glucose (70-110) mg/dL POC Glucose (mg/dL) 277 H 272 H (70-110) mg/dL Assessment and Plan Plan: Acute bronchitis with bronchospasm and bronchial inflammation. Failed outpatient treatment with prednisone/Z-Sherman. Negative for influenza, RSV, COVID- 19. Clinically improving Atrial fibrillation with rapid ventricular rate, improved. The patient's cardiac rhythm is back to sinus this afternoon Abdominal pain with possibility of a small bowel obstruction, right inguinal hernia Elevated troponins, likely secondary to supply/demand mismatch. Acute kidney injury, improving creatinine History of sick sinus syndrome S/P permanent pacemaker implantation. Coronary artery disease. Diabetes mellitus, insulin-dependent. Hypertension. Hyperlipidemia. History of pulmonary nodules. History of breast cancer S/P radiation therapy and lumpectomy. Lifelong nonsmoker. Plan: Surgical evaluation regarding possibility of a small bowel obstruction Limited output from the enema Continues to have ongoing nausea. We'll keep the patient nothing by mouth for now Start the patient half-normal saline at the rate of 75 mL an hour Medrol Dosepak Clinically improving in terms of her breathing Cardiac rhythm is back to sinus Patient's medications reviewed On room air Continue bronchodilators when necessary Continue antitussive medication On a Medrol Dosepak Eliquis was restarted for anticoagulation From a pulmonary standpoint, patient is cleared for discharge
[2022-07-19 17:11] LABS: Glucose,Whole Blood 285 mg/dL (70-110)
[2022-07-19] MEDS: SODIUM CHLORIDE 0.9% 1,000 ML IV SCH (17:57)
--- NOTE | 2022-07-19 18:29 | P.GSCN ---
History of Present Illness Consult date: 07/19/22 Reason for Consult: Abdominal pain, nausea History of present illness: This 71-year-old female with multiple medical problems. Patient was in the hospital complaints of abdominal pain nausea. Patient to CAT scan of the abdomen performed today. CAT scan is suspicious for small bowel obstruction related to incarcerated right inguinal hernia. Patient takes blood thinners. She received L Alicia today. Past Medical History Past Medical History: Atrial Fibrillation, Cancer, Diabetes Mellitus, Hyperli pidemia, Hypertension, Osteoarthritis (OA), Thyroid Disorder Additional Past Medical History / Comment(s): heart murmer, scoliosis, spondylolisthoesis, BREAST CANCER with radiation. CHRONIC BACK PAIN., anemia, , pessary for prolapse, fx lower back from fall May 2018. PMR(polymyalgia rheumatica), unsteady on feet,. frequent loose stools - takes lomotil. pt states she hurts all, more since last pain clinic visit. History of Any Multi-Drug Resistant Organisms: None Reported Past Surgical History: Back Surgery, Breast Surgery, Heart Catheterization, Hernia Repair, Orthopedic Surgery, Pacemaker, Tonsillectomy Additional Past Surgical History / Comment(s): LEFT BREAST LUMPECTOMY, rt breast biopsy, back surgery x2 -herniated disk L5S1 and L4 and 5 cyst, anuradha cataracts, anuradha hand trigger finger( 2 on left hand, one on rt hand), heel spur removed from left foot, COLONOSCOPY. Past Anesthesia/Blood Transfusion Reactions: Previous Problems w/ Anesthesia Additional Past Anesthesia/Blood Transfusion Reaction / Comm: "slow coming out" Type of Cardiac Device: Permanent Pacemaker Device Placement Date:: 2018 Past Psychological History: Anxiety Smoking Status: Never smoker Past Alcohol Use History: None Reported Past Drug Use History: None Reported - Past Family History Brother(s) Family Medical History: Cancer Mother Family Medical History: Congestive Heart Failure (CHF) Medications and Allergies Home Medications Medication Instructions Recorded Confirmed Type Levothyroxine Sodium [Synthroid] 75 mcg PO MOTUWETHFRSA 06/26/18 07/12/22 History Fluticasone Nasal [place] [Flonase 1 spray EA NOSTRIL HS 08/25/18 07/12/22 History Nasal [place]] Apixaban [Eliquis] 2.5 mg PO BID 05/25/21 07/12/22 History Diphenox-Atrop 2.5-0.025 mg 1 tab PO QID PRN 05/25/21 07/12/22 History [Lomotil] Furosemide [Lasix] 20 mg PO DAILY 05/25/21 07/12/22 History Insulin Aspart [NovoLOG Flexpen] 10 units SQ AC-TID 05/25/21 07/12/22 History Metoprolol Tartrate 25 mg PO TID 05/25/21 07/12/22 History Metoprolol Tartrate [Lopressor] 50 mg PO TID 05/25/21 07/12/22 History Pantoprazole [Protonix] 40 mg PO DAILY 05/25/21 07/12/22 History amLODIPine [Norvasc] 5 mg PO DAILY 05/25/21 07/12/22 History predniSONE See Taper PO DIRECTED 05/25/21 07/12/22 History lisinopriL [Zestril] 20 mg PO BID 07/27/21 07/12/22 History hydroCHLOROthiazide 25 mg PO DAILY 02/08/22 07/12/22 History Budesonide [Pulmicort] 0.5 mg INHALATION RT-BID 07/12/22 07/12/22 History Insulin Glargine,Hum.rec.anlog 35 units SQ DAILY 07/12/22 07/12/22 History [Dalila Tovar] Allergies Allergy/AdvReac Type Severity Reaction Status Date / Time doxycycline calcium Allergy SWELLING Verified 07/12/22 21:45 [From Vibramycin] AND RASH ON TONGUE doxycycline hyclate Allergy SWELLING Verified 07/12/22 21:45 [From Vibramycin] AND RASH ON TONGUE doxycycline monohydrate Allergy SWELLING Verified 07/12/22 21:45 [From Vibramycin] AND RASH ON TONGUE Milk Containing Products Allergy mouth sores Verified 07/12/22 21:45 [Dairy] Penicillins Allergy Unknown Verified 07/12/22 21:45 propoxyphene HCl AdvReac Nausea & Verified 07/12/22 21:45 [From Darvon] Vomiting Sulfa (Sulfonamide AdvReac Nausea & Verified 07/12/22 21:45 Antibiotics) Vomiting Surgical - Exam Vital Signs Temp Pulse Resp BP Pulse Ox 98.4 F 79 20 130/65 97 07/12/22 17:40 07/12/22 17:40 07/12/22 17:40 07/12/22 17:40 07/12/22 17:40 - General well developed, well nourished, no distress - Eyes PERRL - ENT normal pinna, normal nares - Neck no masses - Respiratory normal expansion - Abdomen Abdomen soft. There is no significant tenderness throughout. The abdomen is distended. There is evidence of incarcerated right inguinal hernia. Abdomen: soft Results - Labs 07/17/22 11:07 07/19/22 05:42 Abnormal Lab Results - Last 24 Hours (Table) 07/18/22 07/19/22 07/19/22 Range/Units 20:52 05:42 07:03 Carbon Dioxide 18.7 L (20.0-27.5) mmol/L Anion Gap 22.30 H (10.00-18.00) mmol/L BUN 56.7 H (9.0-27.0) mg/dL Creatinine 1.7 H (0.6-1.5) mg/dL Est GFR (CKD-EPI)AfAm 32.0 L (60.0-200.0) Est GFR (CKD-EPI)NonAf 27.6 L (60.0-200.0) BUN/Creatinine Ratio 33.35 H (12.00-20.00) Ratio Glucose 283 H (70-110) mg/dL POC Glucose (mg/dL) 272 H 277 H (70-110) mg/dL 07/19/22 07/19/22 Range/Units 11:17 17:10 Carbon Dioxide (20.0-27.5) mmol/L Anion Gap (10.00-18.00) mmol/L BUN (9.0-27.0) mg/dL Creatinine (0.6-1.5) mg/dL Est GFR (CKD-EPI)AfAm (60.0-200.0) Est GFR (CKD-EPI)NonAf (60.0-200.0) BUN/Creatinine Ratio (12.00-20.00) Ratio Glucose (70-110) mg/dL POC Glucose (mg/dL) 272 H 285 H (70-110) mg/dL Diabetes panel 07/19/22 Range/Units 05:42 Sodium 142 (135-145) mmol/L Potassium 5.5 (3.5-5.5) mmol/L Chloride 101 (96-109) mmol/L Carbon Dioxide 18.7 L (20.0-27.5) mmol/L BUN 56.7 H (9.0-27.0) mg/dL Creatinine 1.7 H (0.6-1.5) mg/dL Glucose 283 H (70-110) mg/dL Calcium 10.0 (8.7-10.3) mg/dL Calcium panel 07/19/22 Range/Units 05:42 Calcium 10.0 (8.7-10.3) mg/dL Pituitary panel 07/19/22 Range/Units 05:42 Sodium 142 (135-145) mmol/L Potassium 5.5 (3.5-5.5) mmol/L Chloride 101 (96-109) mmol/L Carbon Dioxide 18.7 L (20.0-27.5) mmol/L BUN 56.7 H (9.0-27.0) mg/dL Creatinine 1.7 H (0.6-1.5) mg/dL Glucose 283 H (70-110) mg/dL Calcium 10.0 (8.7-10.3) mg/dL Adrenal panel 07/19/22 Range/Units 05:42 Sodium 142 (135-145) mmol/L Potassium 5.5 (3.5-5.5) mmol/L Chloride 101 (96-109) mmol/L Carbon Dioxide 18.7 L (20.0-27.5) mmol/L BUN 56.7 H (9.0-27.0) mg/dL Creatinine 1.7 H (0.6-1.5) mg/dL Glucose 283 H (70-110) mg/dL Calcium 10.0 (8.7-10.3) mg/dL Assessment and Plan Plan: Incarcerated right we'll hernia. I discussed the patient that I would normally take her to surgery today. However she did receive elQuist this morning. We will plan for surgery tomorrow to minimize risk of bleeding.
[2022-07-19 20:32] LABS: Glucose,Whole Blood 238 mg/dL (70-110)
[2022-07-19] MEDS: FLUTICASONE 50MCG/SPRAY NASAL 16GM EA NOSTRIL SCH (21:11)
[2022-07-20] MEDS: METOCLOPRAMIDE 5 MG/ML 2 ML VIAL IVP SCH ×4 (00:49→17:56)
[2022-07-20] MEDS: ONDANSETRON 4 MG/2 ML VIAL IVP PRN (03:28)
[2022-07-20 05:16] LABS: Glucose,Whole Blood 178 mg/dL (70-110)
[2022-07-20] MEDS ORDERED: METOPROLOL TARTRATE 50 MG TAB PO STA (05:24)
[2022-07-20] MEDS: LEVOTHYROXINE 75 MCG TAB PO SCH (05:30)
[2022-07-20] MEDS: DILTIAZEM 125 MG in SODIUM CHLORIDE 0.9% 100 ML IV SCH ×2 (07:04→20:09)
[2022-07-20] MEDS: PANTOPRAZOLE 40 MG TABLET PO SCH (07:05)
[2022-07-20] MEDS: INSULIN ASPART (NovoLOG) 100 UNIT/ML VIAL SQ SCH ×3 (07:05→17:57)
[2022-07-20] MEDS: SODIUM CHLORIDE 0.9% 1,000 ML IV SCH ×2 (07:05→20:09)
[2022-07-20] MEDS: ALBUTEROL NEBULIZED 2.5 MG/3 ML INHALATION SCH ×2 (08:44→12:10)
[2022-07-20] MEDS: BENZONATATE 100 MG CAP PO SCH ×3 (09:22→20:21)
[2022-07-20] MEDS: METOPROLOL TARTRATE 25 MG TAB PO SCH ×3 (09:22→21:59)
[2022-07-20] MEDS: polyethylene glycoL 3350 17 GM POWD.PACK PO SCH (09:23)
[2022-07-20 09:45] LABS: Basophils % (A) 0 %; Eosinophils % (A) 0 %; HCT 42.5 % (34.0-46.0); HGB 13.7 gm/dL (11.4-16.0); Lymphocytes # (A) 0.4 k/uL (1.0-4.8); Lymphocytes % (A) 3 %; MCH 32.3 pg (25.0-35.0); MCHC 32.3 g/dL (31.0-37.0); Mean Platelet Volume 8.9; Monocytes # (A) 0.8 k/uL (0-1.0); Monocytes % (A) 5 %; Neutrophils # (A) 14.4 k/uL (1.3-7.7); Neutrophils % (A) 91 %; Platelet Count 240 k/uL (150-450); RBC 4.24 m/uL (3.80-5.40); RDW 12.7 % (11.5-15.5); WBC 15.8 k/uL (3.8-10.6)
[2022-07-20 09:56] LABS: Prothrombin Time 10.8 sec (9.0-12.0)
[2022-07-20 10:01] LABS: Potassium 4.6 mmol/L (3.5-5.1)
[2022-07-20] MEDS ORDERED: IV FLUID CONTINUATION 1,000 ML IV ONE (10:48)
[2022-07-20 11:02] LABS: Glucose,Whole Blood 214 mg/dL (70-110)
[2022-07-20] MEDS ORDERED: HYDROCORTISONE SUCCINATE 100 MG/2 ML VIAL IV ONE (11:28)
[2022-07-20] MEDS ORDERED: LACTATED RINGERS 1,000 ML IV ONE ×2 (11:29→15:30)
--- NOTE | 2022-07-20 13:07 | P.PN ---
Subjective Progress Note Date: 07/20/22 HISTORY OF PRESENT ILLNESS: This is an 81-year-old female patient of Dr. Jack with past medical history of dyslipidemia, hypertension, diabetes, hypothyroidism, coronary artery disease, paroxysmal atrial fibrillation, status post pacemaker. Patient states that she has had a sore throat starting 2 weeks ago that gradually moved into her chest with a cough, had nasal congestion. She states the cough is been quite severe and uncontrolled despite being on antibiotic and redness on taper. Patient came in for those symptoms and after having a coughing spell she went into atrial fibrillation. Patient was started on Cardizem drip and subsequently was converted around 10:30 this morning. Currently her heart rate is 68 and blood pressure 118/50. Patient is seen today in the emergency center waiting for a bed on the cardiac stepdown unit. EKG atrial fibrillation with RVR, 134 bpm, #2 ventricular paced rhythm at 82 bpm Chest x-ray: No acute process WBC 9.9, hemoglobin 12, platelet count 302. INR 1.0. Electrodes are normal. BUN 74 creatinine 1.68. AST 38, ALT 45. Troponins 0.054, 0.052, 0.068. Pro- calcitonin 0.11. Home cardiac medications: Amlodipine 5 mg daily, eliquis 2.5 mg twice daily, Lasix 20 mg daily, hydrochlorothiazide 25 mg daily, lisinopril 20 mg twice daily, Lopressor 75 mg 3 times daily, levothyroxine 75 g Sunday through Sunday. Cardiac catheterization 2007 normal EF, 70% ostial Echocardiogram 12/2021 normal EF, moderate MR, mild to moderate AR, moderate TR, estimated RVSP 54 mmHg Permanent pacemaker Medtronic 07/2018 Lexiscan stress test 2018: normal EF, normal study 07/14 The patient is currently paced rhythm, 70s and 80s. Blood pressure 127/68. Repeat blood work reveals potassium of 5.2, BUN 48 creatinine 1.3. TSH 1.05. Patient states that she feels a little stronger today. She continues to cough with phlegm production. We are making some medication adjustments for her blood pressure. 07/15 Notified by RN that patient was going into intermittent a-fib with RVR overnight and this morning. Patient reports not feeling well overnight with palpitations. Tele reviewed. She is currently in sinus rhythm with rate controlled. Denies any chest pain or shortness of breath. Complains of cough. ECHO reviewed and shows EF 50-55%, RVSP 54. 07/19 Cardiology signed off on 07/15 but patient went into A. fib with RVR at 150 ventricular rate this morning and we have been asked to reevaluate the patient. She is currently on eliquis, Lopressor 75 mg 3 times daily. We ordered a Cardizem drip which was delayed and starting because patient would have to be transferred to a different floor. Patient was feeling very sick with nausea vomiting abdominal cramping. She was in the bathroom and subsequently converted to a sinus rhythm now in the 70s. Cardizem drip discontinued. Patient will not require transfer. 07/20/2022 Patient examined this morning. She denies chest pain or pressure. She denies shortness of breath. Telemetry this morning reveals atrial fibrillation with a heart rate in the 90s. She is currently on IV Cardizem at 10 mg an hour. She is NPO. She is scheduled for repair of incarcerated right inguinal hernia today with general surgery. Her anticoagulation has been placed on hold. PHYSICAL EXAM: VITAL SIGNS: Reviewed. GENERAL: Well-developed in no acute distress. NECK: Supple. No JVD or thyromegaly LUNGS: Respirations even and unlabored. Lungs essentially clear to auscultation bilaterally. HEART: Irregular rate and rhythm. S1 and S2 heard. + systolic murmur. EXTREMITIES: Normal range of motion. No clubbing or cyanosis. Peripheral pulses intact. No lower extremity edema ASSESSMENT: Incarcerated right inguinal hernia Bronchitis Paroxysmal atrial fibrillation with RVR Hypertension Dyslipidemia Diabetes Hypothyroidism Coronary artery disease Status post pacemaker PLAN: Continue IV Cardizem for rate control as patient is NPO She is scheduled for repair of incarcerated right inguinal hernia today with general surgery Patient's anticoagulation remains on hold. Resume postprocedure when okay with general surgery Consider amiodarone postoperatively Further recommendations pending patient's course Patient to follow post discharge with Dr. Jack Nurse practitioner note has been reviewed by physician. Signing provider agrees with the documented findings, assessment, and plan of care. Objective - Vital Signs Vital signs: Vital Signs Temp 98.4 F 07/20/22 06:53 Pulse 104 H 07/20/22 11:31 Resp 16 07/20/22 11:31 BP 117/70 07/20/22 10:49 Pulse Ox 97 07/20/22 11:31 FiO2 Intake & Output 07/19/22 07/20/22 07/20/22 18:59 06:59 18:59 Weight 51.5 kg Other: Voiding Method Toilet # Voids 1 1 # Bowel Movements 1 - Labs CBC & Chem 7: 07/20/22 07:54 07/20/22 07:54 Labs: Abnormal Lab Results - Last 24 Hours (Table) 07/19/22 07/19/22 07/19/22 Range/Units 05:42 17:10 20:29 WBC (3.8-10.6) k/uL Neutrophils # (1.3-7.7) k/uL Lymphocytes # (1.0-4.8) k/uL Carbon Dioxide 18.7 L (20.0-27.5) mmol/L Anion Gap 22.30 H (10.00-18.00) mmol/L BUN 56.7 H (9.0-27.0) mg/dL Creatinine 1.7 H (0.6-1.5) mg/dL Est GFR (CKD-EPI)AfAm 32.0 L (60.0-200.0) Est GFR (CKD-EPI)NonAf 27.6 L (60.0-200.0) BUN/Creatinine Ratio 33.35 H (12.00-20.00) Ratio Glucose 283 H (70-110) mg/dL POC Glucose (mg/dL) 285 H 238 H (70-110) mg/dL 07/20/22 07/20/22 07/20/22 Range/Units 05:14 07:54 07:54 WBC 15.8 H (3.8-10.6) k/uL Neutrophils # 14.4 H (1.3-7.7) k/uL Lymphocytes # 0.4 L (1.0-4.8) k/uL Carbon Dioxide (20.0-27.5) mmol/L Anion Gap (10.00-18.00) mmol/L BUN 53 H (9.0-27.0) mg/dL Creatinine 1.55 H (0.6-1.5) mg/dL Est GFR (CKD-EPI)AfAm (60.0-200.0) Est GFR (CKD-EPI)NonAf (60.0-200.0) BUN/Creatinine Ratio (12.00-20.00) Ratio Glucose 208 H (70-110) mg/dL POC Glucose (mg/dL) 178 H (70-110) mg/dL 07/20/22 Range/Units 10:56 WBC (3.8-10.6) k/uL Neutrophils # (1.3-7.7) k/uL Lymphocytes # (1.0-4.8) k/uL Carbon Dioxide (20.0-27.5) mmol/L Anion Gap (10.00-18.00) mmol/L BUN (9.0-27.0) mg/dL Creatinine (0.6-1.5) mg/dL Est GFR (CKD-EPI)AfAm (60.0-200.0) Est GFR (CKD-EPI)NonAf (60.0-200.0) BUN/Creatinine Ratio (12.00-20.00) Ratio Glucose (70-110) mg/dL POC Glucose (mg/dL) 214 H (70-110) mg/dL
[2022-07-20] MEDS ORDERED: SUCCINYLCHOLINE CHLORIDE 200 MG/10 ML VIAL IV ONE (13:10)
[2022-07-20] MEDS ORDERED: LIDOCAINE 2% INJ 20 MG/ML (2 ML VIAL) ONE (13:10)
[2022-07-20] MEDS ORDERED: ETOMIDATE 2 MG/ML 10 ML VIAL ONE (13:10)
[2022-07-20] MEDS ORDERED: ROCURONIUM 10 MG/ML (5 ML VIAL) IV ONE (13:10)
[2022-07-20] MEDS ORDERED: fentaNYL (PF) 50 MCG/ML 2 ML AMP ONE (13:10)
--- NOTE | 2022-07-20 14:38 | P.ANPRN ---
Procedure Note - Anesthesia - Invasive Line Right Arterial Line Time Out Performed: Yes (1315) Date of Procedure: 07/20/22 Time of Procedure: 13:16 Location of Patient: OR Preparation: Sterile Prep, Sterile Dressing Arterial Line Location: Radial (right) Ultrasound Used: No Purpose - Visualization and Identification of Vasculature: No Needle Guage: 20g Image Stored and Saved: Yes Narrative: Central line placement per sterile protocol utilized.
--- NOTE | 2022-07-20 14:41 | P.ANPRN ---
Procedure Note - Anesthesia - Invasive Line Right Central Line Time Out Performed: Yes (1346) Date of Procedure: 07/20/22 Time of Procedure: 13:47 Location of Patient: OR Preparation: Sterile Prep, Sterile Dressing Central Line Location: Internal Jugular (right) Ultrasound Used: Yes Purpose - Visualization and Identification of Vasculature: Yes Needle Guage: 18g angio Image Stored and Saved: Yes Narrative: Central line placement per sterile protocol utilized. Sterile protocol. Attempted left IJ. Unable to pass jwire past 10cm. Moved to right side. Sterile protocol. +angio +CVP +Jwire +uneventful dilation and insertion right IJ TLC. Lumens bled and flushed. +biopatch +tegaderm
[2022-07-20 14:44] LABS: Glucose,Whole Blood 242 mg/dL (70-110)
[2022-07-20] MEDS: methylPREDNISolone 4 MG TAB TAPER PO SCH (14:49)
--- NOTE | 2022-07-20 15:01 | XR ---
EXAMINATION TYPE: XR chest 1V confirm line [facility] DATE OF EXAM: 07/20/2022 COMPARISON: 07/12/2022 HISTORY: Central line placement TECHNIQUE: Single frontal view of the chest is obtained. FINDINGS: There is a right IJ approach catheter which terminates in the lower SVC, endotracheal tube with tip t erminating approximately 2 cm from the level of the kimberly, an orogastric tube which extends past the diaphragm to terminating outside the field of view, a left-sided triple lead pacemaker, and multiple overlying cardiac leads. There is no pneumothorax. The heart size is unchanged. The cardiomediastinal silhouette is within nor mal limits. There is a retrocardiac airspace opacity obscuring the contour of the left hemidiaphragm, as well as mild blunting of the left costophrenic angle. The right lung is relatively clear. IMPRESSION: 1. Right IJ approach catheter terminates in the lower SVC. No pneumothorax. 2. Retrocardiac airspace disease with probable small left pleural effusion. Findings may relate to at electasis; however, an infectious etiology cannot be entirely excluded radiographically.
[2022-07-20] MEDS: HYDROcodone/APAP 5-325MG 1 EACH TAB PO PRN ×2 (15:06→22:02)
[2022-07-20] MEDS: IPRATROPIUM-ALBUTEROL 3 ML NEB INHALATION SCH ×2 (15:16→21:37)
--- NOTE | 2022-07-20 15:27 | P.PN ---
Subjective Progress Note Date: 07/20/22 Patient is a 81-year-old female with a known history of atrial fibrillation on anticoagulation with Eliquis, history of permanent pacemaker placement, hypertension, hyperlipidemia, diabetes type 2 insulin-dependent, hypothyroidism, osteoarthritis and chronic back pain and anxiety presents ER with complaints of shortness of breath for past 2 weeks. Patient was having chest congestion and cough with clear to greenish sputum production. Patient was seen by her primary care physician and was given Z-Sherman and prednisone course. Patient still having symptoms without much improvement presented to ER. Denies any fever or chills. No leg swelling. No nausea vomiting abdominal pain or diarrhea. Chest x-ray in the ER showed no acute process. EKG showed atrial fibrillation with rapid regular rate with heart rate 134 Laboratory data showed WBC 9.9 hemoglobin 12.0 and platelets 302 Sodium 141 potassium 4.5 chloride 105 bicarb is 26 BUN 74 and creatinine 1.68, AST 38 ALT 45 alk phos 48 and troponin 0.054, 0.052 and 0.068, procalcitonin level is 0.11 TSH within normal limits and proBNP is 1890 Influenza A, B, RSV and COVID-19 PCR not detected. 07/14/2022 This is a pleasant 81 years old female was admitted with A. fib and RVR consult with evidence with acute bronchitis. She's been treated with Zithromax, normal saline for acute kidney injury and her Lopressor dose was increased to 75 mg 3 times a day by pulley maintainer, currently heart rate is controlled and she is on Eliquis home dose of 2.5 mg However patient lying in bed and she still feels short of breath and she still was not ready for discharge.. Cartilage team adjusted some of her blood pressure medication and they cleared her for discharge Pulmonary team on the case and patient was started on Medrol Dosepak. 07/15/2022 Patient clinically doing well and she is back to baseline, breathing significantly improved with no chest pain heart rate is controlled with occasional changes in heart rate, symptomatic goes back to normal quickly. Patient is currently clinically stable and she was cleared for discharge by both cardiology and pulmonary services, I discussed with the patient she does not want to go home today and she wants to be evaluated by physical therapy first. Discussed with bed side nurse to contact physical therapy to this morning and they're pending. Patient is a 81-year-old female with a known history of atrial fibrillation on anticoagulation with Eliquis, history of permanent pacemaker placement, hyper tension, hyperlipidemia, diabetes type 2 insulin-dependent, hypothyroidism, osteoarthritis and chronic back pain and anxiety presents ER with complaints of shortness of breath for past 2 weeks. Patient was having chest congestion and cough with clear to greenish sputum production. Patient was seen by her primary care physician and was given Z-Sherman and prednisone course. Patient still having symptoms without much improvement presented to ER. Denies any fever or chills. No leg swelling. No nausea vomiting abdominal pain or diarrhea. Chest x-ray in the ER showed no acute process. EKG showed atrial fibrillation with rapid regular rate with heart rate 134 Laboratory data showed WBC 9.9 hemoglobin 12.0 and platelets 302 Sodium 141 potassium 4.5 chloride 105 bicarb is 26 BUN 74 and creatinine 1.68, AST 38 ALT 45 alk phos 48 and troponin 0.054, 0.052 and 0.068, procalcitonin level is 0.11 TSH within normal limits and proBNP is 1890 Influenza A, B, RSV and COVID-19 PCR not detected. 07/14/2022 This is a pleasant 81 years old female was admitted with A. fib and RVR consult with evidence with acute bronchitis. She's been treated with Zithromax, normal saline for acute kidney injury and her Lopressor dose was increased to 75 mg 3 times a day by pulley maintainer, currently heart rate is controlled and she is on Eliquis home dose of 2.5 mg However patient lying in bed and she still feels short of breath and she still was not ready for discharge.. Cartilage team adjusted some of her blood pressure medication and they cleared her for discharge Pulmonary team on the case and patient was started on Medrol Dosepak. 16 2022 Patient is currently lying in bed. Awake alert and oriented x3. Denies any complaints of chest pain. Shortness of breath is much improved. No cough or sputum production. Otherwise patient is still feeling generalized weakness and needs assistance with walking to the bathroom. PT OT was consulted and family is concerned about going home. Anticipate discharge home versus rehab in the next 24 to 48 hours. High risk with history of sustaining. Laboratory data reviewed. Cleared from pulmonary and cardiology standpoint. 07/17/2022 Patient is seen and evaluated in follow-up and continues with weakness and being evaluated by physical therapy. Patient does have some cough and reports her shortness of breath is improved. Patient taking a number of medications causing an increase in kidney functions and will hold the splint pressure medications and Lasix and follow-up with repeat labs. Patient prefers to go home and arranging for home care in the outpatient setting. Patient is currently afebrile continues to report cough although denies shortness of breath. Patient is tolerating diet with no reports of nausea or vomiting noted. 07/18/2022 Patient is seen and evaluated in follow-up this morning with kidney functions trending down low not much improved as patient did receive the Lasix and lisinopril yesterday. Patient is having increased abdominal pain with severe cramping and nausea and reports she feels she has to have a bowel movement but is unable to. Patient does have history of IBS although was not having any loose stools. Patient is reporting 10/10 pain and unable to stand due to the intensity of the cramping and laying in the position in bed. Will add Bentyl and additional medications. Patient encouraged to increase activity as tolerated. Cardiology and pulmonary following and have cleared the patient for discharge. Will monitor overnight with probable discharge in 24 hours. 07/19/2022 Patient is seen and evaluated in follow-up today reports to not feeling well at all with extreme nausea and some vomiting. Patient unable to keep her medications down and heart rate noted to be elevated into the 140s. Cardiology had been following although signed off and will reconsult. Cardiology following back up given additional dose of metoprolol although patient not able to tolerate and unsure if she took the medication. Patient continues to show atrial fibrillation with RVR and cardiology starting Cardizem drip. Patient will need transfer to cardiology floor for monitoring of the strep as she is cu rrently on 5 N. and they do not handle Cardizem drips. Patient is currently afebrile does report some palpitations although denies chest pain. Patient having extreme nausea with some vomiting and abdominal pain. Patient also feels to having some constipation and reports did have a very minimal difficult time having a small bowel movement yesterday after suppository, will add enema. 07/20/2022 Patient is seen early this morning with daughter at bedside and is currently nothing by mouth awaiting surgical intervention with Dr. Esparza with concerns of incarcerated hernia as patient was reporting abdominal pain. Patient did have an episode of atrial fibrillation with RVR and initially going to start Cardizem drip yesterday although converted to sinus rhythm and was resumed on eliquis with cardiology following. Cardizem drip was discontinued at that point although patient continue with increased abdominal pain and discomfort with vomiting and general surgery was consulted. Patient had an abdominal x-ray which showed few mildly dilated loops of small bowel with multiple air-fluid levels concerning with developing bowel obstruction recommending a CT follow-up. Patient's kidney functions were elevated although repeat creatinine was improving at 1.7 with lisinopril and Lasix being held. Ordered a CT abdomen without contrast which showed findings suspicious for small bowel obstruction with suspected transition point within a partially visualized right inguinal hernia Limited evaluation without the contrast with fibroid changes of the uterus and not obstructed right renal calculus with colonic diverticulosis without evidence of diverticulitis. Patient was placed nothing by mouth and General surgery recommending surgical intervention and was held over until this morning as patient did receive her anticoagulation yesterday. Patient did have an elevation in white count up to 15 although afebrile continued to have abdominal pain and extremely tender on palpation. Patient also had uncontrolled rhythms in A. fib with RVR and was moved to 3 S. early this morning and placed on the Cardizem drip. Will await surgical report. Review of systems: Constitutional: No reports of fatigue, fever, or chills Cardiovascular: No reports of chest pain , reports palpitations Respiratory: reports of some shortness of breath , reports cough is improving GI: reports of nausea, no vomiting this morning , no diarrhea, reports continued abdominal pain : No reports of dysuria or retention Neurovascular: reports of generalized weakness and not feeling well All medications have been reviewed Physical exam: GENERAL: The patient is alert and oriented x3, awake, alert and oriented 3. Thin built, elderly HEENT: Pupils are round and equally reacting to light. EOMI. No scleral icterus. No conjunctival pallor. Normocephalic, atraumatic. No pharyngeal erythema. No thyromegaly. CARDIOVASCULAR: Irregular, A. fib uncontrolled rates on the monitor PULMONARY: Chest is clear to auscultation, no wheezing or crackles. ABDOMEN: Soft, tender on palpation of the left and right lower quadrants, mildly distended, normoactive bowel sounds. No palpable organomegaly. MUSCULOSKELETAL: No joint swelling or deformity. EXTREMITIES: No cyanosis, clubbing, or pedal edema. NEUROLOGICAL: Gross neurological examination did not reveal any focal deficits. SKIN: No rashes. no petechiae. Assessment: Atrial fibrillation with rapid ventricular rate. Back in A. fib with RVR uncon trolled rate on 07/20/2022 Acute tracheobronchitis. Patient was on Z-Sherman as an outpatient. Moderate to severe MR, moderate TR and mild pulmonary hypertension Elevated troponin, likely type II CO secondary to atrial fibrillation with RVR Abdominal cramping and pain with nausea and vomiting with concerns of incarcerated hernia and possible small bowel obstruction as noted on CT awaiting surgical intervention today 07/20/2022 Acute kidney injury with creatinine 1.68 on admission Diabetes type 2 Episode of hypoglycemia. Resolved Hypothyroidism Hypertension Hyperlipidemia Osteoarthritis Chronic back pain and fibromyalgia Anxiety History of permanent pacemaker placement Depression/bereavement. Plan: Patient was moved over to 3 S. early this morning as patient went back into atrial fibrillation with RVR and started on a Cardizem drip, anticoagulation is currently on hold as patient continue to have abdominal pain and underwent CT abdomen which showed suspicious for bowel obstruction with suspected transition point within a partially visualized right inguinal hernia and surgery evaluated the patient with concerns of incarcerated hernia and will be undergoing surgery today Patient is currently nothing by mouth and will await surgical report Kidney functions are improving and will follow up on repeat labs, recommend continue holding lisinopril as well as anticoagulation and Lasix. Will resume anticoagulation once cleared by surgery Recommend telemetry monitoring and will follow-up with the patient this afternoon. The impression and plan of care has been dictated by Pratibha Kasper, Nurse Practitioner as directed. Dr. Tee MD I have performed a history and examination and MDM of this patient, discussed th e with the dictator, and agree with the dictator's assessment and plan as written ,documented as a scribe. Based on total visit time, I have performed more than 50% of the visit. Objective - Vital Signs Vital signs: Vital Signs Temp 98.1 F 07/20/22 08:00 Pulse 104 H 07/20/22 11:31 Resp 16 07/20/22 11:31 BP 117/70 07/20/22 10:49 Pulse Ox 97 07/20/22 11:31 FiO2 40 07/20/22 14:54 Intake & Output 07/19/22 07/20/22 07/20/22 18:59 06:59 18:59 Intake Total 1025 Output Total 77 Balance 948 Weight 51.5 kg Intake: IV 1025 Output: Urine 50 Stool 2 Estimated Blood Loss 25 Other: Voiding Method Toilet Toilet # Voids 1 1 # Bowel Movements 1 - Labs CBC & Chem 7: 07/20/22 07:54 07/20/22 07:54 Labs: Abnormal Lab Results - Last 24 Hours (Table) 07/19/22 07/19/22 07/20/22 Range/Units 17:10 20:29 05:14 WBC (3.8-10.6) k/uL Neutrophils # (1.3-7.7) k/uL Lymphocytes # (1.0-4.8) k/uL BUN (7-17) mg/dL Creatinine (0.52-1.04) mg/dL Glucose (74-99) mg/dL POC Glucose (mg/dL) 285 H 238 H 178 H (70-110) mg/dL 07/20/22 07/20/22 07/20/22 Range/Units 07:54 07:54 10:56 WBC 15.8 H (3.8-10.6) k/uL Neutrophils # 14.4 H (1.3-7.7) k/uL Lymphocytes # 0.4 L (1.0-4.8) k/uL BUN 53 H (7-17) mg/dL Creatinine 1.55 H (0.52-1.04) mg/dL Glucose 208 H (74-99) mg/dL POC Glucose (mg/dL) 214 H (70-110) mg/dL 07/20/22 Range/Units 14:42 WBC (3.8-10.6) k/uL Neutrophils # (1.3-7.7) k/uL Lymphocytes # (1.0-4.8) k/uL BUN (7-17) mg/dL Creatinine (0.52-1.04) mg/dL Glucose (74-99) mg/dL POC Glucose (mg/dL) 242 H (70-110) mg/dL
[2022-07-20] MEDS: HYDROmorphone 0.5 MG/0.5 ML SYRINGE IVP PRN (15:49)
--- NOTE | 2022-07-20 16:23 | P.OP ---
Date of Procedure: 07/20/22 Preoperative Diagnosis: Incarcerated right inguinal hernia Postoperative Diagnosis: Incarcerated right inguinal hernia with ischemic small bowel and omentum Procedure(s) Performed: exploratory laparotomy Repair of incarcerated right inguinal hernia partial omentectomye Small bowel resection Anesthesia: NAE Surgeon: Luan Esparza Estimated Blood Loss (ml): 25 Pathology: other (omentum, small bowel) Condition: stable Disposition: ICU Description of Procedure: the patient was placed on the operative table in the supine position. The patient received general endotracheal tube anesthesia. Her abdomen was prepped and draped in usual sterile fashion. A skin incision was made over the right groin. The patient had previous hernia repair. Use electrocautery and blunt sharp section the subtenons tissue divided. The hernia sac was found. The hernia sac was then opened. There was ischemic small bowel and omentum within the hernia sac. The small bowel ischemia appears to be severe and it was questionable if the small bowel was viable. At this point the midline lower skin incision was made and use electrocautery the subcu tissues were divided. The fascia was then divided. The small bowel was followed down to the level of the right groin and the right groin hernia was reduced. The omentum was reduced first. This appeared to be nonviable. The small bowel was then reduced. There was a 2 inch length of small bowel which appeared to be nonviable. The small bowel was then transected proximally distally using a JULIA stapler. Using the LigaSure device the mesentery of the bowel was divided. A [id number] functional end-to-end staple anastomosis then created using a JULIA and TA stapler. A 3 Ogestrel sutures using a crotch stitch. The mesentery of the bowel was then closed using 3-0 GI silk suture. The abdomen was irrigated. There is no bleeding seen. Next the hernia defect was examined. Due to the presence of possible flexion aside not to place mesh in the hernia repair. The hernia was suture repaired using 0 Ethibond suture. Elizabeth's fascia closed 0 Vicryl. The skin at the hernia site was then closed with andrew. The fascia of the midline was closed with looped #1 PDS suture. Skin was closed andrew. The patient had relative hypotension during the entire case. Her blood pressure was in the systolic 80-90 range. It was decided not to extubate the patient in the OR. The patient was sent to the ICU on the ventilator. I discussed the case with Dr. araiza the banking pin adjuster.
--- NOTE | 2022-07-20 16:24 | P.PN ---
Progress Note - Text Progress Note Date: 07/20/22 the patient went into rapid A-fib overnight. The patient was seen at 08 100 this morning. It was decided to take her for exploratory laparotomy urgently for her incarcerated small bowel. The OR will be bumping an elective case in order to have this case performed.
[2022-07-20 17:22] LABS: Glucose,Whole Blood 229 mg/dL (70-110)
[2022-07-20] MEDS: NOREPINEPHRINE 8 MG in SODIUM CHLORIDE 0.9% 250 ML IV SCH (18:36)
--- NOTE | 2022-07-20 19:39 | P.PN ---
Subjective Progress Note Date: 07/20/22 Seeing this patient in consultation today 07/13/2022 in the emergency room waiting for a bed on the selective care unit. Patient is an 81-year-old white female with past significant medical history of atrial fibrillation, permanent pacemaker, coronary artery disease, breast cancer post radiation therapy and lumpectomy, hypertension, hyperlipidemia, diabetes mellitus, hypothyroidism, and is a lifelong nonsmoker. Patient does follow with Dr. Haile in the office for a solitary lung nodule. Patient presented to the emergency room yesterday evening with chief complaint of shortness of breath over the past 2 weeks. Also, reports chest congestion and a frequent cough with occasional phlegm. Patient denies any chest pain, heart palpitations, lightheadedness or syncope, fever, hemoptysis. Patient apparently was seen by Dr Babcock, her primary care provider, and was given a course of prednisone and a Z-Sherman. Patient had no improvement in symptoms. Patient is currently resting emergency room, on room air, in no acute distress. Chest x-ray arrival showed no acute cardiopulmonary process. While the emergency room, patient did have an episode of A. fib RVR, which has currently resolved, as the patient is in normal sinus rhythm around 80 bpm. troponins are mildly elevated most recent troponin 0.068. EKG currently shows normal sinus rhythm without any obvious ischemic changes. NT proBNP is 1890. Normal saline is infusing at 130 mL per hour. Patient's CBC on arrival showed a WBC count 9.9, hemoglobin 12, hematocrit 36.7, platelets 302. 41, potassium 4.5, chloride 105, serum CO2 26, BUN 74, creatinine 1.68, 75. LFTs are mildly elevated. Patient was negative for influenza, RSV, COVID-19. Vital signs are stable. Progress note dated 07/14/2022. 82-year-old female seen by myself and our nurse practitioner in the emergency department yesterday, in consultation. The patient presented with increasing shortness of breath, most likely secondary to atrial fibrillation. She has a history of atrial fibrillation, previous pacemaker implantation, CAD, rest cancer, hypertension, hyperlipidemia, diabetes, and hypothyroidism. Currently, the patient's on room air. She's not receiving any IV fluids. Laboratory data includes a sodium 140, potassium 5.2, chlorides 108, CO2 28, BUN 48 and creatinine 1.30. Glucose 131. Calcium is 9.2. Chest x-ray showed nothing acute. Progress note dated 07/15/2022. 81-year-old female seen today in room 361. She was seen in consultation 2 days ago in the emergency department. She came in with complaints of shortness of breath, and was found have atrial fibrillation with rapid ventricular response. Currently, she's not receiving any supplemental oxygen, or IV fluids. She looks much more comfortable. No new labs today. Progress note dated 07/16/2022. 82-year-old female seen in room 361. The patient is feeling much better. She was admitted with a diagnosis of shortness of breath and cough, secondary to both bronchitis, as well as atrial fibrillation with rapid ventricular response. Currently, she's been weaned off of oxygen. She's not receiving any IV fluids. Her cough and shortness of breath are much improved. No new labs today other than a glucose of 166. I am reevaluating this patient today 07/17/2022 in follow-up on the general medical floor. She is currently resting in bed, on room air, in no acute distress. Patient continues to improve clinically. No new labs today. Cough has improved with addition of Tessalon Perles. Heart rhythm is regular and she is anticoagulated with Eliquis. Vital signs remain stable. On today's evaluation of 07/18/2022, the main issue remains bowed related factors including episodic constipation. The patient is currently on MiraLAX once a day. Less short of breath and the cough has subsided significantly. Currently on a Medrol Dosepak. X-ray shows stable and the patient is currently on room air oxygen and she completed antibiotics. IV fluids are currently at KVO. On today's evaluation of 07/19/2022, the patient's overall respiratory status is stable. The patient has no symptoms and cough or sputum production. Bronchospasm wheezing has subsided. She continues to have constipation. She was given laxatives. She was also having some abdominal pain diminished appetite. Based on that, a CAT scan of the abdomen was done and the patient had findings suspicious for a small bowel obstruction with suspected transition point within a partially visualized right inguinal hernia. Evaluation was limited as on a CAT scan of the abdomen was ordered. There is a nonobstructive right renal calculus. She was also found to have colonic diverticulosis. The patient was given an enema with limited output. There is no evidence of any diverticulitis. No evidence of any large bowel obstruction. No evidence of any pneumoperitoneum. The patient has a BUN of 56 and a creatinine of 1.7 and a sodium level is at 142, as such, the renal function continues to improve. She remains in normal sinus rhythm. On today's evaluation of 07/20/2022, the patient is being seen in the intensive care unit after having her surgery done. The patient was having abdominal pain, discomfort, constipation and subsequently she progress and she developed some peritoneal signs. At that point, she was taken for laparotomy and the patient was found to have an incarcerated right inguinal hernia with evidence of ischemic small bowel. The patient underwent small bowel resection with primary closure. The patient was kept intubated and following that the patient was brought into the intensive care unit. At this point in time, the patient is sedated on propofol currently running at 40 mcg/kg/m. She is calm and comfortable. To assist control mode of mechanical ventilation at the rate of 12, tidal volume of 400, FiO2 of 40% and a PEEP of 5. FiO2 was dropped down to 40% of the blood gas showed a pH of 7.4 with a pCO2 of 37 and pO2 of more than 400. The patient received a total of 2.5 L of IV fluids.maintenance rate of 75 mL an hour. Urine operas in order of 20-30 mL an hour. The patient remains in atrial fibrillation. The patient has a mean arterial pressure was around 65. She is also on norepinephrine running at 0.2 mcg/kg/m. The patient is afebrile. Surgical wound site is dry clean and intact. Bowel sounds are hypoactive. Her current cardiac rhythm is atrial fibrillation. Chest x-ray showed adequate expansion of both lungs. ET tube is in a good location. The patient is a triple-lumen catheter in the right IJ. Morning labs are notedMorning labs were noted and the patient has a BUN of 53 with a creatinine of 1.5 and a sodium of 142. Platelet count is 240. No significant leukocytosis and the patient's white cell count was at 15.8 with a hemoglobin of 13.7. Objective - Vital Signs Vital signs: Vital Signs Temp 98.1 F 07/20/22 16:00 Pulse 67 07/20/22 19:00 Resp 12 07/20/22 19:00 BP 117/70 07/20/22 10:49 Pulse Ox 99 07/20/22 19:00 FiO2 40 07/20/22 16:00 Intake & Output 07/20/22 07/20/22 07/21/22 06:59 18:59 06:59 Intake Total 3523.891 1.329 Output Total 257 Balance 3266.891 1.329 Intake: IV 1025 Intake, IV Titration 2498.891 1.329 Amount Diltiazem 125 mg In 115.333 Sodium Chloride 0.9% 100 ml @ 10 MG/HR 10 mls/hr IV .[id number] [facility] Rx#: [id number] Lactated Ringers 1,000 ml 1000 @ 0 mls/hr IV .STK-MED ONE Rx#:[id number] Lactated Ringers 1,000 ml 1000 @ 999 mls/hr IV .Q1H1M ONE Rx#:[id number] Norepinephrine 8 mg In 1.296 1.329 Sodium Chloride 0.9% 250 ml @ 0.03 MCG/KG/MIN 2.99 mls/hr IV .Q24H [facility] Rx#: [id number] Sodium Chloride 0.9% 1, 375 000 ml @ 75 mls/hr IV . [id number] [facility] Rx#:[id number] propofoL 1,000 mg In 7.262 Empty Bag 1 bag @ 15 MCG/ KG/MIN 4.635 mls/hr IV . [id number] [facility] Rx#:[id number] Output: Urine 230 Stool 2 Estimated Blood Loss 25 Other: Voiding Method Toilet Indwelling Catheter # Voids 1 ABP, PAP, CO, CI - Last Documented Arterial Blood Pressure 89/43 - Exam GENERAL EXAM: Alert, 81-year-old white female, comfortable, sedated, currently intubated on a mechanical ventilator.. HEAD: Normocephalic and atraumatic EYES: Normal reaction of pupils, equal size. NOSE: Clear with pink turbinates. THROAT: No erythema or exudates. NECK: No masses, no JVD. The patient has an orogastric and orotracheal tube and both of them are in place CHEST: No chest wall deformity. LUNGS: Equal air entry with no crackles, wheeze, rhonchi or dullness. On room air. No conversational dyspnea or accessory muscle use.. CVS: S1 and S2 normal with no audible murmur, regular rhythm. No extra heart sounds ABDOMEN: No hepatosplenomegaly, active bowel sounds, no guarding or rigidity. The patient's surgical one-sided over the anterior abdominal wall is dry clean and intact. SPINE: No scoliosis or deformity SKIN: No rashes CENTRAL NERVOUS SYSTEM: No focal deficits, tone is normal in all 4 extremities. EXTREMITIES: There is no peripheral edema, clubbing, or cyanosis. Peripheral pulses are intact. - Labs CBC & Chem 7: 07/20/22 07:54 07/20/22 07:54 Labs: Abnormal Lab Results - Last 24 Hours (Table) 07/19/22 07/20/22 07/20/22 Range/Units 20:29 05:14 07:54 WBC 15.8 H (3.8-10.6) k/uL Neutrophils # 14.4 H (1.3-7.7) k/uL Lymphocytes # 0.4 L (1.0-4.8) k/uL BUN (7-17) mg/dL Creatinine (0.52-1.04) mg/dL Glucose (74-99) mg/dL POC Glucose (mg/dL) 238 H 178 H (70-110) mg/dL 07/20/22 07/20/22 07/20/22 Range/Units 07:54 10:56 14:42 WBC (3.8-10.6) k/uL Neutrophils # (1.3-7.7) k/uL Lymphocytes # (1.0-4.8) k/uL BUN 53 H (7-17) mg/dL Creatinine 1.55 H (0.52-1.04) mg/dL Glucose 208 H (74-99) mg/dL POC Glucose (mg/dL) 214 H 242 H (70-110) mg/dL 07/20/22 Range/Units 17:20 WBC (3.8-10.6) k/uL Neutrophils # (1.3-7.7) k/uL Lymphocytes # (1.0-4.8) k/uL BUN (7-17) mg/dL Creatinine (0.52-1.04) mg/dL Glucose (74-99) mg/dL POC Glucose (mg/dL) 229 H (70-110) mg/dL Assessment and Plan Plan: Incarcerated right inguinal hernia with bowel ischemia. The patient is post laparotomy and small bowel resection. The patient is currently postop day #0 Acute hypotension, rule out secondary to abdominal sepsis. The patient was given a total of 2.5 L of IV fluids and currently the patient is on pressors Acute hypoxic respiratory failure that followed abdominal surgery. The patient was kept intubated on mechanical ventilator following her abdominal surgery Recent hospitalization for an acute bronchitis, essentially improving Atrial fibrillation with rapid ventricular rate, improved. Noted the patient is still having episodes of atrial fibrillation with RVR. Earlier, the patient was on Cardizem drip was weaned off and discontinued Abdominal pain secondary to above Acute kidney injury, improving creatinine , follow-up creatinine postoperatively still pending History of sick sinus syndrome S/P permanent pacemaker implantation. Coronary artery disease. Diabetes mellitus, insulin-dependent. Hypertension. Hyperlipidemia. History of pulmonary nodules. History of breast cancer S/P radiation therapy and lumpectomy. Lifelong nonsmoker. Hypothyroidism Plan: Continue ventilator support No ventilator changes Keep the FiO2 of 40% propofol for sedation Keep the patient nothing by mouth for now Continue IV fluids and start the patient broad-spectrum antibiotics. The patient was started on a combination of cefepime and Flagyl covering for any source of intra-abdominal sepsis Titrate norepinephrine to make any artery pressure was 65 Monitor urine output 7 blood work including CBC, CMP and thyroid function test The patient is on Synthroid on outpatient basis and the patient will be given IV Synthroid 37.5 mg on a daily basis Monitor cardiac rhythm and the rhythm is atrial fibrillation with a controlled rate The patient has a triple-lumen catheter and arterial line no steroids for now No anticoagulants for now Compression devices to lower extremity for DVT prophylaxis NovoLog sliding-scale coverage we'll continue to follow make further recommendations. I had a lengthy discussion with the daughter is at the bedside. Excedrin the situation. This typically. Evaluation was done in more than 30 minutes. Time with Patient: Greater than 30
[2022-07-20] MEDS: CHLORHEXIDINE GLUCONATE 15 ML CUP MUCOUS MEM SCH (20:07)
[2022-07-20] MEDS: metroNIDAZOLE-NS PMX 500 MG in SALINE 1 100ML.BAG IVPB SCH (20:08)
[2022-07-20] MEDS: FLUTICASONE 50MCG/SPRAY NASAL 16GM EA NOSTRIL SCH (20:10)
[2022-07-20 20:24] LABS: Basophils % (A) 0 %; Eosinophils % (A) 0 %; HCT 33.3 % (34.0-46.0); HGB 10.8 gm/dL (11.4-16.0); Lymphocytes # (A) 0.4 k/uL (1.0-4.8); Lymphocytes % (A) 3 %; MCH 31.8 pg (25.0-35.0); MCHC 32.5 g/dL (31.0-37.0); MCV 97.8 fL (80.0-100.0); Mean Platelet Volume 8.2; Monocytes # (A) 0.6 k/uL (0-1.0); Monocytes % (A) 5 %; Neutrophils % (A) 91 %; Platelet Count 210 k/uL (150-450); RDW 12.6 % (11.5-15.5); WBC 13.1 k/uL (3.8-10.6)
[2022-07-20 20:38] LABS: ALT 45 U/L (4-34); AST 42 U/L (14-36); African American GFR (CKD) 39 (>60 ml/min/1.73 sqM); Albumin 2.4 g/dL (3.5-5.0); Alkaline Phosphatase 31 U/L (38-126); Anion Gap 7 mmol/L; Blood Urea Nitrogen 46 mg/dL (7-17); Calcium 7.9 mg/dL (8.4-10.2); Carbon Dioxide 25 mmol/L (22-30); Chloride 108 mmol/L (98-107); Glucose 167 mg/dL (74-99); Non-African American GFR(CKD) 34 (>60 ml/min/1.73 sqM); Sodium 140 mmol/L (137-145); Total Bilirubin 0.6 mg/dL (0.2-1.3); Total Protein 4.5 g/dL (6.3-8.2)
[2022-07-20] MEDS ORDERED: CEFEPIME 2 GM in SODIUM CHLORIDE 0.9% 100 ML IVPB SCH (21:00)
[2022-07-21] MEDS: metroNIDAZOLE-NS PMX 500 MG in SALINE 1 100ML.BAG IVPB SCH ×3 (01:14→16:29)
[2022-07-21] MEDS: METOCLOPRAMIDE 5 MG/ML 2 ML VIAL IVP SCH ×4 (01:14→17:26)
[2022-07-21] MEDS: INSULIN ASPART (NovoLOG) 100 UNIT/ML VIAL SQ SCH ×4 (01:21→17:26)
[2022-07-21 01:22] LABS: Glucose,Whole Blood 127 mg/dL (70-110)
[2022-07-21] MEDS ORDERED: LACTATED RINGERS 1,000 ML IV SCH (04:30)
[2022-07-21] MEDS: HYDROcodone/APAP 5-325MG 1 EACH TAB PO PRN (05:06)
[2022-07-21 06:05] LABS: Glucose,Whole Blood 141 mg/dL (70-110)
[2022-07-21] MEDS: PANTOPRAZOLE 40 MG TABLET PO SCH (06:08)
[2022-07-21] MEDS: LEVOTHYROXINE 75 MCG TAB PO SCH (06:08)
[2022-07-21 06:10] LABS: ABG Base Excess -1.3 mmol/L; ABG HCO3 23 mmol/L (21-25); ABG Oxygen Saturation 99.6 % (94-97); ABG PCO2 38 mmHg (35-45); ABG PO2 130 mmHg (83-108); ABG TCO2 25 mmol/L (19-24); Allen Test Performed? Yes
[2022-07-21 06:18] LABS: Basophils % (A) 0 %; Eosinophils % (A) 0 %; HCT 32.2 % (34.0-46.0); HGB 10.7 gm/dL (11.4-16.0); Lymphocytes # (A) 0.5 k/uL (1.0-4.8); Lymphocytes % (A) 5 %; MCH 32.6 pg (25.0-35.0); MCHC 33.3 g/dL (31.0-37.0); Mean Platelet Volume 8.6; Monocytes # (A) 0.4 k/uL (0-1.0); Monocytes % (A) 4 %; Neutrophils # (A) 9.7 k/uL (1.3-7.7); Neutrophils % (A) 90 %; Platelet Count 180 k/uL (150-450); RBC 3.29 m/uL (3.80-5.40); RDW 12.8 % (11.5-15.5); WBC 10.7 k/uL (3.8-10.6)
[2022-07-21 06:29] LABS: Magnesium 1.5 mg/dL (1.6-2.3); Phosphorus 3.1 mg/dL (2.5-4.5)
[2022-07-21 07:01] LABS: Calcium 7.7 mg/dL (8.4-10.2)
[2022-07-21] MEDS: MAGNESIUM SULFATE-D5W PMX 1 GM in DEXTROSE/WATER 1 100ML.BAG IVPB SCH ×2 (07:14→09:43)
--- NOTE | 2022-07-21 07:33 | XR ---
EXAMINATION TYPE: XR chest 1V DATE OF EXAM: 07/21/2022 COMPARISON: 07/20/2022 INDICATION: Difficulty breathing TECHNIQUE: Single frontal view of the chest is obtained. FINDINGS: The heart size is heart size is normal. The pulmonary vasculature is normal. Left lower lobe infiltrate may be present. There is poor visualization left costophrenic angle. Mild infiltrate at the right costophrenic angle is present. Scoliosis is present. Endotracheal tube tip is above the kimberly. Nasogastric tube transverses the tho rax. Right central venous catheter is present with the tip in the distal superior vena cava region. P acemaker overlies chest. IMPRESSION: 1. Left lower lobe infiltrate. Some minimal costophrenic angle infiltrate on the right may be present . 2. Multiple lines and catheters discussed
--- NOTE | 2022-07-21 07:40 | P.PN ---
Subjective Progress Note Date: 07/21/22 PROGRESS NOTE The patient is an 81-year-old female with a known history of paroxysmal atrial ablation, permanent pacemaker implantation, diabetes, anticoagulated who underwent repair of incarcerated right inguinal hernia yesterday. Postoperatively she was hypertensive. She remains intubated and sedated. She is in atrial fibrillation/flutter this morning with controlled ventricular response. Her blood pressure is under better control. Her urine output has been adequate. There is no evidence of ventricular ectopic activity. Medications: IV Cardizem, metoprolol 75 mg 3 times a day the patient was on Eliquis as outpatient. PHYSICAL EXAMINATION: Blood pressure 103/50 heart rate 110 LUNGS: Clear to auscultation HEART: Irregular rate and rhythm, S1, S2. No S3. systolic ejection murmur ABDOMEN: Soft, no organomegaly, dressing in place EXTREMETIES: No edema LAB: Hemoglobin 10.7, WBC 10.7, pH 7.4, BUN 41, creatinine 1.33. Magnesium 1.5. IMPRESSION: 1. Status post exploratory laparotomy with repair of incarcerated right inguinal hernia 2. Postop hypotension, improving 3. Paroxysmal atrial fibrillation 4. Status post permanent pacemaker implantation PLAN: 1. Continue beta consuelo 2. Restart anticoagulation when okay with surgery 3. Start amiodarone attempting to restore sinus mechanism 4. Follow renal functions 5. Depending on her progress further recommendations will be made. Objective - Vital Signs Vital signs: Vital Signs Temp 97.5 F L 07/21/22 04:00 Pulse 110 H 07/21/22 07:00 Resp 12 07/21/22 07:00 BP 103/48 07/21/22 07:00 Pulse Ox 98 07/21/22 07:00 FiO2 40 07/21/22 04:49 Intake & Output 07/20/22 07/21/22 07/21/22 18:59 06:59 18:59 Intake Total 3523.891 2654.841 9.865 Output Total 257 372 Balance 3266.891 2282.841 9.865 Weight 55.5 kg Intake: IV 1025 2325 Lactated Ringers 1,000 ml 1000 @ 999 mls/hr IV .Q1H1M [facility] Rx#:[id number] Magnesium Sulfate-D5w Pmx 100 1 gm In Dextrose/Water 1 100ml.bag @ 100 mls/hr IVPB Q1H [facility] Rx#: [id number] Sodium Chloride 0.9% 1, 825 000 ml @ 75 mls/hr IV . [id number] [facility] Rx#:[id number] ceFAZolin 2 gm In Sodium 100 Chloride 0.9% 50 ml @ 100 mls/hr IVPB ONCE ONE Rx# :[id number] metroNIDAZOLE-NS PMX 500 300 mg In Saline 1 100ml.bag @ 100 mls/hr IVPB Q8HR [facility] Rx#:[id number] Intake, IV Titration 2498.891 329.841 9.865 Amount Diltiazem 125 mg In 115.333 Sodium Chloride 0.9% 100 ml @ 10 MG/HR 10 mls/hr IV .[id number] [facility] Rx#: [id number] Lactated Ringers 1,000 ml 1000 @ 0 mls/hr IV .STK-MED ONE Rx#:[id number] Lactated Ringers 1,000 ml 1000 @ 999 mls/hr IV .Q1H1M [facility] Rx#:[id number] Norepinephrine 8 mg In 1.296 183.079 9.865 Sodium Chloride 0.9% 250 ml @ 0.03 MCG/KG/MIN 2.99 mls/hr IV .Q24H [facility] Rx#: [id number] Sodium Chloride 0.9% 1, 375 000 ml @ 75 mls/hr IV . [id number] [facility] Rx#:[id number] propofoL 1,000 mg In 7.262 146.762 Empty Bag 1 bag @ 15 MCG/ KG/MIN 4.635 mls/hr IV . [id number] [facility] Rx#:[id number] Output: Urine 230 372 Stool 2 Estimated Blood Loss 25 Other: Voiding Method Indwelling Catheter Indwelling Catheter ABP, PAP, CO, CI - Last Documented Arterial Blood Pressure 86/43 - Labs CBC & Chem 7: 07/21/22 05:45 07/21/22 05:45 Labs: Abnormal Lab Results - Last 24 Hours (Table) 07/20/22 07/20/22 07/20/22 Range/Units 07:54 07:54 10:56 WBC 15.8 H (3.8-10.6) k/uL RBC (3.80-5.40) m/uL Hgb (11.4-16.0) gm/dL Hct (34.0-46.0) % Neutrophils # 14.4 H (1.3-7.7) k/uL Lymphocytes # 0.4 L (1.0-4.8) k/uL ABG pO2 (83-108) mmHg ABG Total CO2 (19-24) mmol/L ABG O2 Saturation (94-97) % Chloride (98-107) mmol/L BUN 53 H (7-17) mg/dL Creatinine 1.55 H (0.52-1.04) mg/dL Glucose 208 H (74-99) mg/dL POC Glucose (mg/dL) 214 H (70-110) mg/dL Calcium (8.4-10.2) mg/dL Magnesium (1.6-2.3) mg/dL AST (14-36) U/L ALT (4-34) U/L Alkaline Phosphatase (38-126) U/L Total Protein (6.3-8.2) g/dL Albumin (3.5-5.0) g/dL 07/20/22 07/20/22 07/20/22 Range/Units 14:42 17:20 19:50 WBC 13.1 H (3.8-10.6) k/uL RBC 3.40 L (3.80-5.40) m/uL Hgb 10.8 L (11.4-16.0) gm/dL Hct 33.3 L (34.0-46.0) % Neutrophils # 12.0 H (1.3-7.7) k/uL Lymphocytes # 0.4 L (1.0-4.8) k/uL ABG pO2 (83-108) mmHg ABG Total CO2 (19-24) mmol/L ABG O2 Saturation (94-97) % Chloride (98-107) mmol/L BUN (7-17) mg/dL Creatinine (0.52-1.04) mg/dL Glucose (74-99) mg/dL POC Glucose (mg/dL) 242 H 229 H (70-110) mg/dL Calcium (8.4-10.2) mg/dL Magnesium (1.6-2.3) mg/dL AST (14-36) U/L ALT (4-34) U/L Alkaline Phosphatase (38-126) U/L Total Protein (6.3-8.2) g/dL Albumin (3.5-5.0) g/dL 07/20/22 07/21/22 07/21/22 Range/Units 19:50 01:20 05:45 WBC 10.7 H (3.8-10.6) k/uL RBC 3.29 L (3.80-5.40) m/uL Hgb 10.7 L (11.4-16.0) gm/dL Hct 32.2 L (34.0-46.0) % Neutrophils # 9.7 H (1.3-7.7) k/uL Lymphocytes # 0.5 L (1.0-4.8) k/uL ABG pO2 (83-108) mmHg ABG Total CO2 (19-24) mmol/L ABG O2 Saturation (94-97) % Chloride 108 H (98-107) mmol/L BUN 46 H (7-17) mg/dL Creatinine 1.45 H (0.52-1.04) mg/dL Glucose 167 H (74-99) mg/dL POC Glucose (mg/dL) 127 H (70-110) mg/dL Calcium 7.9 L (8.4-10.2) mg/dL Magnesium (1.6-2.3) mg/dL AST 42 H (14-36) U/L ALT 45 H (4-34) U/L Alkaline Phosphatase 31 L (38-126) U/L Total Protein 4.5 L (6.3-8.2) g/dL Albumin 2.4 L (3.5-5.0) g/dL 07/21/22 07/21/22 07/21/22 Range/Units 05:45 06:04 06:06 WBC (3.8-10.6) k/uL RBC (3.80-5.40) m/uL Hgb (11.4-16.0) gm/dL Hct (34.0-46.0) % Neutrophils # (1.3-7.7) k/uL Lymphocytes # (1.0-4.8) k/uL ABG pO2 130 H (83-108) mmHg ABG Total CO2 25 H (19-24) mmol/L ABG O2 Saturation 99.6 H (94-97) % Chloride 112 H (98-107) mmol/L BUN 41 H (7-17) mg/dL Creatinine 1.33 H (0.52-1.04) mg/dL Glucose 137 H (74-99) mg/dL POC Glucose (mg/dL) 141 H (70-110) mg/dL Calcium 7.7 L (8.4-10.2) mg/dL Magnesium 1.5 L (1.6-2.3) mg/dL AST (14-36) U/L ALT (4-34) U/L Alkaline Phosphatase (38-126) U/L Total Protein (6.3-8.2) g/dL Albumin (3.5-5.0) g/dL
[2022-07-21] MEDS: IPRATROPIUM-ALBUTEROL 3 ML NEB INHALATION SCH ×4 (08:35→19:29)
[2022-07-21] MEDS: DILTIAZEM 125 MG in SODIUM CHLORIDE 0.9% 100 ML IV SCH ×2 (08:54→18:54)
[2022-07-21] MEDS: BENZONATATE 100 MG CAP PO SCH ×3 (08:55→20:46)
[2022-07-21] MEDS ORDERED: AMIODARONE 200 MG TAB PO SCH (09:00)
[2022-07-21] MEDS ORDERED: APIXABAN 5 MG TAB PO SCH (09:00)
--- NOTE | 2022-07-21 09:34 | P.PN ---
Subjective Progress Note Date: 07/21/22 Seeing this patient in consultation today 07/13/2022 in the emergency room waiting for a bed on the selective care unit. Patient is an 81-year-old white female with past significant medical history of atrial fibrillation, permanent pacemaker, coronary artery disease, breast cancer post radiation therapy and lumpectomy, hypertension, hyperlipidemia, diabetes mellitus, hypothyroidism, and is a lifelong nonsmoker. Patient does follow with Dr. Haile in the office for a solitary lung nodule. Patient presented to the emergency room yesterday evening with chief complaint of shortness of breath over the past 2 weeks. Also, reports chest congestion and a frequent cough with occasional phlegm. Patient denies any chest pain, heart palpitations, lightheadedness or syncope, fever, hemoptysis. Patient apparently was seen by Dr Babcock, her primary care provider, and was given a course of prednisone and a Z-Sherman. Patient had no improvement in symptoms. Patient is currently resting emergency room, on room air, in no acute distress. Chest x-ray arrival showed no acute cardiopulmonary process. While the emergency room, patient did have an episode of A. fib RVR, which has currently resolved, as the patient is in normal sinus rhythm around 80 bpm. troponins are mildly elevated most recent troponin 0.068. EKG currently shows normal sinus rhythm without any obvious ischemic changes. NT proBNP is 1890. Normal saline is infusing at 130 mL per hour. Patient's CBC on arrival showed a WBC count 9.9, hemoglobin 12, hematocrit 36.7, platelets 302. 41, potassium 4.5, chloride 105, serum CO2 26, BUN 74, creatinine 1.68, 75. LFTs are mildly elevated. Patient was negative for influenza, RSV, COVID-19. Vital signs are stable. Progress note dated 07/14/2022. 82-year-old female seen by myself and our nurse practitioner in the emergency department yesterday, in consultation. The patient presented with increasing shortness of breath, most likely secondary to atrial fibrillation. She has a history of atrial fibrillation, previous pacemaker implantation, CAD, rest cancer, hypertension, hyperlipidemia, diabetes, and hypothyroidism. Currently, the patient's on room air. She's not receiving any IV fluids. Laboratory data includes a sodium 140, potassium 5.2, chlorides 108, CO2 28, BUN 48 and creatinine 1.30. Glucose 131. Calcium is 9.2. Chest x-ray showed nothing acute. Progress note dated 07/15/2022. 81-year-old female seen today in room 361. She was seen in consultation 2 days ago in the emergency department. She came in with complaints of shortness of breath, and was found have atrial fibrillation with rapid ventricular response. Currently, she's not receiving any supplemental oxygen, or IV fluids. She looks much more comfortable. No new labs today. Progress note dated 07/16/2022. 82-year-old female seen in room 361. The patient is feeling much better. She was admitted with a diagnosis of shortness of breath and cough, secondary to both bronchitis, as well as atrial fibrillation with rapid ventricular response. Currently, she's been weaned off of oxygen. She's not receiving any IV fluids. Her cough and shortness of breath are much improved. No new labs today other than a glucose of 166. I am reevaluating this patient today 07/17/2022 in follow-up on the general medical floor. She is currently resting in bed, on room air, in no acute distress. Patient continues to improve clinically. No new labs today. Cough has improved with addition of Tessalon Perles. Heart rhythm is regular and she is anticoagulated with Eliquis. Vital signs remain stable. On today's evaluation of 07/18/2022, the main issue remains bowed related factors including episodic constipation. The patient is currently on MiraLAX once a day. Less short of breath and the cough has subsided significantly. Currently on a Medrol Dosepak. X-ray shows stable and the patient is currently on room air oxygen and she completed antibiotics. IV fluids are currently at KVO. On today's evaluation of 07/19/2022, the patient's overall respiratory status is stable. The patient has no symptoms and cough or sputum production. Bronchospasm wheezing has subsided. She continues to have constipation. She was given laxatives. She was also having some abdominal pain diminished appetite. Based on that, a CAT scan of the abdomen was done and the patient had findings suspicious for a small bowel obstruction with suspected transition point within a partially visualized right inguinal hernia. Evaluation was limited as on a CAT scan of the abdomen was ordered. There is a nonobstructive right renal calculus. She was also found to have colonic diverticulosis. The patient was given an enema with limited output. There is no evidence of any diverticulitis. No evidence of any large bowel obstruction. No evidence of any pneumoperitoneum. The patient has a BUN of 56 and a creatinine of 1.7 and a sodium level is at 142, as such, the renal function continues to improve. She remains in normal sinus rhythm. On today's evaluation of 07/20/2022, the patient is being seen in the intensive care unit after having her surgery done. The patient was having abdominal pain, discomfort, constipation and subsequently she progress and she developed some peritoneal signs. At that point, she was taken for laparotomy and the patient was found to have an incarcerated right inguinal hernia with evidence of ischemic small bowel. The patient underwent small bowel resection with primary closure. The patient was kept intubated and following that the patient was brought into the intensive care unit. At this point in time, the patient is sedated on propofol currently running at 40 mcg/kg/m. She is calm and comfortable. To assist control mode of mechanical ventilation at the rate of 12, tidal volume of 400, FiO2 of 40% and a PEEP of 5. FiO2 was dropped down to 40% of the blood gas showed a pH of 7.4 with a pCO2 of 37 and pO2 of more than 400. The patient received a total of 2.5 L of IV fluids.maintenance rate of 75 mL an hour. Urine operas in order of 20-30 mL an hour. The patient remains in atrial fibrillation. The patient has a mean arterial pressure was around 65. She is also on norepinephrine running at 0.2 mcg/kg/m. The patient is afebrile. Surgical wound site is dry clean and intact. Bowel sounds are hypoactive. Her current cardiac rhythm is atrial fibrillation. Chest x-ray showed adequate expansion of both lungs. ET tube is in a good location. The patient is a triple-lumen catheter in the right IJ. Morning labs are notedMorning labs were noted and the patient has a BUN of 53 with a creatinine of 1.5 and a sodium of 142. Platelet count is 240. No significant leukocytosis and the patient's white cell count was at 15.8 with a hemoglobin of 13.7. On 07/21/2022, I'm seeing the patient for a follow-up. The patient is postop day #1. This morning, the patient is adequately sedated on propofol which is running at 40 mcg/kg/m. The propofol this can be slightly weaned down as the patient is significantly sedated. She is on assist-control mode of mechanical ventilation. She doesn't assist control of 12, tidal volume of 400, crit of 40% with a PEEP of 5. The blood. From today shows a pH of 7.4 with episodes of 38 and pO2 of 1:30. The chest x-ray from today shows no acute abnormalities. There is some small effusions lung base bilaterally. ET tube is in a good location. No airspace disease or consolidation. The patient also has a pacemaker over the left anterior chest and the patient has a right IJ triple-l umen catheter in place. The patient is currently on a combination of cefepime and Flagyl. The patient remains on pressors and norepinephrine is running at the rate of 0.15 mcg/kg/m. The patient has a urine operas in order of marginal 30-40 mL an hour. The patient is on normal saline at the rate of 75 mL an hour. Meanwhile, the patient remains nothing by mouth. NG tube is in place. Output from the NG tube is minimal. The surgical wound is dry clean and intact. The patient has superficial wound VAC with minimal amount of drainage. Bowel sounds are hypoactive/absent. Nevertheless, her abdomen is nondistended. In terms of the rest of the blood work, the WBC count is at 10.7 with a hemoglobin of 10.7 and a platelet count of 180. Sodiums of 140, BUN is at 41 with a creatinine of 1.33. Liver function tests yesterday were essentially within normal limits. Albumin is at 2.4 with a total protein of 4.5. She is afebrile this morning. No other significant events overnight. In terms of her cardiac rhythm, the patient remained nature fibrillation. The patient will be switched to oral amiodarone today. Unable to get beta blockers as long as the patient is still hypotensive. She is on no anticoagulants for now. Her TSH was 0.9 and the patient is on low-dose Synthroid 37.5 g IV every 24 hours. Objective - Vital Signs Vital signs: Vital Signs Temp 97.9 F 07/21/22 08:00 Pulse 118 H 07/21/22 08:53 Resp 12 04/21/23 08:00 BP 116/60 07/21/22 08:00 Pulse Ox 97 07/21/22 08:00 FiO2 40 07/21/22 08:32 Intake & Output 07/20/22 07/21/22 07/21/22 18:59 06:59 18:59 Intake Total 3523.891 2654.841 9.865 Output Total 257 372 Balance 3266.891 2282.841 9.865 Weight 55.5 kg Intake: IV 1025 2325 Lactated Ringers 1,000 ml 1000 @ 999 mls/hr IV .Q1H1M [facility] Rx#:[id number] Magnesium Sulfate-D5w Pmx 100 1 gm In Dextrose/Water 1 100ml.bag @ 100 mls/hr IVPB Q1H [facility] Rx#: [id number] Sodium Chloride 0.9% 1, 825 000 ml @ 75 mls/hr IV . [id number] [facility] Rx#:[id number] ceFAZolin 2 gm In Sodium 100 Chloride 0.9% 50 ml @ 100 mls/hr IVPB ONCE ONE Rx# :[id number] metroNIDAZOLE-NS PMX 500 300 mg In Saline 1 100ml.bag @ 100 mls/hr IVPB Q8HR [facility] Rx#:[id number] Intake, IV Titration 2498.891 329.841 9.865 Amount Diltiazem 125 mg In 115.333 Sodium Chloride 0.9% 100 ml @ 10 MG/HR 10 mls/hr IV .[id number] [facility] Rx#: [id number] Lactated Ringers 1,000 ml 1000 @ 0 mls/hr IV .STK-MED ONE Rx#:[id number] Lactated Ringers 1,000 ml 1000 @ 999 mls/hr IV .Q1H1M [facility] Rx#:[id number] Norepinephrine 8 mg In 1.296 183.079 9.865 Sodium Chloride 0.9% 250 ml @ 0.03 MCG/KG/MIN 2.99 mls/hr IV .Q24H [facility] Rx#: [id number] Sodium Chloride 0.9% 1, 375 000 ml @ 75 mls/hr IV . [id number] [facility] Rx#:[id number] propofoL 1,000 mg In 7.262 146.762 Empty Bag 1 bag @ 15 MCG/ KG/MIN 4.635 mls/hr IV . [id number] [facility] Rx#:[id number] Output: Urine 230 372 Stool 2 Estimated Blood Loss 25 Other: Voiding Method Indwelling Catheter Indwelling Catheter ABP, PAP, CO, CI - Last Documented Arterial Blood Pressure 100/50 - Exam GENERAL EXAM: Alert, 81-year-old white female, comfortable, sedated, currently intubated on a mechanical ventilator.. HEAD: Normocephalic and atraumatic EYES: Normal reaction of pupils, equal size. NOSE: Clear with pink turbinates. THROAT: No erythema or exudates. NECK: No masses, no JVD. The patient has an orogastric and orotracheal tube and both of them are in place CHEST: No chest wall deformity. LUNGS: Equal air entry with no crackles, wheeze, rhonchi or dullness. On room air. No conversational dyspnea or accessory muscle use.. CVS: S1 and S2 normal with no audible murmur, regular rhythm. No extra heart sounds ABDOMEN: No hepatosplenomegaly, active bowel sounds, no guarding or rigidity. The patient's surgical one-sided over the anterior abdominal wall is dry clean and intact. SPINE: No scoliosis or deformity SKIN: No rashes CENTRAL NERVOUS SYSTEM: No focal deficits, tone is normal in all 4 extremities. EXTREMITIES: There is no peripheral edema, clubbing, or cyanosis. Peripheral pulses are intact. - Labs CBC & Chem 7: 07/21/22 05:45 07/21/22 05:45 Labs: Abnormal Lab Results - Last 24 Hours (Table) 07/20/22 07/20/22 07/20/22 Range/Units 07:54 07:54 10:56 WBC 15.8 H (3.8-10.6) k/uL RBC (3.80-5.40) m/uL Hgb (11.4-16.0) gm/dL Hct (34.0-46.0) % Neutrophils # 14.4 H (1.3-7.7) k/uL Lymphocytes # 0.4 L (1.0-4.8) k/uL ABG pO2 (83-108) mmHg ABG Total CO2 (19-24) mmol/L ABG O2 Saturation (94-97) % Chloride (98-107) mmol/L BUN 53 H (7-17) mg/dL Creatinine 1.55 H (0.52-1.04) mg/dL Glucose 208 H (74-99) mg/dL POC Glucose (mg/dL) 214 H (70-110) mg/dL Calcium (8.4-10.2) mg/dL Magnesium (1.6-2.3) mg/dL AST (14-36) U/L ALT (4-34) U/L Alkaline Phosphatase (38-126) U/L Total Protein (6.3-8.2) g/dL Albumin (3.5-5.0) g/dL 07/20/22 07/20/22 07/20/22 Range/Units 14:42 17:20 19:50 WBC 13.1 H (3.8-10.6) k/uL RBC 3.40 L (3.80-5.40) m/uL Hgb 10.8 L (11.4-16.0) gm/dL Hct 33.3 L (34.0-46.0) % Neutrophils # 12.0 H (1.3-7.7) k/uL Lymphocytes # 0.4 L (1.0-4.8) k/uL ABG pO2 (83-108) mmHg ABG Total CO2 (19-24) mmol/L ABG O2 Saturation (94-97) % Chloride (98-107) mmol/L BUN (7-17) mg/dL Creatinine (0.52-1.04) mg/dL Glucose (74-99) mg/dL POC Glucose (mg/dL) 242 H 229 H (70-110) mg/dL Calcium (8.4-10.2) mg/dL Magnesium (1.6-2.3) mg/dL AST (14-36) U/L ALT (4-34) U/L Alkaline Phosphatase (38-126) U/L Total Protein (6.3-8.2) g/dL Albumin (3.5-5.0) g/dL 07/20/22 07/21/22 07/21/22 Range/Units 19:50 01:20 05:45 WBC 10.7 H (3.8-10.6) k/uL RBC 3.29 L (3.80-5.40) m/uL Hgb 10.7 L (11.4-16.0) gm/dL Hct 32.2 L (34.0-46.0) % Neutrophils # 9.7 H (1.3-7.7) k/uL Lymphocytes # 0.5 L (1.0-4.8) k/uL ABG pO2 (83-108) mmHg ABG Total CO2 (19-24) mmol/L ABG O2 Saturation (94-97) % Chloride 108 H (98-107) mmol/L BUN 46 H (7-17) mg/dL Creatinine 1.45 H (0.52-1.04) mg/dL Glucose 167 H (74-99) mg/dL POC Glucose (mg/dL) 127 H (70-110) mg/dL Calcium 7.9 L (8.4-10.2) mg/dL Magnesium (1.6-2.3) mg/dL AST 42 H (14-36) U/L ALT 45 H (4-34) U/L Alkaline Phosphatase 31 L (38-126) U/L Total Protein 4.5 L (6.3-8.2) g/dL Albumin 2.4 L (3.5-5.0) g/dL 07/21/22 07/21/22 07/21/22 Range/Units 05:45 06:04 06:06 WBC (3.8-10.6) k/uL RBC (3.80-5.40) m/uL Hgb (11.4-16.0) gm/dL Hct (34.0-46.0) % Neutrophils # (1.3-7.7) k/uL Lymphocytes # (1.0-4.8) k/uL ABG pO2 130 H (83-108) mmHg ABG Total CO2 25 H (19-24) mmol/L ABG O2 Saturation 99.6 H (94-97) % Chloride 112 H (98-107) mmol/L BUN 41 H (7-17) mg/dL Creatinine 1.33 H (0.52-1.04) mg/dL Glucose 137 H (74-99) mg/dL POC Glucose (mg/dL) 141 H (70-110) mg/dL Calcium 7.7 L (8.4-10.2) mg/dL Magnesium 1.5 L (1.6-2.3) mg/dL AST (14-36) U/L ALT (4-34) U/L Alkaline Phosphatase (38-126) U/L Total Protein (6.3-8.2) g/dL Albumin (3.5-5.0) g/dL Assessment and Plan Plan: Incarcerated right inguinal hernia with bowel ischemia. The patient is post laparotomy and small bowel resection. The patient is currently postop day #1 Acute hypotension, rule out secondary to abdominal sepsis. The patient was adequately resuscitated. The patient continues to be on pressors and she is on norepinephrine running at 0.15 mcg/kg/m. Acute hypoxic respiratory failure that followed abdominal surgery. The patient was kept intubated on mechanical ventilator following her abdominal surgery, chest x-rays adequate and a blood gases also adequate. Recent hospitalization for an acute bronchitis, essentially improving Atrial fibrillation with rapid ventricular rate, improved. Noted the patient is still having episodes of atrial fibrillation with RVR. Earlier, the patient was on Cardizem drip was weaned off and discontinued, the patient is going to be transitioned to oral amiodarone, unable to give anticoagulants or beta blockers unit as the patient is still hypotensive and she is postop day #1. Abdominal pain secondary to above Acute kidney injury, improving creatinine , follow-up creatinine is stable History of sick sinus syndrome S/P permanent pacemaker implantation. Coronary artery disease. Diabetes mellitus, insulin-dependent. Hypertension. Hyperlipidemia. History of pulmonary nodules. History of breast cancer S/P radiation therapy and lumpectomy. Lifelong nonsmoker. Hypothyroidism Plan: Continue ventilator support No ventilator changes Keep the FiO2 of 40% propofol for sedation, lower degree of sedation Keep the patient nothing by mouth for now Consult dietary for TPN Continue combination of cefepime and Flagyl covering for any source of intra- abdominal sepsis Titrate norepinephrine to make any artery pressure was 65 Monitor urine output The patient is on Synthroid on outpatient basis and the patient will be given IV Synthroid 37.5 mg on a daily basis Monitor cardiac rhythm and the rhythm is atrial fibrillation with a controlled rate, currently on oral amiodarone. no BETA blockers till the patient's blood pressures under better control The patient has a triple-lumen catheter and arterial line no steroids for now No anticoagulants for now, to the patient is cleared from a surgical standpoint Compression devices to lower extremity for DVT prophylaxis NovoLog sliding-scale coverage we'll continue to follow make further recommendations. I had a lengthy discussion with the daughter is at the bedside. Evaluation was done in more than 30 minutes. Time with Patient: Greater than 30
[2022-07-21] MEDS: CHLORHEXIDINE GLUCONATE 15 ML CUP MUCOUS MEM SCH ×2 (09:43→20:43)
[2022-07-21] MEDS: SODIUM CHLORIDE 0.9% 1,000 ML IV SCH (09:45)
[2022-07-21] MEDS: polyethylene glycoL 3350 17 GM POWD.PACK PO SCH (09:45)
[2022-07-21] MEDS: METOPROLOL TARTRATE 25 MG TAB PO SCH ×3 (09:45→20:47)
[2022-07-21] MEDS: CEFEPIME 1 GM in SODIUM CHLORIDE 0.9% 50 ML IVPB SCH ×2 (09:53→20:43)
[2022-07-21] MEDS: NOREPINEPHRINE 8 MG in SODIUM CHLORIDE 0.9% 250 ML IV SCH (10:04)
[2022-07-21] MEDS ORDERED: AMIODARONE 360 MG in DEXTROSE 5% IN WATER 200 ML IV ONE ×2 (10:51)
[2022-07-21] MEDS ORDERED: DEXTROSE 5% IN WATER 100 ML with AMIODARONE 150 MG IV ONE (10:51)
[2022-07-21 11:24] LABS: Glucose,Whole Blood 182 mg/dL (70-110)
[2022-07-21] MEDS ORDERED: MVI, ADULT NO.4 WITH VIT K 10 ML, TRACE (CONC-1ML/DOSE) 1 ML in AMINO ACID 4.25%-D10W+L... IV SCH ×3 (12:00)
--- NOTE | 2022-07-21 13:33 | P.PN ---
Subjective Progress Note Date: 07/21/22 CHIEF COMPLAINT: Incarcerated right inguinal hernia HISTORY OF PRESENT ILLNESS: Patient postop day #1 status post exploratory laparotomy with repair of incarcerated right inguinal hernia partial omentectomy and small bowel resection for incarcerated right inguinal hernia with ischemic small bowel and omentum. Patient was hypotensive during surgery. She remained intubated after surgery and transferred to the ICU. Patient remains in the ICU intubated and on mechanical ventilation. She is requiring Levophed. Afebrile. White count did drop from 13-10. She did receive 2 L of normal saline 1 L of lactated Ringer. Minimal output through NG tube. She has been in A. fib with elevated heart rate. Cardiology has added amiodarone. Patient is also being started on TPN. Urine output is adequate Patient seen and examined with Dr. Esparza PHYSICAL EXAM: VITAL SIGNS: Reviewed. GENERAL: Well-developed in no acute distress. ABDOMEN: Soft. Mildly distended. Prevana wound vac in place NEUROLOGIC: Intubated and sedated ASSESSMENT: 1. Incarcerated right inguinal hernia with ischemic small bowel and omentum status post exploratory laparotomy with repair of incarcerated right inguinal hernia partial omentectomy and small bowel resection 2. Postoperative hypotension PLAN: -Continue ICU management -Continue supportive care -Agree with TPN for nutrition support -Continue NG tube -Keep patient nothing by mouth Physician Director [employer] note has been reviewed by physician. Signing provider agrees with the documented findings, assessment, and plan of care. Objective - Vital Signs Vital signs: Vital Signs Temp 98.1 F 07/21/22 12:00 Pulse 125 H 07/21/22 13:00 Resp 15 07/21/22 13:00 BP 120/63 07/21/22 13:00 Pulse Ox 97 07/21/22 13:00 FiO2 40 07/21/22 12:30 Intake & Output 07/20/22 07/21/22 07/21/22 18:59 06:59 18:59 Intake Total 3523.891 2654.841 682.018 Output Total 257 372 280 Balance 3266.891 2282.841 402.018 Weight 55.5 kg 55.5 kg Intake: IV 1025 7942 525 Lactated Ringers 1,000 ml 1000 @ 999 mls/hr IV .Q1H1M [facility] Rx#:[id number] Magnesium Sulfate-D5w Pmx 100 100 1 gm In Dextrose/Water 1 100ml.bag @ 100 mls/hr IVPB Q1H [facility] Rx#: [id number] Sodium Chloride 0.9% 1, 825 375 000 ml @ 75 mls/hr IV . [id number] [facility] Rx#:[id number] ceFAZolin 2 gm In Sodium 100 50 Chloride 0.9% 50 ml @ 100 mls/hr IVPB ONCE [facility] Rx# :[id number] metroNIDAZOLE-NS PMX 500 300 mg In Saline 1 100ml.bag @ 100 mls/hr IVPB Q8HR [facility] Rx#:[id number] Intake, IV Titration 2498.891 329.841 157.018 Amount Diltiazem 125 mg In 115.333 Sodium Chloride 0.9% 100 ml @ 10 MG/HR 10 mls/hr IV .[id number] [facility] Rx#: [id number] Lactated Ringers 1,000 ml 1000 @ 0 mls/hr IV .STK-MED [facility] Rx#:[id number] Lactated Ringers 1,000 ml 1000 @ 999 mls/hr IV .Q1H1M [facility] Rx#:[id number] Norepinephrine 8 mg In 1.296 183.079 82.446 Sodium Chloride 0.9% 250 ml @ 0.03 MCG/KG/MIN 2.99 mls/hr IV .Q24H [facility] Rx#: [id number] Sodium Chloride 0.9% 1, 375 000 ml @ 75 mls/hr IV . [id number] [facility] Rx#:[id number] propofoL 1,000 mg In 7.262 146.762 74.572 Empty Bag 1 bag @ 15 MCG/ KG/MIN 4.635 mls/hr IV . [id number] [facility] Rx#:[id number] Output: Urine 230 372 280 Stool 2 Estimated Blood Loss 25 Other: Voiding Method Indwelling Catheter Indwelling Catheter Indwelling Catheter ABP, PAP, CO, CI - Last Documented Arterial Blood Pressure 96/45 - Labs CBC & Chem 7: 07/21/22 05:45 07/21/22 05:45 Labs: Abnormal Lab Results - Last 24 Hours (Table) 07/20/22 07/20/22 07/20/22 Range/Units 14:42 17:20 19:50 WBC 13.1 H (3.8-10.6) k/uL RBC 3.40 L (3.80-5.40) m/uL Hgb 10.8 L (11.4-16.0) gm/dL Hct 33.3 L (34.0-46.0) % Neutrophils # 12.0 H (1.3-7.7) k/uL Lymphocytes # 0.4 L (1.0-4.8) k/uL ABG pO2 (83-108) mmHg ABG Total CO2 (19-24) mmol/L ABG O2 Saturation (94-97) % Chloride (98-107) mmol/L BUN (7-17) mg/dL Creatinine (0.52-1.04) mg/dL Glucose (74-99) mg/dL POC Glucose (mg/dL) 242 H 229 H (70-110) mg/dL Calcium (8.4-10.2) mg/dL Magnesium (1.6-2.3) mg/dL AST (14-36) U/L ALT (4-34) U/L Alkaline Phosphatase (38-126) U/L Total Protein (6.3-8.2) g/dL Albumin (3.5-5.0) g/dL 07/20/22 07/21/22 07/21/22 Range/Units 19:50 01:20 05:45 WBC 10.7 H (3.8-10.6) k/uL RBC 3.29 L (3.80-5.40) m/uL Hgb 10.7 L (11.4-16.0) gm/dL Hct 32.2 L (34.0-46.0) % Neutrophils # 9.7 H (1.3-7.7) k/uL Lymphocytes # 0.5 L (1.0-4.8) k/uL ABG pO2 (83-108) mmHg ABG Total CO2 (19-24) mmol/L ABG O2 Saturation (94-97) % Chloride 108 H (98-107) mmol/L BUN 46 H (7-17) mg/dL Creatinine 1.45 H (0.52-1.04) mg/dL Glucose 167 H (74-99) mg/dL POC Glucose (mg/dL) 127 H (70-110) mg/dL Calcium 7.9 L (8.4-10.2) mg/dL Magnesium (1.6-2.3) mg/dL AST 42 H (14-36) U/L ALT 45 H (4-34) U/L Alkaline Phosphatase 31 L (38-126) U/L Total Protein 4.5 L (6.3-8.2) g/dL Albumin 2.4 L (3.5-5.0) g/dL 07/21/22 07/21/22 07/21/22 Range/Units 05:45 06:04 06:06 WBC (3.8-10.6) k/uL RBC (3.80-5.40) m/uL Hgb (11.4-16.0) gm/dL Hct (34.0-46.0) % Neutrophils # (1.3-7.7) k/uL Lymphocytes # (1.0-4.8) k/uL ABG pO2 130 H (83-108) mmHg ABG Total CO2 25 H (19-24) mmol/L ABG O2 Saturation 99.6 H (94-97) % Chloride 112 H (98-107) mmol/L BUN 41 H (7-17) mg/dL Creatinine 1.33 H (0.52-1.04) mg/dL Glucose 137 H (74-99) mg/dL POC Glucose (mg/dL) 141 H (70-110) mg/dL Calcium 7.7 L (8.4-10.2) mg/dL Magnesium 1.5 L (1.6-2.3) mg/dL AST (14-36) U/L ALT (4-34) U/L Alkaline Phosphatase (38-126) U/L Total Protein (6.3-8.2) g/dL Albumin (3.5-5.0) g/dL 07/21/22 Range/Units 11:23 WBC (3.8-10.6) k/uL RBC (3.80-5.40) m/uL Hgb (11.4-16.0) gm/dL Hct (34.0-46.0) % Neutrophils # (1.3-7.7) k/uL Lymphocytes # (1.0-4.8) k/uL ABG pO2 (83-108) mmHg ABG Total CO2 (19-24) mmol/L ABG O2 Saturation (94-97) % Chloride (98-107) mmol/L BUN (7-17) mg/dL Creatinine (0.52-1.04) mg/dL Glucose (74-99) mg/dL POC Glucose (mg/dL) 182 H (70-110) mg/dL Calcium (8.4-10.2) mg/dL Magnesium (1.6-2.3) mg/dL AST (14-36) U/L ALT (4-34) U/L Alkaline Phosphatase (38-126) U/L Total Protein (6.3-8.2) g/dL Albumin (3.5-5.0) g/dL
[2022-07-21] MEDS: AMIODARONE 450 MG in DEXTROSE 5% IN WATER 250 ML IV SCH ×2 (16:53)
[2022-07-21 17:25] LABS: Glucose,Whole Blood 245 mg/dL (70-110)
[2022-07-21] MEDS: HYDROmorphone 0.5 MG/0.5 ML SYRINGE IVP PRN ×2 (18:21→21:23)
[2022-07-21] MEDS ORDERED: METOPROLOL TARTRATE 5 MG/5 ML VIAL IVP PRN (20:32)
[2022-07-21] MEDS: FLUTICASONE 50MCG/SPRAY NASAL 16GM EA NOSTRIL SCH (20:46)
[2022-07-21] MEDS: IPRATROPIUM-ALBUTEROL 3 ML NEB INHALATION PRN (23:31)
[2022-07-22 00:17] LABS: Glucose,Whole Blood 290 mg/dL (70-110)
[2022-07-22] MEDS: metroNIDAZOLE-NS PMX 500 MG in SALINE 1 100ML.BAG IVPB SCH ×4 (00:24→23:30)
[2022-07-22] MEDS: INSULIN ASPART (NovoLOG) 100 UNIT/ML VIAL SQ SCH ×5 (00:25→23:31)
[2022-07-22] MEDS: METOCLOPRAMIDE 5 MG/ML 2 ML VIAL IVP SCH ×5 (00:25→23:31)
[2022-07-22] MEDS: SODIUM CHLORIDE 0.9% 1,000 ML IV SCH ×2 (01:23→08:49)
[2022-07-22] MEDS: HYDROmorphone 0.5 MG/0.5 ML SYRINGE IVP PRN ×4 (02:15→14:34)
[2022-07-22] MEDS: IPRATROPIUM-ALBUTEROL 3 ML NEB INHALATION PRN ×2 (03:43→23:30)
[2022-07-22 05:22] LABS: Glucose,Whole Blood 267 mg/dL (70-110)
[2022-07-22 05:37] LABS: Basophils % (A) 0 %; Eosinophils % (A) 0 %; HCT 31.1 % (34.0-46.0); HGB 9.6 gm/dL (11.4-16.0); Lymphocytes # (A) 0.4 k/uL (1.0-4.8); Lymphocytes % (A) 4 %; MCH 31.3 pg (25.0-35.0); MCHC 30.9 g/dL (31.0-37.0); MCV 101.3 fL (80.0-100.0); Mean Platelet Volume 8.7; Monocytes # (A) 0.4 k/uL (0-1.0); Monocytes % (A) 3 %; Neutrophils # (A) 9.8 k/uL (1.3-7.7); Neutrophils % (A) 92 %; Platelet Count 175 k/uL (150-450); RBC 3.07 m/uL (3.80-5.40); RDW 12.8 % (11.5-15.5); WBC 10.6 k/uL (3.8-10.6)
[2022-07-22 05:49] LABS: Calcium 7.3 mg/dL (8.4-10.2); Magnesium 2.2 mg/dL (1.6-2.3); Phosphorus 3.7 mg/dL (2.5-4.5); Potassium 3.9 mmol/L (3.5-5.1)
[2022-07-22 05:59] LABS: ABG Base Excess -5.2 mmol/L; ABG HCO3 21 mmol/L (21-25); ABG Oxygen Saturation 99.7 % (94-97); ABG PCO2 38 mmHg (35-45); ABG PH 7.34 (7.35-7.45); ABG PO2 148 mmHg (83-108); ABG TCO2 22 mmol/L (19-24); Allen Test Performed? Yes
--- NOTE | 2022-07-22 06:20 | P.PN ---
Subjective Progress Note Date: 07/21/22 Patient is a 81-year-old female with a known history of atrial fibrillation on anticoagulation with Eliquis, history of permanent pacemaker placement, hypertension, hyperlipidemia, diabetes type 2 insulin-dependent, hypothyroidism, osteoarthritis and chronic back pain and anxiety presents ER with complaints of shortness of breath for past 2 weeks. Patient was having chest congestion and cough with clear to greenish sputum production. Patient was seen by her primary care physician and was given Z-Sherman and prednisone course. Patient still having symptoms without much improvement presented to ER. Denies any fever or chills. No leg swelling. No nausea vomiting abdominal pain or diarrhea. Chest x-ray in the ER showed no acute process. EKG showed atrial fibrillation with rapid regular rate with heart rate 134 Laboratory data showed WBC 9.9 hemoglobin 12.0 and platelets 302 Sodium 141 potassium 4.5 chloride 105 bicarb is 26 BUN 74 and creatinine 1.68, AST 38 ALT 45 alk phos 48 and troponin 0.054, 0.052 and 0.068, procalcitonin level is 0.11 TSH within normal limits and proBNP is 1890 Influenza A, B, RSV and COVID-19 PCR not detected. 07/14/2022 This is a pleasant 81 years old female was admitted with A. fib and RVR consult with evidence with acute bronchitis. She's been treated with Zithromax, normal saline for acute kidney injury and her Lopressor dose was increased to 75 mg 3 times a day by branch lead, currently heart rate is controlled and she is on Eliquis home dose of 2.5 mg However patient lying in bed and she still feels short of breath and she still was not ready for discharge.. Cartilage team adjusted some of her blood pressure medication and they cleared her for discharge Pulmonary team on the case and patient was started on Medrol Dosepak. 07/15/2022 Patient clinically doing well and she is back to baseline, breathing significantly improved with no chest pain heart rate is controlled with occasional changes in heart rate, symptomatic goes back to normal quickly. Patient is currently clinically stable and she was cleared for discharge by both cardiology and pulmonary services, I discussed with the patient she does not want to go home today and she wants to be evaluated by physical therapy first. Discussed with bed side nurse to contact physical therapy to this morning and they're pending. Patient is a 81-year-old female with a known history of atrial fibrillation on anticoagulation with Eliquis, history of permanent pacemaker placement, hyper tension, hyperlipidemia, diabetes type 2 insulin-dependent, hypothyroidism, osteoarthritis and chronic back pain and anxiety presents ER with complaints of shortness of breath for past 2 weeks. Patient was having chest congestion and cough with clear to greenish sputum production. Patient was seen by her primary care physician and was given Z-Sherman and prednisone course. Patient still having symptoms without much improvement presented to ER. Denies any fever or chills. No leg swelling. No nausea vomiting abdominal pain or diarrhea. Chest x-ray in the ER showed no acute process. EKG showed atrial fibrillation with rapid regular rate with heart rate 134 Laboratory data showed WBC 9.9 hemoglobin 12.0 and platelets 302 Sodium 141 potassium 4.5 chloride 105 bicarb is 26 BUN 74 and creatinine 1.68, AST 38 ALT 45 alk phos 48 and troponin 0.054, 0.052 and 0.068, procalcitonin level is 0.11 TSH within normal limits and proBNP is 1890 Influenza A, B, RSV and COVID-19 PCR not detected. 07/14/2022 This is a pleasant 81 years old female was admitted with A. fib and RVR consult with evidence with acute bronchitis. She's been treated with Zithromax, normal saline for acute kidney injury and her Lopressor dose was increased to 75 mg 3 times a day by branch lead, currently heart rate is controlled and she is on Eliquis home dose of 2.5 mg However patient lying in bed and she still feels short of breath and she still was not ready for discharge.. Cartilage team adjusted some of her blood pressure medication and they cleared her for discharge Pulmonary team on the case and patient was started on Medrol Dosepak. 16 2022 Patient is currently lying in bed. Awake alert and oriented x3. Denies any complaints of chest pain. Shortness of breath is much improved. No cough or sputum production. Otherwise patient is still feeling generalized weakness and needs assistance with walking to the bathroom. PT OT was consulted and family is concerned about going home. Anticipate discharge home versus rehab in the next 24 to 48 hours. High risk with history of sustaining. Laboratory data reviewed. Cleared from pulmonary and cardiology standpoint. 07/17/2022 Patient is seen and evaluated in follow-up and continues with weakness and being evaluated by physical therapy. Patient does have some cough and reports her shortness of breath is improved. Patient taking a number of medications causing an increase in kidney functions and will hold the splint pressure medications and Lasix and follow-up with repeat labs. Patient prefers to go home and arranging for home care in the outpatient setting. Patient is currently afebrile continues to report cough although denies shortness of breath. Patient is tolerating diet with no reports of nausea or vomiting noted. 07/18/2022 Patient is seen and evaluated in follow-up this morning with kidney functions trending down low not much improved as patient did receive the Lasix and lisinopril yesterday. Patient is having increased abdominal pain with severe cramping and nausea and reports she feels she has to have a bowel movement but is unable to. Patient does have history of IBS although was not having any loose stools. Patient is reporting 10/10 pain and unable to stand due to the intensity of the cramping and laying in the position in bed. Will add Bentyl and additional medications. Patient encouraged to increase activity as tolerated. Cardiology and pulmonary following and have cleared the patient for discharge. Will monitor overnight with probable discharge in 24 hours. 07/19/2022 Patient is seen and evaluated in follow-up today reports to not feeling well at all with extreme nausea and some vomiting. Patient unable to keep her medications down and heart rate noted to be elevated into the 140s. Cardiology had been following although signed off and will reconsult. Cardiology following back up given additional dose of metoprolol although patient not able to tolerate and unsure if she took the medication. Patient continues to show atrial fibrillation with RVR and cardiology starting Cardizem drip. Patient will need transfer to cardiology floor for monitoring of the strep as she is cu rrently on 5 N. and they do not handle Cardizem drips. Patient is currently afebrile does report some palpitations although denies chest pain. Patient having extreme nausea with some vomiting and abdominal pain. Patient also feels to having some constipation and reports did have a very minimal difficult time having a small bowel movement yesterday after suppository, will add enema. 07/20/2022 Patient is seen early this morning with daughter at bedside and is currently nothing by mouth awaiting surgical intervention with Dr. Esparza with concerns of incarcerated hernia as patient was reporting abdominal pain. Patient did have an episode of atrial fibrillation with RVR and initially going to start Cardizem drip yesterday although converted to sinus rhythm and was resumed on eliquis with cardiology following. Cardizem drip was discontinued at that point although patient continue with increased abdominal pain and discomfort with vomiting and general surgery was consulted. Patient had an abdominal x-ray which showed few mildly dilated loops of small bowel with multiple air-fluid levels concerning with developing bowel obstruction recommending a CT follow-up. Patient's kidney functions were elevated although repeat creatinine was improving at 1.7 with lisinopril and Lasix being held. Ordered a CT abdomen without contrast which showed findings suspicious for small bowel obstruction with suspected transition point within a partially visualized right inguinal hernia Limited evaluation without the contrast with fibroid changes of the uterus and not obstructed right renal calculus with colonic diverticulosis without evidence of diverticulitis. Patient was placed nothing by mouth and General surgery recommending surgical intervention and was held over until this morning as patient did receive her anticoagulation yesterday. Patient did have an elevation in white count up to 15 although afebrile continued to have abdominal pain and extremely tender on palpation. Patient also had uncontrolled rhythms in A. fib with RVR and was moved to 3 S. early this morning and placed on the Cardizem drip. Will await surgical report. 07/21/2022 Patient is seen and evaluated continues to be in the ICU on mechanical ventilation with no plans of leaving today. Heart rate remains uncontrolled and was maintained on Cardizem will be transitioned to amiodarone with cardiology following. General surgery following a patient is status post surgical intervention for the right incarcerated hernia. Patient is continued on antibiotics along with low-dose pressor support and will continue to monitor closely. Patient does have abdominal dressings in the form of prevana that are intact and abdomen is less distended. Patient does have a central line and TPN is being started. Review of systems: Unable to obtain as patient is on mechanical ventilation and sedated Active Medications Acetaminophen (Acetaminophen Tab 325 Mg Tab) 650 mg PO Q6HR PRN PRN Reason: Fever and/ or Pain Last Admin: 07/18/22 10:50 Dose: 650 mg Hydrocodone Bitart/Acetaminophen (Hydrocodone/Apap 5-325mg 1 Each Tab) 1 each PO Q6HR PRN PRN Reason: Pain Last Admin: 07/21/22 05:06 Dose: 1 each Albuterol/Ipratropium (Ipratropium-Albuterol 3 Ml Neb) 3 ml INHALATION RT-Q2H PRN PRN Reason: Shortness Of Breath Or Wheezing Last Admin: 07/22/22 03:43 Dose: 3 ml Albuterol/Ipratropium (Ipratropium-Albuterol 3 Ml Neb) 3 ml INHALATION RT-QID [facility] Last Admin: 07/21/22 19:29 Dose: 3 ml Benzonatate (Benzonatate 100 Mg Cap) 100 mg PO TID [facility] Last Admin: 07/21/22 20:46 Dose: Not Given Chlorhexidine Gluconate (Chlorhexidine Gluconate 15 Ml Cup) 15 ml MUCOUS MEM BID [facility] Last Admin: 07/21/22 20:43 Dose: 15 ml Dextrose/Water (Dextrose 50% Syringe 50 Ml) 25 ml IVP PER PROTOCOL PRN; Protocol PRN Reason: Hypoglycemia Dextrose/Water (Dextrose 50% Syringe 50 Ml) 50 ml IVP PER PROTOCOL PRN; Protocol PRN Reason: Hypoglycemia Fluticasone Propionate (Fluticasone 50mcg/[place] Nasal 16gm) 1 spray EA NOSTRIL HS [facility] Last Admin: 07/21/22 20:46 Dose: Not Given Hydromorphone HCl (Hydromorphone 0.5 Mg/0.5 Ml Syringe) 0.125 mg IVP Q3HR PRN PRN Reason: Pain Last Admin: 07/21/22 21:23 Dose: 0.125 mg Sodium Chloride (Saline 0.9%) 1,000 mls @ 75 mls/hr IV .[id number] [facility] Last Admin: 07/22/22 01:23 Dose: Not Given Diltiazem HCl 125 mg/ Sodium (Chloride) 125 mls @ 10 mls/hr IV .[id number] [facility] Last Admin: 07/21/22 18:54 Dose: Not Given Propofol 1,000 mg/ IV Solution 100 mls @ 4.635 mls/hr IV .[id number] [facility]; Protocol Last Admin: 07/21/22 11:31 Dose: 35 mcg/kg/min, 10.815 mls/hr Norepinephrine Bitartrate 8 mg (/ Sodium Chloride) 258 mls @ 2.99 mls/hr IV .Q24H [facility]; Protocol Last Titration: 07/22/22 00:30 Dose: Infused Metronidazole 500 mg/ IV (Solution) 100 mls @ 100 mls/hr IVPB Q8HR [facility]; Protocol Last Admin: 07/22/22 00:24 Dose: 100 mls/hr Cefepime HCl 1 gm/ Sodium (Chloride) 50 mls @ 12.5 mls/hr IVPB Q12HR [facility] Last Admin: 07/21/22 20:43 Dose: 12.5 mls/hr Amiodarone HCl 450 mg/ (Dextrose/Water) 250 mls @ 16.667 mls/hr IV .Q15H [facility]; Protocol Stop: 07/22/22 10:49 Last Admin: 07/21/22 16:53 Dose: 0.5 mg/min, 16.667 mls/hr Parenteral Vitamin Supplement 10 ml/ Zinc/Copper/Manganese/Selenium 1 ml/ Amino Ac/Electrol/Dextrose/Calcium 1,011 mls @ 30 mls/hr IV .Q24H [facility] Stop: 07/22/22 11:59 Last Admin: 07/21/22 16:28 Dose: 30 mls/hr Parenteral Vitamin Supplement 10 ml/ Zinc/Copper/Manganese/Selenium 1 ml/ Amino Ac/Electrol/Dextrose/Calcium 1,011 mls @ 55 mls/hr IV .BY DURATION [facility] Amino Ac/Electrol/Dextrose/Calcium (Clinimix E 4.25%-D10% Solution) 1,000 mls @ 55 mls/hr IV .BY DURATION [facility] Insulin Aspart (Insulin Aspart (Novolog) 100 Unit/Ml Vial) 0 unit SQ Q6H [facility]; Protocol Last Admin: 07/22/22 00:25 Dose: 3 unit Levothyroxine Sodium (Levothyroxine Ivp 100 Mcg/5 Ml Vial) 37.5 mcg IV DAILY [facility] Metoclopramide HCl (Metoclopramide 5 Mg/Ml 2 Ml Vial) 5 mg IVP Q6HR [facility] Last Admin: 07/22/22 00:25 Dose: 5 mg Metoprolol Tartrate (Metoprolol Tartrate 25 Mg Tab) 75 mg PO TID [facility] Last Admin: 07/21/22 20:47 Dose: Not Given Metoprolol Tartrate (Metoprolol Tartrate 5 Mg/5 Ml Vial) 2.5 mg IVP Q8HR PRN PRN Reason: Tachyarrhythmias Last Admin: 07/21/22 20:43 Dose: 2.5 mg Naloxone HCl (Naloxone 0.4 Mg/Ml 1 Ml Vial) 0.2 mg IV Q2M PRN PRN Reason: Opioid Reversal Ondansetron HCl (Ondansetron 4 Mg/2 Ml Vial) 4 mg IVP Q8HR PRN PRN Reason: Nausea And Vomiting Last Admin: 07/20/22 03:28 Dose: 4 mg Pantoprazole Sodium (Pantoprazole 40 Mg Tablet) 40 mg PO [id number] [facility] Last Admin: 07/21/22 06:08 Dose: 40 mg Polyethylene Glycol (Polyethylene Glycol 3350 17 Gm Powd.Pack) 17 gm PO DAILY [facility] Last Admin: 07/21/22 09:45 Dose: Not Given Tramadol HCl (Tramadol 50 Mg Tab) 50 mg PO TID PRN PRN Reason: Pain Last Admin: 07/18/22 22:59 Dose: 50 mg Physical exam: GENERAL: The patient is on mechanical ventilation with an FiO2 of 40% and PEEP is 5, currently sedated, thin built, elderly appearing HEENT: Pupils are round and equally reacting to light. EOMI. No scleral icterus. No conjunctival pallor. Normocephalic, atraumatic. No pharyngeal erythema. No thyromegaly. CARDIOVASCULAR: Irregular, A. fib uncontrolled rates on the monitor PULMONARY: Chest is clear to auscultation, no wheezing or crackles. ABDOMEN: Soft, mildly distended, normoactive bowel sounds. No palpable organomegaly. prevana dressing noted over the right groin and lower abdomen MUSCULOSKELETAL: No joint swelling or deformity. EXTREMITIES: No cyanosis, clubbing, or pedal edema. NEUROLOGICAL: Gross neurological examination did not reveal any focal deficits. Currently under sedation SKIN: No rashes. no petechiae. Assessment: Atrial fibrillation with rapid ventricular rate. Back in A. fib with RVR uncontrolled rate on 07/20/2022 Acute tracheobronchitis. Patient was on Z-Sherman as an outpatient. Moderate to severe MR, moderate TR and mild pulmonary hypertension Elevated troponin, likely type II [place] secondary to atrial fibrillation with RVR Abdominal cramping and pain with nausea and vomiting with right incarcerated hernia and possible small bowel obstruction as noted on CT Incarcerated right inguinal hernia with ischemic small bowel and omentum status post exploratory laparotomy with repair of incarcerated right inguinal hernia partial omentectomy and small bowel resection Postoperative hypotension, requiring pressor support Acute kidney injury with creatinine 1.68 on admission, trending down Diabetes type 2 Episode of hypoglycemia. Resolved Hypothyroidism Hypertension Hyperlipidemia Osteoarthritis Chronic back pain and fibromyalgia Anxiety History of permanent pacemaker placement Depression/bereavement. full Code Plan: Patient is status post Incarcerated right inguinal hernia with ischemic small bowel and omentum status post exploratory laparotomy with repair of incarcerated right inguinal hernia partial omentectomy and small bowel resection is currently on mechanical vent with an FiO2 of 40% and PEEP is 5 as patient is having some hypotension requiring low-dose pressor support Multiple medical consultations following including surgery, cardiology, pulmonary rangeland management specialist recommend continue with mechanical ventilation for now Patient continues in atrial fibrillation and RVR and was maintained on Cardizem and being transitioned to amiodarone Antibiotics have been added in the form of cefepime continue Patient did receive a central line and TPN is being initiated for nutritional support Kidney functions are improving and will follow up on repeat labs, recommend continue holding lisinopril as well as anticoagulation and Lasix. Will resume anticoagulation once cleared by surgery The impression and plan of care has been dictated by Pratibha Kasper, Nurse Practitioner as directed. Dr. Tee MD I have performed a history and examination and MDM of this patient, discussed the same with the dictator, and agree with the dictator's assessment and plan as written ,documented as a scribe. Based on total visit time, I have performed more than 50% of the visit. Objective - Vital Signs Vital signs: Vital Signs Temp 97.9 F 07/21/22 08:00 Pulse 118 H 07/21/22 08:53 Resp 12 07/21/22 08:00 BP 116/60 07/21/22 08:00 Pulse Ox 97 07/21/22 08:00 FiO2 40 07/21/22 08:32 Intake & Output 07/20/22 07/21/22 07/21/22 18:59 06:59 18:59 Intake Total 3523.891 2654.841 9.865 Output Total 257 372 Balance 3266.891 2282.841 9.865 Weight 55.5 kg Intake: IV 1025 2325 Lactated Ringers 1,000 ml 1000 @ 999 mls/hr IV .Q1H1M [facility] Rx#:[id number] Magnesium Sulfate-D5w Pmx 100 1 gm In Dextrose/Water 1 100ml.bag @ 100 mls/hr IVPB Q1H [facility] Rx#: [id number] Sodium Chloride 0.9% 1, 825 000 ml @ 75 mls/hr IV . [id number] [facility] Rx#:[id number] ceFAZolin 2 gm In Sodium 100 Chloride 0.9% 50 ml @ 100 mls/hr IVPB ONCE ONE Rx# :[id number] metroNIDAZOLE-NS PMX 500 300 mg In Saline 1 100ml.bag @ 100 mls/hr IVPB Q8HR [facility] Rx#:[id number] Intake, IV Titration 2498.891 329.841 9.865 Amount Diltiazem 125 mg In 115.333 Sodium Chloride 0.9% 100 ml @ 10 MG/HR 10 mls/hr IV .[id number] [facility] Rx#: [id number] Lactated Ringers 1,000 ml 1000 @ 0 mls/hr IV .STK-MED ONE Rx#:[id number] Lactated Ringers 1,000 ml 1000 @ 999 mls/hr IV .Q1H1M [facility] Rx#:[id number] Norepinephrine 8 mg In 1.296 183.079 9.865 Sodium Chloride 0.9% 250 ml @ 0.03 MCG/KG/MIN 2.99 mls/hr IV .Q24H [facility] Rx#: [id number] Sodium Chloride 0.9% 1, 375 000 ml @ 75 mls/hr IV . [id number] [facility] Rx#:[id number] propofoL 1,000 mg In 7.262 146.762 Empty Bag 1 bag @ 15 MCG/ KG/MIN 4.635 mls/hr IV . [id number] [facility] Rx#:[id number] Output: Urine 230 372 Stool 2 Estimated Blood Loss 25 Other: Voiding Method Indwelling Catheter Indwelling Catheter ABP, PAP, CO, CI - Last Documented Arterial Blood Pressure 100/50 - Labs CBC & Chem 7: 07/22/22 05:00 07/22/22 05:00 Labs: Abnormal Lab Results - Last 24 Hours (Table) 07/20/22 07/20/22 07/20/22 Range/Units 07:54 07:54 10:56 WBC 15.8 H (3.8-10.6) k/uL RBC (3.80-5.40) m/uL Hgb (11.4-16.0) gm/dL Hct (34.0-46.0) % Neutrophils # 14.4 H (1.3-7.7) k/uL Lymphocytes # 0.4 L (1.0-4.8) k/uL ABG pO2 (83-108) mmHg ABG Total CO2 (19-24) mmol/L ABG O2 Saturation (94-97) % Chloride (98-107) mmol/L BUN 53 H (7-17) mg/dL Creatinine 1.55 H (0.52-1.04) mg/dL Glucose 208 H (74-99) mg/dL POC Glucose (mg/dL) 214 H (70-110) mg/dL Calcium (8.4-10.2) mg/dL Magnesium (1.6-2.3) mg/dL AST (14-36) U/L ALT (4-34) U/L Alkaline Phosphatase (38-126) U/L Total Protein (6.3-8.2) g/dL Albumin (3.5-5.0) g/dL 07/20/22 07/20/22 07/20/22 Range/Units 14:42 17:20 19:50 WBC 13.1 H (3.8-10.6) k/uL RBC 3.40 L (3.80-5.40) m/uL Hgb 10.8 L (11.4-16.0) gm/dL Hct 33.3 L (34.0-46.0) % Neutrophils # 12.0 H (1.3-7.7) k/uL Lymphocytes # 0.4 L (1.0-4.8) k/uL ABG pO2 (83-108) mmHg ABG Total CO2 (19-24) mmol/L ABG O2 Saturation (94-97) % Chloride (98-107) mmol/L BUN (7-17) mg/dL Creatinine (0.52-1.04) mg/dL Glucose (74-99) mg/dL POC Glucose (mg/dL) 242 H 229 H (70-110) mg/dL Calcium (8.4-10.2) mg/dL Magnesium (1.6-2.3) mg/dL AST (14-36) U/L ALT (4-34) U/L Alkaline Phosphatase (38-126) U/L Total Protein (6.3-8.2) g/dL Albumin (3.5-5.0) g/dL 07/20/22 07/21/22 07/21/22 Range/Units 19:50 01:20 05:45 WBC 10.7 H (3.8-10.6) k/uL RBC 3.29 L (3.80-5.40) m/uL Hgb 10.7 L (11.4-16.0) gm/dL Hct 32.2 L (34.0-46.0) % Neutrophils # 9.7 H (1.3-7.7) k/uL Lymphocytes # 0.5 L (1.0-4.8) k/uL ABG pO2 (83-108) mmHg ABG Total CO2 (19-24) mmol/L ABG O2 Saturation (94-97) % Chloride 108 H (98-107) mmol/L BUN 46 H (7-17) mg/dL Creatinine 1.45 H (0.52-1.04) mg/dL Glucose 167 H (74-99) mg/dL POC Glucose (mg/dL) 127 H (70-110) mg/dL Calcium 7.9 L (8.4-10.2) mg/dL Magnesium (1.6-2.3) mg/dL AST 42 H (14-36) U/L ALT 45 H (4-34) U/L Alkaline Phosphatase 31 L (38-126) U/L Total Protein 4.5 L (6.3-8.2) g/dL Albumin 2.4 L (3.5-5.0) g/dL 07/21/22 07/21/22 07/21/22 Range/Units 05:45 06:04 06:06 WBC (3.8-10.6) k/uL RBC (3.80-5.40) m/uL Hgb (11.4-16.0) gm/dL Hct (34.0-46.0) % Neutrophils # (1.3-7.7) k/uL Lymphocytes # (1.0-4.8) k/uL ABG pO2 130 H (83-108) mmHg ABG Total CO2 25 H (19-24) mmol/L ABG O2 Saturation 99.6 H (94-97) % Chloride 112 H (98-107) mmol/L BUN 41 H (7-17) mg/dL Creatinine 1.33 H (0.52-1.04) mg/dL Glucose 137 H (74-99) mg/dL POC Glucose (mg/dL) 141 H (70-110) mg/dL Calcium 7.7 L (8.4-10.2) mg/dL Magnesium 1.5 L (1.6-2.3) mg/dL AST (14-36) U/L ALT (4-34) U/L Alkaline Phosphatase (38-126) U/L Total Protein (6.3-8.2) g/dL Albumin (3.5-5.0) g/dL
[2022-07-22] MEDS: AMIODARONE 450 MG in DEXTROSE 5% IN WATER 250 ML IV SCH ×4 (06:36→18:19)
[2022-07-22] MEDS: PANTOPRAZOLE 40 MG TABLET PO SCH (06:40)
[2022-07-22] MEDS: IPRATROPIUM-ALBUTEROL 3 ML NEB INHALATION SCH ×4 (07:54→19:37)
[2022-07-22] MEDS: NOREPINEPHRINE 8 MG in SODIUM CHLORIDE 0.9% 250 ML IV SCH ×2 (08:00→18:19)
--- NOTE | 2022-07-22 08:42 | P.PN ---
Subjective Progress Note Date: 07/22/22 PROGRESS NOTE The patient is an 81-year-old female with a known history of paroxysmal atrial fibrillation, permanent pacemaker implantation, diabetes, anticoagulated who underwent repair of incarcerated right inguinal hernia yesterday. Postoperatively she was hypertensive. She remains intubated and sedated. She is in atrial fibrillation/flutter this morning with controlled ventricular response. Her blood pressure is under better control. Her urine output has been adequate. There is no evidence of ventricular ectopic activity. July 22: The patient remains intubated, she is opening her eyes to verbal stimulation and following commands. She is in atrial fibrillation with rapid ventricle response this morning, she was under better control earlier. Her blood pressure is good, she continues to be on low dose IV norepinephrine. There is no ventricular ectopic activity. Her urinary output has been stable. She has not been started on anticoagulation by the surgical team. She continues to be on IV amiodarone. Medications: IV amiodarone, metoprolol 2.5 mg IV every 6 hours, norepinephrine PHYSICAL EXAMINATION: Blood pressure 135/50 heart rate 120, intubated, opening eyes to verbal stim ulation and following commands LUNGS: Clear to auscultation HEART: Irregular rate and rhythm, S1, S2. No S3. systolic ejection murmur ABDOMEN: Soft, no organomegaly, dressing in place EXTREMETIES: No edema LAB: Hemoglobin 9.6, WBC 10.6, pH 7.34, BUN 39, creatinine 1.47. Magnesium 2.2 IMPRESSION: 1. Status post exploratory laparotomy with repair of incarcerated right inguinal hernia 2. Postop hypotension, resolved 3. Paroxysmal atrial fibrillation, now in atrial fibrillation with rapid mariluz tricular response 4. Status post permanent pacemaker implantation PLAN: 1. Continue beta consuelo intravenously and increase dose to 5 mg 2. Restart anticoagulation when okay with surgery 3. Give another bolus of amiodarone 4. Follow renal functions 5. Attempt to wean and extubate today 6. Depending on her progress further recommendations will be made. Objective - Vital Signs Vital signs: Vital Signs Temp 98.9 F 07/22/22 04:00 Pulse 128 H 07/22/22 08:07 Resp 13 07/22/22 06:00 BP 134/100 07/22/22 06:00 Pulse Ox 99 07/22/22 05:00 FiO2 40 07/22/22 08:03 Intake & Output 07/21/22 07/22/22 07/22/22 18:59 06:59 18:59 Intake Total 2696.577 2273.034 105 Output Total 525 405 30 Balance 740.175 972.034 75 Weight 55.5 kg 55.8 kg Intake: IV 985 1035 105 Magnesium Sulfate-D5w Pmx 100 1 gm In Dextrose/Water 1 100ml.bag @ 100 mls/hr IVPB Q1H [facility] Rx#: [id number] Mvi, Adult No.4 with Vit 60 360 30 K 10 ml Trace (Conc-1Ml/ Dose) 1 ml In Amino Acid 4.25%-D10w+Lytes*E* 1,000 ml @ 30 mls/hr IV .Q24H [facility] Rx#:[id number] Sodium Chloride 0.9% 1, 675 525 75 000 ml @ 75 mls/hr IV . [id number] [facility] Rx#:[id number] ceFAZolin 2 gm In Sodium 50 50 Chloride 0.9% 50 ml @ 100 mls/hr IVPB ONCE ONE Rx# :[id number] metroNIDAZOLE-NS PMX 500 100 100 mg In Saline 1 100ml.bag @ 100 mls/hr IVPB Q8HR [facility] Rx#:[id number] Intake, IV Titration 280.175 342.034 Amount Amiodarone 450 mg In 228.616 Dextrose 5% in Water 250 ml @ 0.5 MG/MIN 16.667 mls/hr IV .Q15H [facility] Rx#: [id number] Norepinephrine 8 mg In 205.603 113.418 Sodium Chloride 0.9% 250 ml @ 0.03 MCG/KG/MIN 2.99 mls/hr IV .Q24H [facility] Rx#: [id number] propofoL 1,000 mg In 74.572 Empty Bag 1 bag @ 15 MCG/ KG/MIN 4.635 mls/hr IV . [id number] [facility] Rx#:[id number] Output: Urine 525 405 30 Other: Voiding Method Indwelling Catheter Indwelling Catheter ABP, PAP, CO, CI - Last Documented Arterial Blood Pressure 135/49 - Labs CBC & Chem 7: 07/22/22 05:00 07/22/22 05:00 Labs: Abnormal Lab Results - Last 24 Hours (Table) 07/21/22 07/21/22 07/22/22 Range/Units 11:23 17:24 00:15 RBC (3.80-5.40) m/uL Hgb (11.4-16.0) gm/dL Hct (34.0-46.0) % MCV (80.0-100.0) fL MCHC (31.0-37.0) g/dL Neutrophils # (1.3-7.7) k/uL Lymphocytes # (1.0-4.8) k/uL ABG pH (7.35-7.45) ABG pO2 (83-108) mmHg ABG O2 Saturation (94-97) % Chloride (98-107) mmol/L Carbon Dioxide (22-30) mmol/L BUN (7-17) mg/dL Creatinine (0.52-1.04) mg/dL Glucose (74-99) mg/dL POC Glucose (mg/dL) 182 H 245 H 290 H (70-110) mg/dL Calcium (8.4-10.2) mg/dL 07/22/22 07/22/22 07/22/22 Range/Units 05:00 05:00 05:21 RBC 3.07 L (3.80-5.40) m/uL Hgb 9.6 L (11.4-16.0) gm/dL Hct 31.1 L (34.0-46.0) % MCV 101.3 H (80.0-100.0) fL MCHC 30.9 L (31.0-37.0) g/dL Neutrophils # 9.8 H (1.3-7.7) k/uL Lymphocytes # 0.4 L (1.0-4.8) k/uL ABG pH (7.35-7.45) ABG pO2 (83-108) mmHg ABG O2 Saturation (94-97) % Chloride 111 H (98-107) mmol/L Carbon Dioxide 20 L (22-30) mmol/L BUN 39 H (7-17) mg/dL Creatinine 1.47 H (0.52-1.04) mg/dL Glucose 255 H (74-99) mg/dL POC Glucose (mg/dL) 267 H (70-110) mg/dL Calcium 7.3 L (8.4-10.2) mg/dL 07/22/22 Range/Units 05:57 RBC (3.80-5.40) m/uL Hgb (11.4-16.0) gm/dL Hct (34.0-46.0) % MCV (80.0-100.0) fL MCHC (31.0-37.0) g/dL Neutrophils # (1.3-7.7) k/uL Lymphocytes # (1.0-4.8) k/uL ABG pH 7.34 L (7.35-7.45) ABG pO2 148 H (83-108) mmHg ABG O2 Saturation 99.7 H (94-97) % Chloride (98-107) mmol/L Carbon Dioxide (22-30) mmol/L BUN (7-17) mg/dL Creatinine (0.52-1.04) mg/dL Glucose (74-99) mg/dL POC Glucose (mg/dL) (70-110) mg/dL Calcium (8.4-10.2) mg/dL
[2022-07-22] MEDS: LEVOTHYROXINE IVP 100 MCG/5 ML VIAL IV SCH (08:47)
[2022-07-22] MEDS: CHLORHEXIDINE GLUCONATE 15 ML CUP MUCOUS MEM SCH ×2 (08:48→21:04)
[2022-07-22] MEDS: BENZONATATE 100 MG CAP PO SCH (08:49)
[2022-07-22] MEDS ORDERED: DEXTROSE 5% IN WATER 100 ML with AMIODARONE 150 MG IV ONE (09:00)
[2022-07-22] MEDS: polyethylene glycoL 3350 17 GM POWD.PACK PO SCH (09:08)
[2022-07-22] MEDS: METOPROLOL TARTRATE 5 MG/5 ML VIAL IVP SCH ×3 (09:17→23:30)
--- NOTE | 2022-07-22 09:19 | P.PN ---
Progress Note - Text Progress Note Date: 07/22/22 Patient remains on the ventilator in the ICU. She is still having issues with blood pressure and heart rate. Currently the fat has come down some. Her pulse is currently in the 1:30 range. On exam her abdomen soft. Incision site is clean dry intact Patient's had some marginal urine output. Patient received a liter bolus of normal saline. Her hemoglobin was 9.6. The patient will hold anticoagulants for the 24 hours.
--- NOTE | 2022-07-22 09:28 | P.PN ---
Subjective Progress Note Date: 07/22/22 Seeing this patient in consultation today 07/13/2022 in the emergency room waiting for a bed on the selective care unit. Patient is an 81-year-old white female with past significant medical history of atrial fibrillation, permanent pacemaker, coronary artery disease, breast cancer post radiation therapy and lumpectomy, hypertension, hyperlipidemia, diabetes mellitus, hypothyroidism, and is a lifelong nonsmoker. Patient does follow with Dr. Haile in the office for a solitary lung nodule. Patient presented to the emergency room yesterday evening with chief complaint of shortness of breath over the past 2 weeks. Also, reports chest congestion and a frequent cough with occasional phlegm. Patient denies any chest pain, heart palpitations, lightheadedness or syncope, fever, hemoptysis. Patient apparently was seen by Dr Babcock, her primary care provider, and was given a course of prednisone and a Z-Sherman. Patient had no improvement in symptoms. Patient is currently resting emergency room, on room air, in no acute distress. Chest x-ray arrival showed no acute cardiopulmonary process. While the emergency room, patient did have an episode of A. fib RVR, which has currently resolved, as the patient is in normal sinus rhythm around 80 bpm. troponins are mildly elevated most recent troponin 0.068. EKG currently shows normal sinus rhythm without any obvious ischemic changes. NT proBNP is 1890. Normal saline is infusing at 130 mL per hour. Patient's CBC on arrival showed a WBC count 9.9, hemoglobin 12, hematocrit 36.7, platelets 302. 41, potassium 4.5, chloride 105, serum CO2 26, BUN 74, creatinine 1.68, 75. LFTs are mildly elevated. Patient was negative for influenza, RSV, COVID-19. Vital signs are stable. Progress note dated 07/14/2022. 82-year-old female seen by myself and our nurse practitioner in the emergency department yesterday, in consultation. The patient presented with increasing shortness of breath, most likely secondary to atrial fibrillation. She has a history of atrial fibrillation, previous pacemaker implantation, CAD, rest cancer, hypertension, hyperlipidemia, diabetes, and hypothyroidism. Currently, the patient's on room air. She's not receiving any IV fluids. Laboratory data includes a sodium 140, potassium 5.2, chlorides 108, CO2 28, BUN 48 and creatinine 1.30. Glucose 131. Calcium is 9.2. Chest x-ray showed nothing acute. Progress note dated 07/15/2022. 81-year-old female seen today in room 361. She was seen in consultation 2 days ago in the emergency department. She came in with complaints of shortness of breath, and was found have atrial fibrillation with rapid ventricular response. Currently, she's not receiving any supplemental oxygen, or IV fluids. She looks much more comfortable. No new labs today. Progress note dated 07/16/2022. 82-year-old female seen in room 361. The patient is feeling much better. She was admitted with a diagnosis of shortness of breath and cough, secondary to both bronchitis, as well as atrial fibrillation with rapid ventricular response. Currently, she's been weaned off of oxygen. She's not receiving any IV fluids. Her cough and shortness of breath are much improved. No new labs today other than a glucose of 166. I am reevaluating this patient today 07/17/2022 in follow-up on the general medical floor. She is currently resting in bed, on room air, in no acute distress. Patient continues to improve clinically. No new labs today. Cough has improved with addition of Tessalon Perles. Heart rhythm is regular and she is anticoagulated with Eliquis. Vital signs remain stable. On today's evaluation of 07/18/2022, the main issue remains bowed related factors including episodic constipation. The patient is currently on MiraLAX once a day. Less short of breath and the cough has subsided significantly. Currently on a Medrol Dosepak. X-ray shows stable and the patient is currently on room air oxygen and she completed antibiotics. IV fluids are currently at KVO. On today's evaluation of 07/19/2022, the patient's overall respiratory status is stable. The patient has no symptoms and cough or sputum production. Bronchospasm wheezing has subsided. She continues to have constipation. She was given laxatives. She was also having some abdominal pain diminished appetite. Based on that, a CAT scan of the abdomen was done and the patient had findings suspicious for a small bowel obstruction with suspected transition point within a partially visualized right inguinal hernia. Evaluation was limited as on a CAT scan of the abdomen was ordered. There is a nonobstructive right renal calculus. She was also found to have colonic diverticulosis. The patient was given an enema with limited output. There is no evidence of any diverticulitis. No evidence of any large bowel obstruction. No evidence of any pneumoperitoneum. The patient has a BUN of 56 and a creatinine of 1.7 and a sodium level is at 142, as such, the renal function continues to improve. She remains in normal sinus rhythm. On today's evaluation of 07/20/2022, the patient is being seen in the intensive care unit after having her surgery done. The patient was having abdominal pain, discomfort, constipation and subsequently she progress and she developed some peritoneal signs. At that point, she was taken for laparotomy and the patient was found to have an incarcerated right inguinal hernia with evidence of ischemic small bowel. The patient underwent small bowel resection with primary closure. The patient was kept intubated and following that the patient was brought into the intensive care unit. At this point in time, the patient is sedated on propofol currently running at 40 mcg/kg/m. She is calm and comfortable. To assist control mode of mechanical ventilation at the rate of 12, tidal volume of 400, FiO2 of 40% and a PEEP of 5. FiO2 was dropped down to 40% of the blood gas showed a pH of 7.4 with a pCO2 of 37 and pO2 of more than 400. The patient received a total of 2.5 L of IV fluids.maintenance rate of 75 mL an hour. Urine operas in order of 20-30 mL an hour. The patient remains in atrial fibrillation. The patient has a mean arterial pressure was around 65. She is also on norepinephrine running at 0.2 mcg/kg/m. The patient is afebrile. Surgical wound site is dry clean and intact. Bowel sounds are hypoactive. Her current cardiac rhythm is atrial fibrillation. Chest x-ray showed adequate expansion of both lungs. ET tube is in a good location. The patient is a triple-lumen catheter in the right IJ. Morning labs are notedMorning labs were noted and the patient has a BUN of 53 with a creatinine of 1.5 and a sodium of 142. Platelet count is 240. No significant leukocytosis and the patient's white cell count was at 15.8 with a hemoglobin of 13.7. On 07/21/2022, I'm seeing the patient for a follow-up. The patient is postop day #1. This morning, the patient is adequately sedated on propofol which is running at 40 mcg/kg/m. The propofol this can be slightly weaned down as the patient is significantly sedated. She is on assist-control mode of mechanical ventilation. She doesn't assist control of 12, tidal volume of 400, crit of 40% with a PEEP of 5. The blood. From today shows a pH of 7.4 with episodes of 38 and pO2 of 1:30. The chest x-ray from today shows no acute abnormalities. There is some small effusions lung base bilaterally. ET tube is in a good location. No airspace disease or consolidation. The patient also has a pacemaker over the left anterior chest and the patient has a right IJ triple-l umen catheter in place. The patient is currently on a combination of cefepime and Flagyl. The patient remains on pressors and norepinephrine is running at the rate of 0.15 mcg/kg/m. The patient has a urine operas in order of marginal 30-40 mL an hour. The patient is on normal saline at the rate of 75 mL an hour. Meanwhile, the patient remains nothing by mouth. NG tube is in place. Output from the NG tube is minimal. The surgical wound is dry clean and intact. The patient has superficial wound VAC with minimal amount of drainage. Bowel sounds are hypoactive/absent. Nevertheless, her abdomen is nondistended. In terms of the rest of the blood work, the WBC count is at 10.7 with a hemoglobin of 10.7 and a platelet count of 180. Sodiums of 140, BUN is at 41 with a creatinine of 1.33. Liver function tests yesterday were essentially within normal limits. Albumin is at 2.4 with a total protein of 4.5. She is afebrile this morning. No other significant events overnight. In terms of her cardiac rhythm, the patient remained nature fibrillation. The patient will be switched to oral amiodarone today. Unable to get beta blockers as long as the patient is still hypotensive. She is on no anticoagulants for now. Her TSH was 0.9 and the patient is on low-dose Synthroid 37.5 g IV every 24 hours. 07/22/2022, the patient is postop day #2. This morning, she remains up at 40 mcg/kg/m. She is arousable and she follows simple commands even while being on sedation. She remains on a mechanical ventilator. She is on assist-control at the rate of 12, tidal volume of 400, FiO2 40% with a PEEP of 5. Chest x-ray from today still pending. Blood gas from this morning shows a pH of 7.34 with episodes of 38 and pO2 of 148. As such, she has adequate oxygenation. The patient's chest x-ray from today is pending. Meanwhile, the patient is still on a mechanical ventilator. She is, comfortable. No significant orotracheal secretions. Hemodynamically, the patient has been obvious significant positive fluid balance. Urine output is in order of 20-30 mL an hour. The creatinine today is stable at 1.47 with a BUN of 39. Sodium is at 137 and a serum bicarb is at 20. The white cell count today is at 10.6 with a hemoglobin of 9.6. The patient was receiving IV fluids in the form of normal saline at the rate of 75 mL an hour. The patient was also started on TPN for nutritional support. This is running at 30 mL an hour. IV antibiotics include a combination of cefepime and Flagyl. Meanwhile, the patient is having issues with atrial fibrillation. After being on amiodarone drip, the patient's heart rate stabilized. This morning, she was again tachycardic. She was given Lopressor 5 mg IV in addition to amiodarone bolus a total of 150 mg IV push. Her heart is under better control for now it's under 100. She is on no anticoagulants. The surgeon would like to wait another 24-48 hours prior to starting the patient any form of anticoagulants. Surgical wound is dry clean and intact. The patient has a superficial VAC in place. Objective - Vital Signs Vital signs: Vital Signs Temp 98.9 F 07/22/22 04:00 Pulse 128 H 07/22/22 08:07 Resp 13 07/22/22 06:00 BP 134/100 07/22/22 06:00 Pulse Ox 99 07/22/22 05:00 FiO2 40 07/22/22 08:03 Intake & Output 07/21/22 07/22/22 07/22/22 18:59 06:59 18:59 Intake Total 6059.683 0045.034 105 Output Total 525 405 30 Balance 740.175 972.034 75 Weight 55.5 kg 55.8 kg Intake: IV 985 1035 105 Magnesium Sulfate-D5w Pmx 100 1 gm In Dextrose/Water 1 100ml.bag @ 100 mls/hr IVPB Q1H [facility] Rx#: [id number] Mvi, Adult No.4 with Vit 60 360 30 K 10 ml Trace (Conc-1Ml/ Dose) 1 ml In Amino Acid 4.25%-D10w+Lytes*E* 1,000 ml @ 30 mls/hr IV .Q24H [facility] Rx#:[id number] Sodium Chloride 0.9% 1, 675 525 75 000 ml @ 75 mls/hr IV . [id number] [facility] Rx#:[id number] ceFAZolin 2 gm In Sodium 50 50 Chloride 0.9% 50 ml @ 100 mls/hr IVPB ONCE ONE Rx# :[id number] metroNIDAZOLE-NS PMX 500 100 100 mg In Saline 1 100ml.bag @ 100 mls/hr IVPB Q8HR [facility] Rx#:[id number] Intake, IV Titration 280.175 342.034 Amount Amiodarone 450 mg In 228.616 Dextrose 5% in Water 250 ml @ 0.5 MG/MIN 16.667 mls/hr IV .Q15H [facility] Rx#: [id number] Norepinephrine 8 mg In 205.603 113.418 Sodium Chloride 0.9% 250 ml @ 0.03 MCG/KG/MIN 2.99 mls/hr IV .Q24H [facility] Rx#: [id number] propofoL 1,000 mg In 74.572 Empty Bag 1 bag @ 15 MCG/ KG/MIN 4.635 mls/hr IV . [id number] [facility] Rx#:[id number] Output: Urine 525 405 30 Other: Voiding Method Indwelling Catheter Indwelling Catheter ABP, PAP, CO, CI - Last Documented Arterial Blood Pressure 135/49 - Exam GENERAL EXAM: Alert, 81-year-old white female, comfortable, sedated, currently intubated on a mechanical ventilator.. HEAD: Normocephalic and atraumatic EYES: Normal reaction of pupils, equal size. NOSE: Clear with pink turbinates. THROAT: No erythema or exudates. NECK: No masses, no JVD. The patient has an orogastric and orotracheal tube and both of them are in place CHEST: No chest wall deformity. LUNGS: Equal air entry with no crackles, wheeze, rhonchi or dullness. On room air. No conversational dyspnea or accessory muscle use.. CVS: S1 and S2 normal with no audible murmur, regular rhythm. No extra heart sounds ABDOMEN: No hepatosplenomegaly, active bowel sounds, no guarding or rigidity. The patient's surgical one-sided over the anterior abdominal wall is dry clean and intact. SPINE: No scoliosis or deformity SKIN: No rashes CENTRAL NERVOUS SYSTEM: No focal deficits, tone is normal in all 4 extremities. EXTREMITIES: There is no peripheral edema, clubbing, or cyanosis. Peripheral pulses are intact. - Labs CBC & Chem 7: 07/22/22 05:00 07/22/22 05:00 Labs: Abnormal Lab Results - Last 24 Hours (Table) 07/21/22 07/21/22 07/22/22 Range/Units 11:23 17:24 00:15 RBC (3.80-5.40) m/uL Hgb (11.4-16.0) gm/dL Hct (34.0-46.0) % MCV (80.0-100.0) fL MCHC (31.0-37.0) g/dL Neutrophils # (1.3-7.7) k/uL Lymphocytes # (1.0-4.8) k/uL ABG pH (7.35-7.45) ABG pO2 (83-108) mmHg ABG O2 Saturation (94-97) % Chloride (98-107) mmol/L Carbon Dioxide (22-30) mmol/L BUN (7-17) mg/dL Creatinine (0.52-1.04) mg/dL Glucose (74-99) mg/dL POC Glucose (mg/dL) 182 H 245 H 290 H (70-110) mg/dL Calcium (8.4-10.2) mg/dL 07/22/22 07/22/22 07/22/22 Range/Units 05:00 05:00 05:21 RBC 3.07 L (3.80-5.40) m/uL Hgb 9.6 L (11.4-16.0) gm/dL Hct 31.1 L (34.0-46.0) % MCV 101.3 H (80.0-100.0) fL MCHC 30.9 L (31.0-37.0) g/dL Neutrophils # 9.8 H (1.3-7.7) k/uL Lymphocytes # 0.4 L (1.0-4.8) k/uL ABG pH (7.35-7.45) ABG pO2 (83-108) mmHg ABG O2 Saturation (94-97) % Chloride 111 H (98-107) mmol/L Carbon Dioxide 20 L (22-30) mmol/L BUN 39 H (7-17) mg/dL Creatinine 1.47 H (0.52-1.04) mg/dL Glucose 255 H (74-99) mg/dL POC Glucose (mg/dL) 267 H (70-110) mg/dL Calcium 7.3 L (8.4-10.2) mg/dL 07/22/ Range/Units 05:57 RBC (3.80-5.40) m/uL Hgb (11.4-16.0) gm/dL Hct (34.0-46.0) % MCV (80.0-100.0) fL MCHC (31.0-37.0) g/dL Neutrophils # (1.3-7.7) k/uL Lymphocytes # (1.0-4.8) k/uL ABG pH 7.34 L (7.35-7.45) ABG pO2 148 H (83-108) mmHg ABG O2 Saturation 99.7 H (94-97) % Chloride (98-107) mmol/L Carbon Dioxide (22-30) mmol/L BUN (7-17) mg/dL Creatinine (0.52-1.04) mg/dL Glucose (74-99) mg/dL POC Glucose (mg/dL) (70-110) mg/dL Calcium (8.4-10.2) mg/dL Assessment and Plan Plan: Incarcerated right inguinal hernia with bowel ischemia. The patient is post laparotomy and small bowel resection. The patient is currently postop day #2 Acute hypotension, rule out secondary to abdominal sepsis. The patient was adequately resuscitated. The patient continues to be on pressors and she is on norepinephrine running at 0.18 mcg/kg/m. Acute hypoxic respiratory failure that followed abdominal surgery. The patient was kept intubated on mechanical ventilator following her abdominal surgery, chest x-rays adequate and a blood gases also adequate. The patient is oxygenating adequately. Awaiting follow-up chest x-ray from today. Recent hospitalization for an acute bronchitis, essentially improving Atrial fibrillation with rapid ventricular rate, currently on amiodarone drip at 0.5 mg/m. The patient was also given a bolus. No anticoagulants for now. Abdominal pain secondary to above Acute kidney injury, improving creatinine , follow-up creatinine is stable History of sick sinus syndrome S/P permanent pacemaker implantation. Coronary artery disease. Diabetes mellitus, insulin-dependent. Hypertension. Hyperlipidemia. History of pulmonary nodules. History of breast cancer S/P radiation therapy and lumpectomy. Lifelong nonsmoker. Hypothyroidism Plan: Continue ventilator support No ventilator changes propofol for sedation, lower degree of sedation, and give the patient has sedation holiday and assess for any potential for weaning. I personally think that the patient is not absolutely of the yet for further weaning. We'll going to given a sedation holiday and assess his respiratory status and hemodynamics in general. Keep the patient nothing by mouth for now Continue TPN Continue combination of cefepime and Flagyl covering for any source of intra- abdominal sepsis Titrate norepinephrine to make any artery pressure was 65, currently running at 0.18 mcg/kg/m Monitor urine output, renal function is stable, no need for additional fluids The patient is on Synthroid on outpatient basis and the patient will be given IV Synthroid 37.5 mg on a daily basis Monitor cardiac rhythm and the rhythm is atrial fibrillation with a controlled rate, currently on oral amiodarone. no BETA blockers till the patient's blood pressures under better control The patient has a triple-lumen catheter and arterial line no steroids for now Management of atrial fibrillation per cardiology. Continue the amiodarone drip for now. Additional bolus was given. No anticoagulants for now, to the patient is cleared from a surgical standpoint Compression devices to lower extremity for DVT prophylaxis NovoLog sliding-scale coverage we'll continue to follow make further recommendations. I had a lengthy discussion with the daughter is at the bedside. Evaluation was done in more than 30 minutes. Time with Patient: Greater than 30
--- NOTE | 2022-07-22 09:44 | XR ---
The EXAMINATION TYPE: XR chest 1V portable DATE OF EXAM: 07/22/2022 COMPARISON: 07/21/2022 HISTORY: SOB, Follow Up FINDINGS: Indwelling tubes and catheters are unchanged. No change in bibasilar opacities. Stable appearance of the cardio-mediastinal structures at this time. Pleural effusion unchanged. IMPRESSION: 1. Stable portable chest. Clinical correlation and follow up until resolution is recommended.
[2022-07-22] MEDS: CEFEPIME 1 GM in SODIUM CHLORIDE 0.9% 50 ML IVPB SCH ×2 (10:31→21:03)
[2022-07-22 11:43] LABS: Glucose,Whole Blood 252 mg/dL (70-110)
[2022-07-22] MEDS: SODIUM CHLORIDE 0.9% 500 ML 500 ML IV SCH (14:37)
[2022-07-22] MEDS ORDERED: SODIUM CHLORIDE 0.9% 1,000 ML IV ONE (16:32)
[2022-07-22 18:01] LABS: Glucose,Whole Blood 251 mg/dL (70-110)
[2022-07-22] MEDS: 1: MVI, ADULT NO.4 WITH VIT K 10 ML, TRACE (CONC-1ML/DOSE) 1 ML in AMINO ACID 4.25%-D10W IV SCH ×3 (19:10)
[2022-07-22] MEDS: FLUTICASONE 50MCG/SPRAY NASAL 16GM EA NOSTRIL SCH (21:17)
[2022-07-22 23:15] LABS: Glucose,Whole Blood 260 mg/dL (70-110)
[2022-07-23] MEDS: IPRATROPIUM-ALBUTEROL 3 ML NEB INHALATION PRN (03:49)
[2022-07-23 04:22] LABS: Basophils % (A) 0 %; Eosinophils # (A) 0.1 k/uL (0-0.7); Eosinophils % (A) 1 %; HCT 28.4 % (34.0-46.0); HGB 9.1 gm/dL (11.4-16.0); Lymphocytes # (A) 0.3 k/uL (1.0-4.8); Lymphocytes % (A) 4 %; MCH 32.3 pg (25.0-35.0); MCV 100.8 fL (80.0-100.0); Mean Platelet Volume 8.9; Monocytes # (A) 0.2 k/uL (0-1.0); Monocytes % (A) 3 %; Neutrophils # (A) 8.7 k/uL (1.3-7.7); Neutrophils % (A) 92 %; Platelet Count 162 k/uL (150-450); RBC 2.82 m/uL (3.80-5.40); RDW 12.9 % (11.5-15.5); WBC 9.5 k/uL (3.8-10.6)
[2022-07-23 04:24] LABS: Calcium 7.1 mg/dL (8.4-10.2); Magnesium 2.1 mg/dL (1.6-2.3); Phosphorus 2.9 mg/dL (2.5-4.5); Potassium 3.8 mmol/L (3.5-5.1)
--- NOTE | 2022-07-23 04:40 | P.PN ---
Subjective Progress Note Date: 07/22/22 Patient is a 81-year-old female with a known history of atrial fibrillation on anticoagulation with Eliquis, history of permanent pacemaker placement, hypertension, hyperlipidemia, diabetes type 2 insulin-dependent, hypothyroidism, osteoarthritis and chronic back pain and anxiety presents ER with complaints of shortness of breath for past 2 weeks. Patient was having chest congestion and cough with clear to greenish sputum production. Patient was seen by her primary care physician and was given Z-Sherman and prednisone course. Patient still having symptoms without much improvement presented to ER. Denies any fever or chills. No leg swelling. No nausea vomiting abdominal pain or diarrhea. Chest x-ray in the ER showed no acute process. EKG showed atrial fibrillation with rapid regular rate with heart rate 134 Laboratory data showed WBC 9.9 hemoglobin 12.0 and platelets 302 Sodium 141 potassium 4.5 chloride 105 bicarb is 26 BUN 74 and creatinine 1.68, AST 38 ALT 45 alk phos 48 and troponin 0.054, 0.052 and 0.068, procalcitonin level is 0.11 TSH within normal limits and proBNP is 1890 Influenza A, B, RSV and COVID-19 PCR not detected. 07/14/2022 This is a pleasant 81 years old female was admitted with A. fib and RVR consult with evidence with acute bronchitis. She's been treated with Zithromax, normal saline for acute kidney injury and her Lopressor dose was increased to 75 mg 3 times a day by musical instrument maker or repairer, currently heart rate is controlled and she is on Eliquis home dose of 2.5 mg However patient lying in bed and she still feels short of breath and she still was not ready for discharge.. Cartilage team adjusted some of her blood pressure medication and they cleared her for discharge Pulmonary team on the case and patient was started on Medrol Dosepak. 07/15/2022 Patient clinically doing well and she is back to baseline, breathing significantly improved with no chest pain heart rate is controlled with occasional changes in heart rate, symptomatic goes back to normal quickly. Patient is currently clinically stable and she was cleared for discharge by both cardiology and pulmonary services, I discussed with the patient she does not want to go home today and she wants to be evaluated by physical therapy first. Discussed with bed side nurse to contact physical therapy to this morning and they're pending. Patient is a 81-year-old female with a known history of atrial fibrillation on anticoagulation with Eliquis, history of permanent pacemaker placement, hyper tension, hyperlipidemia, diabetes type 2 insulin-dependent, hypothyroidism, osteoarthritis and chronic back pain and anxiety presents ER with complaints of shortness of breath for past 2 weeks. Patient was having chest congestion and cough with clear to greenish sputum production. Patient was seen by her primary care physician and was given Z-Sherman and prednisone course. Patient still having symptoms without much improvement presented to ER. Denies any fever or chills. No leg swelling. No nausea vomiting abdominal pain or diarrhea. Chest x-ray in the ER showed no acute process. EKG showed atrial fibrillation with rapid regular rate with heart rate 134 Laboratory data showed WBC 9.9 hemoglobin 12.0 and platelets 302 Sodium 141 potassium 4.5 chloride 105 bicarb is 26 BUN 74 and creatinine 1.68, AST 38 ALT 45 alk phos 48 and troponin 0.054, 0.052 and 0.068, procalcitonin level is 0.11 TSH within normal limits and proBNP is 1890 Influenza A, B, RSV and COVID-19 PCR not detected. 07/14/2022 This is a pleasant 81 years old female was admitted with A. fib and RVR consult with evidence with acute bronchitis. She's been treated with Zithromax, normal saline for acute kidney injury and her Lopressor dose was increased to 75 mg 3 times a day by musical instrument maker or repairer, currently heart rate is controlled and she is on Eliquis home dose of 2.5 mg However patient lying in bed and she still feels short of breath and she still was not ready for discharge.. Cartilage team adjusted some of her blood pressure medication and they cleared her for discharge Pulmonary team on the case and patient was started on Medrol Dosepak. 16 2022 Patient is currently lying in bed. Awake alert and oriented x3. Denies any complaints of chest pain. Shortness of breath is much improved. No cough or sputum production. Otherwise patient is still feeling generalized weakness and needs assistance with walking to the bathroom. PT OT was consulted and family is concerned about going home. Anticipate discharge home versus rehab in the next 24 to 48 hours. High risk with history of sustaining. Laboratory data reviewed. Cleared from pulmonary and cardiology standpoint. 07/17/2022 Patient is seen and evaluated in follow-up and continues with weakness and being evaluated by physical therapy. Patient does have some cough and reports her shortness of breath is improved. Patient taking a number of medications causing an increase in kidney functions and will hold the splint pressure medications and Lasix and follow-up with repeat labs. Patient prefers to go home and arranging for home care in the outpatient setting. Patient is currently afebrile continues to report cough although denies shortness of breath. Patient is tolerating diet with no reports of nausea or vomiting noted. 07/18/2022 Patient is seen and evaluated in follow-up this morning with kidney functions trending down low not much improved as patient did receive the Lasix and lisinopril yesterday. Patient is having increased abdominal pain with severe cramping and nausea and reports she feels she has to have a bowel movement but is unable to. Patient does have history of IBS although was not having any loose stools. Patient is reporting 10/10 pain and unable to stand due to the intensity of the cramping and laying in the position in bed. Will add Bentyl and additional medications. Patient encouraged to increase activity as tolerated. Cardiology and pulmonary following and have cleared the patient for discharge. Will monitor overnight with probable discharge in 24 hours. 07/19/2022 Patient is seen and evaluated in follow-up today reports to not feeling well at all with extreme nausea and some vomiting. Patient unable to keep her medications down and heart rate noted to be elevated into the 140s. Cardiology had been following although signed off and will reconsult. Cardiology following back up given additional dose of metoprolol although patient not able to tolerate and unsure if she took the medication. Patient continues to show atrial fibrillation with RVR and cardiology starting Cardizem drip. Patient will need transfer to cardiology floor for monitoring of the strep as she is cu rrently on 5 N. and they do not handle Cardizem drips. Patient is currently afebrile does report some palpitations although denies chest pain. Patient having extreme nausea with some vomiting and abdominal pain. Patient also feels to having some constipation and reports did have a very minimal difficult time having a small bowel movement yesterday after suppository, will add enema. 07/20/2022 Patient is seen early this morning with daughter at bedside and is currently nothing by mouth awaiting surgical intervention with Dr. Esparza with concerns of incarcerated hernia as patient was reporting abdominal pain. Patient did have an episode of atrial fibrillation with RVR and initially going to start Cardizem drip yesterday although converted to sinus rhythm and was resumed on eliquis with cardiology following. Cardizem drip was discontinued at that point although patient continue with increased abdominal pain and discomfort with vomiting and general surgery was consulted. Patient had an abdominal x-ray which showed few mildly dilated loops of small bowel with multiple air-fluid levels concerning with developing bowel obstruction recommending a CT follow-up. Patient's kidney functions were elevated although repeat creatinine was improving at 1.7 with lisinopril and Lasix being held. Ordered a CT abdomen without contrast which showed findings suspicious for small bowel obstruction with suspected transition point within a partially visualized right inguinal hernia Limited evaluation without the contrast with fibroid changes of the uterus and not obstructed right renal calculus with colonic diverticulosis without evidence of diverticulitis. Patient was placed nothing by mouth and General surgery recommending surgical intervention and was held over until this morning as patient did receive her anticoagulation yesterday. Patient did have an elevation in white count up to 15 although afebrile continued to have abdominal pain and extremely tender on palpation. Patient also had uncontrolled rhythms in A. fib with RVR and was moved to 3 S. early this morning and placed on the Cardizem drip. Will await surgical report. 07/21/2022 Patient is seen and evaluated continues to be in the ICU on mechanical ventilation with no plans of leaving today. Heart rate remains uncontrolled and was maintained on Cardizem will be transitioned to amiodarone with cardiology following. General surgery following a patient is status post surgical intervention for the right incarcerated hernia. Patient is continued on antibiotics along with low-dose pressor support and will continue to monitor closely. Patient does have abdominal dressings in the form of prevana that are intact and abdomen is less distended. Patient does have a central line and TPN is being started. 07/22/2022 Patient is seen this morning in the ICU maintained on mechanical ventilation and FiO2 is 40% with a PEEP of 5. Patient is undergoing sedation holidays and currently awake and following commands. Plan is to remain on mechanical ventilation as patient continues to have some hypotension requiring pressor support as well as uncontrolled atrial fibrillation. Patient on amiodarone drip and also being continued on IV Lopressor. Patient is maintaining on cefepime and Flagyl sputum culture was obtained. Patient is afebrile and has been started on TPN. Patient continues with pain and will continue as needed low- dose Dilaudid. Gen. surgery following and will continue with prevana dressing to the abdomen. No bowel movement as of yet per nursing staff and sluggish bowel sounds noted. Review of systems: Unable to obtain as patient is on mechanical ventilation and sedated Active Medications Acetaminophen (Acetaminophen Tab 325 Mg Tab) 650 mg PO Q6HR PRN PRN Reason: Fever and/ or Pain Last Admin: 07/18/22 10:50 Dose: 650 mg Hydrocodone Bitart/Acetaminophen (Hydrocodone/Apap 5-325mg 1 Each Tab) 1 each PO Q6HR PRN PRN Reason: Pain Last Admin: 07/21/22 05:06 Dose: 1 each Albuterol/Ipratropium (Ipratropium-Albuterol 3 Ml Neb) 3 ml INHALATION RT-Q2H PRN PRN Reason: Shortness Of Breath Or Wheezing Last Admin: 07/23/22 03:49 Dose: 3 ml Albuterol/Ipratropium (Ipratropium-Albuterol 3 Ml Neb) 3 ml INHALATION RT-QID [facility]UDY Last Admin: 07/22/22 19:37 Dose: 3 ml Chlorhexidine Gluconate (Chlorhexidine Gluconate 15 Ml Cup) 15 ml MUCOUS MEM BID [facility] Last Admin: 07/22/22 21:04 Dose: 15 ml Dextrose/Water (Dextrose 50% Syringe 50 Ml) 25 ml IVP PER PROTOCOL PRN; Protocol PRN Reason: Hypoglycemia Dextrose/Water (Dextrose 50% Syringe 50 Ml) 50 ml IVP PER PROTOCOL PRN; Protocol PRN Reason: Hypoglycemia Fluticasone Propionate (Fluticasone 50mcg/[place] Nasal 16gm) 1 spray EA NOSTRIL HS [facility] Last Admin: 07/22/22 21:17 Dose: Not Given Hydromorphone HCl (Hydromorphone 0.5 Mg/0.5 Ml Syringe) 0.125 mg IVP Q3HR PRN PRN Reason: Pain Last Admin: 07/22/22 14:34 Dose: 0.125 mg Propofol 1,000 mg/ IV Solution 100 mls @ 4.635 mls/hr IV .[id number] [facility]; Protocol Last Titration: 07/23/22 00:30 Dose: 30 mcg/kg/min, 9.27 mls/hr Norepinephrine Bitartrate 8 mg (/ Sodium Chloride) 258 mls @ 2.99 mls/hr IV .Q24H CLAUDY; Protocol Last Titration: 07/23/22 04:20 Dose: 0.14 mcg/kg/min, 13.951 mls/hr Metronidazole 500 mg/ IV (Solution) 100 mls @ 100 mls/hr IVPB Q8HR CLAUDY; Protocol Last Admin: 07/22/22 23:30 Dose: 100 mls/hr Cefepime HCl 1 gm/ Sodium (Chloride) 50 mls @ 12.5 mls/hr IVPB Q12HR [facility] Last Admin: 07/22/22 21:03 Dose: 12.5 mls/hr Parenteral Vitamin Supplement 10 ml/ Zinc/Copper/Manganese/Selenium 1 ml/ Amino Ac/Electrol/Dextrose/Calcium 1,011 mls @ 55 mls/hr IV .BY DURATION CLAUDY Last Admin: 07/22/22 19:10 Dose: 55 mls/hr Amino Ac/Electrol/Dextrose/Calcium (Clinimix E 4.25%-D10% Solution) 1,000 mls @ 55 mls/hr IV .BY DURATION CLAUDY Sodium Chloride (Saline 0.9%) 500 mls @ 20 mls/hr IV .Q24H [facility]UDY Last Admin: 07/22/22 14:37 Dose: 20 mls/hr Amiodarone HCl 450 mg/ (Dextrose/Water) 250 mls @ 16.667 mls/hr IV .Q15H [facility]UDY; Protocol Last Admin: 07/22/22 18:19 Dose: 0.5 mg/min, 16.667 mls/hr Insulin Aspart (Insulin Aspart (Novolog) 100 Unit/Ml Vial) 0 unit SQ Q6H CLAUDY; Protocol Last Admin: 07/22/22 23:31 Dose: 3 unit Levothyroxine Sodium (Levothyroxine Ivp 100 Mcg/5 Ml Vial) 37.5 mcg IV DAILY CLAUDY Last Admin: 07/22/22 08:47 Dose: 37.5 mcg Metoclopramide HCl (Metoclopramide 5 Mg/Ml 2 Ml Vial) 5 mg IVP Q6HR CLAUDY Last Admin: 07/22/22 23:31 Dose: 5 mg Metoprolol Tartrate (Metoprolol Tartrate 5 Mg/5 Ml Vial) 5 mg IVP Q6HR [facility] Last Admin: 07/22/22 23:30 Dose: 5 mg Naloxone HCl (Naloxone 0.4 Mg/Ml 1 Ml Vial) 0.2 mg IV Q2M PRN PRN Reason: Opioid Reversal Ondansetron HCl (Ondansetron 4 Mg/2 Ml Vial) 4 mg IVP Q8HR PRN PRN Reason: Nausea And Vomiting Last Admin: 07/20/22 03:28 Dose: 4 mg Pantoprazole Sodium (Pantoprazole 40 Mg Tablet) 40 mg PO [id number]-[id number] [facility] Last Admin: 07/22/22 06:40 Dose: Not Given Polyethylene Glycol (Polyethylene Glycol 3350 17 Gm Powd.Pack) 17 gm PO DAILY [facility] Last Admin: 07/22/22 09:08 Dose: 17 gm Tramadol HCl (Tramadol 50 Mg Tab) 50 mg PO TID PRN PRN Reason: Pain Last Admin: 07/18/22 22:59 Dose: 50 mg Physical exam: GENERAL: The patient is on mechanical ventilation with an FiO2 of 40% and PEEP is 5, currently undergoing sedation holiday and does follow commands, thin built, elderly appearing HEENT: Pupils are round and equally reacting to light. EOMI. No scleral icterus. No conjunctival pallor. Normocephalic, atraumatic. No pharyngeal erythema. No thyromegaly. CARDIOVASCULAR: Irregular, A. fib uncontrolled rates on the monitor PULMONARY: Breath sounds diminished with no wheezing, faint crackles noted. ABDOMEN: Soft, mildly distended, tender on palpation, normoactive bowel sounds. No palpable organomegaly. prevana dressing noted over the right groin and lower abdomen MUSCULOSKELETAL: No joint swelling or deformity. EXTREMITIES: No cyanosis, clubbing, or pedal edema. NEUROLOGICAL: Gross neurological examination did not reveal any focal deficits. Currently under sedation holiday and responding appropriately with head nods and is following commands SKIN: No rashes. no petechiae. Assessment: Atrial fibrillation with rapid ventricular rate. Back in A. fib with RVR uncontrolled rate on 07/20/2022 Acute tracheobronchitis. Patient was on Z-Sherman as an outpatient. Moderate to severe MR, moderate TR and mild pulmonary hypertension Elevated troponin, likely type II [place] secondary to atrial fibrillation with RVR Abdominal cramping and pain with nausea and vomiting with right incarcerated hernia and possible small bowel obstruction as noted on CT Incarcerated right inguinal hernia with ischemic small bowel and omentum status post exploratory laparotomy with repair of incarcerated right inguinal hernia partial omentectomy and small bowel resection Postoperative hypotension, requiring pressor support Acute kidney injury with creatinine 1.68 on admission, trending down Diabetes type 2 Episode of hypoglycemia. Resolved Hypothyroidism Hypertension Hyperlipidemia Osteoarthritis Chronic back pain and fibromyalgia Anxiety History of permanent pacemaker placement Depression/bereavement. full Code Plan: Patient is status post Incarcerated right inguinal hernia with ischemic small bowel and omentum status post exploratory laparotomy with repair of incarcerated right inguinal hernia partial omentectomy and small bowel resection is currently on mechanical vent with an FiO2 of 40% and PEEP is 5 as patient was continuing to have some hypotension requiring low-dose pressor support Multiple medical consultations following including surgery, cardiology, pulmonary wood shop teacher recommend continue with mechanical ventilation for now Patient continues in atrial fibrillation and RVR and was maintained on Cardizem and being transitioned to amiodarone with IV push Lopressor Antibiotics have been added in the form of cefepime and Flagyl and sputum culture was obtained and pending TPN is being initiated for nutritional support, recommended monitor Accu-Cheks per protocol will use sliding scale and patient does have history of diabetes mellitus Kidney functions are improving and will follow up on repeat labs, recommend continue holding lisinopril as well as anticoagulation and Lasix. Will resume anticoagulation once cleared by surgery The impression and plan of care has been dictated by Pratibha Kasper, Nurse Practitioner as directed. Dr. Tee MD I have performed a history and examination and MDM of this patient, discussed the same with the dictator, and agree with the dictator's assessment and plan as written ,documented as a scribe. Based on total visit time, I have performed more than 50% of the visit. Objective - Vital Signs Vital signs: Vital Signs Temp 98.9 F 07/22/22 04:00 Pulse 128 H 07/22/22 08:07 Resp 13 07/22/22 06:00 BP 134/100 07/22/22 06:00 Pulse Ox 99 07/22/22 05:00 FiO2 40 07/22/22 08:03 Intake & Output 07/21/22 07/22/22 07/22/22 18:59 06:59 18:59 Intake Total 2287.238 8805.034 105 Output Total 525 405 30 Balance 740.175 972.034 75 Weight 55.5 kg 55.8 kg Intake: IV 985 1035 105 Magnesium Sulfate-D5w Pmx 100 1 gm In Dextrose/Water 1 100ml.bag @ 100 mls/hr IVPB Q1H CLAUDY Rx#: [id number] Mvi, Adult No.4 with Vit 60 360 30 K 10 ml Trace (Conc-1Ml/ Dose) 1 ml In Amino Acid 4.25%-D10w+Lytes*E* 1,000 ml @ 30 mls/hr IV .Q24H CLAUDY Rx#:[id number] Sodium Chloride 0.9% 1, 675 525 75 000 ml @ 75 mls/hr IV . [id number] [facility] Rx#:[id number] ceFAZolin 2 gm In Sodium 50 50 Chloride 0.9% 50 ml @ 100 mls/hr IVPB ONCE ONE Rx# :[id number] metroNIDAZOLE-NS PMX 500 100 100 mg In Saline 1 100ml.bag @ 100 mls/hr IVPB Q8HR CLAUDY Rx#:[id number] Intake, IV Titration 280.175 342.034 Amount Amiodarone 450 mg In 228.616 Dextrose 5% in Water 250 ml @ 0.5 MG/MIN 16.667 mls/hr IV .Q15H CLAUDY Rx#: [id number] Norepinephrine 8 mg In 205.603 113.418 Sodium Chloride 0.9% 250 ml @ 0.03 MCG/KG/MIN 2.99 mls/hr IV .Q24H [facility]UDY Rx#: [id number] propofoL 1,000 mg In 74.572 Empty Bag 1 bag @ 15 MCG/ KG/MIN 4.635 mls/hr IV . [id number] [facility]UDY Rx#:[id number] Output: Urine 525 405 30 Other: Voiding Method Indwelling Catheter Indwelling Catheter ABP, PAP, CO, CI - Last Documented Arterial Blood Pressure 135/49 - Labs CBC & Chem 7: 07/23/22 04:00 07/23/22 04:00 Labs: Abnormal Lab Results - Last 24 Hours (Table) 07/21/22 07/21/22 07/22/22 Range/Units 11:23 17:24 00:15 RBC (3.80-5.40) m/uL Hgb (11.4-16.0) gm/dL Hct (34.0-46.0) % MCV (80.0-100.0) fL MCHC (31.0-37.0) g/dL Neutrophils # (1.3-7.7) k/uL Lymphocytes # (1.0-4.8) k/uL ABG pH (7.35-7.45) ABG pO2 (83-108) mmHg ABG O2 Saturation (94-97) % Chloride (98-107) mmol/L Carbon Dioxide (22-30) mmol/L BUN (7-17) mg/dL Creatinine (0.52-1.04) mg/dL Glucose (74-99) mg/dL POC Glucose (mg/dL) 182 H 245 H 290 H (70-110) mg/dL Calcium (8.4-10.2) mg/dL 07/22/22 07/22/22 07/22/22 Range/Units 05:00 05:00 05:21 RBC 3.07 L (3.80-5.40) m/uL Hgb 9.6 L (11.4-16.0) gm/dL Hct 31.1 L (34.0-46.0) % MCV 101.3 H (80.0-100.0) fL MCHC 30.9 L (31.0-37.0) g/dL Neutrophils # 9.8 H (1.3-7.7) k/uL Lymphocytes # 0.4 L (1.0-4.8) k/uL ABG pH (7.35-7.45) ABG pO2 (83-108) mmHg ABG O2 Saturation (94-97) % Chloride 111 H (98-107) mmol/L Carbon Dioxide 20 L (22-30) mmol/L BUN 39 H (7-17) mg/dL Creatinine 1.47 H (0.52-1.04) mg/dL Glucose 255 H (74-99) mg/dL POC Glucose (mg/dL) 267 H (70-110) mg/dL Calcium 7.3 L (8.4-10.2) mg/dL 07/22/22 Range/Units 05:57 RBC (3.80-5.40) m/uL Hgb (11.4-16.0) gm/dL Hct (34.0-46.0) % MCV (80.0-100.0) fL MCHC (31.0-37.0) g/dL Neutrophils # (1.3-7.7) k/uL Lymphocytes # (1.0-4.8) k/uL ABG pH 7.34 L (7.35-7.45) ABG pO2 148 H (83-108) mmHg ABG O2 Saturation 99.7 H (94-97) % Chloride (98-107) mmol/L Carbon Dioxide (22-30) mmol/L BUN (7-17) mg/dL Creatinine (0.52-1.04) mg/dL Glucose (74-99) mg/dL POC Glucose (mg/dL) (70-110) mg/dL Calcium (8.4-10.2) mg/dL
[2022-07-23 05:39] LABS: ABG Base Excess -5.8 mmol/L; ABG HCO3 19 mmol/L (21-25); ABG Oxygen Saturation 99.6 % (94-97); ABG PCO2 31 mmHg (35-45); ABG PO2 134 mmHg (83-108); ABG TCO2 20 mmol/L (19-24); Allen Test Performed? Yes
[2022-07-23] MEDS ORDERED: Potassium Replacement Protocol 1 EACH MISC MISCELLANE PRN (06:21)
[2022-07-23 06:32] LABS: Glucose,Whole Blood 275 mg/dL (70-110)
[2022-07-23] MEDS: METOCLOPRAMIDE 5 MG/ML 2 ML VIAL IVP SCH ×4 (06:39→23:04)
[2022-07-23] MEDS: POTASSIUM CHLORIDE 10 MEQ in WATER FOR INJECTION 1 100ML.BAG IVPB SCH ×2 (06:39→09:30)
[2022-07-23] MEDS: METOPROLOL TARTRATE 5 MG/5 ML VIAL IVP SCH ×4 (06:39→23:04)
[2022-07-23] MEDS: INSULIN ASPART (NovoLOG) 100 UNIT/ML VIAL SQ SCH ×3 (06:40→18:11)
--- NOTE | 2022-07-23 06:58 | XR ---
EXAMINATION TYPE: XR chest 1V portable DATE OF EXAM: 07/23/2022 COMPARISON: 07/22/2022 HISTORY: SOB, Follow Up FINDINGS: Indwelling tubes and catheters are unchanged. No change in bibasilar opacities. Stable appearance of the cardio-mediastinal structures at this time. Pleural effusions unchanged. IMPRESSION: 1. Stable portable chest. Clinical correlation and follow up until resolution is recommended.
[2022-07-23] MEDS: IPRATROPIUM-ALBUTEROL 3 ML NEB INHALATION SCH ×4 (07:55→19:48)
[2022-07-23] MEDS: 1: MVI, ADULT NO.4 WITH VIT K 10 ML, TRACE (CONC-1ML/DOSE) 1 ML in AMINO ACID 4.25%-D10W IV SCH ×6 (08:05→12:54)
[2022-07-23] MEDS: PANTOPRAZOLE 40 MG TABLET PO SCH (08:06)
[2022-07-23] MEDS: metroNIDAZOLE-NS PMX 500 MG in SALINE 1 100ML.BAG IVPB SCH ×3 (08:16→23:05)
[2022-07-23] MEDS: AMIODARONE 450 MG in DEXTROSE 5% IN WATER 250 ML IV SCH ×4 (08:18→23:00)
[2022-07-23] MEDS: polyethylene glycoL 3350 17 GM POWD.PACK PO SCH (08:21)
--- NOTE | 2022-07-23 08:22 | P.PN ---
Subjective Progress Note Date: 07/23/22 PROGRESS NOTE The patient is an 81-year-old female with a known history of paroxysmal atrial fibrillation, permanent pacemaker implantation, diabetes, anticoagulated who underwent repair of incarcerated right inguinal hernia yesterday. Postoperatively she was hypertensive. She remains intubated and sedated. She is in atrial fibrillation/flutter this morning with controlled ventricular response. Her blood pressure is under better control. Her urine output has been adequate. There is no evidence of ventricular ectopic activity. July 22: The patient remains intubated, she is opening her eyes to verbal stimulation and following commands. She is in atrial fibrillation with rapid ventricle response this morning, she was under better control earlier. Her blood pressure is good, she continues to be on low dose IV norepinephrine. There is no ventricular ectopic activity. Her urinary output has been stable. She has not been started on anticoagulation by the surgical team. She continues to be on IV amiodarone. July 23: She remains intubated and sedated. She is in atrial fibrillation with relatively controlled ventricular rate on IV amiodarone and IV Lopressor. She has not started anticoagulation yet awaiting surgical approval. Her urinary output has been stable. Her oxygenation is stable on PEEP of 5. There is no evidence of malignant arrhythmia. She is receiving TPN. She is afebrile. Her norepinephrine is being weaned off Medications: IV amiodarone, metoprolol 5 mg IV every 6 hours, norepinephrine PHYSICAL EXAMINATION: Blood pressure 120/50 heart rate 105, intubated, sedated LUNGS: Clear to auscultation anteriorly HEART: Irregular rate and rhythm, S1, S2. No S3. systolic ejection murmur ABDOMEN: Soft, no organomegaly, dressing in place EXTREMETIES: No edema LAB: Hemoglobin 9.1, WBC 9.5, pH 7.4, BUN 40, creatinine 1.41. Chest x-ray with no significant changes IMPRESSION: 1. Status post exploratory laparotomy with repair of incarcerated right inguinal hernia 2. Postop hypotension, resolved 3. Paroxysmal atrial fibrillation, now in atrial fibrillation with controlled rate, continues on IV amiodarone. Anticoagulation not started, awaiting surgical clearance 4. Status post permanent pacemaker implantation PLAN: 1. Continue beta consuelo intravenously 2. Restart anticoagulation when okay with surgery 3. Probable weaning and extubation today 4. Wean norepinephrine to off stable 5. Follow renal functions 6. When taking by mouth changed to oral amiodarone and beta consuelo. Objective - Vital Signs Vital signs: Vital Signs Temp 99.6 F 07/23/22 00:00 Pulse 110 H 07/23/22 08:05 Resp 18 07/23/22 07:00 BP 119/81 07/23/22 07:00 Pulse Ox 100 07/23/22 07:00 FiO2 40 07/23/22 08:02 Intake & Output 07/22/22 07/23/22 07/23/22 18:59 06:59 18:59 Intake Total 8728.387 2103.536 184.965 Output Total 380 465 60 Balance 794.037 904.536 124.965 Weight 65.8 kg Intake: IV 785 975 75 Mvi, Adult No.4 with Vit 300 635 55 K 10 ml Trace (Conc-1Ml/ Dose) 1 ml In Amino Acid 4.25%-D10w+Lytes*E* 1,000 ml @ 30 mls/hr IV .Q24H CLAUDY Rx#:[id number] Sodium Chloride 0.9% 1, 225 000 ml @ 75 mls/hr IV . [id number] CLAUDY Rx#:[id number] Sodium Chloride 0.9% 500 60 240 20 ml 500 ml @ 20 mls/hr IV .Q24H CLAUDY Rx#:[id number] metroNIDAZOLE-NS PMX 500 200 100 mg In Saline 1 100ml.bag @ 100 mls/hr IVPB Q8HR CLAUDY Rx#:[id number] Intake, IV Titration 389.037 394.536 109.965 Amount Cefepime 1 gm In Sodium 100 100 Chloride 0.9% 50 ml @ 12. 5 mls/hr IVPB Q12HR CLAUDY Rx#:[id number] Norepinephrine 8 mg In 189.037 194.536 9.965 Sodium Chloride 0.9% 250 ml @ 0.03 MCG/KG/MIN 2.99 mls/hr IV .Q24H CLAUDY Rx#: [id number] Potassium Chloride 10 meq 100 In Water For Injection 1 100ml.bag @ 100 mls/hr IVPB Q1H CLAUDY Rx#: [id number] propofoL 1,000 mg In 100 100.000 Empty Bag 1 bag @ 15 MCG/ KG/MIN 4.635 mls/hr IV . [id number] CLAUDY Rx#:[id number] Output: Urine 380 465 60 Other: Voiding Method Indwelling Catheter Indwelling Catheter ABP, PAP, CO, CI - Last Documented Arterial Blood Pressure 120/45 - Labs CBC & Chem 7: 07/23/22 04:00 07/23/22 04:00 Labs: Abnormal Lab Results - Last 24 Hours (Table) 07/22/22 07/22/22 07/22/22 Range/Units 11:41 18:00 23:14 RBC (3.80-5.40) m/uL Hgb (11.4-16.0) gm/dL Hct (34.0-46.0) % MCV (80.0-100.0) fL Neutrophils # (1.3-7.7) k/uL Lymphocytes # (1.0-4.8) k/uL ABG pCO2 (35-45) mmHg ABG pO2 (83-108) mmHg ABG HCO3 (21-25) mmol/L ABG O2 Saturation (94-97) % Sodium (137-145) mmol/L Chloride (98-107) mmol/L Carbon Dioxide (22-30) mmol/L BUN (7-17) mg/dL Creatinine (0.52-1.04) mg/dL Glucose (74-99) mg/dL POC Glucose (mg/dL) 252 H 251 H 260 H (70-110) mg/dL Calcium (8.4-10.2) mg/dL 07/23/22 07/23/22 07/23/22 Range/Units 04:00 04:00 05:45 RBC 2.82 L (3.80-5.40) m/uL Hgb 9.1 L (11.4-16.0) gm/dL Hct 28.4 L (34.0-46.0) % MCV 100.8 H (80.0-100.0) fL Neutrophils # 8.7 H (1.3-7.7) k/uL Lymphocytes # 0.3 L (1.0-4.8) k/uL ABG pCO2 31 L (35-45) mmHg ABG pO2 134 H (83-108) mmHg ABG HCO3 19 L (21-25) mmol/L ABG O2 Saturation 99.6 H (94-97) % Sodium 136 L (137-145) mmol/L Chloride 112 H (98-107) mmol/L Carbon Dioxide 17 L (22-30) mmol/L BUN 40 H (7-17) mg/dL Creatinine 1.41 H (0.52-1.04) mg/dL Glucose 265 H (74-99) mg/dL POC Glucose (mg/dL) (70-110) mg/dL Calcium 7.1 L (8.4-10.2) mg/dL 07/23/22 Range/Units 06:30 RBC (3.80-5.40) m/uL Hgb (11.4-16.0) gm/dL Hct (34.0-46.0) % MCV (80.0-100.0) fL Neutrophils # (1.3-7.7) k/uL Lymphocytes # (1.0-4.8) k/uL ABG pCO2 (35-45) mmHg ABG pO2 (83-108) mmHg ABG HCO3 (21-25) mmol/L ABG O2 Saturation (94-97) % Sodium (137-145) mmol/L Chloride (98-107) mmol/L Carbon Dioxide (22-30) mmol/L BUN (7-17) mg/dL Creatinine (0.52-1.04) mg/dL Glucose (74-99) mg/dL POC Glucose (mg/dL) 275 H (70-110) mg/dL Calcium (8.4-10.2) mg/dL Microbiology - Last 24 Hours (Table) 07/21/22 23:50 Sputum Culture - Preliminary Sputum
[2022-07-23] MEDS: CEFEPIME 1 GM in SODIUM CHLORIDE 0.9% 50 ML IVPB SCH ×2 (09:22→20:43)
[2022-07-23] MEDS: CHLORHEXIDINE GLUCONATE 15 ML CUP MUCOUS MEM SCH ×2 (09:22→20:43)
[2022-07-23] MEDS: LEVOTHYROXINE IVP 100 MCG/5 ML VIAL IV SCH (09:23)
[2022-07-23] MEDS ORDERED: SODIUM BICARB 8.4% 50 ML SYR (1 MEQ/ML) IV STA ×2 (09:33→09:38)
--- NOTE | 2022-07-23 09:40 | P.PN ---
Subjective Progress Note Date: 07/23/22 Seeing this patient in consultation today 07/13/2022 in the emergency room waiting for a bed on the selective care unit. Patient is an 81-year-old white female with past significant medical history of atrial fibrillation, permanent pacemaker, coronary artery disease, breast cancer post radiation therapy and lumpectomy, hypertension, hyperlipidemia, diabetes mellitus, hypothyroidism, and is a lifelong nonsmoker. Patient does follow with Dr. Haile in the office for a solitary lung nodule. Patient presented to the emergency room yesterday evening with chief complaint of shortness of breath over the past 2 weeks. Also, reports chest congestion and a frequent cough with occasional phlegm. Patient denies any chest pain, heart palpitations, lightheadedness or syncope, fever, hemoptysis. Patient apparently was seen by Dr Babcock, her primary care provider, and was given a course of prednisone and a Z-Sherman. Patient had no improvement in symptoms. Patient is currently resting emergency room, on room air, in no acute distress. Chest x-ray arrival showed no acute cardiopulmonary process. While the emergency room, patient did have an episode of A. fib RVR, which has currently resolved, as the patient is in normal sinus rhythm around 80 bpm. troponins are mildly elevated most recent troponin 0.068. EKG currently shows normal sinus rhythm without any obvious ischemic changes. NT proBNP is 1890. Normal saline is infusing at 130 mL per hour. Patient's CBC on arrival showed a WBC count 9.9, hemoglobin 12, hematocrit 36.7, platelets 302. 41, potassium 4.5, chloride 105, serum CO2 26, BUN 74, creatinine 1.68, 75. LFTs are mildly elevated. Patient was negative for influenza, RSV, COVID-19. Vital signs are stable. Progress note dated 07/14/2022. 82-year-old female seen by myself and our nurse practitioner in the emergency department yesterday, in consultation. The patient presented with increasing shortness of breath, most likely secondary to atrial fibrillation. She has a history of atrial fibrillation, previous pacemaker implantation, CAD, rest cancer, hypertension, hyperlipidemia, diabetes, and hypothyroidism. Currently, the patient's on room air. She's not receiving any IV fluids. Laboratory data includes a sodium 140, potassium 5.2, chlorides 108, CO2 28, BUN 48 and creatinine 1.30. Glucose 131. Calcium is 9.2. Chest x-ray showed nothing acute. Progress note dated 07/15/2022. 81-year-old female seen today in room 361. She was seen in consultation 2 days ago in the emergency department. She came in with complaints of shortness of breath, and was found have atrial fibrillation with rapid ventricular response. Currently, she's not receiving any supplemental oxygen, or IV fluids. She looks much more comfortable. No new labs today. Progress note dated 07/16/2022. 82-year-old female seen in room 361. The patient is feeling much better. She was admitted with a diagnosis of shortness of breath and cough, secondary to both bronchitis, as well as atrial fibrillation with rapid ventricular response. Currently, she's been weaned off of oxygen. She's not receiving any IV fluids. Her cough and shortness of breath are much improved. No new labs today other than a glucose of 166. I am reevaluating this patient today 07/17/2022 in follow-up on the general medical floor. She is currently resting in bed, on room air, in no acute distress. Patient continues to improve clinically. No new labs today. Cough has improved with addition of Tessalon Perles. Heart rhythm is regular and she is anticoagulated with Eliquis. Vital signs remain stable. On today's evaluation of 07/18/2022, the main issue remains bowed related factors including episodic constipation. The patient is currently on MiraLAX once a day. Less short of breath and the cough has subsided significantly. Currently on a Medrol Dosepak. X-ray shows stable and the patient is currently on room air oxygen and she completed antibiotics. IV fluids are currently at KVO. On today's evaluation of 07/19/2022, the patient's overall respiratory status is stable. The patient has no symptoms and cough or sputum production. Bronchospasm wheezing has subsided. She continues to have constipation. She was given laxatives. She was also having some abdominal pain diminished appetite. Based on that, a CAT scan of the abdomen was done and the patient had findings suspicious for a small bowel obstruction with suspected transition point within a partially visualized right inguinal hernia. Evaluation was limited as on a CAT scan of the abdomen was ordered. There is a nonobstructive right renal calculus. She was also found to have colonic diverticulosis. The patient was given an enema with limited output. There is no evidence of any diverticulitis. No evidence of any large bowel obstruction. No evidence of any pneumoperitoneum. The patient has a BUN of 56 and a creatinine of 1.7 and a sodium level is at 142, as such, the renal function continues to improve. She remains in normal sinus rhythm. On today's evaluation of 07/20/2022, the patient is being seen in the intensive care unit after having her surgery done. The patient was having abdominal pain, discomfort, constipation and subsequently she progress and she developed some peritoneal signs. At that point, she was taken for laparotomy and the patient was found to have an incarcerated right inguinal hernia with evidence of ischemic small bowel. The patient underwent small bowel resection with primary closure. The patient was kept intubated and following that the patient was brought into the intensive care unit. At this point in time, the patient is sedated on propofol currently running at 40 mcg/kg/m. She is calm and comfortable. To assist control mode of mechanical ventilation at the rate of 12, tidal volume of 400, FiO2 of 40% and a PEEP of 5. FiO2 was dropped down to 40% of the blood gas showed a pH of 7.4 with a pCO2 of 37 and pO2 of more than 400. The patient received a total of 2.5 L of IV fluids.maintenance rate of 75 mL an hour. Urine operas in order of 20-30 mL an hour. The patient remains in atrial fibrillation. The patient has a mean arterial pressure was around 65. She is also on norepinephrine running at 0.2 mcg/kg/m. The patient is afebrile. Surgical wound site is dry clean and intact. Bowel sounds are hypoactive. Her current cardiac rhythm is atrial fibrillation. Chest x-ray showed adequate expansion of both lungs. ET tube is in a good location. The patient is a triple-lumen catheter in the right IJ. Morning labs are notedMorning labs were noted and the patient has a BUN of 53 with a creatinine of 1.5 and a sodium of 142. Platelet count is 240. No significant leukocytosis and the patient's white cell count was at 15.8 with a hemoglobin of 13.7. On 07/21/2022, I'm seeing the patient for a follow-up. The patient is postop day #1. This morning, the patient is adequately sedated on propofol which is running at 40 mcg/kg/m. The propofol this can be slightly weaned down as the patient is significantly sedated. She is on assist-control mode of mechanical ventilation. She doesn't assist control of 12, tidal volume of 400, crit of 40% with a PEEP of 5. The blood. From today shows a pH of 7.4 with episodes of 38 and pO2 of 1:30. The chest x-ray from today shows no acute abnormalities. There is some small effusions lung base bilaterally. ET tube is in a good location. No airspace disease or consolidation. The patient also has a pacemaker over the left anterior chest and the patient has a right IJ triple-l umen catheter in place. The patient is currently on a combination of cefepime and Flagyl. The patient remains on pressors and norepinephrine is running at the rate of 0.15 mcg/kg/m. The patient has a urine operas in order of marginal 30-40 mL an hour. The patient is on normal saline at the rate of 75 mL an hour. Meanwhile, the patient remains nothing by mouth. NG tube is in place. Output from the NG tube is minimal. The surgical wound is dry clean and intact. The patient has superficial wound VAC with minimal amount of drainage. Bowel sounds are hypoactive/absent. Nevertheless, her abdomen is nondistended. In terms of the rest of the blood work, the WBC count is at 10.7 with a hemoglobin of 10.7 and a platelet count of 180. Sodiums of 140, BUN is at 41 with a creatinine of 1.33. Liver function tests yesterday were essentially within normal limits. Albumin is at 2.4 with a total protein of 4.5. She is afebrile this morning. No other significant events overnight. In terms of her cardiac rhythm, the patient remained nature fibrillation. The patient will be switched to oral amiodarone today. Unable to get beta blockers as long as the patient is still hypotensive. She is on no anticoagulants for now. Her TSH was 0.9 and the patient is on low-dose Synthroid 37.5 g IV every 24 hours. 07/22/2022, the patient is postop day #2. This morning, she remains up at 40 mcg/kg/m. She is arousable and she follows simple commands even while being on sedation. She remains on a mechanical ventilator. She is on assist-control at the rate of 12, tidal volume of 400, FiO2 40% with a PEEP of 5. Chest x-ray from today still pending. Blood gas from this morning shows a pH of 7.34 with episodes of 38 and pO2 of 148. As such, she has adequate oxygenation. The patient's chest x-ray from today is pending. Meanwhile, the patient is still on a mechanical ventilator. She is, comfortable. No significant orotracheal secretions. Hemodynamically, the patient has been obvious significant positive fluid balance. Urine output is in order of 20-30 mL an hour. The creatinine today is stable at 1.47 with a BUN of 39. Sodium is at 137 and a serum bicarb is at 20. The white cell count today is at 10.6 with a hemoglobin of 9.6. The patient was receiving IV fluids in the form of normal saline at the rate of 75 mL an hour. The patient was also started on TPN for nutritional support. This is running at 30 mL an hour. IV antibiotics include a combination of cefepime and Flagyl. Meanwhile, the patient is having issues with atrial fibrillation. After being on amiodarone drip, the patient's heart rate stabilized. This morning, she was again tachycardic. She was given Lopressor 5 mg IV in addition to amiodarone bolus a total of 150 mg IV push. Her heart is under better control for now it's under 100. She is on no anticoagulants. The surgeon would like to wait another 24-48 hours prior to starting the patient any form of anticoagulants. Surgical wound is dry clean and intact. The patient has a superficial VAC in place. 07/23/2022, the patient is postop day #3. The patient remains intubated on a mechanical ventilator. She seems to be quite stable on today's evaluation. The patient is currently off pressors. The norepinephrine was weaned off overnight and this morning, the patient is on no pressors. At the same time, the patient remained nature fibrillation. Heart rate is fluctuating and she is on/the beta blockers patient remains on amiodarone infusion running at 0.5 mg/m. No anticoagulants yet. At the same time, the patient remains on a mechanical ventilator. She is on assist control mode at the rate of 12, tidal volume of 4 00, FiO2 40% with a PEEP of 5. The blood gas from today shows a pH of 7.4 with a pCO2 of 31 and pO2 of 134. Chest x-ray shows small bilateral lower lobe pleural effusions. Orotracheal tube is in a good location. The patient is producing urine output in the order of 40-50 mL an hour. At the same time, her fluid balance is +1.6 L over the past 24 hours. Blood work from today shows a WBC count 9.5 with a hemoglobin 9.1 and a platelet count of 162. Sodium is at 136, BUN is at 40 with a creatinine of 1.4 as such her renal function is stable. She is receiving TPN for nutritional support which is running at the rate of 55 mL an hour. Maintenance fluids are at KVO. She is afebrile. She remains on a combination of cefepime and Flagyl. Blood sugars are slightly elevated and the patient is diabetic taking Lantus insulin on outpatient basis 35 units daily. Was started on low-dose Levemir at 12 units along with a size scale coverage. Objective - Vital Signs Vital signs: Vital Signs Temp 99.9 F H 07/23/22 08:00 Pulse 110 H 07/23/22 08:05 Resp 23 07/23/22 08:00 BP 112/73 07/23/22 08:00 Pulse Ox 100 07/23/22 08:00 FiO2 40 07/23/22 08:02 Intake & Output 07/22/22 07/23/22 07/23/22 18:59 06:59 18:59 Intake Total 7835.854 3941.536 627.039 Output Total 380 465 100 Balance 794.037 904.536 527.039 Weight 65.8 kg Intake: IV 785 975 250 Mvi, Adult No.4 with Vit 300 635 110 K 10 ml Trace (Conc-1Ml/ Dose) 1 ml In Amino Acid 4.25%-D10w+Lytes*E* 1,000 ml @ 30 mls/hr IV .Q24H CLAUDY Rx#:[id number] Sodium Chloride 0.9% 1, 225 000 ml @ 75 mls/hr IV . [id number] [facility] Rx#:[id number] Sodium Chloride 0.9% 500 60 240 40 ml 500 ml @ 20 mls/hr IV .Q24H [facility]UD[facility] Rx#:[id number] metroNIDAZOLE-NS PMX 500 200 100 100 mg In Saline 1 100ml.bag @ 100 mls/hr IVPB Q8HR [facility]UD[facility] Rx#:[id number] Intake, IV Titration 389.037 394.536 377.039 Amount Amiodarone 450 mg In 233.06 Dextrose 5% in Water 250 ml @ 0.5 MG/MIN 16.667 mls/hr IV .Q15H [facility]UD[facility] Rx#: [id number] Cefepime 1 gm In Sodium 100 100 Chloride 0.9% 50 ml @ 12. 5 mls/hr IVPB Q12HR [facility]UD[facility] Rx#:[id number] Norepinephrine 8 mg In 189.037 194.536 25.594 Sodium Chloride 0.9% 250 ml @ 0.03 MCG/KG/MIN 2.99 mls/hr IV .Q24H [facility]UD[facility] Rx#: [id number] Potassium Chloride 10 meq 100 In Water For Injection 1 100ml.bag @ 100 mls/hr IVPB Q1H [facility] Rx#: [id number] propofoL 1,000 mg In 100 100.000 18.385 Empty Bag 1 bag @ 15 MCG/ KG/MIN 4.635 mls/hr IV . [id number] [facility] Rx#:[id number] Output: Urine 380 465 100 Other: Voiding Method Indwelling Catheter Indwelling Catheter ABP, PAP, CO, CI - Last Documented Arterial Blood Pressure 133/50 - Exam GENERAL EXAM: Alert, 81-year-old white female, comfortable, sedated, currently intubated on a mechanical ventilator.. HEAD: Normocephalic and atraumatic EYES: Normal reaction of pupils, equal size. NOSE: Clear with pink turbinates. THROAT: No erythema or exudates. NECK: No masses, no JVD. The patient has an orogastric and orotracheal tube and both of them are in place CHEST: No chest wall deformity. LUNGS: Equal air entry with no crackles, wheeze, rhonchi or dullness. On room air. No conversational dyspnea or accessory muscle use.. CVS: S1 and S2 normal with no audible murmur, regular rhythm. No extra heart sounds ABDOMEN: No hepatosplenomegaly, active bowel sounds, no guarding or rigidity. The patient's surgical one-sided over the anterior abdominal wall is dry clean and intact. SPINE: No scoliosis or deformity SKIN: No rashes CENTRAL NERVOUS SYSTEM: No focal deficits, tone is normal in all 4 extremities. EXTREMITIES: There is no peripheral edema, clubbing, or cyanosis. Peripheral pulses are intact. - Labs CBC & Chem 7: 07/23/22 04:00 07/23/22 04:00 Labs: Abnormal Lab Results - Last 24 Hours (Table) 07/22/22 07/22/22 07/22/22 Range/Units 11:41 18:00 23:14 RBC (3.80-5.40) m/uL Hgb (11.4-16.0) gm/dL Hct (34.0-46.0) % MCV (80.0-100.0) fL Neutrophils # (1.3-7.7) k/uL Lymphocytes # (1.0-4.8) k/uL ABG pCO2 (35-45) mmHg ABG pO2 (83-108) mmHg ABG HCO3 (21-25) mmol/L ABG O2 Saturation (94-97) % Sodium (137-145) mmol/L Chloride (98-107) mmol/L Carbon Dioxide (22-30) mmol/L BUN (7-17) mg/dL Creatinine (0.52-1.04) mg/dL Glucose (74-99) mg/dL POC Glucose (mg/dL) 252 H 251 H 260 H (70-110) mg/dL Calcium (8.4-10.2) mg/dL 07/23/22 07/23/22 07/23/22 Range/Units 04:00 04:00 05:45 RBC 2.82 L (3.80-5.40) m/uL Hgb 9.1 L (11.4-16.0) gm/dL Hct 28.4 L (34.0-46.0) % MCV 100.8 H (80.0-100.0) fL Neutrophils # 8.7 H (1.3-7.7) k/uL Lymphocytes # 0.3 L (1.0-4.8) k/uL ABG pCO2 31 L (35-45) mmHg ABG pO2 134 H (83-108) mmHg ABG HCO3 19 L (21-25) mmol/L ABG O2 Saturation 99.6 H (94-97) % Sodium 136 L (137-145) mmol/L Chloride 112 H (98-107) mmol/L Carbon Dioxide 17 L (22-30) mmol/L BUN 40 H (7-17) mg/dL Creatinine 1.41 H (0.52-1.04) mg/dL Glucose 265 H (74-99) mg/dL POC Glucose (mg/dL) (70-110) mg/dL Calcium 7.1 L (8.4-10.2) mg/dL 07/23/22 Range/Units 06:30 RBC (3.80-5.40) m/uL Hgb (11.4-16.0) gm/dL Hct (34.0-46.0) % MCV (80.0-100.0) fL Neutrophils # (1.3-7.7) k/uL Lymphocytes # (1.0-4.8) k/uL ABG pCO2 (35-45) mmHg ABG pO2 (83-108) mmHg ABG HCO3 (21-25) mmol/L ABG O2 Saturation (94-97) % Sodium (137-145) mmol/L Chloride (98-107) mmol/L Carbon Dioxide (22-30) mmol/L BUN (7-17) mg/dL Creatinine (0.52-1.04) mg/dL Glucose (74-99) mg/dL POC Glucose (mg/dL) 275 H (70-110) mg/dL Calcium (8.4-10.2) mg/dL Microbiology - Last 24 Hours (Table) 07/21/22 23:50 Gram Stain - Preliminary Sputum Sputum Culture - Preliminary Assessment and Plan Plan: Incarcerated right inguinal hernia with bowel ischemia. The patient is post laparotomy and small bowel resection. The patient is currently postop day #3 Acute hypotension, rule out secondary to abdominal sepsis. The patient was adequately resuscitated. The patient patient was taken off the pressors this morning. She may on enough required low-dose norepinephrine still. For the most part, she is improved in terms of her hemodynamics and she is producing adequate amount of urine output. Acute hypoxic respiratory failure that followed abdominal surgery. The patient was kept intubated on mechanical ventilator following her abdominal surgery, chest x-rays adequate and a blood gases also adequate. The patient is oxygenating adequately. Chest x-ray from today shows stable lower lobe pleural effusions.. Recent hospitalization for an acute bronchitis, essentially improving Atrial fibrillation with rapid ventricular rate, currently on amiodarone drip at 0.5 mg/m. The patient was also given a bolus. No anticoagulants for now. Abdominal pain secondary to above Acute kidney injury, improving creatinine , follow-up creatinine is stable History of sick sinus syndrome S/P permanent pacemaker implantation. Coronary artery disease. Diabetes mellitus, insulin-dependent. Hypertension. Hyperlipidemia. History of pulmonary nodules. History of breast cancer S/P radiation therapy and lumpectomy. Lifelong nonsmoker. Hypothyroidism Plan: Continue ventilator support No ventilator changes The patient is currently off pressors. We'll allow the use of norepinephrine depending on her blood pressure control. Keep the amiodarone drip for now Metoprolol 5 mg IV every 6 hours Anticoagulation may be started within the next 24 hours Stop the sedation assess the patient's mental status and assess the patient's hemodynamics while being off sedation Check his had a weaning parameters and decide if the patient is a candidate for a spontaneous breathing trial Keep the patient nothing by mouth for now Continue TPN Continue combination of cefepime and Flagyl covering for any source of intra- abdominal sepsis The patient has a component of anion gap metabolic acidosis. The patient will be given 2 doses of sodium bicarbonate 50 mEq each The patient will be started on Levemir insulin 12 units along with a sliding scale coverage The patient has a triple-lumen catheter and arterial line no steroids for now Management of atrial fibrillation per cardiology. Continue the amiodarone drip for now. Additional bolus was given. No anticoagulants for now, to the patient is cleared from a surgical standpoint Compression devices to lower extremity for DVT prophylaxis NovoLog sliding-scale coverage we'll continue to follow make further recommendations. I had a lengthy discussion with the daughter is at the bedside. Evaluation was done in more than 30 minutes. Time with Patient: Greater than 30
--- NOTE | 2022-07-23 09:54 | P.PN ---
Progress Note - Text Progress Note Date: 07/23/22 Patient has improved slowly. She is currently off pressors. Attempts were made to wean the patient extubated today. Pulses still irregular in the 120 range blood pressure stable. Abdomen soft incision site is clean dry tach. Status post repair of strangulated right inguinal hernia. With with bowel resection. Patient will hopefully be extubated today. We can start diet after expansion.
[2022-07-23 11:19] LABS: Glucose,Whole Blood 291 mg/dL (70-110)
[2022-07-23 12:28] LABS: ABG Base Excess -1.9 mmol/L; ABG HCO3 22 mmol/L (21-25); ABG Oxygen Saturation 99.4 % (94-97); ABG PCO2 34 mmHg (35-45); ABG PH 7.43 (7.35-7.45); ABG PO2 118 mmHg (83-108); ABG TCO2 23 mmol/L (19-24); Allen Test Performed? Yes
[2022-07-23] MEDS: SODIUM CHLORIDE 0.9% 500 ML 500 ML IV SCH (17:14)
[2022-07-23] MEDS: HYDROmorphone 0.5 MG/0.5 ML SYRINGE IVP PRN ×2 (17:21→21:57)
[2022-07-23 18:07] LABS: Glucose,Whole Blood 308 mg/dL (70-110)
[2022-07-23] MEDS: FLUTICASONE 50MCG/SPRAY NASAL 16GM EA NOSTRIL SCH (20:44)
[2022-07-23] MEDS ORDERED: INSULIN DETEMIR (LEVEMIR) 100 UNIT/ML SYR SQ SCH (21:00)
[2022-07-24 00:15] LABS: Glucose,Whole Blood 289 mg/dL (70-110)
[2022-07-24] MEDS: INSULIN ASPART (NovoLOG) 100 UNIT/ML VIAL SQ SCH ×5 (00:20→23:54)
[2022-07-24 04:49] LABS: Calcium 7.7 mg/dL (8.4-10.2); Magnesium 2.1 mg/dL (1.6-2.3); Phosphorus 2.7 mg/dL (2.5-4.5); Potassium 4.1 mmol/L (3.5-5.1)
[2022-07-24 04:51] LABS: Basophils % (A) 0 %; Eosinophils # (A) 0.1 k/uL (0-0.7); Eosinophils % (A) 1 %; HCT 28.1 % (34.0-46.0); HGB 8.8 gm/dL (11.4-16.0); Lymphocytes # (A) 0.4 k/uL (1.0-4.8); Lymphocytes % (A) 4 %; MCHC 31.5 g/dL (31.0-37.0); MCV 101.6 fL (80.0-100.0); Macrocytosis Slight; Mean Platelet Volume 8.7; Monocytes # (A) 0.4 k/uL (0-1.0); Monocytes % (A) 4 %; Neutrophils # (A) 8.8 k/uL (1.3-7.7); Neutrophils % (A) 91 %; Platelet Count 190 k/uL (150-450); RBC 2.76 m/uL (3.80-5.40); RDW 13.1 % (11.5-15.5); WBC 9.8 k/uL (3.8-10.6)
--- NOTE | 2022-07-24 05:11 | P.PN ---
Subjective Progress Note Date: 07/23/22 Patient is a 81-year-old female with a known history of atrial fibrillation on anticoagulation with Eliquis, history of permanent pacemaker placement, hypertension, hyperlipidemia, diabetes type 2 insulin-dependent, hypothyroidism, osteoarthritis and chronic back pain and anxiety presents ER with complaints of shortness of breath for past 2 weeks. Patient was having chest congestion and cough with clear to greenish sputum production. Patient was seen by her primary care physician and was given Z-Sherman and prednisone course. Patient still having symptoms without much improvement presented to ER. Denies any fever or chills. No leg swelling. No nausea vomiting abdominal pain or diarrhea. Chest x-ray in the ER showed no acute process. EKG showed atrial fibrillation with rapid regular rate with heart rate 134 Laboratory data showed WBC 9.9 hemoglobin 12.0 and platelets 302 Sodium 141 potassium 4.5 chloride 105 bicarb is 26 BUN 74 and creatinine 1.68, AST 38 ALT 45 alk phos 48 and troponin 0.054, 0.052 and 0.068, procalcitonin level is 0.11 TSH within normal limits and proBNP is 1890 Influenza A, B, RSV and COVID-19 PCR not detected. 07/14/2022 This is a pleasant 81 years old female was admitted with A. fib and RVR consult with evidence with acute bronchitis. She's been treated with Zithromax, normal saline for acute kidney injury and her Lopressor dose was increased to 75 mg 3 times a day by linen room houseperson, currently heart rate is controlled and she is on Eliquis home dose of 2.5 mg However patient lying in bed and she still feels short of breath and she still was not ready for discharge.. Cartilage team adjusted some of her blood pressure medication and they cleared her for discharge Pulmonary team on the case and patient was started on Medrol Dosepak. 07/15/2022 Patient clinically doing well and she is back to baseline, breathing significantly improved with no chest pain heart rate is controlled with occasional changes in heart rate, symptomatic goes back to normal quickly. Patient is currently clinically stable and she was cleared for discharge by both cardiology and pulmonary services, I discussed with the patient she does not want to go home today and she wants to be evaluated by physical therapy first. Discussed with bed side nurse to contact physical therapy to this morning and they're pending. Patient is a 81-year-old female with a known history of atrial fibrillation on anticoagulation with Eliquis, history of permanent pacemaker placement, hyper tension, hyperlipidemia, diabetes type 2 insulin-dependent, hypothyroidism, osteoarthritis and chronic back pain and anxiety presents ER with complaints of shortness of breath for past 2 weeks. Patient was having chest congestion and cough with clear to greenish sputum production. Patient was seen by her primary care physician and was given Z-Sherman and prednisone course. Patient still having symptoms without much improvement presented to ER. Denies any fever or chills. No leg swelling. No nausea vomiting abdominal pain or diarrhea. Chest x-ray in the ER showed no acute process. EKG showed atrial fibrillation with rapid regular rate with heart rate 134 Laboratory data showed WBC 9.9 hemoglobin 12.0 and platelets 302 Sodium 141 potassium 4.5 chloride 105 bicarb is 26 BUN 74 and creatinine 1.68, AST 38 ALT 45 alk phos 48 and troponin 0.054, 0.052 and 0.068, procalcitonin level is 0.11 TSH within normal limits and proBNP is 1890 Influenza A, B, RSV and COVID-19 PCR not detected. 07/14/2022 This is a pleasant 81 years old female was admitted with A. fib and RVR consult with evidence with acute bronchitis. She's been treated with Zithromax, normal saline for acute kidney injury and her Lopressor dose was increased to 75 mg 3 times a day by linen room houseperson, currently heart rate is controlled and she is on Eliquis home dose of 2.5 mg However patient lying in bed and she still feels short of breath and she still was not ready for discharge.. Cartilage team adjusted some of her blood pressure medication and they cleared her for discharge Pulmonary team on the case and patient was started on Medrol Dosepak. 16 2022 Patient is currently lying in bed. Awake alert and oriented x3. Denies any complaints of chest pain. Shortness of breath is much improved. No cough or sputum production. Otherwise patient is still feeling generalized weakness and needs assistance with walking to the bathroom. PT OT was consulted and family is concerned about going home. Anticipate discharge home versus rehab in the next 24 to 48 hours. High risk with history of sustaining. Laboratory data reviewed. Cleared from pulmonary and cardiology standpoint. 07/17/2022 Patient is seen and evaluated in follow-up and continues with weakness and being evaluated by physical therapy. Patient does have some cough and reports her shortness of breath is improved. Patient taking a number of medications causing an increase in kidney functions and will hold the splint pressure medications and Lasix and follow-up with repeat labs. Patient prefers to go home and arranging for home care in the outpatient setting. Patient is currently afebrile continues to report cough although denies shortness of breath. Patient is tolerating diet with no reports of nausea or vomiting noted. 07/18/2022 Patient is seen and evaluated in follow-up this morning with kidney functions trending down low not much improved as patient did receive the Lasix and lisinopril yesterday. Patient is having increased abdominal pain with severe cramping and nausea and reports she feels she has to have a bowel movement but is unable to. Patient does have history of IBS although was not having any loose stools. Patient is reporting 10/10 pain and unable to stand due to the intensity of the cramping and laying in the position in bed. Will add Bentyl and additional medications. Patient encouraged to increase activity as tolerated. Cardiology and pulmonary following and have cleared the patient for discharge. Will monitor overnight with probable discharge in 24 hours. 07/19/2022 Patient is seen and evaluated in follow-up today reports to not feeling well at all with extreme nausea and some vomiting. Patient unable to keep her medications down and heart rate noted to be elevated into the 140s. Cardiology had been following although signed off and will reconsult. Cardiology following back up given additional dose of metoprolol although patient not able to tolerate and unsure if she took the medication. Patient continues to show atrial fibrillation with RVR and cardiology starting Cardizem drip. Patient will need transfer to cardiology floor for monitoring of the strep as she is cu rrently on 5 N. and they do not handle Cardizem drips. Patient is currently afebrile does report some palpitations although denies chest pain. Patient having extreme nausea with some vomiting and abdominal pain. Patient also feels to having some constipation and reports did have a very minimal difficult time having a small bowel movement yesterday after suppository, will add enema. 07/20/2022 Patient is seen early this morning with daughter at bedside and is currently nothing by mouth awaiting surgical intervention with Dr. Esparza with concerns of incarcerated hernia as patient was reporting abdominal pain. Patient did have an episode of atrial fibrillation with RVR and initially going to start Cardizem drip yesterday although converted to sinus rhythm and was resumed on eliquis with cardiology following. Cardizem drip was discontinued at that point although patient continue with increased abdominal pain and discomfort with vomiting and general surgery was consulted. Patient had an abdominal x-ray which showed few mildly dilated loops of small bowel with multiple air-fluid levels concerning with developing bowel obstruction recommending a CT follow-up. Patient's kidney functions were elevated although repeat creatinine was improving at 1.7 with lisinopril and Lasix being held. Ordered a CT abdomen without contrast which showed findings suspicious for small bowel obstruction with suspected transition point within a partially visualized right inguinal hernia Limited evaluation without the contrast with fibroid changes of the uterus and not obstructed right renal calculus with colonic diverticulosis without evidence of diverticulitis. Patient was placed nothing by mouth and General surgery recommending surgical intervention and was held over until this morning as patient did receive her anticoagulation yesterday. Patient did have an elevation in white count up to 15 although afebrile continued to have abdominal pain and extremely tender on palpation. Patient also had uncontrolled rhythms in A. fib with RVR and was moved to 3 S. early this morning and placed on the Cardizem drip. Will await surgical report. 07/21/2022 Patient is seen and evaluated continues to be in the ICU on mechanical ventilation with no plans of leaving today. Heart rate remains uncontrolled and was maintained on Cardizem will be transitioned to amiodarone with cardiology following. General surgery following a patient is status post surgical intervention for the right incarcerated hernia. Patient is continued on antibiotics along with low-dose pressor support and will continue to monitor closely. Patient does have abdominal dressings in the form of prevana that are intact and abdomen is less distended. Patient does have a central line and TPN is being started. 07/22/2022 Patient is seen this morning in the ICU maintained on mechanical ventilation and FiO2 is 40% with a PEEP of 5. Patient is undergoing sedation holidays and currently awake and following commands. Plan is to remain on mechanical ventilation as patient continues to have some hypotension requiring pressor support as well as uncontrolled atrial fibrillation. Patient on amiodarone drip and also being continued on IV Lopressor. Patient is maintaining on cefepime and Flagyl sputum culture was obtained. Patient is afebrile and has been started on TPN. Patient continues with pain and will continue as needed low- dose Dilaudid. Gen. surgery following and will continue with prevana dressing to the abdomen. No bowel movement as of yet per nursing staff and sluggish bowel sounds noted. 07/23/2022 Patient is seen and evaluated in follow-up this morning continues to be in the ICU on mechanical ventilation with multiple medical consultations following. Patient continues on the vent with FiO2 of 40% and PEEP is 5. Patient undergoing sedation holiday and is following commands and working on weaning trials with possible extubation later today. Patient continues to be in atrial fibrillation maintained on IV amiodarone IV push Lopressor cardiology following closely. Patient is off pressor support currently. Patient remains on antibiotics in the form of cefepime and Flagyl status post surgical intervention of the right inguinal incarcerated hernia and is maintained on TPN for nutritional support. Patient's blood sugars elevated and will continue with long-acting as well as sliding scale and Accu-Cheks per protocol. No bowel activity as of yet and bowel sounds are not noted on exam. Patient is voiding and having good urine output. Patient currently afebrile. Review of systems: Unable to obtain as patient is on mechanical ventilation and sedated Active Medications Acetaminophen (Acetaminophen Tab 325 Mg Tab) 650 mg PO Q6HR PRN PRN Reason: Fever and/ or Pain Last Admin: 07/18/22 10:50 Dose: 650 mg Hydrocodone Bitart/Acetaminophen (Hydrocodone/Apap 5-325mg 1 Each Tab) 1 each PO Q6HR PRN PRN Reason: Pain Last Admin: 07/21/22 05:06 Dose: 1 each Albuterol/Ipratropium (Ipratropium-Albuterol 3 Ml Neb) 3 ml INHALATION RT-Q2H PRN PRN Reason: Shortness Of Breath Or Wheezing Last Admin: 07/23/22 03:49 Dose: 3 ml Albuterol/Ipratropium (Ipratropium-Albuterol 3 Ml Neb) 3 ml INHALATION RT-QID [facility] Last Admin: 07/23/22 19:48 Dose: 3 ml Chlorhexidine Gluconate (Chlorhexidine Gluconate 15 Ml Cup) 15 ml MUCOUS MEM B ID [facility] Last Admin: 07/23/22 20:43 Dose: 15 ml Dextrose/Water (Dextrose 50% Syringe 50 Ml) 25 ml IVP PER PROTOCOL PRN; Protocol PRN Reason: Hypoglycemia Dextrose/Water (Dextrose 50% Syringe 50 Ml) 50 ml IVP PER PROTOCOL PRN; Protocol PRN Reason: Hypoglycemia Fluticasone Propionate (Fluticasone 50mcg/[place] Nasal 16gm) 1 spray EA NOSTRIL HS [facility] Last Admin: 07/23/22 20:44 Dose: Not Given Hydromorphone HCl (Hydromorphone 0.5 Mg/0.5 Ml Syringe) 0.125 mg IVP Q3HR PRN PRN Reason: Pain Last Admin: 07/23/22 21:57 Dose: 0.125 mg Propofol 1,000 mg/ IV Solution 100 mls @ 4.635 mls/hr IV .[id number] CLAUDY; Protocol Last Titration: 07/23/22 09:55 Dose: 0 mcg/kg/min, 0 mls/hr Norepinephrine Bitartrate 8 mg (/ Sodium Chloride) 258 mls @ 2.99 mls/hr IV .Q24H CLAUDY; Protocol Last Titration: 07/23/22 09:05 Dose: 0 mcg/kg/min, 0 mls/hr Metronidazole 500 mg/ IV (Solution) 100 mls @ 100 mls/hr IVPB Q8HR CLAUDY; Protocol Last Admin: 07/23/22 23:05 Dose: 100 mls/hr Cefepime HCl 1 gm/ Sodium (Chloride) 50 mls @ 12.5 mls/hr IVPB Q12HR [facility] Last Admin: 07/23/22 20:43 Dose: 12.5 mls/hr Sodium Chloride (Saline 0.9%) 500 mls @ 20 mls/hr IV .Q24H [facility] Last Admin: 07/23/22 17:14 Dose: Not Given Amiodarone HCl 450 mg/ (Dextrose/Water) 250 mls @ 16.667 mls/hr IV .Q15H CLAUDY; Protocol Last Admin: 07/23/22 23:00 Dose: 0.5 mg/min, 16.667 mls/hr Parenteral Vitamin Supplement 10 ml/ Zinc/Copper/Manganese/Selenium 1 ml/ Amino Ac/Electrol/Dextrose/Calcium 1,011 mls @ 55 mls/hr IV .BY DURATION [facility] Last Admin: 07/23/22 12:54 Dose: 55 mls/hr Amino Ac/Electrol/Dextrose/Calcium (Clinimix E 4.25%-D10% Solution) 1,000 mls @ 55 mls/hr IV .BY DURATION [facility] Insulin Aspart (Insulin Aspart (Novolog) 100 Unit/Ml Vial) 0 unit SQ Q6H [facility]; Protocol Last Admin: 07/24/22 00:20 Dose: 3 unit Insulin Detemir (Insulin Detemir (Levemir) 100 Unit/Ml Syr) 12 unit SQ HS [facility] Last Admin: 07/23/22 18:54 Dose: 12 unit Levothyroxine Sodium (Levothyroxine Ivp 100 Mcg/5 Ml Vial) 37.5 mcg IV DAILY [facility] Last Admin: 07/23/22 09:23 Dose: 37.5 mcg Metoclopramide HCl (Metoclopramide 5 Mg/Ml 2 Ml Vial) 5 mg IVP Q6HR [facility] Last Admin: 07/23/22 23:04 Dose: 5 mg Metoprolol Tartrate (Metoprolol Tartrate 5 Mg/5 Ml Vial) 5 mg IVP Q6HR [facility] Last Admin: 07/23/22 23:04 Dose: 5 mg Miscellaneous Information (Potassium Replacement Protocol 1 Each Misc) 1 each MISCELLANE DAILY PRN; Protocol PRN Reason: Per Protocol Naloxone HCl (Naloxone 0.4 Mg/Ml 1 Ml Vial) 0.2 mg IV Q2M PRN PRN Reason: Opioid Reversal Ondansetron HCl (Ondansetron 4 Mg/2 Ml Vial) 4 mg IVP Q8HR PRN PRN Reason: Nausea And Vomiting Last Admin: 07/20/22 03:28 Dose: 4 mg Pantoprazole Sodium (Pantoprazole 40 Mg Tablet) 40 mg PO AC-BRKFST [facility] Last Admin: 07/23/22 08:06 Dose: Not Given Polyethylene Glycol (Polyethylene Glycol 3350 17 Gm Powd.Pack) 17 gm PO DAILY [facility] Last Admin: 07/23/22 08:21 Dose: Not Given Tramadol HCl (Tramadol 50 Mg Tab) 50 mg PO TID PRN PRN Reason: Pain Last Admin: 07/18/22 22:59 Dose: 50 mg Physical exam: GENERAL: The patient is on mechanical ventilation with an FiO2 of 40% and PEEP is 5, currently undergoing sedation holiday and does follow commands, thin built, elderly appearing HEENT: Pupils are round and equally reacting to light. EOMI. No scleral icterus. No conjunctival pallor. Normocephalic, atraumatic. No pharyngeal erythema. No thyromegaly. CARDIOVASCULAR: Irregular, A. fib uncontrolled rates on the monitor PULMONARY: Breath sounds diminished with no wheezing, or rhonchi noted. ABDOMEN: Soft, mildly distended, tender on palpation, extremely sluggish bowel sounds. No palpable organomegaly. prevana dressing noted over the right groin and lower abdomen MUSCULOSKELETAL: No joint swelling or deformity. EXTREMITIES: No cyanosis, clubbing, or pedal edema. NEUROLOGICAL: Gross neurological examination did not reveal any focal deficits. Currently under sedation holiday and responding appropriately with head nods and is following commands SKIN: No rashes. no petechiae. Assessment: Incarcerated right inguinal hernia with ischemic small bowel and omentum status post exploratory laparotomy with repair of incarcerated right inguinal hernia pa rtial omentectomy and small bowel resection Atrial fibrillation with rapid ventricular rate. Back in A. fib with RVR uncontrolled rate on 07/20/2022 Acute tracheobronchitis. Patient was on Z-Sherman as an outpatient. Moderate to severe MR, moderate TR and mild pulmonary hypertension Elevated troponin, likely type II ID secondary to atrial fibrillation with RVR Abdominal cramping and pain with nausea and vomiting with right incarcerated hernia and possible small bowel obstruction as noted on CT Postoperative hypotension, requiring pressor support, improved Acute kidney injury with creatinine 1.68 on admission, trending down Diabetes type 2 Hypothyroidism Hypertension Hyperlipidemia Osteoarthritis Chronic back pain and fibromyalgia Anxiety History of permanent pacemaker placement Depression/bereavement. full Code Plan: Patient is status post Incarcerated right inguinal hernia with ischemic small bowel and omentum status post exploratory laparotomy with repair of incarcerated right inguinal hernia partial omentectomy and small bowel resection is currently on mechanical vent with an FiO2 of 40% and PEEP is 5 and has been undergoing se dation holidays and working on weaning trials with possible extubation later today Patient was having some postoperative hypotension although improved and currently on pressor support Patient is continued on antibiotics in the form of cefepime and Flagyl, sputum culture showing Stephany pending finalization Patient continues in atrial fibrillation and RVR and continued on IV amiodarone with IV push Lopressor Patient has been started on TPN for nutritional support, recommended monitor Accu-Cheks per protocol will use sliding scale and patient does have history of diabetes mellitus Kidney functions are improving and will follow up on repeat labs, recommend continue holding lisinopril as well as anticoagulation and Lasix. Will resume anticoagulation once cleared by surgery The impression and plan of care has been dictated by Pratibha Kasper, Nurse Practitioner as directed. Dr. Tee MD I have performed a history and examination and MDM of this patient, discussed the same with the dictator, and agree with the dictator's assessment and plan as written ,documented as a scribe. Based on total visit time, I have performed more than 50% of the visit. Objective - Vital Signs Vital signs: Vital Signs Temp 99.6 F 07/23/22 00:00 Pulse 117 H 07/23/22 07:00 Resp 18 07/23/22 07:00 BP 119/81 07/23/22 07:00 Pulse Ox 100 07/23/22 07:00 FiO2 50 07/23/22 05:00 Intake & Output 07/22/22 07/23/22 07/23/22 18:59 06:59 18:59 Intake Total 9350.815 5980.536 184.965 Output Total 380 465 60 Balance 794.037 904.536 124.965 Weight 65.8 kg Intake: IV 785 975 75 Mvi, Adult No.4 with Vit 300 635 55 K 10 ml Trace (Conc-1Ml/ Dose) 1 ml In Amino Acid 4.25%-D10w+Lytes*E* 1,000 ml @ 30 mls/hr IV .Q24H CLAUDY Rx#:[id number] Sodium Chloride 0.9% 1, 225 000 ml @ 75 mls/hr IV . [id number] CLAUDY Rx#:[id number] Sodium Chloride 0.9% 500 60 240 20 ml 500 ml @ 20 mls/hr IV .Q24H CLAUDY Rx#:[id number] metroNIDAZOLE-NS PMX 500 200 100 mg In Saline 1 100ml.bag @ 100 mls/hr IVPB Q8HR CLAUDY Rx#:[id number] Intake, IV Titration 389.037 394.536 109.965 Amount Cefepime 1 gm In Sodium 100 100 Chloride 0.9% 50 ml @ 12. 5 mls/hr IVPB Q12HR CLAUDY Rx#:[id number] Norepinephrine 8 mg In 189.037 194.536 9.965 Sodium Chloride 0.9% 250 ml @ 0.03 MCG/KG/MIN 2.99 mls/hr IV .Q24H CLAUDY Rx#: [id number] Potassium Chloride 10 meq 100 In Water For Injection 1 100ml.bag @ 100 mls/hr IVPB Q1H CLAUDY Rx#: [id number] propofoL 1,000 mg In 100 100.000 Empty Bag 1 bag @ 15 MCG/ KG/MIN 4.635 mls/hr IV . [id number] CLAUDY Rx#:[id number] Output: Urine 380 465 60 Other: Voiding Method Indwelling Catheter Indwelling Catheter ABP, PAP, CO, CI - Last Documented Arterial Blood Pressure 120/45 - Labs CBC & Chem 7: 07/24/22 04:25 07/24/22 04:25 Labs: Abnormal Lab Results - Last 24 Hours (Table) 07/22/22 07/22/22 07/22/22 Range/Units 11:41 18:00 23:14 RBC (3.80-5.40) m/uL Hgb (11.4-16.0) gm/dL Hct (34.0-46.0) % MCV (80.0-100.0) fL Neutrophils # (1.3-7.7) k/uL Lymphocytes # (1.0-4.8) k/uL ABG pCO2 (35-45) mmHg ABG pO2 (83-108) mmHg ABG HCO3 (21-25) mmol/L ABG O2 Saturation (94-97) % Sodium (137-145) mmol/L Chloride (98-107) mmol/L Carbon Dioxide (22-30) mmol/L BUN (7-17) mg/dL Creatinine (0.52-1.04) mg/dL Glucose (74-99) mg/dL POC Glucose (mg/dL) 252 H 251 H 260 H (70-110) mg/dL Calcium (8.4-10.2) mg/dL 07/23/22 07/23/22 07/23/22 Range/Units 04:00 04:00 05:45 RBC 2.82 L (3.80-5.40) m/uL Hgb 9.1 L (11.4-16.0) gm/dL Hct 28.4 L (34.0-46.0) % MCV 100.8 H (80.0-100.0) fL Neutrophils # 8.7 H (1.3-7.7) k/uL Lymphocytes # 0.3 L (1.0-4.8) k/uL ABG pCO2 31 L (35-45) mmHg ABG pO2 134 H (83-108) mmHg ABG HCO3 19 L (21-25) mmol/L ABG O2 Saturation 99.6 H (94-97) % Sodium 136 L (137-145) mmol/L Chloride 112 H (98-107) mmol/L Carbon Dioxide 17 L (22-30) mmol/L BUN 40 H (7-17) mg/dL Creatinine 1.41 H (0.52-1.04) mg/dL Glucose 265 H (74-99) mg/dL POC Glucose (mg/dL) (70-110) mg/dL Calcium 7.1 L (8.4-10.2) mg/dL 07/23/22 Range/Units 06:30 RBC (3.80-5.40) m/uL Hgb (11.4-16.0) gm/dL Hct (34.0-46.0) % MCV (80.0-100.0) fL Neutrophils # (1.3-7.7) k/uL Lymphocytes # (1.0-4.8) k/uL ABG pCO2 (35-45) mmHg ABG pO2 (83-108) mmHg ABG HCO3 (21-25) mmol/L ABG O2 Saturation (94-97) % Sodium (137-145) mmol/L Chloride (98-107) mmol/L Carbon Dioxide (22-30) mmol/L BUN (7-17) mg/dL Creatinine (0.52-1.04) mg/dL Glucose (74-99) mg/dL POC Glucose (mg/dL) 275 H (70-110) mg/dL Calcium (8.4-10.2) mg/dL Microbiology - Last 24 Hours (Table) 07/21/22 23:50 Sputum Culture - Preliminary Sputum
[2022-07-24] MEDS: 1: MVI, ADULT NO.4 WITH VIT K 10 ML, TRACE (CONC-1ML/DOSE) 1 ML in AMINO ACID 4.25%-D10W IV SCH ×9 (05:46→21:31)
[2022-07-24] MEDS: METOPROLOL TARTRATE 5 MG/5 ML VIAL IVP SCH ×4 (06:25→23:55)
[2022-07-24] MEDS: METOCLOPRAMIDE 5 MG/ML 2 ML VIAL IVP SCH ×4 (06:25→23:55)
[2022-07-24 06:42] LABS: Glucose,Whole Blood 242 mg/dL (70-110)
[2022-07-24] MEDS: PANTOPRAZOLE 40 MG TABLET PO SCH (06:45)
[2022-07-24] MEDS ORDERED: DIGOXIN 250 MCG/ML 2 ML AMP IVP STA (07:36)
[2022-07-24] MEDS: IPRATROPIUM-ALBUTEROL 3 ML NEB INHALATION SCH ×4 (07:40→19:54)
[2022-07-24] MEDS: HYDROmorphone 0.5 MG/0.5 ML SYRINGE IVP PRN ×4 (07:40→23:17)
--- NOTE | 2022-07-24 07:41 | P.PN ---
Subjective PROGRESS NOTE The patient is an 81-year-old female with a known history of paroxysmal atrial fibrillation, permanent pacemaker implantation, diabetes, anticoagulated who underwent repair of incarcerated right inguinal hernia yesterday. Postoperati vely she was hypertensive. She remains intubated and sedated. She is in atrial fibrillation/flutter this morning with controlled ventricular response. Her blood pressure is under better control. Her urine output has been adequate. There is no evidence of ventricular ectopic activity. July 22: The patient remains intubated, she is opening her eyes to verbal stimulation and following commands. She is in atrial fibrillation with rapid ventricle response this morning, she was under better control earlier. Her blood pressure is good, she continues to be on low dose IV norepinephrine. There is no ventricular ectopic activity. Her urinary output has been stable. She has not been started on anticoagulation by the surgical team. She continues to be on IV amiodarone. July 23: She remains intubated and sedated. She is in atrial fibrillation with relatively controlled ventricular rate on IV amiodarone and IV Lopressor. She has not started anticoagulation yet awaiting surgical approval. Her urinary output has been stable. Her oxygenation is stable on PEEP of 5. There is no evidence of malignant arrhythmia. She is receiving TPN. She is afebrile. Her norepinephrine is being weaned off 07/24 Patient seen and examined. Patient extubated and off vasopressors. Remains on TPN. Remains in A. fib with heart rates 110s to 130s. Blood pressure is borderline and not receiving any oral medications. No anticoagulation yet. Cr improved to 1.2 Medications: IV amiodarone, metoprolol 5 mg IV every 6 hours, norepinephrine PHYSICAL EXAMINATION Vitals reviewed. LUNGS: Clear to auscultation anteriorly HEART: Irregular rate and rhythm, S1, S2. No S3. systolic ejection murmur ABDOMEN: Soft, no organomegaly, dressing in place EXTREMETIES: No edema IMPRESSION: 1. Status post exploratory laparotomy with repair of incarcerated right inguinal hernia 2. Postop hypotension, resolved 3. Paroxysmal atrial fibrillation, now in atrial fibrillation with controlled rate, continues on IV amiodarone. Anticoagulation not started, awaiting surgical clearance 4. Status post permanent pacemaker implantation PLAN: 1. Continue beta consuelo intravenously 2. Restart anticoagulation when okay with surgery 3. Continue with IV amiodarone 4. Start digoxin IV 5. If remains elevated BP, may add Cardizem drip as well Objective - Vital Signs Vital signs: Vital Signs Temp 100.2 F H 07/24/22 05:00 Pulse 142 H 07/24/22 06:00 Resp 29 H 07/24/22 06:00 BP 108/65 07/24/22 05:00 Pulse Ox 93 L 07/24/22 06:00 FiO2 4 07/24/22 05:00 Intake & Output 07/23/22 07/24/22 07/24/22 18:59 06:59 18:59 Intake Total 9002.570 2518.005 Output Total 845 545 Balance 984.270 700.005 Weight 63.7 kg Intake: IV 1440 1000 Amino Acid 4.25%-D10w+ 440 660 Lytes*E* 1,000 ml @ 55 mls/hr IV .BY DURATION CLAUDY Rx#:[id number] Cefepime 1 gm In Sodium 125 Chloride 0.9% 50 ml @ 12. 5 mls/hr IVPB Q12HR CLAUDY Rx#:[id number] Mvi, Adult No.4 with Vit 275 K 10 ml Trace (Conc-1Ml/ Dose) 1 ml In Amino Acid 4.25%-D10w+Lytes*E* 1,000 ml @ 30 mls/hr IV .Q24H CLAUDY Rx#:[id number] Potassium Chloride 10 meq 200 In Water For Injection 1 100ml.bag @ 100 mls/hr IVPB Q1H CLAUDY Rx#: [id number] Sodium Chloride 0.9% 500 200 240 ml 500 ml @ 20 mls/hr IV .Q24H CLAUDY Rx#:[id number] metroNIDAZOLE-NS PMX 500 200 100 mg In Saline 1 100ml.bag @ 100 mls/hr IVPB Q8HR CLAUDY Rx#:[id number] Intake, IV Titration 389.270 245.005 Amount Amiodarone 450 mg In 233.06 245.005 Dextrose 5% in Water 250 ml @ 0.5 MG/MIN 16.667 mls/hr IV .Q15H CLAUDY Rx#: [id number] Norepinephrine 8 mg In 25.594 Sodium Chloride 0.9% 250 ml @ 0.03 MCG/KG/MIN 2.99 mls/hr IV .Q24H CLAUDY Rx#: [id number] Potassium Chloride 10 meq 100 In Water For Injection 1 100ml.bag @ 100 mls/hr IVPB Q1H CLAUDY Rx#: [id number] propofoL 1,000 mg In 30.616 Empty Bag 1 bag @ 15 MCG/ KG/MIN 4.635 mls/hr IV . [id number] CLAUDY Rx#:[id number] Output: Gastric Drainage 225 Urine 620 545 Other: Voiding Method Indwelling Catheter Indwelling Catheter ABP, PAP, CO, CI - Last Documented Arterial Blood Pressure 174/59 - Labs CBC & Chem 7: 07/24/22 04:25 07/24/22 04:25 Labs: Abnormal Lab Results - Last 24 Hours (Table) 07/22/22 07/23/22 07/23/22 Range/Units 05:00 11:17 12:26 RBC (3.80-5.40) m/uL Hgb (11.4-16.0) gm/dL Hct (34.0-46.0) % MCV (80.0-100.0) fL Neutrophils # (1.3-7.7) k/uL Lymphocytes # (1.0-4.8) k/uL ABG pCO2 34 L (35-45) mmHg ABG pO2 118 H (83-108) mmHg ABG O2 Saturation 99.4 H (94-97) % Chloride (98-107) mmol/L BUN (7-17) mg/dL Creatinine (0.52-1.04) mg/dL Glucose (74-99) mg/dL POC Glucose (mg/dL) 291 H (70-110) mg/dL Calcium (8.4-10.2) mg/dL Triglycerides 203.00 H (0.00-149.00) mg/dL 07/23/22 07/24/22 07/24/22 Range/Units 18:05 00:14 04:25 RBC (3.80-5.40) m/uL Hgb (11.4-16.0) gm/dL Hct (34.0-46.0) % MCV (80.0-100.0) fL Neutrophils # (1.3-7.7) k/uL Lymphocytes # (1.0-4.8) k/uL ABG pCO2 (35-45) mmHg ABG pO2 (83-108) mmHg ABG O2 Saturation (94-97) % Chloride 111 H (98-107) mmol/L BUN 42 H (7-17) mg/dL Creatinine 1.21 H (0.52-1.04) mg/dL Glucose 240 H (74-99) mg/dL POC Glucose (mg/dL) 308 H 289 H (70-110) mg/dL Calcium 7.7 L (8.4-10.2) mg/dL Triglycerides (0.00-149.00) mg/dL 07/24/22 07/24/22 Range/Units 04:25 06:40 RBC 2.76 L (3.80-5.40) m/uL Hgb 8.8 L (11.4-16.0) gm/dL Hct 28.1 L (34.0-46.0) % MCV 101.6 H (80.0-100.0) fL Neutrophils # 8.8 H (1.3-7.7) k/uL Lymphocytes # 0.4 L (1.0-4.8) k/uL ABG pCO2 (35-45) mmHg ABG pO2 (83-108) mmHg ABG O2 Saturation (94-97) % Chloride (98-107) mmol/L BUN (7-17) mg/dL Creatinine (0.52-1.04) mg/dL Glucose (74-99) mg/dL POC Glucose (mg/dL) 242 H (70-110) mg/dL Calcium (8.4-10.2) mg/dL Triglycerides (0.00-149.00) mg/dL Microbiology - Last 24 Hours (Table) 07/21/22 23:50 Gram Stain - Preliminary Sputum Sputum Culture - Preliminary Stephany albicans
[2022-07-24] MEDS: NOREPINEPHRINE 8 MG in SODIUM CHLORIDE 0.9% 250 ML IV SCH ×2 (08:09→18:26)
[2022-07-24] MEDS: metroNIDAZOLE-NS PMX 500 MG in SALINE 1 100ML.BAG IVPB SCH ×3 (08:38→23:54)
[2022-07-24] MEDS: CEFEPIME 1 GM in SODIUM CHLORIDE 0.9% 50 ML IVPB SCH ×2 (09:24→20:05)
[2022-07-24] MEDS: CHLORHEXIDINE GLUCONATE 15 ML CUP MUCOUS MEM SCH ×2 (09:24→20:05)
[2022-07-24] MEDS: LEVOTHYROXINE IVP 100 MCG/5 ML VIAL IV SCH (09:24)
[2022-07-24] MEDS: polyethylene glycoL 3350 17 GM POWD.PACK PO SCH (09:26)
[2022-07-24] MEDS ORDERED: SODIUM PHOSPHATE 15 MMOL in DEXTROSE 5% IN WATER 250 ML IVPB ONE ×2 (10:30)
--- NOTE | 2022-07-24 12:12 | P.PN ---
Subjective Progress Note Date: 07/24/22 Principal diagnosis: Acute hypoxic respiratory failure secondary to abdominal sepsis, right inguinal incarcerated hernia with bowel ischemia requiring small bowel resection Seeing this patient in consultation today 07/13/2022 in the emergency room waiting for a bed on the selective care unit. Patient is an 81-year-old white female with past significant medical history of atrial fibrillation, permanent pacemaker, coronary artery disease, breast cancer post radiation therapy and lumpectomy, hypertension, hyperlipidemia, diabetes mellitus, hypothyroidism, and is a lifelong nonsmoker. Patient does follow with Dr. Haile in the office for a solitary lung nodule. Patient presented to the emergency room yesterday evening with chief complaint of shortness of breath over the past 2 weeks. Also, reports chest congestion and a frequent cough with occasional phlegm. Patient denies any chest pain, heart palpitations, lightheadedness or syncope, fever, hemoptysis. Patient apparently was seen by Dr Babcock, her primary care provider, and was given a course of prednisone and a Z-Sherman. Patient had no improvement in symptoms. Patient is currently resting emergency room, on room air, in no acute distress. Chest x-ray arrival showed no acute cardiopulmonary process. While the emergency room, patient did have an episode of A. fib RVR, which has currently resolved, as the patient is in normal sinus rhythm around 80 bpm. troponins are mildly elevated most recent troponin 0.068. EKG currently shows normal sinus rhythm without any obvious ischemic changes. NT proBNP is 1890. Normal saline is infusing at 130 mL per hour. Patient's CBC on arrival showed a WBC count 9.9, hemoglobin 12, hematocrit 36.7, platelets 302. 41, potassium 4.5, chloride 105, serum CO2 26, BUN 74, creatinine 1.68, 75. LFTs are mildly elevated. Patient was negative for influenza, RSV, COVID-19. Vital signs are stable. On 07/21/2022, I'm seeing the patient for a follow-up. The patient is postop day #1. This morning, the patient is adequately sedated on propofol which is running at 40 mcg/kg/m. The propofol this can be slightly weaned down as the patient is significantly sedated. She is on assist-control mode of mechanical ventilation. She doesn't assist control of 12, tidal volume of 400, crit of 40% with a PEEP of 5. The blood. From today shows a pH of 7.4 with episodes of 38 and pO2 of 1:30. The chest x-ray from today shows no acute abnormalities. There is some small effusions lung base bilaterally. ET tube is in a good location. No airspace disease or consolidation. The patient also has a pacemaker over the left anterior chest and the patient has a right IJ triple- lumen catheter in place. The patient is currently on a combination of cefepime and Flagyl. The patient remains on pressors and norepinephrine is running at the rate of 0.15 mcg/kg/m. The patient has a urine operas in order of marginal 30-40 mL an hour. The patient is on normal saline at the rate of 75 mL an hour. Meanwhile, the patient remains nothing by mouth. NG tube is in place. Output from the NG tube is minimal. The surgical wound is dry clean and intact. The patient has superficial wound VAC with minimal amount of drainage. Bowel sounds are hypoactive/absent. Nevertheless, her abdomen is nondistended. In terms of the rest of the blood work, the WBC count is at 10.7 with a hemoglobin of 10.7 and a platelet count of 180. Sodiums of 140, BUN is at 41 with a creatinine of 1.33. Liver function tests yesterday were essentially within normal limits. Albumin is at 2.4 with a total protein of 4.5. She is afebrile this morning. No other significant events overnight. In terms of her cardiac rhythm, the patient remained nature fibrillation. The patient will be switched to oral amiodarone today. Unable to get beta blockers as long as the patient is still hypotensive. She is on no anticoagulants for now. Her TSH was 0.9 and the patient is on low-dose Synthroid 37.5 g IV every 24 hours. 07/22/2022, the patient is postop day #2. This morning, she remains up at 40 mcg/kg/m. She is arousable and she follows simple commands even while being on sedation. She remains on a mechanical ventilator. She is on assist-control at the rate of 12, tidal volume of 400, FiO2 40% with a PEEP of 5. Chest x-ray from today still pending. Blood gas from this morning shows a pH of 7.34 with episodes of 38 and pO2 of 148. As such, she has adequate oxygenation. The patient's chest x-ray from today is pending. Meanwhile, the patient is still on a mechanical ventilator. She is, comfortable. No significant orotracheal secretions. Hemodynamically, the patient has been obvious significant positive fluid balance. Urine output is in order of 20-30 mL an hour. The creatinine today is stable at 1.47 with a BUN of 39. Sodium is at 137 and a serum bicarb is at 20. The white cell count today is at 10.6 with a hemoglobin of 9.6. The patient was receiving IV fluids in the form of normal saline at the rate of 75 mL an hour. The patient was also started on TPN for nutritional support. This is running at 30 mL an hour. IV antibiotics include a combination of cefepime and Flagyl. Meanwhile, the patient is having issues with atrial fibrillation. After being on amiodarone drip, the patient's heart rate stabilized. This morning, she was again tachycardic. She was given Lopressor 5 mg IV in addition to amiodarone bolus a total of 150 mg IV push. Her heart is under better control for now it's under 100. She is on no anticoagulants. The surgeon would like to wait another 24-48 hours prior to starting the patient any form of anticoagulants. Surgical wound is dry clean and intact. The patient has a superficial VAC in place. 07/23/2022, the patient is postop day #3. The patient remains intubated on a mechanical ventilator. She seems to be quite stable on today's evaluation. The patient is currently off pressors. The norepinephrine was weaned off overnight and this morning, the patient is on no pressors. At the same time, the patient remained nature fibrillation. Heart rate is fluctuating and she is on/the beta blockers patient remains on amiodarone infusion running at 0.5 mg/m. No anticoagulants yet. At the same time, the patient remains on a mechanical ventilator. She is on assist control mode at the rate of 12, tidal volume of 400, FiO2 40% with a PEEP of 5. The blood gas from today shows a pH of 7.4 with a pCO2 of 31 and pO2 of 134. Chest x-ray shows small bilateral lower lobe pleural effusions. Orotracheal tube is in a good location. The patient is producing urine output in the order of 40-50 mL an hour. At the same time, her fluid balance is +1.6 L over the past 24 hours. Blood work from today shows a WBC count 9.5 with a hemoglobin 9.1 and a platelet count of 162. Sodium is at 136, BUN is at 40 with a creatinine of 1.4 as such her renal function is stable. She is receiving TPN for nutritional support which is running at the rate of 55 mL an hour. Maintenance fluids are at KVO. She is afebrile. She remains on a combination of cefepime and Flagyl. Blood sugars are slightly elevated and the patient is diabetic taking Lantus insulin on outpatient basis 35 units daily. Was started on low-dose Levemir at 12 units along with a size scale coverage. Patient was seen today on, patient is now postoperative day #4. Patient was extubated yesterday, she is now on 4 L nasal cannula, she is requiring amiodarone at 0.5 mg/m, and did receive digoxin. She is also on TPN at 55 mL per hour. Continues to have nasogastric tube in place, she seems to have coffee ground material in the nasogastric tube. Patient was on mechanical ventilation/ through 07/23. Remains on Flagyl and cefepime for her abdominal sepsis. Patient is not requiring any norepinephrine at present. She remains in atrial fibrillation with poorly controlled rate, fluctuating between 120 and 135. No chest x-ray was done today, but she did have a chest x-ray yesterday showing small bilateral pleural effusions, and the right lower lobe atelectasis. Labs today showed WBC count 9.8 hemoglobin is 8.8, basic metabolic profile is normal renal functioning showed a BUN of 42 creatinine 1.21, patient was placed on Lovenox 30 mg subcu daily, she will eventually need to be on full anticoagulation therapy, however considering the nasogastric tube is showing coffee ground material I am a bit reluctant to start full anticoagulation at this point. In addition to antibiotics, patient remains on bronchodilators, she is being followed by cardiology for her poorly-controlled atrial fibrillation Objective - Vital Signs Vital signs: Vital Signs Temp 97.8 F 07/24/22 08:00 Pulse 126 H 07/24/22 11:35 Resp 18 07/24/22 11:00 BP 119/60 07/24/22 11:00 Pulse Ox 96 07/24/22 11:00 FiO2 4 07/24/22 05:00 Intake & Output 07/23/22 07/24/22 07/24/22 18:59 06:59 18:59 Intake Total 7558.252 1146.005 524 Output Total 845 745 220 Balance 984.270 500.005 304 Weight 63.7 kg 63.7 kg Intake: IV 1440 1000 524 Amino Acid 4.25%-D10w+ 440 660 220 Lytes*E* 1,000 ml @ 55 mls/hr IV .BY DURATION CLAUDY Rx#:[id number] Cefepime 1 gm In Sodium 125 100 Chloride 0.9% 50 ml @ 12. 5 mls/hr IVPB Q12HR [facility]UDY Rx#:[id number] Mvi, Adult No.4 with Vit 275 K 10 ml Trace (Conc-1Ml/ Dose) 1 ml In Amino Acid 4.25%-D10w+Lytes*E* 1,000 ml @ 30 mls/hr IV .Q24H CLAUDY Rx#:[id number] Potassium Chloride 10 meq 200 In Water For Injection 1 100ml.bag @ 100 mls/hr IVPB Q1H CLAUDY Rx#: [id number] Sodium Chloride 0.9% 500 200 240 80 ml 500 ml @ 20 mls/hr IV .Q24H CLAUDY Rx#:[id number] metroNIDAZOLE-NS PMX 500 200 100 100 mg In Saline 1 100ml.bag @ 100 mls/hr IVPB Q8HR CLAUDY Rx#:[id number] pressure bags 24 Intake, IV Titration 389.270 245.005 Amount Amiodarone 450 mg In 233.06 245.005 Dextrose 5% in Water 250 ml @ 0.5 MG/MIN 16.667 mls/hr IV .Q15H CLAUDY Rx#: [id number] Norepinephrine 8 mg In 25.594 Sodium Chloride 0.9% 250 ml @ 0.03 MCG/KG/MIN 2.99 mls/hr IV .Q24H CLAUDY Rx#: [id number] Potassium Chloride 10 meq 100 In Water For Injection 1 100ml.bag @ 100 mls/hr IVPB Q1H CLAUDY Rx#: [id number] propofoL 1,000 mg In 30.616 Empty Bag 1 bag @ 15 MCG/ KG/MIN 4.635 mls/hr IV . [id number] CLAUDY Rx#:[id number] Output: Gastric Drainage 225 200 Urine 620 545 220 Other: Voiding Method Indwelling Catheter Indwelling Catheter ABP, PAP, CO, CI - Last Documented Arterial Blood Pressure 141/50 - Exam Physical Exam: Revealed an 81-year-old female, in no distress, on 4 L nasal cannula. Head: Atraumatic, normocephalic HEENT:[Neck is supple.] [No neck masses.] [No thyromegaly.] [No JVD.] Chest: [Fine crackles at the bases no rhonchi and no wheezes. Cardiac Exam: [Irregular irregular rhythm. Normal S1 and S2, no S3 gallop, 2/6 systolic murmur throughout the precordium. Abdomen: [Postsurgical, Soft, nontender, no megaly, no rebound, no guarding, normal bowel sounds.] Extremities: [No clubbing, trace of bipedal edema, no cyanosis.] Neurological Exam: Patient seems to be a bit slow, however she is arousable, follows simple instructions. Psychiatric: Normal mood, flat affect, normal mental status examination. Skin: No rashes. - Labs CBC & Chem 7: 07/24/22 04:25 07/24/22 04:25 Labs: Abnormal Lab Results - Last 24 Hours (Table) 07/22/22 07/23/22 07/23/22 Range/Units 05:00 12:26 18:05 RBC (3.80-5.40) m/uL Hgb (11.4-16.0) gm/dL Hct (34.0-46.0) % MCV (80.0-100.0) fL Neutrophils # (1.3-7.7) k/uL Lymphocytes # (1.0-4.8) k/uL ABG pCO2 34 L (35-45) mmHg ABG pO2 118 H (83-108) mmHg ABG O2 Saturation 99.4 H (94-97) % Chloride (98-107) mmol/L BUN (7-17) mg/dL Creatinine (0.52-1.04) mg/dL Glucose (74-99) mg/dL POC Glucose (mg/dL) 308 H (70-110) mg/dL Calcium (8.4-10.2) mg/dL Triglycerides 203.00 H (0.00-149.00) mg/dL 07/24/22 07/24/22 07/24/22 Range/Units 00:14 04:25 04:25 RBC 2.76 L (3.80-5.40) m/uL Hgb 8.8 L (11.4-16.0) gm/dL Hct 28.1 L (34.0-46.0) % MCV 101.6 H (80.0-100.0) fL Neutrophils # 8.8 H (1.3-7.7) k/uL Lymphocytes # 0.4 L (1.0-4.8) k/uL ABG pCO2 (35-45) mmHg ABG pO2 (83-108) mmHg ABG O2 Saturation (94-97) % Chloride 111 H (98-107) mmol/L BUN 42 H (7-17) mg/dL Creatinine 1.21 H (0.52-1.04) mg/dL Glucose 240 H (74-99) mg/dL POC Glucose (mg/dL) 289 H (70-110) mg/dL Calcium 7.7 L (8.4-10.2) mg/dL Triglycerides (0.00-149.00) mg/dL 07/24/22 Range/Units 06:40 RBC (3.80-5.40) m/uL Hgb (11.4-16.0) gm/dL Hct (34.0-46.0) % MCV (80.0-100.0) fL Neutrophils # (1.3-7.7) k/uL Lymphocytes # (1.0-4.8) k/uL ABG pCO2 (35-45) mmHg ABG pO2 (83-108) mmHg ABG O2 Saturation (94-97) % Chloride (98-107) mmol/L BUN (7-17) mg/dL Creatinine (0.52-1.04) mg/dL Glucose (74-99) mg/dL POC Glucose (mg/dL) 242 H (70-110) mg/dL Calcium (8.4-10.2) mg/dL Triglycerides (0.00-149.00) mg/dL Microbiology - Last 24 Hours (Table) 07/21/22 23:50 Gram Stain - Final Sputum Sputum Culture - Final Stephany albicans Assessment and Plan Assessment: Impression: Acute incarcerated right inguinal hernia with bowel ischemia Acute abdominal sepsis and septic shock requiring pressors Acute hypoxic respiratory failure secondary to above requiring intubation and mechanical ventilation post surgery patient was extubated yesterday on 07/23. Atrial fibrillation with RVR, symmetrical requiring amiodarone, being followed closely by cardiology. She is presently on amiodarone at 0.5 mg/m. Acute kidney injury secondary to above History of sick sinus syndrome and previous permanent pacemaker implantation. Underlying coronary artery disease Type 2 diabetes without complications. Benign essential hypertension Remote history of pulmonary embolism History of breast cancer and previous radiation therapy and lumpectomy. Lifelong nonsmoker History of hypothyroidism, on maintenance therapy. Recommendation: Continue to monitor the patient in the ICU Continue amiodarone may have to add Cardizem if atrial fibrillation remains poorly controlled. Continue antibiotics for abdominal sepsis, patient is on cefepime and Flagyl. Continue nasogastric tube in place, in the meantime continue Protonix, will start the patient on low-dose subcu Lovenox. For DVT prophylaxis, eventually may need to be placed back on Xarelto. Continue compression devices to lower extremities for DVT prophylaxis. Continue NovoLog sliding scale coverage. Continue Levemir insulin along with sliding scale insulin. Continue nutritional support. Encourage incentive spirometry and early ambulation if possible. Continue metoprolol every 6 hours as needed. Patient remains critically ill and marginal at best. We'll continue to monitor the patient in the ICU. Critical care time is over 30 minutes. Prognosis remains relatively guarded. Time with Patient: Greater than 30
[2022-07-24] MEDS: ENOXAPARIN 30 MG/0.3 ML SYRINGE SQ SCH (12:22)
[2022-07-24 12:34] LABS: Glucose,Whole Blood 247 mg/dL (70-110)
--- NOTE | 2022-07-24 13:10 | P.PN ---
Subjective Progress Note Date: 07/24/22 CHIEF COMPLAINT: Incarcerated right inguinal hernia HISTORY OF PRESENT ILLNESS: Patient postop day #4 status post exploratory laparotomy with repair of incarcerated right inguinal hernia partial omentectomy and small bowel resection for incarcerated right inguinal hernia with ischemic small bowel and omentum. Patient was extubated yesterday. She's currently on 4 L nasal cannula. She did have a low-grade temp of 100.2 this morning. She has been A. fib with rapid ventricular response. She does have a known history of A. fib. Cardiology is following. They have added digoxin. Patient's NG tube output is very dark. NGT 250 ML output through the night. She is on TPN for nutrition support. WBC is 9.8 Hgb down from 9.1-8.8 creatinine 1.21. Patient has a weak cough. No BM or flatus reported. Patient seen and examined with Dr. Esparza PHYSICAL EXAM: VITAL SIGNS: Reviewed. GENERAL: Well-developed in no acute distress. ABDOMEN: Soft. Mildly distended. Prevana wound vac in place NEUROLOGIC: Lethargic but arousable and able to answer questions ASSESSMENT: 1. Incarcerated right inguinal hernia with ischemic small bowel and omentum status post exploratory laparotomy with repair of incarcerated right inguinal hernia partial omentectomy and small bowel resection 2. Postoperative hypotension PLAN: -Defer resuming anticoagulation to critical care service -Continue ICU management -Continue supportive care -Continue to monitor NG tube output -Ordered incentive spirometer -Start Protonix IV daily Physician Maintenance Service Supervisor note has been reviewed by physician. Signing provider agrees with the documented findings, assessment, and plan of care. Objective - Vital Signs Vital signs: Vital Signs Temp 97.8 F 07/24/22 08:00 Pulse 113 H 07/24/22 10:00 Resp 19 07/24/22 10:00 BP 117/80 07/24/22 10:00 Pulse Ox 95 07/24/22 10:00 FiO2 4 07/24/22 05:00 Intake & Output 07/23/22 07/24/22 07/24/22 18:59 06:59 18:59 Intake Total 8104.346 3197.005 443 Output Total 845 745 160 Balance 984.270 500.005 283 Weight 63.7 kg Intake: IV 1440 1000 443 Amino Acid 4.25%-D10w+ 440 660 165 Lytes*E* 1,000 ml @ 55 mls/hr IV .BY DURATION [facility]UDY Rx#:[id number] Cefepime 1 gm In Sodium 125 100 Chloride 0.9% 50 ml @ 12. 5 mls/hr IVPB Q12HR [facility]UD[facility] Rx#:[id number] Mvi, Adult No.4 with Vit 275 K 10 ml Trace (Conc-1Ml/ Dose) 1 ml In Amino Acid 4.25%-D10w+Lytes*E* 1,000 ml @ 30 mls/hr IV .Q24H [facility]UDY Rx#:[id number] Potassium Chloride 10 meq 200 In Water For Injection 1 100ml.bag @ 100 mls/hr IVPB Q1H [facility]UD[facility] Rx#: [id number] Sodium Chloride 0.9% 500 200 240 60 ml 500 ml @ 20 mls/hr IV .Q24H [facility]UDY Rx#:[id number] metroNIDAZOLE-NS PMX 500 200 100 100 mg In Saline 1 100ml.bag @ 100 mls/hr IVPB Q8HR [facility]UDY Rx#:[id number] pressure bags 18 Intake, IV Titration 389.270 245.005 Amount Amiodarone 450 mg In 233.06 245.005 Dextrose 5% in Water 250 ml @ 0.5 MG/MIN 16.667 mls/hr IV .Q15H [facility]UDY Rx#: [id number] Norepinephrine 8 mg In 25.594 Sodium Chloride 0.9% 250 ml @ 0.03 MCG/KG/MIN 2.99 mls/hr IV .Q24H [facility]UDY Rx#: [id number] Potassium Chloride 10 meq 100 In Water For Injection 1 100ml.bag @ 100 mls/hr IVPB Q1H [facility]UD[facility] Rx#: [id number] propofoL 1,000 mg In 30.616 Empty Bag 1 bag @ 15 MCG/ KG/MIN 4.635 mls/hr IV . [id number] [facility]UDY Rx#:[id number] Output: Gastric Drainage 225 200 Urine 620 545 160 Other: Voiding Method Indwelling Catheter Indwelling Catheter ABP, PAP, CO, CI - Last Documented Arterial Blood Pressure 137/53 - Labs CBC & Chem 7: 07/24/22 04:25 07/24/22 04:25 Labs: Abnormal Lab Results - Last 24 Hours (Table) 07/22/22 07/23/22 07/23/22 Range/Units 05:00 11:17 12:26 RBC (3.80-5.40) m/uL Hgb (11.4-16.0) gm/dL Hct (34.0-46.0) % MCV (80.0-100.0) fL Neutrophils # (1.3-7.7) k/uL Lymphocytes # (1.0-4.8) k/uL ABG pCO2 34 L (35-45) mmHg ABG pO2 118 H (83-108) mmHg ABG O2 Saturation 99.4 H (94-97) % Chloride (98-107) mmol/L BUN (7-17) mg/dL Creatinine (0.52-1.04) mg/dL Glucose (74-99) mg/dL POC Glucose (mg/dL) 291 H (70-110) mg/dL Calcium (8.4-10.2) mg/dL Triglycerides 203.00 H (0.00-149.00) mg/dL 07/23/22 07/24/22 07/24/22 Range/Units 18:05 00:14 04:25 RBC (3.80-5.40) m/uL Hgb (11.4-16.0) gm/dL Hct (34.0-46.0) % MCV (80.0-100.0) fL Neutrophils # (1.3-7.7) k/uL Lymphocytes # (1.0-4.8) k/uL ABG pCO2 (35-45) mmHg ABG pO2 (83-108) mmHg ABG O2 Saturation (94-97) % Chloride 111 H (98-107) mmol/L BUN 42 H (7-17) mg/dL Creatinine 1.21 H (0.52-1.04) mg/dL Glucose 240 H (74-99) mg/dL POC Glucose (mg/dL) 308 H 289 H (70-110) mg/dL Calcium 7.7 L (8.4-10.2) mg/dL Triglycerides (0.00-149.00) mg/dL 07/24/22 07/24/22 Range/Units 04:25 06:40 RBC 2.76 L (3.80-5.40) m/uL Hgb 8.8 L (11.4-16.0) gm/dL Hct 28.1 L (34.0-46.0) % MCV 101.6 H (80.0-100.0) fL Neutrophils # 8.8 H (1.3-7.7) k/uL Lymphocytes # 0.4 L (1.0-4.8) k/uL ABG pCO2 (35-45) mmHg ABG pO2 (83-108) mmHg ABG O2 Saturation (94-97) % Chloride (98-107) mmol/L BUN (7-17) mg/dL Creatinine (0.52-1.04) mg/dL Glucose (74-99) mg/dL POC Glucose (mg/dL) 242 H (70-110) mg/dL Calcium (8.4-10.2) mg/dL Triglycerides (0.00-149.00) mg/dL Microbiology - Last 24 Hours (Table) 07/21/22 23:50 Gram Stain - Preliminary Sputum Sputum Culture - Preliminary Stephany albicans
[2022-07-24] MEDS ORDERED: DIGOXIN 250 MCG/ML 2 ML AMP IVP ONE (13:36)
[2022-07-24] MEDS: AMIODARONE 450 MG in DEXTROSE 5% IN WATER 250 ML IV SCH ×2 (15:54)
[2022-07-24] MEDS: SODIUM CHLORIDE 0.9% 500 ML 500 ML IV SCH (15:55)
[2022-07-24] MEDS: PANTOPRAZOLE 40 MG/10 ML VIAL IVP SCH (15:55)
[2022-07-24 17:55] LABS: Glucose,Whole Blood 275 mg/dL (70-110)
--- NOTE | 2022-07-24 19:36 | P.PN ---
Subjective Progress Note Date: 07/24/22 Patient is a 81-year-old female with a known history of atrial fibrillation on anticoagulation with Eliquis, history of permanent pacemaker placement, hypertension, hyperlipidemia, diabetes type 2 insulin-dependent, hypothyroidism, osteoarthritis and chronic back pain and anxiety presents ER with complaints of shortness of breath for past 2 weeks. Patient was having chest congestion and cough with clear to greenish sputum production. Patient was seen by her primary care physician and was given Z-Sherman and prednisone course. Patient still having symptoms without much improvement presented to ER. Denies any fever or chills. No leg swelling. No nausea vomiting abdominal pain or diarrhea. Chest x-ray in the ER showed no acute process. EKG showed atrial fibrillation with rapid regular rate with heart rate 134 Laboratory data showed WBC 9.9 hemoglobin 12.0 and platelets 302 Sodium 141 potassium 4.5 chloride 105 bicarb is 26 BUN 74 and creatinine 1.68, AST 38 ALT 45 alk phos 48 and troponin 0.054, 0.052 and 0.068, procalcitonin level is 0.11 TSH within normal limits and proBNP is 1890 Influenza A, B, RSV and COVID-19 PCR not detected. 07/14/2022 This is a pleasant 81 years old female was admitted with A. fib and RVR consult with evidence with acute bronchitis. She's been treated with Zithromax, normal saline for acute kidney injury and her Lopressor dose was increased to 75 mg 3 times a day by funeral pre need consultant, currently heart rate is controlled and she is on Eliquis home dose of 2.5 mg However patient lying in bed and she still feels short of breath and she still was not ready for discharge.. Cartilage team adjusted some of her blood pressure medication and they cleared her for discharge Pulmonary team on the case and patient was started on Medrol Dosepak. 07/15/2022 Patient clinically doing well and she is back to baseline, breathing significantly improved with no chest pain heart rate is controlled with occasional changes in heart rate, symptomatic goes back to normal quickly. Patient is currently clinically stable and she was cleared for discharge by both cardiology and pulmonary services, I discussed with the patient she does not want to go home today and she wants to be evaluated by physical therapy first. Discussed with bed side nurse to contact physical therapy to this morning and they're pending. Patient is a 81-year-old female with a known history of atrial fibrillation on anticoagulation with Eliquis, history of permanent pacemaker placement, hyper tension, hyperlipidemia, diabetes type 2 insulin-dependent, hypothyroidism, osteoarthritis and chronic back pain and anxiety presents ER with complaints of shortness of breath for past 2 weeks. Patient was having chest congestion and cough with clear to greenish sputum production. Patient was seen by her primary care physician and was given Z-Sherman and prednisone course. Patient still having symptoms without much improvement presented to ER. Denies any fever or chills. No leg swelling. No nausea vomiting abdominal pain or diarrhea. Chest x-ray in the ER showed no acute process. EKG showed atrial fibrillation with rapid regular rate with heart rate 134 Laboratory data showed WBC 9.9 hemoglobin 12.0 and platelets 302 Sodium 141 potassium 4.5 chloride 105 bicarb is 26 BUN 74 and creatinine 1.68, AST 38 ALT 45 alk phos 48 and troponin 0.054, 0.052 and 0.068, procalcitonin level is 0.11 TSH within normal limits and proBNP is 1890 Influenza A, B, RSV and COVID-19 PCR not detected. 07/14/2022 This is a pleasant 81 years old female was admitted with A. fib and RVR consult with evidence with acute bronchitis. She's been treated with Zithromax, normal saline for acute kidney injury and her Lopressor dose was increased to 75 mg 3 times a day by funeral pre need consultant, currently heart rate is controlled and she is on Eliquis home dose of 2.5 mg However patient lying in bed and she still feels short of breath and she still was not ready for discharge.. Cartilage team adjusted some of her blood pressure medication and they cleared her for discharge Pulmonary team on the case and patient was started on Medrol Dosepak. 16 2022 Patient is currently lying in bed. Awake alert and oriented x3. Denies any complaints of chest pain. Shortness of breath is much improved. No cough or sputum production. Otherwise patient is still feeling generalized weakness and needs assistance with walking to the bathroom. PT OT was consulted and family is concerned about going home. Anticipate discharge home versus rehab in the next 24 to 48 hours. High risk with history of sustaining. Laboratory data reviewed. Cleared from pulmonary and cardiology standpoint. 07/17/2022 Patient is seen and evaluated in follow-up and continues with weakness and being evaluated by physical therapy. Patient does have some cough and reports her shortness of breath is improved. Patient taking a number of medications causing an increase in kidney functions and will hold the splint pressure medications and Lasix and follow-up with repeat labs. Patient prefers to go home and arranging for home care in the outpatient setting. Patient is currently afebrile continues to report cough although denies shortness of breath. Patient is tolerating diet with no reports of nausea or vomiting noted. 07/18/2022 Patient is seen and evaluated in follow-up this morning with kidney functions trending down low not much improved as patient did receive the Lasix and lisinopril yesterday. Patient is having increased abdominal pain with severe cramping and nausea and reports she feels she has to have a bowel movement but is unable to. Patient does have history of IBS although was not having any loose stools. Patient is reporting 10/10 pain and unable to stand due to the intensity of the cramping and laying in the position in bed. Will add Bentyl and additional medications. Patient encouraged to increase activity as tolerated. Cardiology and pulmonary following and have cleared the patient for discharge. Will monitor overnight with probable discharge in 24 hours. 07/19/2022 Patient is seen and evaluated in follow-up today reports to not feeling well at all with extreme nausea and some vomiting. Patient unable to keep her medications down and heart rate noted to be elevated into the 140s. Cardiology had been following although signed off and will reconsult. Cardiology following back up given additional dose of metoprolol although patient not able to tolerate and unsure if she took the medication. Patient continues to show atrial fibrillation with RVR and cardiology starting Cardizem drip. Patient will need transfer to cardiology floor for monitoring of the strep as she is cu rrently on 5 N. and they do not handle Cardizem drips. Patient is currently afebrile does report some palpitations although denies chest pain. Patient having extreme nausea with some vomiting and abdominal pain. Patient also feels to having some constipation and reports did have a very minimal difficult time having a small bowel movement yesterday after suppository, will add enema. 07/20/2022 Patient is seen early this morning with daughter at bedside and is currently nothing by mouth awaiting surgical intervention with Dr. Esparza with concerns of incarcerated hernia as patient was reporting abdominal pain. Patient did have an episode of atrial fibrillation with RVR and initially going to start Cardizem drip yesterday although converted to sinus rhythm and was resumed on eliquis with cardiology following. Cardizem drip was discontinued at that point although patient continue with increased abdominal pain and discomfort with vomiting and general surgery was consulted. Patient had an abdominal x-ray which showed few mildly dilated loops of small bowel with multiple air-fluid levels concerning with developing bowel obstruction recommending a CT follow-up. Patient's kidney functions were elevated although repeat creatinine was improving at 1.7 with lisinopril and Lasix being held. Ordered a CT abdomen without contrast which showed findings suspicious for small bowel obstruction with suspected transition point within a partially visualized right inguinal hernia Limited evaluation without the contrast with fibroid changes of the uterus and not obstructed right renal calculus with colonic diverticulosis without evidence of diverticulitis. Patient was placed nothing by mouth and General surgery recommending surgical intervention and was held over until this morning as patient did receive her anticoagulation yesterday. Patient did have an elevation in white count up to 15 although afebrile continued to have abdominal pain and extremely tender on palpation. Patient also had uncontrolled rhythms in A. fib with RVR and was moved to 3 S. early this morning and placed on the Cardizem drip. Will await surgical report. 07/21/2022 Patient is seen and evaluated continues to be in the ICU on mechanical ventilation with no plans of leaving today. Heart rate remains uncontrolled and was maintained on Cardizem will be transitioned to amiodarone with cardiology following. General surgery following a patient is status post surgical intervention for the right incarcerated hernia. Patient is continued on antibiotics along with low-dose pressor support and will continue to monitor closely. Patient does have abdominal dressings in the form of prevana that are intact and abdomen is less distended. Patient does have a central line and TPN is being started. 07/22/2022 Patient is seen this morning in the ICU maintained on mechanical ventilation and FiO2 is 40% with a PEEP of 5. Patient is undergoing sedation holidays and currently awake and following commands. Plan is to remain on mechanical ventilation as patient continues to have some hypotension requiring pressor support as well as uncontrolled atrial fibrillation. Patient on amiodarone drip and also being continued on IV Lopressor. Patient is maintaining on cefepime and Flagyl sputum culture was obtained. Patient is afebrile and has been started on TPN. Patient continues with pain and will continue as needed low- dose Dilaudid. Gen. surgery following and will continue with prevana dressing to the abdomen. No bowel movement as of yet per nursing staff and sluggish bowel sounds noted. 07/23/2022 Patient is seen and evaluated in follow-up this morning continues to be in the ICU on mechanical ventilation with multiple medical consultations following. Patient continues on the vent with FiO2 of 40% and PEEP is 5. Patient undergoing sedation holiday and is following commands and working on weaning trials with possible extubation later today. Patient continues to be in atrial fibrillation maintained on IV amiodarone IV push Lopressor cardiology following closely. Patient is off pressor support currently. Patient remains on antibiotics in the form of cefepime and Flagyl status post surgical intervention of the right inguinal incarcerated hernia and is maintained on TPN for nutritional support. Patient's blood sugars elevated and will continue with long-acting as well as sliding scale and Accu-Cheks per protocol. No bowel activity as of yet and bowel sounds are not noted on exam. Patient is voiding and having good urine output. Patient currently afebrile. 07/24/2022 Patient is seen in follow-up this morning continues to be in the ICU successfully extubated yesterday and currently maintained on oxygen at 3-4 L via nasal cannula. Patient is maintaining oxygen saturations above 90%. Patient continues to be an uncontrolled atrial fibrillation with RVR maintained on IV amiodarone with cardiology following closely and off pressor support currently being started on digoxin. Patient continues to report some pain in the abdomen and will increase a lot of slightly. Patient continues with dark bilious output noted in the NG and is maintained on TPN. Blood sugars are elevated and will adjust long-acting's accordingly and continue sliding scale and Accu-Cheks. Recommend incentive spirometer and coughing and deep breathing as much as possible. Patient is continued on IV antibiotics in the form of cefepime and Flagyl sputum cultures for Stephany white count has normalized. Patient continues to have no bowel activity at this time and will continue TPN for now. Review of systems: Constitutional: reports of fatigue, no reports of fever, or chills Cardiovascular: No reports of chest pain or palpitations Respiratory: reports of shortness of breath with a weak cough GI: reports of nausea, no vomiting, and no bowel activity as of yet. Patient continues to have bili of dark drainage noted in the NG : No reports of dysuria or retention Neurovascular: reports of generalized weakness All medications have been reviewed Active Medications Acetaminophen (Acetaminophen Tab 325 Mg Tab) 650 mg PO Q6HR PRN PRN Reason: Fever and/ or Pain Last Admin: 07/18/22 10:50 Dose: 650 mg Hydrocodone Bitart/Acetaminophen (Hydrocodone/Apap 5-325mg 1 Each Tab) 1 each PO Q6HR PRN PRN Reason: Pain Last Admin: 07/21/22 05:06 Dose: 1 each Albuterol/Ipratropium (Ipratropium-Albuterol 3 Ml Neb) 3 ml INHALATION RT-Q2H PRN PRN Reason: Shortness Of Breath Or Wheezing Last Admin: 07/23/22 03:49 Dose: 3 ml Albuterol/Ipratropium (Ipratropium-Albuterol 3 Ml Neb) 3 ml INHALATION RT-QID [facility] Last Admin: 07/24/22 15:22 Dose: 3 ml Chlorhexidine Gluconate (Chlorhexidine Gluconate 15 Ml Cup) 15 ml MUCOUS MEM BID [facility] Last Admin: 07/24/22 09:24 Dose: 15 ml Dextrose/Water (Dextrose 50% Syringe 50 Ml) 25 ml IVP PER PROTOCOL PRN; Protocol PRN Reason: Hypoglycemia Dextrose/Water (Dextrose 50% Syringe 50 Ml) 50 ml IVP PER PROTOCOL PRN; Protocol PRN Reason: Hypoglycemia Digoxin (Digoxin 250 Mcg/Ml 2 Ml Amp) 250 mcg IVP DAILY [facility] Enoxaparin Sodium (Enoxaparin 30 Mg/0.3 Ml Syringe) 30 mg SQ DAILY [facility] Last Admin: 07/24/22 12:22 Dose: 30 mg Fluticasone Propionate (Fluticasone 50mcg/Henley Nasal 16gm) 1 spray EA [facility] Last Admin: 07/23/22 20:44 Dose: Not Given Hydromorphone HCl (Hydromorphone 0.5 Mg/0.5 Ml Syringe) 0.5 mg IVP Q3HR PRN PRN Reason: Pain Last Admin: 07/24/22 12:23 Dose: 0.5 mg Propofol 1,000 mg/ IV Solution 100 mls @ 4.635 mls/hr IV .[id number] [facility]; Protocol Last Titration: 07/23/22 09:55 Dose: 0 mcg/kg/min, 0 mls/hr Norepinephrine Bitartrate 8 mg (/ Sodium Chloride) 258 mls @ 2.99 mls/hr IV .Q24H [facility]; Protocol Last Admin: 07/24/22 08:09 Dose: Not Given Metronidazole 500 mg/ IV (Solution) 100 mls @ 100 mls/hr IVPB Q8HR [facility]; Protocol Last Admin: 07/24/22 08:38 Dose: 100 mls/hr Cefepime HCl 1 gm/ Sodium (Chloride) 50 mls @ 12.5 mls/hr IVPB Q12HR [facility] Last Admin: 07/24/22 09:24 Dose: 12.5 mls/hr Sodium Chloride (Saline 0.9%) 500 mls @ 20 mls/hr IV .Q24H [facility] Last Admin: 07/23/22 17:14 Dose: Not Given Amiodarone HCl 450 mg/ (Dextrose/Water) 250 mls @ 16.667 mls/hr IV .Q15H [facility]; Protocol Last Admin: 07/23/22 23:00 Dose: 0.5 mg/min, 16.667 mls/hr Parenteral Vitamin Supplement 10 ml/ Zinc/Copper/Manganese/Selenium 1 ml/ Amino Ac/Electrol/Dextrose/Calcium 1,011 mls @ 55 mls/hr IV .BY DURATION [facility] Stop: 07/24/22 18:59 Last Admin: 07/23/22 12:54 Dose: 55 mls/hr Amino Ac/Electrol/Dextrose/Calcium (Clinimix E 4.25%-D10% Solution) 1,000 mls @ 55 mls/hr IV .BY DURATION [facility] Stop: 07/24/22 18:59 Last Admin: 07/24/22 05:46 Dose: 55 mls/hr Parenteral Vitamin Supplement 10 ml/ Zinc/Copper/Manganese/Selenium 1 ml/ Amino Ac/Electrol/Dextrose/Calcium 1,011 mls @ 85 mls/hr IV .BY DURATION [facility] Amino Ac/Electrol/Dextrose/Calcium (Clinimix E 4.25%-D10% Solution) 1,000 mls @ 85 mls/hr IV .BY DURATION [facility] Insulin Aspart (Insulin Aspart (Novolog) 100 Unit/Ml Vial) 0 unit SQ Q6H [facility]; Protocol Last Admin: 07/24/22 12:56 Dose: 2 unit Insulin Detemir (Insulin Detemir (Levemir) 100 Unit/Ml Syr) 12 unit SQ HS [facility] Last Admin: 07/23/22 18:54 Dose: 12 unit Levothyroxine Sodium (Levothyroxine Ivp 100 Mcg/5 Ml Vial) 37.5 mcg IV DAILY [facility] Last Admin: 07/24/22 09:24 Dose: 37.5 mcg Metoclopramide HCl (Metoclopramide 5 Mg/Ml 2 Ml Vial) 5 mg IVP Q6HR [facility] Last Admin: 07/24/22 12:22 Dose: 5 mg Metoprolol Tartrate (Metoprolol Tartrate 5 Mg/5 Ml Vial) 5 mg IVP Q6HR [facility] Last Admin: 07/24/22 12:23 Dose: 5 mg Miscellaneous Information (Potassium Replacement Protocol 1 Each Misc) 1 each MISCELLANE DAILY PRN; Protocol PRN Reason: Per Protocol Naloxone HCl (Naloxone 0.4 Mg/Ml 1 Ml Vial) 0.2 mg IV Q2M PRN PRN Reason: Opioid Reversal Ondansetron HCl (Ondansetron 4 Mg/2 Ml Vial) 4 mg IVP Q8HR PRN PRN Reason: Nausea And Vomiting Last Admin: 07/20/22 03:28 Dose: 4 mg Pantoprazole Sodium (Pantoprazole 40 Mg/10 Ml Vial) 40 mg IVP DAILY [facility] Polyethylene Glycol (Polyethylene Glycol 3350 17 Gm Powd.Pack) 17 gm PO DAILY [facility] Last Admin: 07/24/22 09:26 Dose: Not Given Tramadol HCl (Tramadol 50 Mg Tab) 50 mg PO TID PRN PRN Reason: Pain Last Admin: 07/18/22 22:59 Dose: 50 mg Physical exam: GENERAL: The patient is asleep although easily arousable, alert and oriented 3, currently maintained on 2 L via nasal cannula, thin built, elderly-appearing HEENT: Pupils are round and equally reacting to light. EOMI. No scleral icterus. No conjunctival pallor. Normocephalic, atraumatic. No pharyngeal erythema. No thyromegaly. CARDIOVASCULAR: Irregular, A. fib uncontrolled rates on the monitor PULMONARY: Breath sounds diminished with no wheezing, coarse rhonchi with some bronchial congestion noted. ABDOMEN: Soft, mildly distended, tender on palpation, extremely sluggish bowel sounds. No palpable organomegaly. prevana dressing noted over the right groin and lower abdomen MUSCULOSKELETAL: No joint swelling or deformity. EXTREMITIES: No cyanosis, clubbing, or pedal edema. NEUROLOGICAL: Gross neurological examination did not reveal any focal deficits. Diffusely weak SKIN: No rashes. no petechiae. Assessment: Incarcerated right inguinal hernia with ischemic small bowel and omentum status post exploratory laparotomy with repair of incarcerated right inguinal hernia partial omentectomy and small bowel resection Atrial fibrillation with rapid ventricular rate. Back in A. fib with RVR uncontrolled rate on 07/20/2022 Acute tracheobronchitis. Failure of outpatient treatment Moderate to severe MR, moderate TR and mild pulmonary hypertension Elevated troponin, likely type II SD secondary to atrial fibrillation with RVR Abdominal cramping and pain with nausea and vomiting secondary to right incarcerated hernia Postoperative hypotension, requiring pressor support, improved, has been off pressor support Acute kidney injury with creatinine 1.68 on admission, trending down Diabetes type 2, uncontrolled with hyperglycemia Hypothyroidism Hypertension Hyperlipidemia Osteoarthritis Chronic back pain and fibromyalgia Anxiety History of permanent pacemaker placement Depression/bereavement. full Code Plan: Patient is status post Incarcerated right inguinal hernia with ischemic small bowel and omentum status post exploratory laparotomy with repair of incarcerated right inguinal hernia partial omentectomy and small bowel resection She was maintained on mechanical ventilation and successfully extubated yesterday currently maintained on 2-3 L via nasal cannula. Patient did have some postoperative hypotension requiring low-dose pressor support although not currently on pressors and blood pressure is improved Patient does continue with NG tube and will continue as there is bilious bile noted in the canister with normal bowel activity as of yet Gen. surgery following recommending to continue TPN Blood sugars have been elevated and will continue sliding scale and long-acting and have increased long-acting recommend monitoring Accu-Cheks Recommend follow-up labs in the a.m. with a follow-up chest x-ray Cardiology following as patient continues to have uncontrolled atrial fibrillation with RVR and currently maintained on IV amiodarone and digoxin being added. Anticoagulation is currently on hold and will discuss further with surgery about one resuming The impression and plan of care has been dictated by Pratibha Kasper, Nurse Practitioner as directed. Dr. Tee MD I have performed a history and examination and MDM of this patient, discussed the same with the dictator, and agree with the dictator's assessment and plan as written ,documented as a scribe. Based on total visit time, I have performed more than 50% of the visit. Objective - Vital Signs Vital signs: Vital Signs Temp 97.8 F 07/24/22 08:00 Pulse 115 H 07/24/22 09:00 Resp 20 07/24/22 09:00 BP 151/80 07/24/22 09:00 Pulse Ox 96 07/24/22 09:00 FiO2 4 07/24/22 05:00 Intake & Output 07/23/22 07/24/22 07/24/22 18:59 06:59 18:59 Intake Total 8590.315 4539.005 362 Output Total 845 745 110 Balance 984.270 500.005 252 Weight 63.7 kg Intake: IV 1440 1000 362 Amino Acid 4.25%-D10w+ 440 660 110 Lytes*E* 1,000 ml @ 55 mls/hr IV .BY DURATION [facility] Rx#:[id number] Cefepime 1 gm In Sodium 125 100 Chloride 0.9% 50 ml @ 12. 5 mls/hr IVPB Q12HR [facility] Rx#:[id number] Mvi, Adult No.4 with Vit 275 K 10 ml Trace (Conc-1Ml/ Dose) 1 ml In Amino Acid 4.25%-D10w+Lytes*E* 1,000 ml @ 30 mls/hr IV .Q24H [facility] Rx#:[id number] Potassium Chloride 10 meq 200 In Water For Injection 1 100ml.bag @ 100 mls/hr IVPB Q1H [facility] Rx#: [id number] Sodium Chloride 0.9% 500 200 240 40 ml 500 ml @ 20 mls/hr IV .Q24H [facility] Rx#:[id number] metroNIDAZOLE-NS PMX 500 200 100 100 mg In Saline 1 100ml.bag @ 100 mls/hr IVPB Q8HR [facility] Rx#:[id number] pressure bags 12 Intake, IV Titration 389.270 245.005 Amount Amiodarone 450 mg In 233.06 245.005 Dextrose 5% in Water 250 ml @ 0.5 MG/MIN 16.667 mls/hr IV .Q15H [facility] Rx#: [id number] Norepinephrine 8 mg In 25.594 Sodium Chloride 0.9% 250 ml @ 0.03 MCG/KG/MIN 2.99 mls/hr IV .Q24H [facility] Rx#: [id number] Potassium Chloride 10 meq 100 In Water For Injection 1 100ml.bag @ 100 mls/hr IVPB Q1H [facility] Rx#: [id number] propofoL 1,000 mg In 30.616 Empty Bag 1 bag @ 15 MCG/ KG/MIN 4.635 mls/hr IV . [id number] [facility] Rx#:[id number] Output: Gastric Drainage 225 200 Urine 620 545 110 Other: Voiding Method Indwelling Catheter Indwelling Catheter ABP, PAP, CO, CI - Last Documented Arterial Blood Pressure 156/54 - Labs CBC & Chem 7: 07/24/22 04:25 07/24/22 04:25 Labs: Abnormal Lab Results - Last 24 Hours (Table) 07/22/22 07/23/22 07/23/22 Range/Units 05:00 11:17 12:26 RBC (3.80-5.40) m/uL Hgb (11.4-16.0) gm/dL Hct (34.0-46.0) % MCV (80.0-100.0) fL Neutrophils # (1.3-7.7) k/uL Lymphocytes # (1.0-4.8) k/uL ABG pCO2 34 L (35-45) mmHg ABG pO2 118 H (83-108) mmHg ABG O2 Saturation 99.4 H (94-97) % Chloride (98-107) mmol/L BUN (7-17) mg/dL Creatinine (0.52-1.04) mg/dL Glucose (74-99) mg/dL POC Glucose (mg/dL) 291 H (70-110) mg/dL Calcium (8.4-10.2) mg/dL Triglycerides 203.00 H (0.00-149.00) mg/dL 07/23/22 07/24/22 07/24/22 Range/Units 18:05 00:14 04:25 RBC (3.80-5.40) m/uL Hgb (11.4-16.0) gm/dL Hct (34.0-46.0) % MCV (80.0-100.0) fL Neutrophils # (1.3-7.7) k/uL Lymphocytes # (1.0-4.8) k/uL ABG pCO2 (35-45) mmHg ABG pO2 (83-108) mmHg ABG O2 Saturation (94-97) % Chloride 111 H (98-107) mmol/L BUN 42 H (7-17) mg/dL Creatinine 1.21 H (0.52-1.04) mg/dL Glucose 240 H (74-99) mg/dL POC Glucose (mg/dL) 308 H 289 H (70-110) mg/dL Calcium 7.7 L (8.4-10.2) mg/dL Triglycerides (0.00-149.00) mg/dL 07/24/22 07/24/22 Range/Units 04:25 06:40 RBC 2.76 L (3.80-5.40) m/uL Hgb 8.8 L (11.4-16.0) gm/dL Hct 28.1 L (34.0-46.0) % MCV 101.6 H (80.0-100.0) fL Neutrophils # 8.8 H (1.3-7.7) k/uL Lymphocytes # 0.4 L (1.0-4.8) k/uL ABG pCO2 (35-45) mmHg ABG pO2 (83-108) mmHg ABG O2 Saturation (94-97) % Chloride (98-107) mmol/L BUN (7-17) mg/dL Creatinine (0.52-1.04) mg/dL Glucose (74-99) mg/dL POC Glucose (mg/dL) 242 H (70-110) mg/dL Calcium (8.4-10.2) mg/dL Triglycerides (0.00-149.00) mg/dL Microbiology - Last 24 Hours (Table) 07/21/22 23:50 Gram Stain - Preliminary Sputum Sputum Culture - Preliminary Stephany albicans
[2022-07-24] MEDS: INSULIN DETEMIR (LEVEMIR) 100 UNIT/ML SYR SQ SCH (20:10)
[2022-07-24] MEDS: FLUTICASONE 50MCG/SPRAY NASAL 16GM EA NOSTRIL SCH (20:10)
[2022-07-24] MEDS ORDERED: FUROSEMIDE 10 MG/ML 4 ML VIAL IV STA (21:12)
[2022-07-24 23:48] LABS: Glucose,Whole Blood 307 mg/dL (70-110)
[2022-07-25] MEDS: HYDROmorphone 0.5 MG/0.5 ML SYRINGE IVP PRN ×6 (02:39→21:33)
[2022-07-25 04:03] LABS: Basophils % (A) 0 %; Eosinophils # (A) 0.1 k/uL (0-0.7); Eosinophils % (A) 1 %; HCT 28.6 % (34.0-46.0); HGB 8.8 gm/dL (11.4-16.0); Hypochromasia Slight; Lymphocytes # (A) 0.3 k/uL (1.0-4.8); Lymphocytes % (A) 3 %; MCH 32.1 pg (25.0-35.0); MCHC 30.8 g/dL (31.0-37.0); MCV 104.3 fL (80.0-100.0); Macrocytosis Slight; Mean Platelet Volume 8.7; Monocytes # (A) 0.5 k/uL (0-1.0); Monocytes % (A) 5 %; Neutrophils # (A) 9.2 k/uL (1.3-7.7); Neutrophils % (A) 91 %; Platelet Count 211 k/uL (150-450); RBC 2.74 m/uL (3.80-5.40); WBC 10.2 k/uL (3.8-10.6)
[2022-07-25 04:09] LABS: Calcium 7.8 mg/dL (8.4-10.2); Magnesium 1.9 mg/dL (1.6-2.3); Potassium 4.7 mmol/L (3.5-5.1)
[2022-07-25] MEDS ORDERED: MAGNESIUM SULFATE-D5W PMX 1 GM in DEXTROSE/WATER 1 100ML.BAG IVPB ONE (04:16)
[2022-07-25] MEDS ORDERED: Magnesium Replacement Protocol 1 EACH MISC MISCELLANE PRN (04:16)
[2022-07-25] MEDS: AMIODARONE 450 MG in DEXTROSE 5% IN WATER 250 ML IV SCH ×4 (05:26→20:36)
[2022-07-25 06:36] LABS: Glucose,Whole Blood 295 mg/dL (70-110)
[2022-07-25] MEDS: INSULIN ASPART (NovoLOG) 100 UNIT/ML VIAL SQ SCH ×3 (06:38→19:12)
[2022-07-25] MEDS: METOCLOPRAMIDE 5 MG/ML 2 ML VIAL IVP SCH ×3 (06:39→19:12)
--- NOTE | 2022-07-25 07:19 | XR ---
EXAMINATION TYPE: XR chest 1V portable DATE OF EXAM: 07/25/2022 HISTORY: Shortness of breath. COMPARISON: 07/23/2022 TECHNIQUE: Single view of the chest is submitted. FINDINGS: Right IJ central venous line unchanged. Endotracheal tube and NG tube have been removed. Dual-lead pa cer in place. Persistent pulmonary venous congestion with basilar effusions and atelectasis. The heart is stable. Hilar and mediastinal structures are within normal limits. Degenerative changes are seen of the dorsal spine. IMPRESSION: 1. Persistent pulmonary venous congestion with basilar effusions and atelectasis.
[2022-07-25] MEDS: IPRATROPIUM-ALBUTEROL 3 ML NEB INHALATION SCH ×4 (07:36→20:11)
[2022-07-25] MEDS: METOPROLOL TARTRATE 5 MG/5 ML VIAL IVP SCH ×4 (07:41→18:53)
[2022-07-25] MEDS: polyethylene glycoL 3350 17 GM POWD.PACK PO SCH (07:49)
[2022-07-25] MEDS: 1: MVI, ADULT NO.4 WITH VIT K 10 ML, TRACE (CONC-1ML/DOSE) 1 ML in AMINO ACID 4.25%-D10W IV SCH ×3 (08:27)
[2022-07-25] MEDS: INSULIN DETEMIR (LEVEMIR) 100 UNIT/ML SYR SQ SCH ×2 (08:28→21:25)
[2022-07-25] MEDS: metroNIDAZOLE-NS PMX 500 MG in SALINE 1 100ML.BAG IVPB SCH ×2 (08:28→18:01)
[2022-07-25] MEDS: FUROSEMIDE 10 MG/ML 4 ML VIAL IV SCH ×2 (08:28→21:25)
[2022-07-25] MEDS: ENOXAPARIN 30 MG/0.3 ML SYRINGE SQ SCH (08:28)
[2022-07-25] MEDS: PANTOPRAZOLE 40 MG/10 ML VIAL IVP SCH (08:29)
[2022-07-25] MEDS: LEVOTHYROXINE IVP 100 MCG/5 ML VIAL IV SCH (08:29)
--- NOTE | 2022-07-25 09:20 | P.PN ---
Subjective PROGRESS NOTE The patient is an 81-year-old female with a known history of paroxysmal atrial fibrillation, permanent pacemaker implantation, diabetes, anticoagulated who underwent repair of incarcerated right inguinal hernia yesterday. Postoperati vely she was hypertensive. She remains intubated and sedated. She is in atrial fibrillation/flutter this morning with controlled ventricular response. Her blood pressure is under better control. Her urine output has been adequate. There is no evidence of ventricular ectopic activity. July 22: The patient remains intubated, she is opening her eyes to verbal stimulation and following commands. She is in atrial fibrillation with rapid ventricle response this morning, she was under better control earlier. Her blood pressure is good, she continues to be on low dose IV norepinephrine. There is no ventricular ectopic activity. Her urinary output has been stable. She has not been started on anticoagulation by the surgical team. She continues to be on IV amiodarone. July 23: She remains intubated and sedated. She is in atrial fibrillation with relatively controlled ventricular rate on IV amiodarone and IV Lopressor. She has not started anticoagulation yet awaiting surgical approval. Her urinary output has been stable. Her oxygenation is stable on PEEP of 5. There is no evidence of malignant arrhythmia. She is receiving TPN. She is afebrile. Her norepinephrine is being weaned off 07/24 Patient seen and examined. Patient extubated and off vasopressors. Remains on TPN. Remains in A. fib with heart rates 110s to 130s. Blood pressure is borderline and not receiving any oral medications. No anticoagulation yet. Cr improved to 1.2 07/25 Seen and examined. Off pressors. BP in 130-150's. Has been recieving Metoprolol. Still NPO. On amio drip. Was started on Digoxin with HR's 80- 100's. Lethargic, recieving pain meds and family made patient DNR. Lasix start today. PHYSICAL EXAMINATION Vitals reviewed. LUNGS: Clear to auscultation anteriorly HEART: Irregular rate and rhythm, S1, S2. No S3. systolic ejection murmur ABDOMEN: Soft, no organomegaly, dressing in place EXTREMETIES: No edema IMPRESSION: 1. Status post exploratory laparotomy with repair of incarcerated right inguinal hernia 2. Postop hypotension, resolved 3. Paroxysmal atrial fibrillation, now in atrial fibrillation with controlled rate, continues on IV amiodarone. Anticoagulation not started, awaiting surgical clearance 4. Status post permanent pacemaker implantation 5. Acute on chronic diastolic heart failure PLAN: 1. Continue beta consuelo intravenously 2. Restart anticoagulation when okay with surgery, on low dose Lovenox currently. 3. Continue with IV amiodarone 4. Continue digoxin IV 5. Agree with diuresis and monitor response. Objective - Vital Signs Vital signs: Vital Signs Temp 97.4 F L 07/25/22 04:00 Pulse 108 H 07/25/22 07:50 Resp 12 07/25/22 07:00 BP 108/59 07/25/22 07:00 Pulse Ox 96 07/25/22 07:00 FiO2 4 07/24/22 16:00 Intake & Output 07/24/22 07/25/22 07/25/22 18:59 06:59 18:59 Intake Total 1751 1707.56 222 Output Total 810 1200 90 Balance 941 507.56 132 Weight 63.7 kg 65 kg Intake: IV 1501 1482.0 222 Amino Acid 4.25%-D10w+ 275 Lytes*E* 1,000 ml @ 55 mls/hr IV .BY DURATION CLAUDY Rx#:[id number] Cefepime 1 gm In Sodium 100 50.0 Chloride 0.9% 50 ml @ 12. 5 mls/hr IVPB Q12HR CLAUDY Rx#:[id number] Sodium Chloride 0.9% 500 220 240 40 ml 500 ml @ 20 mls/hr IV .Q24H CLAUDY Rx#:[id number] TPN 390 1020 170 metroNIDAZOLE-NS PMX 500 200 100 mg In Saline 1 100ml.bag @ 100 mls/hr IVPB Q8HR CLAUDY Rx#:[id number] pressure bags 66 72 12 sodium phosphate 250 Intake, IV Titration 250 225.56 Amount Amiodarone 450 mg In 250 225.56 Dextrose 5% in Water 250 ml @ 0.5 MG/MIN 16.667 mls/hr IV .Q15H CLAUDY Rx#: [id number] Output: Gastric Drainage 200 Urine 610 1200 90 Other: Voiding Method Indwelling Catheter Indwelling Catheter Indwelling Catheter ABP, PAP, CO, CI - Last Documented Arterial Blood Pressure 111/39 - Labs CBC & Chem 7: 07/25/22 03:40 07/25/22 03:40 Labs: Abnormal Lab Results - Last 24 Hours (Table) 07/24/22 07/24/22 07/24/22 Range/Units 12:33 17:54 23:46 RBC (3.80-5.40) m/uL Hgb (11.4-16.0) gm/dL Hct (34.0-46.0) % MCV (80.0-100.0) fL MCHC (31.0-37.0) g/dL Neutrophils # (1.3-7.7) k/uL Lymphocytes # (1.0-4.8) k/uL Sodium (137-145) mmol/L Chloride (98-107) mmol/L BUN (7-17) mg/dL Creatinine (0.52-1.04) mg/dL Glucose (74-99) mg/dL POC Glucose (mg/dL) 247 H 275 H 307 H (70-110) mg/dL Calcium (8.4-10.2) mg/dL 07/25/22 07/25/22 07/25/22 Range/Units 03:40 03:40 06:35 RBC 2.74 L (3.80-5.40) m/uL Hgb 8.8 L (11.4-16.0) gm/dL Hct 28.6 L (34.0-46.0) % MCV 104.3 H (80.0-100.0) fL MCHC 30.8 L (31.0-37.0) g/dL Neutrophils # 9.2 H (1.3-7.7) k/uL Lymphocytes # 0.3 L (1.0-4.8) k/uL Sodium 135 L (137-145) mmol/L Chloride 109 H (98-107) mmol/L BUN 49 H (7-17) mg/dL Creatinine 1.14 H (0.52-1.04) mg/dL Glucose 271 H (74-99) mg/dL POC Glucose (mg/dL) 295 H (70-110) mg/dL Calcium 7.8 L (8.4-10.2) mg/dL Microbiology - Last 24 Hours (Table) 07/21/22 23:50 Gram Stain - Final Sputum Sputum Culture - Final Stephany albicans
[2022-07-25] MEDS: CEFEPIME 1 GM in SODIUM CHLORIDE 0.9% 50 ML IVPB SCH ×2 (10:03→21:25)
[2022-07-25] MEDS: DIGOXIN 250 MCG/ML 2 ML AMP IVP SCH (10:04)
--- NOTE | 2022-07-25 11:19 | P.PN ---
Subjective Progress Note Date: 07/25/22 Principal diagnosis: Acute hypoxic respiratory failure secondary to abdominal sepsis, right inguinal incarcerated hernia with bowel ischemia requiring small bowel resection Seeing this patient in consultation today 07/13/2022 in the emergency room waiting for a bed on the selective care unit. Patient is an 81-year-old white female with past significant medical history of atrial fibrillation, permanent pacemaker, coronary artery disease, breast cancer post radiation therapy and lumpectomy, hypertension, hyperlipidemia, diabetes mellitus, hypothyroidism, and is a lifelong nonsmoker. Patient does follow with Dr. Haile in the office for a solitary lung nodule. Patient presented to the emergency room yesterday evening with chief complaint of shortness of breath over the past 2 weeks. Also, reports chest congestion and a frequent cough with occasional phlegm. Patient denies any chest pain, heart palpitations, lightheadedness or syncope, fever, hemoptysis. Patient apparently was seen by Dr Babcock, her primary care provider, and was given a course of prednisone and a Z-Sherman. Patient had no improvement in symptoms. Patient is currently resting emergency room, on room air, in no acute distress. Chest x-ray arrival showed no acute cardiopulmonary process. While the emergency room, patient did have an episode of A. fib RVR, which has currently resolved, as the patient is in normal sinus rhythm around 80 bpm. troponins are mildly elevated most recent troponin 0.068. EKG currently shows normal sinus rhythm without any obvious ischemic changes. NT proBNP is 1890. Normal saline is infusing at 130 mL per hour. Patient's CBC on arrival showed a WBC count 9.9, hemoglobin 12, hematocrit 36.7, platelets 302. 41, potassium 4.5, chloride 105, serum CO2 26, BUN 74, creatinine 1.68, 75. LFTs are mildly elevated. Patient was negative for influenza, RSV, COVID-19. Vital signs are stable. On 07/21/2022, I'm seeing the patient for a follow-up. The patient is postop day #1. This morning, the patient is adequately sedated on propofol which is running at 40 mcg/kg/m. The propofol this can be slightly weaned down as the patient is significantly sedated. She is on assist-control mode of mechanical ventilation. She doesn't assist control of 12, tidal volume of 400, crit of 40% with a PEEP of 5. The blood. From today shows a pH of 7.4 with episodes of 38 and pO2 of 1:30. The chest x-ray from today shows no acute abnormalities. There is some small effusions lung base bilaterally. ET tube is in a good location. No airspace disease or consolidation. The patient also has a pacemaker over the left anterior chest and the patient has a right IJ triple- lumen catheter in place. The patient is currently on a combination of cefepime and Flagyl. The patient remains on pressors and norepinephrine is running at the rate of 0.15 mcg/kg/m. The patient has a urine operas in order of marginal 30-40 mL an hour. The patient is on normal saline at the rate of 75 mL an hour. Meanwhile, the patient remains nothing by mouth. NG tube is in place. Output from the NG tube is minimal. The surgical wound is dry clean and intact. The patient has superficial wound VAC with minimal amount of drainage. Bowel sounds are hypoactive/absent. Nevertheless, her abdomen is nondistended. In terms of the rest of the blood work, the WBC count is at 10.7 with a hemoglobin of 10.7 and a platelet count of 180. Sodiums of 140, BUN is at 41 with a creatinine of 1.33. Liver function tests yesterday were essentially within normal limits. Albumin is at 2.4 with a total protein of 4.5. She is afebrile this morning. No other significant events overnight. In terms of her cardiac rhythm, the patient remained nature fibrillation. The patient will be switched to oral amiodarone today. Unable to get beta blockers as long as the patient is still hypotensive. She is on no anticoagulants for now. Her TSH was 0.9 and the patient is on low-dose Synthroid 37.5 g IV every 24 hours. 07/22/2022, the patient is postop day #2. This morning, she remains up at 40 mcg/kg/m. She is arousable and she follows simple commands even while being on sedation. She remains on a mechanical ventilator. She is on assist-control at the rate of 12, tidal volume of 400, FiO2 40% with a PEEP of 5. Chest x-ray from today still pending. Blood gas from this morning shows a pH of 7.34 with episodes of 38 and pO2 of 148. As such, she has adequate oxygenation. The patient's chest x-ray from today is pending. Meanwhile, the patient is still on a mechanical ventilator. She is, comfortable. No significant orotracheal secretions. Hemodynamically, the patient has been obvious significant positive fluid balance. Urine output is in order of 20-30 mL an hour. The creatinine today is stable at 1.47 with a BUN of 39. Sodium is at 137 and a serum bicarb is at 20. The white cell count today is at 10.6 with a hemoglobin of 9.6. The patient was receiving IV fluids in the form of normal saline at the rate of 75 mL an hour. The patient was also started on TPN for nutritional support. This is running at 30 mL an hour. IV antibiotics include a combination of cefepime and Flagyl. Meanwhile, the patient is having issues with atrial fibrillation. After being on amiodarone drip, the patient's heart rate stabilized. This morning, she was again tachycardic. She was given Lopressor 5 mg IV in addition to amiodarone bolus a total of 150 mg IV push. Her heart is under better control for now it's under 100. She is on no anticoagulants. The surgeon would like to wait another 24-48 hours prior to starting the patient any form of anticoagulants. Surgical wound is dry clean and intact. The patient has a superficial VAC in place. 07/23/2022, the patient is postop day #3. The patient remains intubated on a mechanical ventilator. She seems to be quite stable on today's evaluation. The patient is currently off pressors. The norepinephrine was weaned off overnight and this morning, the patient is on no pressors. At the same time, the patient remained nature fibrillation. Heart rate is fluctuating and she is on/the beta blockers patient remains on amiodarone infusion running at 0.5 mg/m. No anticoagulants yet. At the same time, the patient remains on a mechanical ventilator. She is on assist control mode at the rate of 12, tidal volume of 400, FiO2 40% with a PEEP of 5. The blood gas from today shows a pH of 7.4 with a pCO2 of 31 and pO2 of 134. Chest x-ray shows small bilateral lower lobe pleural effusions. Orotracheal tube is in a good location. The patient is producing urine output in the order of 40-50 mL an hour. At the same time, her fluid balance is +1.6 L over the past 24 hours. Blood work from today shows a WBC count 9.5 with a hemoglobin 9.1 and a platelet count of 162. Sodium is at 136, BUN is at 40 with a creatinine of 1.4 as such her renal function is stable. She is receiving TPN for nutritional support which is running at the rate of 55 mL an hour. Maintenance fluids are at KVO. She is afebrile. She remains on a combination of cefepime and Flagyl. Blood sugars are slightly elevated and the patient is diabetic taking Lantus insulin on outpatient basis 35 units daily. Was started on low-dose Levemir at 12 units along with a size scale coverage. Patient was seen today on07/24/2022, patient is now postoperative day #4. Patient was extubated yesterday, she is now on 4 L nasal cannula, she is requiring amiodarone at 0.5 mg/m, and did receive digoxin. She is also on TPN at 55 mL per hour. Continues to have nasogastric tube in place, she seems to have coffee ground material in the nasogastric tube. Patient was on mechanical ventilation through 07/23. Remains on Flagyl and cefepime for her abdominal sepsis. Patient is not requiring any norepinephrine at present. She remains in atrial fibrillation with poorly controlled rate, fluctuating between 120 and 135. No chest x-ray was done today, but she did have a chest x-ray yesterday showing small bilateral pleural effusions, and the right lower lobe atelectasis. Labs today showed WBC count 9.8 hemoglobin is 8.8, basic metabolic profile is normal renal functioning showed a BUN of 42 creatinine 1.21, patient was placed on Lovenox 30 mg subcu daily, she will eventually need to be on full anticoagulation therapy, however considering the nasogastric tube is showing coffee ground material I am a bit reluctant to start full anticoagulation at this point. In addition to antibiotics, patient remains on bronchodilators, she is being followed by cardiology for her poorly-controlled atrial fibrillation Patient was reevaluated today on 07/25/2022, she is now postoperative day #5. Remains in the ICU, marginal at best, family is at bedside. Patient is being treated for abdominal sepsis and septic shock, she is on 8 liters nasal cannula, does not seem to be in any pulmonary distress, however she seems to be slow and lethargic, tends to be a bit sleepy but arousable and follows simple instructions. Patient is on amiodarone and 0.5 mg/m, he is also receiving TPN at 85 mL/h, IV fluid is at KVO. Patient remains on Flagyl and cefepime. Yesterday the patient received 1 dose of Lasix 40 mg IV push, and today I recom mended that the patient goes on Lasix 40 mg IV push every 12 hours. Chest x-ray is suggestive of pulmonary edema and small bilateral pleural effusions, hence Lasix will likely be appropriate. CODE STATUS has been changed yesterday from full code to DO NOT RESUSCITATE, labs today showed WBC count of 10.2 hemoglobin 8.8. Electrolytes are normal renal profile showed a BUN of 49 and creatinine 1.14., This is a bit better compared to the last couple of days, creatinine is improving. Urine output is decent. Objective - Vital Signs Vital signs: Vital Signs Temp 98.3 F 07/25/22 08:00 Pulse 95 07/25/22 10:00 Resp 17 07/25/22 10:00 BP 127/67 07/25/22 10:00 Pulse Ox 98 07/25/22 10:00 FiO2 4 07/24/22 16:00 Intake & Output 07/24/22 07/25/22 07/25/22 18:59 06:59 18:59 Intake Total 1751 1707.56 524 Output Total 810 1200 515 Balance 941 507.56 9 Weight 63.7 kg 65 kg Intake: IV 1501 1482.0 524 Amino Acid 4.25%-D10w+ 275 Lytes*E* 1,000 ml @ 55 mls/hr IV .BY DURATION CLAUDY Rx#:[id number] Cefepime 1 gm In Sodium 100 50.0 Chloride 0.9% 50 ml @ 12. 5 mls/hr IVPB Q12HR CLAUDY Rx#:[id number] Sodium Chloride 0.9% 500 220 240 60 ml 500 ml @ 20 mls/hr IV .Q24H CLAUDY Rx#:[id number] TPN 390 1020 340 metroNIDAZOLE-NS PMX 500 200 100 100 mg In Saline 1 100ml.bag @ 100 mls/hr IVPB Q8HR CLAUDY Rx#:[id number] pressure bags 66 72 24 sodium phosphate 250 Intake, IV Titration 250 225.56 Amount Amiodarone 450 mg In 250 225.56 Dextrose 5% in Water 250 ml @ 0.5 MG/MIN 16.667 mls/hr IV .Q15H CLAUDY Rx#: [id number] Output: Gastric Drainage 200 Urine 610 1200 515 Other: Voiding Method Indwelling Catheter Indwelling Catheter Indwelling Catheter ABP, PAP, CO, CI - Last Documented Arterial Blood Pressure 166/54 - Exam Physical Exam: Revealed an 81-year-old female, in no distress, on 8 L nasal cannula. Head: Atraumatic, normocephalic HEENT:[Neck is supple.] [No neck masses.] [No thyromegaly.] [No JVD.] Chest: Crackles and rhonchi noted bilaterally. Cardiac Exam: [Irregular irregular rhythm. Normal S1 and S2, no S3 gallop, 2/6 systolic murmur throughout the precordium. Abdomen: [Postsurgical, Soft, nontender, no megaly, no rebound, no guarding, normal bowel sounds.] Extremities: [No clubbing, trace of bipedal edema, no cyanosis.] Neurological Exam: Lethargic but arousable and follows simple instructions. Psychiatric:, flat affect, normal mental status examination. But seems to be relatively slow and lethargic Skin: No rashes. - Labs CBC & Chem 7: 07/25/22 03:40 07/25/22 03:40 Labs: Abnormal Lab Results - Last 24 Hours (Table) 07/24/22 07/24/22 07/24/22 Range/Units 12:33 17:54 23:46 RBC (3.80-5.40) m/uL Hgb (11.4-16.0) gm/dL Hct (34.0-46.0) % MCV (80.0-100.0) fL MCHC (31.0-37.0) g/dL Neutrophils # (1.3-7.7) k/uL Lymphocytes # (1.0-4.8) k/uL Sodium (137-145) mmol/L Chloride (98-107) mmol/L BUN (7-17) mg/dL Creatinine (0.52-1.04) mg/dL Glucose (74-99) mg/dL POC Glucose (mg/dL) 247 H 275 H 307 H (70-110) mg/dL Calcium (8.4-10.2) mg/dL 07/25/22 07/25/22 07/25/22 Range/Units 03:40 03:40 06:35 RBC 2.74 L (3.80-5.40) m/uL Hgb 8.8 L (11.4-16.0) gm/dL Hct 28.6 L (34.0-46.0) % MCV 104.3 H (80.0-100.0) fL MCHC 30.8 L (31.0-37.0) g/dL Neutrophils # 9.2 H (1.3-7.7) k/uL Lymphocytes # 0.3 L (1.0-4.8) k/uL Sodium 135 L (137-145) mmol/L Chloride 109 H (98-107) mmol/L BUN 49 H (7-17) mg/dL Creatinine 1.14 H (0.52-1.04) mg/dL Glucose 271 H (74-99) mg/dL POC Glucose (mg/dL) 295 H (70-110) mg/dL Calcium 7.8 L (8.4-10.2) mg/dL Microbiology - Last 24 Hours (Table) 07/21/22 23:50 Gram Stain - Final Sputum Sputum Culture - Final Stephany albicans Assessment and Plan Assessment: Impression: Acute incarcerated right inguinal hernia with bowel ischemia Acute abdominal sepsis and septic shock becoming more hemodynamically stable today Acute hypoxic respiratory failure secondary to above requiring intubation and mechanical ventilation post surgery patient was extubated yesterday on 07/23. Atrial fibrillation with RVR, remains on amiodarone Acute kidney injury secondary to above, improved today compared to the last couple of days. History of sick sinus syndrome and previous permanent pacemaker implantation. Underlying coronary artery disease Type 2 diabetes without complications. Benign essential hypertension Remote history of pulmonary embolism History of breast cancer and previous radiation therapy and lumpectomy. Lifelong nonsmoker History of hypothyroidism, on maintenance therapy. Recommendation: Continue to monitor the patient in the ICU Continue amiodarone , she is also receiving digoxin by cardiology. Continue antibiotics for abdominal sepsis, patient is on cefepime and Flagyl. Continue Lovenox for now, the plan is to restart eliquis tomorrow. Continue compression devices to lower extremities for DVT prophylaxis. Continue NovoLog sliding scale coverage. Continue Levemir insulin along with sliding scale insulin. Continue TPN for now. Incentive spirometry Continue metoprolol Patient is critically ill and no plans to transfer out of the ICU at this point. Agree with DO NOT RESUSCITATE CODE STATUS. Family updated on her condition and discussed her active medical issues, discussed her prognosis. And made aware that her prognosis is guarded. Critical care time is over 30 minutes. Time with Patient: Greater than 30
--- NOTE | 2022-07-25 11:37 | CDI ---
Documentation Clarification Form Date: From: Susie Macedo Phone: [phone] Admit Date: 07/12/2022 11:04:00 PM Patient Name: Yanely Hilario Visit Number: [id number] Discharge Date: ATTENTION: The Clinical Documentation Specialists (CDI) and [facility] Coding Staff appreciate your assistance in clarifying documentation. Please respond to the clarification below the line at the bottom and electronically sign. The CDI & [facility] Coding staff will review the response and follow-up if needed. Please note: Queries are made part of the Legal Health Record. If you have any questions, please contact the author of this message via ITS. Dr. Luan Esparza There is documentation of ischemic bowel and omentum noted in the op note on 07/20 and subsequent progress notes. Additional clarification regarding the acuity is requested. History/Risk Factors: Pt had a previous hernia repair and underwent an exp lap, repair of incarcerated right inguinal hernia, partial omentectomye and small bowel resection on 07/20 for an incarcerated right inguinal hernia. Per the op note, there was ischemic small bowel and omentum within the hernia sac. The small bowel ischemia appears to be severe and it was questionable if the small bowel was viable Clinical Indicators: Pt underwent an exp lap, repair of incarcerated right inguinal hernia, partial omentectomye and small bowel resection on 07/20 for an incarcerated right inguinal hernia. Per the op note, there was ischemic small bowel and omentum within the hernia sac. The small bowel ischemia appears to be severe and it was questionable if the small bowel was viable. Can you please clarify the acuity of the ischemic small bowel and omentum? [ xx ] Acute ischemic small bowel and omentum [ ] Other, please specify [ ] Unable to determine MTDD
[2022-07-25 11:50] LABS: Glucose,Whole Blood 284 mg/dL (70-110)
--- NOTE | 2022-07-25 12:35 | P.PN ---
Subjective Progress Note Date: 07/25/22 CHIEF COMPLAINT: Incarcerated right inguinal hernia HISTORY OF PRESENT ILLNESS: Patient postop day #5 status post exploratory laparotomy with repair of incarcerated right inguinal hernia partial omentectomy and small bowel resection for incarcerated right inguinal hernia with ischemic small bowel and omentum. Patient had worsening shortness of breath did require to go up on her oxygen requirements up to 8 L. She's been started on IV Lasix for fluid overload. Chest x-ray states persistent pulmonary venous congestion with basilar effusions and atelectasis.. Heart rate is better today. Family did change CODE STATUS to no code. No bowel activity. Afebrile. Critical care service to place patient on Lovenox for DVT prophylaxis. NG tube was discontinued yesterday patient reports no nausea or vomiting. Critical care service is planning on restarting Eliquis tomorrow. WBC 10.2 Hgb 8.8 Patient seen and examined with Dr. Esparza PHYSICAL EXAM: VITAL SIGNS: Reviewed. GENERAL: Well-developed in no acute distress. ABDOMEN: Soft. Mildly distended. Prevana wound vac in place NEUROLOGIC: Lethargic but arousable and able to answer questions ASSESSMENT: 1. Incarcerated right inguinal hernia with ischemic small bowel and omentum status post exploratory laparotomy with repair of incarcerated right inguinal hernia partial omentectomy and small bowel resection 2. Postoperative hypotension resolved PLAN: -Continue ICU management -Continue supportive care -Continue antibiotics -Continue TPN for nutrition support -GI prophylaxis Protonix and DVT prophylaxis Lovenox Physician [employer] Operator note has been reviewed by physician. Signing provider agrees with the documented findings, assessment, and plan of care. Objective - Vital Signs Vital signs: Vital Signs Temp 98.3 F 07/25/22 08:00 Pulse 92 07/25/22 11:33 Resp 17 07/25/22 10:00 BP 127/67 07/25/22 10:00 Pulse Ox 98 07/25/22 10:00 FiO2 4 07/24/22 16:00 Intake & Output 07/24/22 07/25/22 07/25/22 18:59 06:59 18:59 Intake Total 1751 1707.56 524 Output Total 810 1200 515 Balance 941 507.56 9 Weight 63.7 kg 65 kg Intake: IV 1501 1482.0 524 Amino Acid 4.25%-D10w+ 275 Lytes*E* 1,000 ml @ 55 mls/hr IV .BY DURATION CLAUDY Rx#:[id number] Cefepime 1 gm In Sodium 100 50.0 Chloride 0.9% 50 ml @ 12. 5 mls/hr IVPB Q12HR CLAUDY Rx#:[id number] Sodium Chloride 0.9% 500 220 240 60 ml 500 ml @ 20 mls/hr IV .Q24H CLAUDY Rx#:[id number] TPN 390 1020 340 metroNIDAZOLE-NS PMX 500 200 100 100 mg In Saline 1 100ml.bag @ 100 mls/hr IVPB Q8HR CLAUDY Rx#:[id number] pressure bags 66 72 24 sodium phosphate 250 Intake, IV Titration 250 225.56 Amount Amiodarone 450 mg In 250 225.56 Dextrose 5% in Water 250 ml @ 0.5 MG/MIN 16.667 mls/hr IV .Q15H CLAUDY Rx#: [id number] Output: Gastric Drainage 200 Urine 610 1200 515 Other: Voiding Method Indwelling Catheter Indwelling Catheter Indwelling Catheter ABP, PAP, CO, CI - Last Documented Arterial Blood Pressure 166/54 - Labs CBC & Chem 7: 07/25/22 03:40 07/25/22 03:40 Labs: Abnormal Lab Results - Last 24 Hours (Table) 07/24/22 07/24/22 07/24/22 Range/Units 12:33 17:54 23:46 RBC (3.80-5.40) m/uL Hgb (11.4-16.0) gm/dL Hct (34.0-46.0) % MCV (80.0-100.0) fL MCHC (31.0-37.0) g/dL Neutrophils # (1.3-7.7) k/uL Lymphocytes # (1.0-4.8) k/uL Sodium (137-145) mmol/L Chloride (98-107) mmol/L BUN (7-17) mg/dL Creatinine (0.52-1.04) mg/dL Glucose (74-99) mg/dL POC Glucose (mg/dL) 247 H 275 H 307 H (70-110) mg/dL Calcium (8.4-10.2) mg/dL 07/25/22 07/25/22 07/25/22 Range/Units 03:40 03:40 06:35 RBC 2.74 L (3.80-5.40) m/uL Hgb 8.8 L (11.4-16.0) gm/dL Hct 28.6 L (34.0-46.0) % MCV 104.3 H (80.0-100.0) fL MCHC 30.8 L (31.0-37.0) g/dL Neutrophils # 9.2 H (1.3-7.7) k/uL Lymphocytes # 0.3 L (1.0-4.8) k/uL Sodium 135 L (137-145) mmol/L Chloride 109 H (98-107) mmol/L BUN 49 H (7-17) mg/dL Creatinine 1.14 H (0.52-1.04) mg/dL Glucose 271 H (74-99) mg/dL POC Glucose (mg/dL) 295 H (70-110) mg/dL Calcium 7.8 L (8.4-10.2) mg/dL Microbiology - Last 24 Hours (Table) 07/21/22 23:50 Gram Stain - Final Sputum Sputum Culture - Final Stephany albicans
[2022-07-25] MEDS: NOREPINEPHRINE 8 MG in SODIUM CHLORIDE 0.9% 250 ML IV SCH (15:27)
[2022-07-25] MEDS: SODIUM CHLORIDE 0.9% 500 ML 500 ML IV SCH (18:02)
[2022-07-25 18:28] LABS: Glucose,Whole Blood 301 mg/dL (70-110)
[2022-07-25] MEDS: [UNRECOGNIZED DRUG - REMARK] IV SCH ×4 (20:36)
[2022-07-25 20:41] LABS: Glucose,Whole Blood 230 mg/dL (70-110)
[2022-07-25] MEDS: FLUTICASONE 50MCG/SPRAY NASAL 16GM EA NOSTRIL SCH (21:25)
[2022-07-25 22:42] VITALS: BP 159/72
[2022-07-25 23:42] LABS: Glucose,Whole Blood 258 mg/dL (70-110)
[2022-07-26] MEDS: METOPROLOL TARTRATE 5 MG/5 ML VIAL IVP SCH ×3 (00:06→12:47)
[2022-07-26] MEDS: metroNIDAZOLE-NS PMX 500 MG in SALINE 1 100ML.BAG IVPB SCH ×3 (00:06→16:23)
[2022-07-26] MEDS: METOCLOPRAMIDE 5 MG/ML 2 ML VIAL IVP SCH ×3 (00:07→12:46)
[2022-07-26] MEDS: INSULIN ASPART (NovoLOG) 100 UNIT/ML VIAL SQ SCH ×3 (00:07→12:46)
[2022-07-26] MEDS: HYDROmorphone 0.5 MG/0.5 ML SYRINGE IVP PRN ×6 (01:21→16:17)
[2022-07-26 05:06] VITALS: TEMP 100.2
--- NOTE | 2022-07-26 05:10 | P.PN ---
Subjective Progress Note Date: 07/25/22 Patient is a 81-year-old female with a known history of atrial fibrillation on anticoagulation with Eliquis, history of permanent pacemaker placement, hypertension, hyperlipidemia, diabetes type 2 insulin-dependent, hypothyroidism, osteoarthritis and chronic back pain and anxiety presents ER with complaints of shortness of breath for past 2 weeks. Patient was having chest congestion and cough with clear to greenish sputum production. Patient was seen by her primary care physician and was given Z-Sherman and prednisone course. Patient still having symptoms without much improvement presented to ER. Denies any fever or chills. No leg swelling. No nausea vomiting abdominal pain or diarrhea. Chest x-ray in the ER showed no acute process. EKG showed atrial fibrillation with rapid regular rate with heart rate 134 Laboratory data showed WBC 9.9 hemoglobin 12.0 and platelets 302 Sodium 141 potassium 4.5 chloride 105 bicarb is 26 BUN 74 and creatinine 1.68, AST 38 ALT 45 alk phos 48 and troponin 0.054, 0.052 and 0.068, procalcitonin level is 0.11 TSH within normal limits and proBNP is 1890 Influenza A, B, RSV and COVID-19 PCR not detected. 07/14/2022 This is a pleasant 81 years old female was admitted with A. fib and RVR consult with evidence with acute bronchitis. She's been treated with Zithromax, normal saline for acute kidney injury and her Lopressor dose was increased to 75 mg 3 times a day by canvas cutter hand, currently heart rate is controlled and she is on Eliquis home dose of 2.5 mg However patient lying in bed and she still feels short of breath and she still was not ready for discharge.. Cartilage team adjusted some of her blood pressure medication and they cleared her for discharge Pulmonary team on the case and patient was started on Medrol Dosepak. 07/15/2022 Patient clinically doing well and she is back to baseline, breathing significantly improved with no chest pain heart rate is controlled with occasional changes in heart rate, symptomatic goes back to normal quickly. Patient is currently clinically stable and she was cleared for discharge by both cardiology and pulmonary services, I discussed with the patient she does not want to go home today and she wants to be evaluated by physical therapy first. Discussed with bed side nurse to contact physical therapy to this morning and they're pending. Patient is a 81-year-old female with a known history of atrial fibrillation on anticoagulation with Eliquis, history of permanent pacemaker placement, hyper tension, hyperlipidemia, diabetes type 2 insulin-dependent, hypothyroidism, osteoarthritis and chronic back pain and anxiety presents ER with complaints of shortness of breath for past 2 weeks. Patient was having chest congestion and cough with clear to greenish sputum production. Patient was seen by her primary care physician and was given Z-Sherman and prednisone course. Patient still having symptoms without much improvement presented to ER. Denies any fever or chills. No leg swelling. No nausea vomiting abdominal pain or diarrhea. Chest x-ray in the ER showed no acute process. EKG showed atrial fibrillation with rapid regular rate with heart rate 134 Laboratory data showed WBC 9.9 hemoglobin 12.0 and platelets 302 Sodium 141 potassium 4.5 chloride 105 bicarb is 26 BUN 74 and creatinine 1.68, AST 38 ALT 45 alk phos 48 and troponin 0.054, 0.052 and 0.068, procalcitonin level is 0.11 TSH within normal limits and proBNP is 1890 Influenza A, B, RSV and COVID-19 PCR not detected. 07/14/2022 This is a pleasant 81 years old female was admitted with A. fib and RVR consult with evidence with acute bronchitis. She's been treated with Zithromax, normal saline for acute kidney injury and her Lopressor dose was increased to 75 mg 3 times a day by canvas cutter hand, currently heart rate is controlled and she is on Eliquis home dose of 2.5 mg However patient lying in bed and she still feels short of breath and she still was not ready for discharge.. Cartilage team adjusted some of her blood pressure medication and they cleared her for discharge Pulmonary team on the case and patient was started on Medrol Dosepak. 16 2022 Patient is currently lying in bed. Awake alert and oriented x3. Denies any complaints of chest pain. Shortness of breath is much improved. No cough or sputum production. Otherwise patient is still feeling generalized weakness and needs assistance with walking to the bathroom. PT OT was consulted and family is concerned about going home. Anticipate discharge home versus rehab in the next 24 to 48 hours. High risk with history of sustaining. Laboratory data reviewed. Cleared from pulmonary and cardiology standpoint. 07/17/2022 Patient is seen and evaluated in follow-up and continues with weakness and being evaluated by physical therapy. Patient does have some cough and reports her shortness of breath is improved. Patient taking a number of medications causing an increase in kidney functions and will hold the splint pressure medications and Lasix and follow-up with repeat labs. Patient prefers to go home and arranging for home care in the outpatient setting. Patient is currently afebrile continues to report cough although denies shortness of breath. Patient is tolerating diet with no reports of nausea or vomiting noted. 07/18/2022 Patient is seen and evaluated in follow-up this morning with kidney functions trending down low not much improved as patient did receive the Lasix and lisinopril yesterday. Patient is having increased abdominal pain with severe cramping and nausea and reports she feels she has to have a bowel movement but is unable to. Patient does have history of IBS although was not having any loose stools. Patient is reporting 10/10 pain and unable to stand due to the intensity of the cramping and laying in the position in bed. Will add Bentyl and additional medications. Patient encouraged to increase activity as tolerated. Cardiology and pulmonary following and have cleared the patient for discharge. Will monitor overnight with probable discharge in 24 hours. 07/19/2022 Patient is seen and evaluated in follow-up today reports to not feeling well at all with extreme nausea and some vomiting. Patient unable to keep her medications down and heart rate noted to be elevated into the 140s. Cardiology had been following although signed off and will reconsult. Cardiology following back up given additional dose of metoprolol although patient not able to tolerate and unsure if she took the medication. Patient continues to show atrial fibrillation with RVR and cardiology starting Cardizem drip. Patient will need transfer to cardiology floor for monitoring of the strep as she is cu rrently on 5 N. and they do not handle Cardizem drips. Patient is currently afebrile does report some palpitations although denies chest pain. Patient having extreme nausea with some vomiting and abdominal pain. Patient also feels to having some constipation and reports did have a very minimal difficult time having a small bowel movement yesterday after suppository, will add enema. 07/20/2022 Patient is seen early this morning with daughter at bedside and is currently nothing by mouth awaiting surgical intervention with Dr. Esparza with concerns of incarcerated hernia as patient was reporting abdominal pain. Patient did have an episode of atrial fibrillation with RVR and initially going to start Cardizem drip yesterday although converted to sinus rhythm and was resumed on eliquis with cardiology following. Cardizem drip was discontinued at that point although patient continue with increased abdominal pain and discomfort with vomiting and general surgery was consulted. Patient had an abdominal x-ray which showed few mildly dilated loops of small bowel with multiple air-fluid levels concerning with developing bowel obstruction recommending a CT follow-up. Patient's kidney functions were elevated although repeat creatinine was improving at 1.7 with lisinopril and Lasix being held. Ordered a CT abdomen without contrast which showed findings suspicious for small bowel obstruction with suspected transition point within a partially visualized right inguinal hernia Limited evaluation without the contrast with fibroid changes of the uterus and not obstructed right renal calculus with colonic diverticulosis without evidence of diverticulitis. Patient was placed nothing by mouth and General surgery recommending surgical intervention and was held over until this morning as patient did receive her anticoagulation yesterday. Patient did have an elevation in white count up to 15 although afebrile continued to have abdominal pain and extremely tender on palpation. Patient also had uncontrolled rhythms in A. fib with RVR and was moved to 3 S. early this morning and placed on the Cardizem drip. Will await surgical report. 07/21/2022 Patient is seen and evaluated continues to be in the ICU on mechanical ventilation with no plans of leaving today. Heart rate remains uncontrolled and was maintained on Cardizem will be transitioned to amiodarone with cardiology following. General surgery following a patient is status post surgical intervention for the right incarcerated hernia. Patient is continued on antibiotics along with low-dose pressor support and will continue to monitor closely. Patient does have abdominal dressings in the form of prevana that are intact and abdomen is less distended. Patient does have a central line and TPN is being started. 07/22/2022 Patient is seen this morning in the ICU maintained on mechanical ventilation and FiO2 is 40% with a PEEP of 5. Patient is undergoing sedation holidays and currently awake and following commands. Plan is to remain on mechanical ventilation as patient continues to have some hypotension requiring pressor support as well as uncontrolled atrial fibrillation. Patient on amiodarone drip and also being continued on IV Lopressor. Patient is maintaining on cefepime and Flagyl sputum culture was obtained. Patient is afebrile and has been started on TPN. Patient continues with pain and will continue as needed low- dose Dilaudid. Gen. surgery following and will continue with prevana dressing to the abdomen. No bowel movement as of yet per nursing staff and sluggish bowel sounds noted. 07/23/2022 Patient is seen and evaluated in follow-up this morning continues to be in the ICU on mechanical ventilation with multiple medical consultations following. Patient continues on the vent with FiO2 of 40% and PEEP is 5. Patient undergoing sedation holiday and is following commands and working on weaning trials with possible extubation later today. Patient continues to be in atrial fibrillation maintained on IV amiodarone IV push Lopressor cardiology following closely. Patient is off pressor support currently. Patient remains on antibiotics in the form of cefepime and Flagyl status post surgical intervention of the right inguinal incarcerated hernia and is maintained on TPN for nutritional support. Patient's blood sugars elevated and will continue with long-acting as well as sliding scale and Accu-Cheks per protocol. No bowel activity as of yet and bowel sounds are not noted on exam. Patient is voiding and having good urine output. Patient currently afebrile. 07/24/2022 Patient is seen in follow-up this morning continues to be in the ICU successfully extubated yesterday and currently maintained on oxygen at 3-4 L via nasal cannula. Patient is maintaining oxygen saturations above 90%. Patient continues to be an uncontrolled atrial fibrillation with RVR maintained on IV amiodarone with cardiology following closely and off pressor support currently being started on digoxin. Patient continues to report some pain in the abdomen and will increase a lot of slightly. Patient continues with dark bilious output noted in the NG and is maintained on TPN. Blood sugars are elevated and will adjust long-acting's accordingly and continue sliding scale and Accu-Cheks. Recommend incentive spirometer and coughing and deep breathing as much as possible. Patient is continued on IV antibiotics in the form of cefepime and Flagyl sputum cultures for Stephany white count has normalized. Patient continues to have no bowel activity at this time and will continue TPN for now. 07/25/2022 Patient is seen in follow-up this morning with daughter at bedside maintained ICU being closely monitored. Patient is maintained on high flow 8 liters oxygen currently receiving breathing treatments. Pulmonary painter hand following along with cardiology and Gen. surgery. Patient is maintained on TPN as well as IV cefepime and Flagyl with reported bowel movements as of yet. Patient continues to be in A. fib with cardiology make adjustments to medications. Patient is reporting significant abdominal pain and is extremely weak. Family is discussing possible comfort measures. Prognosis is guarded. Review of systems: Constitutional: reports of fatigue, no reports of fever, or chills Cardiovascular: No reports of chest pain or palpitations Respiratory: reports of shortness of breath with a weak cough GI: reports of nausea, no vomiting, and no bowel activity as of yet. : No reports of dysuria or retention Neurovascular: reports of generalized weakness All medications have been reviewed Active Medications Acetaminophen (Acetaminophen Tab 325 Mg Tab) 650 mg PO Q6HR PRN PRN Reason: Fever and/ or Pain Last Admin: 07/18/22 10:50 Dose: 650 mg Hydrocodone Bitart/Acetaminophen (Hydrocodone/Apap 5-325mg 1 Each Tab) 1 each PO Q6HR PRN PRN Reason: Pain Last Admin: 07/21/22 05:06 Dose: 1 each Albuterol/Ipratropium (Ipratropium-Albuterol 3 Ml Neb) 3 ml INHALATION RT-Q2H PRN PRN Reason: Shortness Of Breath Or Wheezing Last Admin: 07/23/22 03:49 Dose: 3 ml Albuterol/Ipratropium (Ipratropium-Albuterol 3 Ml Neb) 3 ml INHALATION RT-QID [facility] Last Admin: 07/25/22 20:11 Dose: 3 ml Dextrose/Water (Dextrose 50% Syringe 50 Ml) 25 ml IVP PER PROTOCOL PRN; Protocol PRN Reason: Hypoglycemia Dextrose/Water (Dextrose 50% Syringe 50 Ml) 50 ml IVP PER PROTOCOL PRN; Protocol PRN Reason: Hypoglycemia Digoxin (Digoxin 250 Mcg/Ml 2 Ml Amp) 250 mcg IVP DAILY [facility] Last Admin: 07/25/22 10:04 Dose: 250 mcg Enoxaparin Sodium (Enoxaparin 30 Mg/0.3 Ml Syringe) 30 mg SQ DAILY [facility] Last Admin: 07/25/22 08:28 Dose: 30 mg Fluticasone Propionate (Fluticasone 50mcg/[place] Nasal 16gm) 1 spray EA NOSTRIL [facility] Last Admin: 07/25/22 21:25 Dose: 1 spray Furosemide (Furosemide 10 Mg/Ml 4 Ml Vial) 40 mg IV Q12HR [facility] Last Admin: 07/25/22 21:25 Dose: 40 mg Hydromorphone HCl (Hydromorphone 0.5 Mg/0.5 Ml Syringe) 0.5 mg IVP Q3HR PRN PRN Reason: Pain Last Admin: 07/26/22 04:24 Dose: 0.5 mg Norepinephrine Bitartrate 8 mg (/ Sodium Chloride) 258 mls @ 2.99 mls/hr IV .Q24H [facility]; Protocol Last Admin: 07/25/22 15:27 Dose: 0.03 mcg/kg/min, 2.99 mls/hr Metronidazole 500 mg/ IV (Solution) 100 mls @ 100 mls/hr IVPB Q8HR [facility]; Protocol Last Admin: 07/26/22 00:06 Dose: 100 mls/hr Cefepime HCl 1 gm/ Sodium (Chloride) 50 mls @ 12.5 mls/hr IVPB Q12HR [facility] Last Admin: 07/25/22 21:25 Dose: 12.5 mls/hr Sodium Chloride (Saline 0.9%) 500 mls @ 20 mls/hr IV .Q24H [facility] Last Admin: 07/25/22 18:02 Dose: 20 mls/hr Amiodarone HCl 450 mg/ (Dextrose/Water) 250 mls @ 16.667 mls/hr IV .Q15H [facility]; Protocol Last Admin: 07/25/22 20:36 Dose: 0.5 mg/min, 16.667 mls/hr Parenteral Vitamin Supplement 10 ml/ Zinc/Copper/Manganese/Selenium 1 ml/ Sodium Acetate 14 meq/ Amino Ac/Electrol/Dextrose/Calcium 1,018 mls @ 85 mls/hr IV .BY DURATION [facility] Last Admin: 07/25/22 20:36 Dose: 85 mls/hr Sodium Acetate 14 meq/ Amino (Ac/Electrol/Dextrose/Calcium) 1,007 mls @ 85 mls/hr IV .BY DURATION [facility] Insulin Aspart (Insulin Aspart (Novolog) 100 Unit/Ml Vial) 0 unit SQ Q6H [facility]; Protocol Last Admin: 07/26/22 00:07 Dose: 3 unit Insulin Detemir (Insulin Detemir (Levemir) 100 Unit/Ml Syr) 10 unit SQ BID@0700,2100 [facility] Last Admin: 07/25/22 21:25 Dose: 10 unit Levothyroxine Sodium (Levothyroxine Ivp 100 Mcg/5 Ml Vial) 37.5 mcg IV DAILY [facility] Last Admin: 07/25/22 08:29 Dose: 37.5 mcg Metoclopramide HCl (Metoclopramide 5 Mg/Ml 2 Ml Vial) 5 mg IVP Q6HR [facility] Last Admin: 07/26/22 00:07 Dose: 5 mg Metoprolol Tartrate (Metoprolol Tartrate 5 Mg/5 Ml Vial) 5 mg IVP Q6HR [facility] Last Admin: 07/26/22 00:06 Dose: 5 mg Miscellaneous Information (Potassium Replacement Protocol 1 Each Misc) 1 each MISCELLANE DAILY PRN; Protocol PRN Reason: Per Protocol Miscellaneous Information (Magnesium Replacement Protocol 1 Each Misc) 1 each MISCELLANE DAILY PRN; Protocol PRN Reason: Per Protocol Naloxone HCl (Naloxone 0.4 Mg/Ml 1 Ml Vial) 0.2 mg IV Q2M PRN PRN Reason: Opioid Reversal Ondansetron HCl (Ondansetron 4 Mg/2 Ml Vial) 4 mg IVP Q8HR PRN PRN Reason: Nausea And Vomiting Last Admin: 07/20/22 03:28 Dose: 4 mg Pantoprazole Sodium (Pantoprazole 40 Mg/10 Ml Vial) 40 mg IVP DAILY [facility] Last Admin: 07/25/22 08:29 Dose: 40 mg Polyethylene Glycol (Polyethylene Glycol 3350 17 Gm Powd.Pack) 17 gm PO DAILY [facility] Last Admin: 07/25/22 07:49 Dose: Not Given Tramadol HCl (Tramadol 50 Mg Tab) 50 mg PO TID PRN PRN Reason: Pain Last Admin: 07/18/22 22:59 Dose: 50 mg Physical exam: GENERAL: The patient is asleep although easily arousable, alert and oriented 3, currently maintained on 8 high flow L via nasal cannula, thin built, elderly- appearing HEENT: Pupils are round and equally reacting to light. EOMI. No scleral icterus. No conjunctival pallor. Normocephalic, atraumatic. No pharyngeal erythema. No thyromegaly. CARDIOVASCULAR: Irregular, A. fib uncontrolled rates on the monitor PULMONARY: Breath sounds diminished with no wheezing, coarse rhonchi , crackles with some bronchial congestion noted. ABDOMEN: Soft, mildly distended, tender on palpation, extremely sluggish bowel sounds. No palpable organomegaly. prevana dressing noted over the right groin and lower abdomen MUSCULOSKELETAL: No joint swelling or deformity. EXTREMITIES: No cyanosis, clubbing, or pedal edema. NEUROLOGICAL: Gross neurological examination did not reveal any focal deficits. Diffusely weak SKIN: No rashes. no petechiae. Assessment: Incarcerated right inguinal hernia with ischemic small bowel and omentum status post exploratory laparotomy with repair of incarcerated right inguinal hernia partial omentectomy and small bowel resection Atrial fibrillation with rapid ventricular rate. Back in A. fib with RVR uncontrolled rate on 07/20/2022 Acute tracheobronchitis. Failure of outpatient treatment Moderate to severe MR, moderate TR and mild pulmonary hypertension Elevated troponin, likely type II TN secondary to atrial fibrillation with RVR Abdominal cramping and pain with nausea and vomiting secondary to right incarcerated hernia Postoperative hypotension, requiring pressor support, improved, has been off pressor support Acute kidney injury with creatinine 1.68 on admission, trending down Diabetes type 2, uncontrolled with hyperglycemia Hypothyroidism Hypertension Hyperlipidemia Osteoarthritis Chronic back pain and fibromyalgia Anxiety History of permanent pacemaker placement Depression/bereavement. full Code Plan: Patient is status post Incarcerated right inguinal hernia with ischemic small bowel and omentum status post exploratory laparotomy with repair of incarcerated right inguinal hernia partial omentectomy and small bowel resection She was maintained on mechanical ventilation and successfully extubated yesterday currently maintained on 8 L via nasal cannula. Patient did have some postoperative hypotension requiring low-dose pressor support although not currently on pressors and blood pressure is improved Gen. surgery following recommending to continue TPN Blood sugars have been elevated and will continue sliding scale and long-acting and have increased long-acting recommend monitoring Accu-Cheks Recommend follow-up labs in the a.m. Cardiology following as patient continues to have uncontrolled atrial fibrillation with RVR and currently making adjustments to medications. Overall prognosis is extremely guarded The impression and plan of care has been dictated by Pratibha Kasper, Nurse Practitioner as directed. Dr. Tee MD I have performed a history and examination and MDM of this patient, discussed the same with the dictator, and agree with the dictator's assessment and plan as written ,documented as a scribe. Based on total visit time, I have performed more than 50% of the visit. Objective - Vital Signs Vital signs: Vital Signs Temp 98.2 F 07/25/22 12:00 Pulse 92 07/25/22 15:46 Resp 19 07/25/22 15:30 BP 111/68 07/25/22 15:30 Pulse Ox 96 07/25/22 15:30 FiO2 4 07/24/22 16:00 Intake & Output 07/24/22 07/25/22 07/25/22 18:59 06:59 18:59 Intake Total 1751 1707.56 1076.5 Output Total 810 1200 900 Balance 941 507.56 176.5 Weight 63.7 kg 65 kg Intake: IV 1501 1482.0 1076.5 Amino Acid 4.25%-D10w+ 275 Lytes*E* 1,000 ml @ 55 mls/hr IV .BY DURATION [facility] Rx#:[id number] Cefepime 1 gm In Sodium 100 50.0 37.5 Chloride 0.9% 50 ml @ 12. 5 mls/hr IVPB Q12HR [facility] Rx#:[id number] Sodium Chloride 0.9% 500 220 240 120 ml 500 ml @ 20 mls/hr IV .Q24H [facility] Rx#:[id number] TPN 390 1020 765 metroNIDAZOLE-NS PMX 500 200 100 100 mg In Saline 1 100ml.bag @ 100 mls/hr IVPB Q8HR [facility] Rx#:[id number] pressure bags 66 72 54 sodium phosphate 250 Intake, IV Titration 250 225.56 0 Amount Amiodarone 450 mg In 250 225.56 Dextrose 5% in Water 250 ml @ 0.5 MG/MIN 16.667 mls/hr IV .Q15H [facility] Rx#: [id number] Norepinephrine 8 mg In 0 Sodium Chloride 0.9% 250 ml @ 0.03 MCG/KG/MIN 2.99 mls/hr IV .Q24H [facility] Rx#: [id number] Output: Gastric Drainage 200 Urine 610 1200 900 Other: Voiding Method Indwelling Catheter Indwelling Catheter Indwelling Catheter ABP, PAP, CO, CI - Last Documented Arterial Blood Pressure 184/63 - Labs CBC & Chem 7: 07/25/22 03:40 07/25/22 03:40 Labs: Abnormal Lab Results - Last 24 Hours (Table) 07/24/22 07/24/22 07/25/22 Range/Units 17:54 23:46 03:40 RBC (3.80-5.40) m/uL Hgb (11.4-16.0) gm/dL Hct (34.0-46.0) % MCV (80.0-100.0) fL MCHC (31.0-37.0) g/dL Neutrophils # (1.3-7.7) k/uL Lymphocytes # (1.0-4.8) k/uL Sodium 135 L (137-145) mmol/L Chloride 109 H (98-107) mmol/L BUN 49 H (7-17) mg/dL Creatinine 1.14 H (0.52-1.04) mg/dL Glucose 271 H (74-99) mg/dL POC Glucose (mg/dL) 275 H 307 H (70-110) mg/dL Calcium 7.8 L (8.4-10.2) mg/dL 07/25/22 07/25/22 07/25/22 Range/Units 03:40 06:35 11:48 RBC 2.74 L (3.80-5.40) m/uL Hgb 8.8 L (11.4-16.0) gm/dL Hct 28.6 L (34.0-46.0) % MCV 104.3 H (80.0-100.0) fL MCHC 30.8 L (31.0-37.0) g/dL Neutrophils # 9.2 H (1.3-7.7) k/uL Lymphocytes # 0.3 L (1.0-4.8) k/uL Sodium (137-145) mmol/L Chloride (98-107) mmol/L BUN (7-17) mg/dL Creatinine (0.52-1.04) mg/dL Glucose (74-99) mg/dL POC Glucose (mg/dL) 295 H 284 H (70-110) mg/dL Calcium (8.4-10.2) mg/dL
[2022-07-26 05:34] LABS: Basophils % (A) 0 %; Eosinophils # (A) 0.1 k/uL (0-0.7); Eosinophils % (A) 1 %; HCT 27.9 % (34.0-46.0); HGB 8.7 gm/dL (11.4-16.0); Lymphocytes # (A) 0.4 k/uL (1.0-4.8); Lymphocytes % (A) 4 %; MCH 31.4 pg (25.0-35.0); MCHC 31.1 g/dL (31.0-37.0); MCV 100.8 fL (80.0-100.0); Mean Platelet Volume 8.5; Monocytes # (A) 0.5 k/uL (0-1.0); Monocytes % (A) 5 %; Neutrophils # (A) 9.6 k/uL (1.3-7.7); Neutrophils % (A) 90 %; Platelet Count 239 k/uL (150-450); RBC 2.76 m/uL (3.80-5.40); RDW 13.1 % (11.5-15.5); WBC 10.7 k/uL (3.8-10.6)
[2022-07-26 05:42] LABS: Calcium 8.3 mg/dL (8.4-10.2); Phosphorus 4.1 mg/dL (2.5-4.5)
[2022-07-26] MEDS: INSULIN DETEMIR (LEVEMIR) 100 UNIT/ML SYR SQ SCH (05:55)
--- NOTE | 2022-07-26 07:58 | P.PN ---
Subjective PROGRESS NOTE The patient is an 81-year-old female with a known history of paroxysmal atrial fibrillation, permanent pacemaker implantation, diabetes, anticoagulated who underwent repair of incarcerated right inguinal hernia yesterday. Postoperati vely she was hypertensive. She remains intubated and sedated. She is in atrial fibrillation/flutter this morning with controlled ventricular response. Her blood pressure is under better control. Her urine output has been adequate. There is no evidence of ventricular ectopic activity. July 22: The patient remains intubated, she is opening her eyes to verbal stimulation and following commands. She is in atrial fibrillation with rapid ventricle response this morning, she was under better control earlier. Her blood pressure is good, she continues to be on low dose IV norepinephrine. There is no ventricular ectopic activity. Her urinary output has been stable. She has not been started on anticoagulation by the surgical team. She continues to be on IV amiodarone. July 23: She remains intubated and sedated. She is in atrial fibrillation with relatively controlled ventricular rate on IV amiodarone and IV Lopressor. She has not started anticoagulation yet awaiting surgical approval. Her urinary output has been stable. Her oxygenation is stable on PEEP of 5. There is no evidence of malignant arrhythmia. She is receiving TPN. She is afebrile. Her norepinephrine is being weaned off 07/24 Patient seen and examined. Patient extubated and off vasopressors. Remains on TPN. Remains in A. fib with heart rates 110s to 130s. Blood pressure is borderline and not receiving any oral medications. No anticoagulation yet. Cr improved to 1.2 07/25 Seen and examined. Off pressors. BP in 130-150's. Has been recieving Metoprolol. Still NPO. On amio drip. Was started on Digoxin with HR's 80- 100's. Lethargic, recieving pain meds and family made patient DNR. Lasix start today. 07/26 Patient seen and examined. Patient more lethargic however daughter at bedside states she is in pain if she does not receive her pain meds. Family wished to make patient comfort measures today. Blood pressure elevated in the 160s to 190s. PHYSICAL EXAMINATION Vitals reviewed. LUNGS: Clear to auscultation anteriorly HEART: Irregular rate and rhythm, S1, S2. No S3. systolic ejection murmur ABDOMEN: Soft, no organomegaly, dressing in place EXTREMETIES: No edema IMPRESSION: 1. Status post exploratory laparotomy with repair of incarcerated right inguinal hernia 2. Postop hypotension, resolved 3. Paroxysmal atrial fibrillation, now in atrial fibrillation with controlled r ate, continues on IV amiodarone. Anticoagulation not started, awaiting surgical clearance 4. Status post permanent pacemaker implantation 5. Acute on chronic diastolic heart failure PLAN: Patient's heart rates have somewhat improved and now hypertensive. Patient has had slow decline and appears comfortable measured appropriate. Continue with IV blood pressure in rate control as needed. No further recommendations from cardiology standpoint. Please call with any questions. Objective - Vital Signs Vital signs: Vital Signs Temp 100.2 F H 07/26/22 04:00 Pulse 78 07/26/22 07:00 Resp 16 07/26/22 07:00 BP 159/72 07/25/22 22:00 Pulse Ox 97 07/26/22 07:00 FiO2 4 07/24/22 16:00 Intake & Output 07/25/22 07/26/22 07/26/22 18:59 06:59 18:59 Intake Total 1409.5 1582 111 Output Total 1045 1285 100 Balance 364.5 297 11 Intake: IV 1409.5 1332 111 Cefepime 1 gm In Sodium 37.5 Chloride 0.9% 50 ml @ 12. 5 mls/hr IVPB Q12HR [facility] Rx#:[id number] Sodium Chloride 0.9% 500 180 240 20 ml 500 ml @ 20 mls/hr IV .Q24H [facility] Rx#:[id number] TPN 1020 1020 85 metroNIDAZOLE-NS PMX 500 100 mg In Saline 1 100ml.bag @ 100 mls/hr IVPB Q8HR [facility] Rx#:[id number] pressure bags 72 72 6 Intake, IV Titration 0 250 Amount Amiodarone 450 mg In 250 Dextrose 5% in Water 250 ml @ 0.5 MG/MIN 16.667 mls/hr IV .Q15H [facility] Rx#: [id number] Norepinephrine 8 mg In 0 Sodium Chloride 0.9% 250 ml @ 0.03 MCG/KG/MIN 2.99 mls/hr IV .Q24H [facility] Rx#: [id number] Output: Urine 1045 1285 100 Other: Voiding Method Indwelling Catheter Indwelling Catheter ABP, PAP, CO, CI - Last Documented Arterial Blood Pressure 132/43 - Labs CBC & Chem 7: 07/26/22 05:16 07/26/22 05:16 Labs: Abnormal Lab Results - Last 24 Hours (Table) 07/25/22 07/25/22 07/25/22 Range/Units 11:48 18:26 20:40 WBC (3.8-10.6) k/uL RBC (3.80-5.40) m/uL Hgb (11.4-16.0) gm/dL Hct (34.0-46.0) % MCV (80.0-100.0) fL Neutrophils # (1.3-7.7) k/uL Lymphocytes # (1.0-4.8) k/uL Sodium (137-145) mmol/L BUN (7-17) mg/dL Creatinine (0.52-1.04) mg/dL Glucose (74-99) mg/dL POC Glucose (mg/dL) 284 H 301 H 230 H (70-110) mg/dL Calcium (8.4-10.2) mg/dL 07/25/22 07/26/22 07/26/22 Range/Units 23:41 05:16 05:16 WBC 10.7 H (3.8-10.6) k/uL RBC 2.76 L (3.80-5.40) m/uL Hgb 8.7 L (11.4-16.0) gm/dL Hct 27.9 L (34.0-46.0) % MCV 100.8 H (80.0-100.0) fL Neutrophils # 9.6 H (1.3-7.7) k/uL Lymphocytes # 0.4 L (1.0-4.8) k/uL Sodium 134 L (137-145) mmol/L BUN 62 H (7-17) mg/dL Creatinine 1.32 H (0.52-1.04) mg/dL Glucose 227 H (74-99) mg/dL POC Glucose (mg/dL) 258 H (70-110) mg/dL Calcium 8.3 L (8.4-10.2) mg/dL
[2022-07-26] MEDS: IPRATROPIUM-ALBUTEROL 3 ML NEB INHALATION SCH ×3 (09:28→15:36)
[2022-07-26] MEDS: [UNRECOGNIZED DRUG - REMARK] IV SCH ×4 (09:48)
[2022-07-26] MEDS: CEFEPIME 1 GM in SODIUM CHLORIDE 0.9% 50 ML IVPB SCH (11:18)
[2022-07-26] MEDS: FUROSEMIDE 10 MG/ML 4 ML VIAL IV SCH (11:18)
[2022-07-26] MEDS: DIGOXIN 250 MCG/ML 2 ML AMP IVP SCH (11:18)
[2022-07-26] MEDS: LEVOTHYROXINE IVP 100 MCG/5 ML VIAL IV SCH (11:18)
[2022-07-26] MEDS: ENOXAPARIN 30 MG/0.3 ML SYRINGE SQ SCH (11:18)
[2022-07-26] MEDS: PANTOPRAZOLE 40 MG/10 ML VIAL IVP SCH (11:19)
[2022-07-26] MEDS: polyethylene glycoL 3350 17 GM POWD.PACK PO SCH (11:19)
[2022-07-26] MEDS: AMIODARONE 450 MG in DEXTROSE 5% IN WATER 250 ML IV SCH ×2 (11:19)
--- NOTE | 2022-07-26 11:53 | P.PN ---
Subjective Progress Note Date: 07/26/22 CHIEF COMPLAINT: Incarcerated right inguinal hernia HISTORY OF PRESENT ILLNESS: Patient postop day #6 status post exploratory laparotomy with repair of incarcerated right inguinal hernia partial omentectomy and small bowel resection for incarcerated right inguinal hernia with ischemic small bowel and omentum. Patient is more lethargic and is short of breath. She sounds congested. She failed her swallow eval yesterday. She did have a low- grade temp of 100.2. Family is at bedside. They're wishing to proceed with comfort care. Hospice has been consulted. Heart rate 101 BP 126/40 WBC 10.7 Hgb 8.7 platelets 239 signs 134 potassium 5.0 creatinine 1.32 Patient seen and examined with Dr. Esparza PHYSICAL EXAM: VITAL SIGNS: Reviewed. GENERAL: Well-developed in no acute distress. ABDOMEN: Soft. Mildly distended. Prevana wound vac in place NEUROLOGIC: More lethargic ASSESSMENT: 1. Incarcerated right inguinal hernia with ischemic small bowel and omentum status post exploratory laparotomy with repair of incarcerated right inguinal hernia partial omentectomy and small bowel resection 2. Postoperative hypotension resolved. Remains off pressors PLAN: -Patient's family wishes to proceed with comfort care. Awaiting hospice evaluation Physician Ethylene [employer] Panelboard Operator note has been reviewed by physician. Signing provider agrees with the documented findings, assessment, and plan of care. Objective - Vital Signs Vital signs: Vital Signs Temp 100.2 F H 07/26/22 04:00 Pulse 101 H 07/26/22 09:00 Resp 22 07/26/22 09:00 BP 159/72 07/25/22 22:00 Pulse Ox 90 L 07/26/22 09:00 FiO2 4 07/24/22 16:00 Intake & Output 07/25/22 07/26/22 07/26/22 18:59 06:59 18:59 Intake Total 1409.5 1582 208 Output Total 1045 1285 1100 Balance 364.5 297 -892 Intake: IV 1409.5 1332 208 Cefepime 1 gm In Sodium 37.5 Chloride 0.9% 50 ml @ 12. 5 mls/hr IVPB Q12HR [facility] Rx#:[id number] Sodium Chloride 0.9% 500 180 240 20 ml 500 ml @ 20 mls/hr IV .Q24H [facility] Rx#:[id number] TPN 1020 1020 170 metroNIDAZOLE-NS PMX 500 100 mg In Saline 1 100ml.bag @ 100 mls/hr IVPB Q8HR [facility] Rx#:[id number] pressure bags 72 72 18 Intake, IV Titration 0 250 Amount Amiodarone 450 mg In 250 Dextrose 5% in Water 250 ml @ 0.5 MG/MIN 16.667 mls/hr IV .Q15H [facility] Rx#: [id number] Norepinephrine 8 mg In 0 Sodium Chloride 0.9% 250 ml @ 0.03 MCG/KG/MIN 2.99 mls/hr IV .Q24H [facility] Rx#: [id number] Output: Urine 1045 1285 1100 Other: Voiding Method Indwelling Catheter Indwelling Catheter ABP, PAP, CO, CI - Last Documented Arterial Blood Pressure 126/43 - Labs CBC & Chem 7: 07/26/22 05:16 07/26/22 05:16 Labs: Abnormal Lab Results - Last 24 Hours (Table) 07/25/22 07/25/22 07/25/22 Range/Units 11:48 18:26 20:40 WBC (3.8-10.6) k/uL RBC (3.80-5.40) m/uL Hgb (11.4-16.0) gm/dL Hct (34.0-46.0) % MCV (80.0-100.0) fL Neutrophils # (1.3-7.7) k/uL Lymphocytes # (1.0-4.8) k/uL Sodium (137-145) mmol/L BUN (7-17) mg/dL Creatinine (0.52-1.04) mg/dL Glucose (74-99) mg/dL POC Glucose (mg/dL) 284 H 301 H 230 H (70-110) mg/dL Calcium (8.4-10.2) mg/dL 07/25/22 07/26/22 07/26/22 Range/Units 23:41 05:16 05:16 WBC 10.7 H (3.8-10.6) k/uL RBC 2.76 L (3.80-5.40) m/uL Hgb 8.7 L (11.4-16.0) gm/dL Hct 27.9 L (34.0-46.0) % MCV 100.8 H (80.0-100.0) fL Neutrophils # 9.6 H (1.3-7.7) k/uL Lymphocytes # 0.4 L (1.0-4.8) k/uL Sodium 134 L (137-145) mmol/L BUN 62 H (7-17) mg/dL Creatinine 1.32 H (0.52-1.04) mg/dL Glucose 227 H (74-99) mg/dL POC Glucose (mg/dL) 258 H (70-110) mg/dL Calcium 8.3 L (8.4-10.2) mg/dL
[2022-07-26 13:22] VITALS: BMI 29.9
--- NOTE | 2022-07-26 13:53 | P.PN ---
Subjective Progress Note Date: 07/26/22 Principal diagnosis: Acute hypoxic respiratory failure secondary to abdominal sepsis, right inguinal incarcerated hernia with bowel ischemia requiring small bowel resection Seeing this patient in consultation today 07/13/2022 in the emergency room waiting for a bed on the selective care unit. Patient is an 81-year-old white female with past significant medical history of atrial fibrillation, permanent pacemaker, coronary artery disease, breast cancer post radiation therapy and lumpectomy, hypertension, hyperlipidemia, diabetes mellitus, hypothyroidism, and is a lifelong nonsmoker. Patient does follow with Dr. Haile in the office for a solitary lung nodule. Patient presented to the emergency room yesterday evening with chief complaint of shortness of breath over the past 2 weeks. Also, reports chest congestion and a frequent cough with occasional phlegm. Patient denies any chest pain, heart palpitations, lightheadedness or syncope, fever, hemoptysis. Patient apparently was seen by Dr Babcock, her primary care provider, and was given a course of prednisone and a Z-Sherman. Patient had no improvement in symptoms. Patient is currently resting emergency room, on room air, in no acute distress. Chest x-ray arrival showed no acute cardiopulmonary process. While the emergency room, patient did have an episode of A. fib RVR, which has currently resolved, as the patient is in normal sinus rhythm around 80 bpm. troponins are mildly elevated most recent troponin 0.068. EKG currently shows normal sinus rhythm without any obvious ischemic changes. NT proBNP is 1890. Normal saline is infusing at 130 mL per hour. Patient's CBC on arrival showed a WBC count 9.9, hemoglobin 12, hematocrit 36.7, platelets 302. 41, potassium 4.5, chloride 105, serum CO2 26, BUN 74, creatinine 1.68, 75. LFTs are mildly elevated. Patient was negative for influenza, RSV, COVID-19. Vital signs are stable. On 07/21/2022, I'm seeing the patient for a follow-up. The patient is postop day #1. This morning, the patient is adequately sedated on propofol which is running at 40 mcg/kg/m. The propofol this can be slightly weaned down as the patient is significantly sedated. She is on assist-control mode of mechanical ventilation. She doesn't assist control of 12, tidal volume of 400, crit of 40% with a PEEP of 5. The blood. From today shows a pH of 7.4 with episodes of 38 and pO2 of 1:30. The chest x-ray from today shows no acute abnormalities. There is some small effusions lung base bilaterally. ET tube is in a good location. No airspace disease or consolidation. The patient also has a pacemaker over the left anterior chest and the patient has a right IJ triple- lumen catheter in place. The patient is currently on a combination of cefepime and Flagyl. The patient remains on pressors and norepinephrine is running at the rate of 0.15 mcg/kg/m. The patient has a urine operas in order of marginal 30-40 mL an hour. The patient is on normal saline at the rate of 75 mL an hour. Meanwhile, the patient remains nothing by mouth. NG tube is in place. Output from the NG tube is minimal. The surgical wound is dry clean and intact. The patient has superficial wound VAC with minimal amount of drainage. Bowel sounds are hypoactive/absent. Nevertheless, her abdomen is nondistended. In terms of the rest of the blood work, the WBC count is at 10.7 with a hemoglobin of 10.7 and a platelet count of 180. Sodiums of 140, BUN is at 41 with a creatinine of 1.33. Liver function tests yesterday were essentially within normal limits. Albumin is at 2.4 with a total protein of 4.5. She is afebrile this morning. No other significant events overnight. In terms of her cardiac rhythm, the patient remained nature fibrillation. The patient will be switched to oral amiodarone today. Unable to get beta blockers as long as the patient is still hypotensive. She is on no anticoagulants for now. Her TSH was 0.9 and the patient is on low-dose Synthroid 37.5 g IV every 24 hours. 07/22/2022, the patient is postop day #2. This morning, she remains up at 40 mcg/kg/m. She is arousable and she follows simple commands even while being on sedation. She remains on a mechanical ventilator. She is on assist-control at the rate of 12, tidal volume of 400, FiO2 40% with a PEEP of 5. Chest x-ray from today still pending. Blood gas from this morning shows a pH of 7.34 with episodes of 38 and pO2 of 148. As such, she has adequate oxygenation. The patient's chest x-ray from today is pending. Meanwhile, the patient is still on a mechanical ventilator. She is, comfortable. No significant orotracheal secretions. Hemodynamically, the patient has been obvious significant positive fluid balance. Urine output is in order of 20-30 mL an hour. The creatinine today is stable at 1.47 with a BUN of 39. Sodium is at 137 and a serum bicarb is at 20. The white cell count today is at 10.6 with a hemoglobin of 9.6. The patient was receiving IV fluids in the form of normal saline at the rate of 75 mL an hour. The patient was also started on TPN for nutritional support. This is running at 30 mL an hour. IV antibiotics include a combination of cefepime and Flagyl. Meanwhile, the patient is having issues with atrial fibrillation. After being on amiodarone drip, the patient's heart rate stabilized. This morning, she was again tachycardic. She was given Lopressor 5 mg IV in addition to amiodarone bolus a total of 150 mg IV push. Her heart is under better control for now it's under 100. She is on no anticoagulants. The surgeon would like to wait another 24-48 hours prior to starting the patient any form of anticoagulants. Surgical wound is dry clean and intact. The patient has a superficial VAC in place. 07/23/2022, the patient is postop day #3. The patient remains intubated on a mechanical ventilator. She seems to be quite stable on today's evaluation. The patient is currently off pressors. The norepinephrine was weaned off overnight and this morning, the patient is on no pressors. At the same time, the patient remained nature fibrillation. Heart rate is fluctuating and she is on/the beta blockers patient remains on amiodarone infusion running at 0.5 mg/m. No anticoagulants yet. At the same time, the patient remains on a mechanical ventilator. She is on assist control mode at the rate of 12, tidal volume of 400, FiO2 40% with a PEEP of 5. The blood gas from today shows a pH of 7.4 with a pCO2 of 31 and pO2 of 134. Chest x-ray shows small bilateral lower lobe pleural effusions. Orotracheal tube is in a good location. The patient is producing urine output in the order of 40-50 mL an hour. At the same time, her fluid balance is +1.6 L over the past 24 hours. Blood work from today shows a WBC count 9.5 with a hemoglobin 9.1 and a platelet count of 162. Sodium is at 136, BUN is at 40 with a creatinine of 1.4 as such her renal function is stable. She is receiving TPN for nutritional support which is running at the rate of 55 mL an hour. Maintenance fluids are at KVO. She is afebrile. She remains on a combination of cefepime and Flagyl. Blood sugars are slightly elevated and the patient is diabetic taking Lantus insulin on outpatient basis 35 units daily. Was started on low-dose Levemir at 12 units along with a size scale coverage. Patient was seen today on07/24/2022, patient is now postoperative day #4. Patient was extubated yesterday, she is now on 4 L nasal cannula, she is requiring amiodarone at 0.5 mg/m, and did receive digoxin. She is also on TPN at 55 mL per hour. Continues to have nasogastric tube in place, she seems to have coffee ground material in the nasogastric tube. Patient was on mechanical ventilation through 07/23. Remains on Flagyl and cefepime for her abdominal sepsis. Patient is not requiring any norepinephrine at present. She remains in atrial fibrillation with poorly controlled rate, fluctuating between 120 and 135. No chest x-ray was done today, but she did have a chest x-ray yesterday showing small bilateral pleural effusions, and the right lower lobe atelectasis. Labs today showed WBC count 9.8 hemoglobin is 8.8, basic metabolic profile is normal renal functioning showed a BUN of 42 creatinine 1.21, patient was placed on Lovenox 30 mg subcu daily, she will eventually need to be on full anticoagulation therapy, however considering the nasogastric tube is showing coffee ground material I am a bit reluctant to start full anticoagulation at this point. In addition to antibiotics, patient remains on bronchodilators, she is being followed by cardiology for her poorly-controlled atrial fibrillation Patient was reevaluated today on 07/25/2022, she is now postoperative day #5. Remains in the ICU, marginal at best, family is at bedside. Patient is being treated for abdominal sepsis and septic shock, she is on 8 liters nasal cannula, does not seem to be in any pulmonary distress, however she seems to be slow and lethargic, tends to be a bit sleepy but arousable and follows simple instructions. Patient is on amiodarone and 0.5 mg/m, he is also receiving TPN at 85 mL/h, IV fluid is at KVO. Patient remains on Flagyl and cefepime. Yesterday the patient received 1 dose of Lasix 40 mg IV push, and today I recom mended that the patient goes on Lasix 40 mg IV push every 12 hours. Chest x-ray is suggestive of pulmonary edema and small bilateral pleural effusions, hence Lasix will likely be appropriate. CODE STATUS has been changed yesterday from full code to DO NOT RESUSCITATE, labs today showed WBC count of 10.2 hemoglobin 8.8. Electrolytes are normal renal profile showed a BUN of 49 and creatinine 1.14., This is a bit better compared to the last couple of days, creatinine is improving. Urine output is decent. Reevaluated today on 07/26/2022, patient is now postoperative day #6 status post exploratory laparotomy with repair of incarcerated right inguinal hernia partial omentectomy and small bowel resection for incarcerated right inguinal hernia with ischemic small bowel and omentum. Patient is becoming more and more lethargic, and seems to be congested, gurgling with secretions, unable to produce an adequate cough. Patient failed swallow evaluation yesterday, she also has fever with a temp of 101.2. Family is at bedside, and I would like to proceed with comfort care measures/hospice. Apparently the decision has been already made, and I will go ahead and respect the family's wishes. WBC count today is 10.7 hemoglobin is 8.7 lymphocytes are normal BUN is 62 creatinine 1.32 Objective - Vital Signs Vital signs: Vital Signs Temp 100.2 F H 07/26/22 04:00 Pulse 94 07/26/22 11:00 Resp 13 07/26/22 11:00 BP 159/72 07/25/22 22:00 Pulse Ox 94 L 07/26/22 11:00 FiO2 4 07/24/22 16:00 Intake & Output 07/25/22 07/26/22 07/26/22 18:59 06:59 18:59 Intake Total 1409.5 1582 208 Output Total 1045 1285 1100 Balance 364.5 297 -892 Weight 65 kg Intake: IV 1409.5 1332 208 Cefepime 1 gm In Sodium 37.5 Chloride 0.9% 50 ml @ 12. 5 mls/hr IVPB Q12HR [facility] Rx#:[id number] Sodium Chloride 0.9% 500 180 240 20 ml 500 ml @ 20 mls/hr IV .Q24H [facility] Rx#:[id number] TPN 1020 1020 170 metroNIDAZOLE-NS PMX 500 100 mg In Saline 1 100ml.bag @ 100 mls/hr IVPB Q8HR [facility] Rx#:[id number] pressure bags 72 72 18 Intake, IV Titration 0 250 Amount Amiodarone 450 mg In 250 Dextrose 5% in Water 250 ml @ 0.5 MG/MIN 16.667 mls/hr IV .Q15H [facility] Rx#: [id number] Norepinephrine 8 mg In 0 Sodium Chloride 0.9% 250 ml @ 0.03 MCG/KG/MIN 2.99 mls/hr IV .Q24H [facility] Rx#: [id number] Output: Urine 1045 1285 1100 Other: Voiding Method Indwelling Catheter Indwelling Catheter ABP, PAP, CO, CI - Last Documented Arterial Blood Pressure 100/37 - Exam Physical Exam: Revealed an 81-year-old female, in no distress, on 4 L nasal cannula. Head: Atraumatic, normocephalic HEENT:[Neck is supple.] [No neck masses.] [No thyromegaly.] [No JVD.] Patient seems to be gurgling secretions. Chest: Crackles and rhonchi noted bilaterally. Cardiac Exam: [Irregular irregular rhythm. Normal S1 and S2, no S3 gallop, 2/6 systolic murmur throughout the precordium. Abdomen: [Postsurgical, Soft, nontender, no megaly, no rebound, no guarding, normal bowel sounds.] Extremities: [No clubbing, trace of bipedal edema, no cyanosis.] Neurological Exam: Lethargic and unable to follow instructions. Psychiatric:, flat affect, extremely lethargic Skin: No rashes. - Labs CBC & Chem 7: 07/26/22 05:16 07/26/22 05:16 Labs: Abnormal Lab Results - Last 24 Hours (Table) 07/25/22 07/25/22 07/25/22 Range/Units 18:26 20:40 23:41 WBC (3.8-10.6) k/uL RBC (3.80-5.40) m/uL Hgb (11.4-16.0) gm/dL Hct (34.0-46.0) % MCV (80.0-100.0) fL Neutrophils # (1.3-7.7) k/uL Lymphocytes # (1.0-4.8) k/uL Sodium (137-145) mmol/L BUN (7-17) mg/dL Creatinine (0.52-1.04) mg/dL Glucose (74-99) mg/dL POC Glucose (mg/dL) 301 H 230 H 258 H (70-110) mg/dL Calcium (8.4-10.2) mg/dL 07/26/22 07/26/22 Range/Units 05:16 05:16 WBC 10.7 H (3.8-10.6) k/uL RBC 2.76 L (3.80-5.40) m/uL Hgb 8.7 L (11.4-16.0) gm/dL Hct 27.9 L (34.0-46.0) % MCV 100.8 H (80.0-100.0) fL Neutrophils # 9.6 H (1.3-7.7) k/uL Lymphocytes # 0.4 L (1.0-4.8) k/uL Sodium 134 L (137-145) mmol/L BUN 62 H (7-17) mg/dL Creatinine 1.32 H (0.52-1.04) mg/dL Glucose 227 H (74-99) mg/dL POC Glucose (mg/dL) (70-110) mg/dL Calcium 8.3 L (8.4-10.2) mg/dL Assessment and Plan Assessment: Impression: Acute incarcerated right inguinal hernia with bowel ischemia Acute abdominal sepsis and septic shock becoming more hemodynamically stable today Acute hypoxic respiratory failure secondary to above requiring intubation and mechanical ventilation post surgery patient was extubated yesterday on 07/23. Atrial fibrillation with RVR, remains on amiodarone Acute kidney injury secondary to above, improved today compared to the last couple of days. History of sick sinus syndrome and previous permanent pacemaker implantation. Underlying coronary artery disease Type 2 diabetes without complications. Benign essential hypertension Remote history of pulmonary embolism History of breast cancer and previous radiation therapy and lumpectomy. Lifelong nonsmoker History of hypothyroidism, on maintenance therapy. Recommendation: Discussed her condition with daughter at bedside, Family already made the decision to proceed with comfort care measures/hospice, We will proceed with hospice. As per family's wishes Patient made comfort care measures Time with Patient: Less than 30
--- NOTE | 2022-07-26 15:24 | P.PN ---
Subjective Progress Note Date: 07/26/22 Patient is a 81-year-old female with a known history of atrial fibrillation on anticoagulation with Eliquis, history of permanent pacemaker placement, hypertension, hyperlipidemia, diabetes type 2 insulin-dependent, hypothyroidism, osteoarthritis and chronic back pain and anxiety presents ER with complaints of shortness of breath for past 2 weeks. Patient was having chest congestion and cough with clear to greenish sputum production. Patient was seen by her primary care physician and was given Z-Sherman and prednisone course. Patient still having symptoms without much improvement presented to ER. Denies any fever or chills. No leg swelling. No nausea vomiting abdominal pain or diarrhea. Chest x-ray in the ER showed no acute process. EKG showed atrial fibrillation with rapid regular rate with heart rate 134 Laboratory data showed WBC 9.9 hemoglobin 12.0 and platelets 302 Sodium 141 potassium 4.5 chloride 105 bicarb is 26 BUN 74 and creatinine 1.68, AST 38 ALT 45 alk phos 48 and troponin 0.054, 0.052 and 0.068, procalcitonin level is 0.11 TSH within normal limits and proBNP is 1890 Influenza A, B, RSV and COVID-19 PCR not detected. 07/14/2022 This is a pleasant 81 years old female was admitted with A. fib and RVR consult with evidence with acute bronchitis. She's been treated with Zithromax, normal saline for acute kidney injury and her Lopressor dose was increased to 75 mg 3 times a day by tracer bullet charging machine operator, currently heart rate is controlled and she is on Eliquis home dose of 2.5 mg However patient lying in bed and she still feels short of breath and she still was not ready for discharge.. Cartilage team adjusted some of her blood pressure medication and they cleared her for discharge Pulmonary team on the case and patient was started on Medrol Dosepak. 07/15/2022 Patient clinically doing well and she is back to baseline, breathing significantly improved with no chest pain heart rate is controlled with occasional changes in heart rate, symptomatic goes back to normal quickly. Patient is currently clinically stable and she was cleared for discharge by both cardiology and pulmonary services, I discussed with the patient she does not want to go home today and she wants to be evaluated by physical therapy first. Discussed with bed side nurse to contact physical therapy to this morning and they're pending. Patient is a 81-year-old female with a known history of atrial fibrillation on anticoagulation with Eliquis, history of permanent pacemaker placement, hyper tension, hyperlipidemia, diabetes type 2 insulin-dependent, hypothyroidism, osteoarthritis and chronic back pain and anxiety presents ER with complaints of shortness of breath for past 2 weeks. Patient was having chest congestion and cough with clear to greenish sputum production. Patient was seen by her primary care physician and was given Z-Sherman and prednisone course. Patient still having symptoms without much improvement presented to ER. Denies any fever or chills. No leg swelling. No nausea vomiting abdominal pain or diarrhea. Chest x-ray in the ER showed no acute process. EKG showed atrial fibrillation with rapid regular rate with heart rate 134 Laboratory data showed WBC 9.9 hemoglobin 12.0 and platelets 302 Sodium 141 potassium 4.5 chloride 105 bicarb is 26 BUN 74 and creatinine 1.68, AST 38 ALT 45 alk phos 48 and troponin 0.054, 0.052 and 0.068, procalcitonin level is 0.11 TSH within normal limits and proBNP is 1890 Influenza A, B, RSV and COVID-19 PCR not detected. 07/14/2022 This is a pleasant 81 years old female was admitted with A. fib and RVR consult with evidence with acute bronchitis. She's been treated with Zithromax, normal saline for acute kidney injury and her Lopressor dose was increased to 75 mg 3 times a day by tracer bullet charging machine operator, currently heart rate is controlled and she is on Eliquis home dose of 2.5 mg However patient lying in bed and she still feels short of breath and she still was not ready for discharge.. Cartilage team adjusted some of her blood pressure medication and they cleared her for discharge Pulmonary team on the case and patient was started on Medrol Dosepak. 16 2022 Patient is currently lying in bed. Awake alert and oriented x3. Denies any complaints of chest pain. Shortness of breath is much improved. No cough or sputum production. Otherwise patient is still feeling generalized weakness and needs assistance with walking to the bathroom. PT OT was consulted and family is concerned about going home. Anticipate discharge home versus rehab in the next 24 to 48 hours. High risk with history of sustaining. Laboratory data reviewed. Cleared from pulmonary and cardiology standpoint. 07/17/2022 Patient is seen and evaluated in follow-up and continues with weakness and being evaluated by physical therapy. Patient does have some cough and reports her shortness of breath is improved. Patient taking a number of medications causing an increase in kidney functions and will hold the splint pressure medications and Lasix and follow-up with repeat labs. Patient prefers to go home and arranging for home care in the outpatient setting. Patient is currently afebrile continues to report cough although denies shortness of breath. Patient is tolerating diet with no reports of nausea or vomiting noted. 07/18/2022 Patient is seen and evaluated in follow-up this morning with kidney functions trending down low not much improved as patient did receive the Lasix and lisinopril yesterday. Patient is having increased abdominal pain with severe cramping and nausea and reports she feels she has to have a bowel movement but is unable to. Patient does have history of IBS although was not having any loose stools. Patient is reporting 10/10 pain and unable to stand due to the intensity of the cramping and laying in the position in bed. Will add Bentyl and additional medications. Patient encouraged to increase activity as tolerated. Cardiology and pulmonary following and have cleared the patient for discharge. Will monitor overnight with probable discharge in 24 hours. 07/19/2022 Patient is seen and evaluated in follow-up today reports to not feeling well at all with extreme nausea and some vomiting. Patient unable to keep her medications down and heart rate noted to be elevated into the 140s. Cardiology had been following although signed off and will reconsult. Cardiology following back up given additional dose of metoprolol although patient not able to tolerate and unsure if she took the medication. Patient continues to show atrial fibrillation with RVR and cardiology starting Cardizem drip. Patient will need transfer to cardiology floor for monitoring of the strep as she is cu rrently on 5 N. and they do not handle Cardizem drips. Patient is currently afebrile does report some palpitations although denies chest pain. Patient having extreme nausea with some vomiting and abdominal pain. Patient also feels to having some constipation and reports did have a very minimal difficult time having a small bowel movement yesterday after suppository, will add enema. 07/20/2022 Patient is seen early this morning with daughter at bedside and is currently nothing by mouth awaiting surgical intervention with Dr. Esparza with concerns of incarcerated hernia as patient was reporting abdominal pain. Patient did have an episode of atrial fibrillation with RVR and initially going to start Cardizem drip yesterday although converted to sinus rhythm and was resumed on eliquis with cardiology following. Cardizem drip was discontinued at that point although patient continue with increased abdominal pain and discomfort with vomiting and general surgery was consulted. Patient had an abdominal x-ray which showed few mildly dilated loops of small bowel with multiple air-fluid levels concerning with developing bowel obstruction recommending a CT follow-up. Patient's kidney functions were elevated although repeat creatinine was improving at 1.7 with lisinopril and Lasix being held. Ordered a CT abdomen without contrast which showed findings suspicious for small bowel obstruction with suspected transition point within a partially visualized right inguinal hernia Limited evaluation without the contrast with fibroid changes of the uterus and not obstructed right renal calculus with colonic diverticulosis without evidence of diverticulitis. Patient was placed nothing by mouth and General surgery recommending surgical intervention and was held over until this morning as patient did receive her anticoagulation yesterday. Patient did have an elevation in white count up to 15 although afebrile continued to have abdominal pain and extremely tender on palpation. Patient also had uncontrolled rhythms in A. fib with RVR and was moved to 3 S. early this morning and placed on the Cardizem drip. Will await surgical report. 07/21/2022 Patient is seen and evaluated continues to be in the ICU on mechanical ventilation with no plans of leaving today. Heart rate remains uncontrolled and was maintained on Cardizem will be transitioned to amiodarone with cardiology following. General surgery following a patient is status post surgical intervention for the right incarcerated hernia. Patient is continued on antibiotics along with low-dose pressor support and will continue to monitor closely. Patient does have abdominal dressings in the form of prevana that are intact and abdomen is less distended. Patient does have a central line and TPN is being started. 07/22/2022 Patient is seen this morning in the ICU maintained on mechanical ventilation and FiO2 is 40% with a PEEP of 5. Patient is undergoing sedation holidays and currently awake and following commands. Plan is to remain on mechanical ventilation as patient continues to have some hypotension requiring pressor support as well as uncontrolled atrial fibrillation. Patient on amiodarone drip and also being continued on IV Lopressor. Patient is maintaining on cefepime and Flagyl sputum culture was obtained. Patient is afebrile and has been started on TPN. Patient continues with pain and will continue as needed low- dose Dilaudid. Gen. surgery following and will continue with prevana dressing to the abdomen. No bowel movement as of yet per nursing staff and sluggish bowel sounds noted. 07/23/2022 Patient is seen and evaluated in follow-up this morning continues to be in the ICU on mechanical ventilation with multiple medical consultations following. Patient continues on the vent with FiO2 of 40% and PEEP is 5. Patient undergoing sedation holiday and is following commands and working on weaning trials with possible extubation later today. Patient continues to be in atrial fibrillation maintained on IV amiodarone IV push Lopressor cardiology following closely. Patient is off pressor support currently. Patient remains on antibiotics in the form of cefepime and Flagyl status post surgical intervention of the right inguinal incarcerated hernia and is maintained on TPN for nutritional support. Patient's blood sugars elevated and will continue with long-acting as well as sliding scale and Accu-Cheks per protocol. No bowel activity as of yet and bowel sounds are not noted on exam. Patient is voiding and having good urine output. Patient currently afebrile. 07/24/2022 Patient is seen in follow-up this morning continues to be in the ICU successfully extubated yesterday and currently maintained on oxygen at 3-4 L via nasal cannula. Patient is maintaining oxygen saturations above 90%. Patient continues to be an uncontrolled atrial fibrillation with RVR maintained on IV amiodarone with cardiology following closely and off pressor support currently being started on digoxin. Patient continues to report some pain in the abdomen and will increase a lot of slightly. Patient continues with dark bilious output noted in the NG and is maintained on TPN. Blood sugars are elevated and will adjust long-acting's accordingly and continue sliding scale and Accu-Cheks. Recommend incentive spirometer and coughing and deep breathing as much as possible. Patient is continued on IV antibiotics in the form of cefepime and Flagyl sputum cultures for Stephany white count has normalized. Patient continues to have no bowel activity at this time and will continue TPN for now. 07/25/2022 Patient is seen in follow-up this morning with daughter at bedside maintained ICU being closely monitored. Patient is maintained on high flow 8 liters oxygen currently receiving breathing treatments. Pulmonary pointing machine operator following along with cardiology and Gen. surgery. Patient is maintained on TPN as well as IV cefepime and Flagyl with reported bowel movements as of yet. Patient continues to be in A. fib with cardiology make adjustments to medications. Patient is reporting significant abdominal pain and is extremely weak. Family is discussing possible comfort measures. Prognosis is guarded. 07/26/2022 Patient is seen in follow-up today and family has discussed and would like to make the patient comfort care measures and would like to stop all further t reatments including blood draws and infusions. Patient does continue to be in atrial fibrillation but with controlled weight somewhat although having blood pressure issues. Patient has past experience with visiting nurses and [facility] and would like to continue with this service. Consult was placed and awaiting hospice arrival. Family members are present at bedside. Patient is currently afebrile and overall prognosis is extremely guarded. Review of systems: Unable to obtain as patient is asleep and minimally arousable, extremely lethargic All medications have been reviewed Active Medications Acetaminophen (Acetaminophen Tab 325 Mg Tab) 650 mg PO Q6HR PRN PRN Reason: Fever and/ or Pain Last Admin: 07/18/22 10:50 Dose: 650 mg Hydrocodone Bitart/Acetaminophen (Hydrocodone/Apap 5-325mg 1 Each Tab) 1 each PO Q6HR PRN PRN Reason: Pain Last Admin: 07/21/22 05:06 Dose: 1 each Albuterol/Ipratropium (Ipratropium-Albuterol 3 Ml Neb) 3 ml INHALATION RT-Q2H PRN PRN Reason: Shortness Of Breath Or Wheezing Last Admin: 07/23/22 03:49 Dose: 3 ml Albuterol/Ipratropium (Ipratropium-Albuterol 3 Ml Neb) 3 ml INHALATION RT-QID CLAUDY Last Admin: 07/26/22 12:35 Dose: Not Given Dextrose/Water (Dextrose 50% Syringe 50 Ml) 25 ml IVP PER PROTOCOL PRN; Protocol PRN Reason: Hypoglycemia Dextrose/Water (Dextrose 50% Syringe 50 Ml) 50 ml IVP PER PROTOCOL PRN; Protocol PRN Reason: Hypoglycemia Digoxin (Digoxin 250 Mcg/Ml 2 Ml Amp) 250 mcg IVP DAILY [facility] Last Admin: 07/26/22 11:18 Dose: Not Given Enoxaparin Sodium (Enoxaparin 30 Mg/0.3 Ml Syringe) 30 mg SQ DAILY [facility] Last Admin: 07/26/22 11:18 Dose: Not Given Fluticasone Propionate (Fluticasone 50mcg/Ranson Nasal 16gm) 1 spray EA NOSTRIL HS [facility] Last Admin: 07/25/22 21:25 Dose: 1 spray Furosemide (Furosemide 10 Mg/Ml 4 Ml Vial) 40 mg IV Q12HR [facility] Last Admin: 07/26/22 11:18 Dose: Not Given Hydromorphone HCl (Hydromorphone 0.5 Mg/0.5 Ml Syringe) 0.5 mg IVP Q2H PRN PRN Reason: Pain Last Admin: 07/26/22 13:14 Dose: 0.5 mg Norepinephrine Bitartrate 8 mg (/ Sodium Chloride) 258 mls @ 2.99 mls/hr IV .Q24H [facility]; Protocol Last Admin: 07/25/22 15:27 Dose: 0.03 mcg/kg/min, 2.99 mls/hr Metronidazole 500 mg/ IV (Solution) 100 mls @ 100 mls/hr IVPB Q8HR [facility]; Protocol Last Admin: 07/26/22 11:17 Dose: Not Given Cefepime HCl 1 gm/ Sodium (Chloride) 50 mls @ 12.5 mls/hr IVPB Q12HR [facility] Last Admin: 07/26/22 11:18 Dose: Not Given Sodium Chloride (Saline 0.9%) 500 mls @ 20 mls/hr IV .Q24H [facility] Last Admin: 07/25/22 18:02 Dose: 20 mls/hr Amiodarone HCl 450 mg/ (Dextrose/Water) 250 mls @ 16.667 mls/hr IV .Q15H [facility]; Protocol Last Admin: 07/26/22 11:19 Dose: Not Given Parenteral Vitamin Supplement 10 ml/ Zinc/Copper/Manganese/Selenium 1 ml/ Sodium Acetate 14 meq/ Amino Ac/Electrol/Dextrose/Calcium 1,018 mls @ 85 mls/hr IV .BY DURATION [facility] Last Admin: 07/25/22 20:36 Dose: 85 mls/hr Sodium Acetate 14 meq/ Amino (Ac/Electrol/Dextrose/Calcium) 1,007 mls @ 85 mls/hr IV .BY DURATION [facility] Last Admin: 07/26/22 09:48 Dose: Not Given Insulin Aspart (Insulin Aspart (Novolog) 100 Unit/Ml Vial) 0 unit SQ Q6H [facility]; Protocol Last Admin: 07/26/22 12:46 Dose: Not Given Insulin Detemir (Insulin Detemir (Levemir) 100 Unit/Ml Syr) 10 unit SQ BID@0700,2100 [facility] Last Admin: 07/26/22 05:55 Dose: Not Given Levothyroxine Sodium (Levothyroxine Ivp 100 Mcg/5 Ml Vial) 37.5 mcg IV DAILY [facility] Last Admin: 07/26/22 11:18 Dose: Not Given Metoclopramide HCl (Metoclopramide 5 Mg/Ml 2 Ml Vial) 5 mg IVP Q6HR [facility] Last Admin: 07/26/22 12:46 Dose: Not Given Metoprolol Tartrate (Metoprolol Tartrate 5 Mg/5 Ml Vial) 5 mg IVP Q6HR [facility] Last Admin: 07/26/22 12:47 Dose: Not Given Miscellaneous Information (Potassium Replacement Protocol 1 Each Misc) 1 each MISCELLANE DAILY PRN; Protocol PRN Reason: Per Protocol Miscellaneous Information (Magnesium Replacement Protocol 1 Each Misc) 1 each MISCELLANE DAILY PRN; Protocol PRN Reason: Per Protocol Naloxone HCl (Naloxone 0.4 Mg/Ml 1 Ml Vial) 0.2 mg IV Q2M PRN PRN Reason: Opioid Reversal Ondansetron HCl (Ondansetron 4 Mg/2 Ml Vial) 4 mg IVP Q8HR PRN PRN Reason: Nausea And Vomiting Last Admin: 07/20/22 03:28 Dose: 4 mg Pantoprazole Sodium (Pantoprazole 40 Mg/10 Ml Vial) 40 mg IVP DAILY [facility] Last Admin: 07/26/22 11:19 Dose: Not Given Polyethylene Glycol (Polyethylene Glycol 3350 17 Gm Powd.Pack) 17 gm PO DAILY [facility] Last Admin: 07/26/22 11:19 Dose: Not Given Tramadol HCl (Tramadol 50 Mg Tab) 50 mg PO TID PRN PRN Reason: Pain Last Admin: 07/18/22 22:59 Dose: 50 mg Physical exam: GENERAL: The patient is asleep and lethargic, currently maintained on 4 L via nasal cannula, thin built, elderly-appearing , ill-appearing HEENT: Pupils are round and equally reacting to light. EOMI. No scleral icterus. No conjunctival pallor. Normocephalic, atraumatic. No pharyngeal erythema. No thyromegaly. CARDIOVASCULAR: Irregular, A. fib currently with controlled rates on the monitor PULMONARY: Breath sounds diminished with no wheezing, coarse rhonchi , crackles with some bronchial congestion noted. ABDOMEN: Soft, mildly distended, tender on palpation, extremely sluggish bowel sounds. No palpable organomegaly. prevana dressing noted over the right groin and lower abdomen MUSCULOSKELETAL: No joint swelling or deformity. EXTREMITIES: No cyanosis, clubbing, or pedal edema. NEUROLOGICAL: Gross neurological examination did not reveal any focal deficits. Diffusely weak SKIN: No rashes. no petechiae. Assessment: Incarcerated right inguinal hernia with ischemic small bowel and omentum status post exploratory laparotomy with repair of incarcerated right inguinal hernia partial omentectomy and small bowel resection Atrial fibrillation with rapid ventricular rate. Back in A. fib with RVR uncontrolled rate on 07/20/2022 Acute tracheobronchitis. Failure of outpatient treatment Moderate to severe MR, moderate TR and mild pulmonary hypertension Elevated troponin, likely type II ND secondary to atrial fibrillation with RVR Abdominal cramping and pain with nausea and vomiting secondary to right incarcerated hernia Postoperative hypotension, requiring pressor support, improved, has been off pressor support Acute kidney injury with creatinine 1.68 on admission, trending down Diabetes type 2, uncontrolled with hyperglycemia Hypothyroidism Hypertension Hyperlipidemia Osteoarthritis Chronic back pain and fibromyalgia Anxiety History of permanent pacemaker placement Depression/bereavement. full Code Plan: Patient is status post Incarcerated right inguinal hernia with ischemic small bowel and omentum status post exploratory laparotomy with repair of incarcerated right inguinal hernia partial omentectomy and small bowel resection She was maintained on mechanical ventilation and successfully extubated yesterday currently maintained on 4 L via nasal cannula. Patient off pressor support and having increased blood pressure now and heart rate somewhat better controlled patient is maintained on TPN for nutritional support and was continued on Accu- Cheks before meals and at bedtime and sliding scale regimen Patient is having clinical decline and family has discussed further and would like proceed with comfort care measures Overall prognosis remains extremely poor and guarded at this time and awaiting visiting nurses for [facility] The impression and plan of care has been dictated by Pratibha Kasper, Nurse Practitioner as directed. Dr. Zach MD I have performed a history and examination and MDM of this patient, discussed the same with the dictator, and agree with the dictator's assessment and plan as written ,documented as a scribe. Based on total visit time, I have performed more than 50% of the visit. Objective - Vital Signs Vital signs: Vital Signs Temp 100.2 F H 07/26/22 04:00 Pulse 101 H 07/26/22 09:00 Resp 22 07/26/22 09:00 BP 159/72 07/25/22 22:00 Pulse Ox 90 L 07/26/22 09:00 FiO2 4 07/24/22 16:00 Intake & Output 07/25/22 07/26/22 07/26/22 18:59 06:59 18:59 Intake Total 1409.5 1582 208 Output Total 1045 1285 1100 Balance 364.5 297 -892 Intake: IV 1409.5 1332 208 Cefepime 1 gm In Sodium 37.5 Chloride 0.9% 50 ml @ 12. 5 mls/hr IVPB Q12HR CLAUDY Rx#:[id number] Sodium Chloride 0.9% 500 180 240 20 ml 500 ml @ 20 mls/hr IV .Q24H CLAUDY Rx#:[id number] TPN 1020 1020 170 metroNIDAZOLE-NS PMX 500 100 mg In Saline 1 100ml.bag @ 100 mls/hr IVPB Q8HR CLAUDY Rx#:[id number] pressure bags 72 72 18 Intake, IV Titration 0 250 Amount Amiodarone 450 mg In 250 Dextrose 5% in Water 250 ml @ 0.5 MG/MIN 16.667 mls/hr IV .Q15H CLAUDY Rx#: [id number] Norepinephrine 8 mg In 0 Sodium Chloride 0.9% 250 ml @ 0.03 MCG/KG/MIN 2.99 mls/hr IV .Q24H CLAUDY Rx#: [id number] Output: Urine 1045 1285 1100 Other: Voiding Method Indwelling Catheter Indwelling Catheter ABP, PAP, CO, CI - Last Documented Arterial Blood Pressure 126/43 - Labs CBC & Chem 7: 07/26/22 05:16 07/26/22 05:16 Labs: Abnormal Lab Results - Last 24 Hours (Table) 07/25/22 07/25/22 07/25/22 Range/Units 11:48 18:26 20:40 WBC (3.8-10.6) k/uL RBC (3.80-5.40) m/uL Hgb (11.4-16.0) gm/dL Hct (34.0-46.0) % MCV (80.0-100.0) fL Neutrophils # (1.3-7.7) k/uL Lymphocytes # (1.0-4.8) k/uL Sodium (137-145) mmol/L BUN (7-17) mg/dL Creatinine (0.52-1.04) mg/dL Glucose (74-99) mg/dL POC Glucose (mg/dL) 284 H 301 H 230 H (70-110) mg/dL Calcium (8.4-10.2) mg/dL 07/25/22 07/26/22 07/26/22 Range/Units 23:41 05:16 05:16 WBC 10.7 H (3.8-10.6) k/uL RBC 2.76 L (3.80-5.40) m/uL Hgb 8.7 L (11.4-16.0) gm/dL Hct 27.9 L (34.0-46.0) % MCV 100.8 H (80.0-100.0) fL Neutrophils # 9.6 H (1.3-7.7) k/uL Lymphocytes # 0.4 L (1.0-4.8) k/uL Sodium 134 L (137-145) mmol/L BUN 62 H (7-17) mg/dL Creatinine 1.32 H (0.52-1.04) mg/dL Glucose 227 H (74-99) mg/dL POC Glucose (mg/dL) 258 H (70-110) mg/dL Calcium 8.3 L (8.4-10.2) mg/dL
[2022-07-26] MEDS ORDERED: HYDROmorphone 1 MG/ML 1 ML SYRINGE IVP STA (17:24)
[2022-07-26 18:14] VITALS: PULSE 106; RESP 17
--- NOTE | 2022-07-27 12:54 | P.DS ---
Providers Date of admission: 07/12/22 23:04 Expected date of discharge: 07/26/22 Attending physician: Nickolas Serrano Consults: 07/12/22 23:04 Consult Physician Routine Consulting Provider: Erlin Jack Consult Reason/Comments: afibRVR,Stemi Do you want consulting provider notified?: Yes Consult Physician Routine Consulting Provider: Nehemias Haile Consult Reason/Comments: known Do you want consulting provider notified?: Yes Consult Physician Urgent Consulting Provider: Miguel Dempsey Consult Reason/Comments: depression.grief Do you want consulting provider notified?: Yes 07/19/22 15:09 Consult Physician Urgent Consulting Provider: Luan Esparza Consult Reason/Comments: poss bowel obstruction, abd pain Do you want consulting provider notified?: Yes Primary care physician: Frederic Babcock Hospital Course: Final diagnosis Incarcerated right inguinal hernia with ischemic small bowel and omentum status post exploratory laparotomy with repair of incarcerated right inguinal hernia partial omentectomy and small bowel resection Atrial fibrillation with rapid ventricular rate. Back in A. fib with RVR uncontrolled rate on 07/20/2022 Acute tracheobronchitis. Failure of outpatient treatment Moderate to severe MR, moderate TR and mild pulmonary hypertension Elevated troponin, likely type II CA secondary to atrial fibrillation with RVR Abdominal cramping and pain with nausea and vomiting secondary to right incarcerated hernia Postoperative hypotension, requiring pressor support, improved, has been off pressor support Acute kidney injury with creatinine 1.68 on admission, trending down Diabetes type 2, uncontrolled with hyperglycemia Hypothyroidism Hypertension Hyperlipidemia Osteoarthritis Chronic back pain and fibromyalgia Anxiety History of permanent pacemaker placement Depression/bereavement. No Code Discharge disposition Patient is being discharged in a stable condition with guarded and poor prognosis to home with hospice. [facility] following. Patient follows with Dr. Babcock in the outpatient setting upon discharge. Patient is to continue with hospice and comfort measures only per family request. Total time taken is greater than 35 minutes. Hospital course This is a 81-year-old female who was recently admitted with shortness of breath and cough that had been ongoing for the past 2 weeks having some congestion and not feeling well. Patient was given a Z-Sherman and steroid taper in the outpatient setting and did not get better and was brought here by family. Patient was also in A. fib with RVR with multiple medical consultations following. Patient developed some intense severe abdominal pain and underwent CT abdomen and was found to have an incarcerated right inguinal hernia with ischemic bowel and is status post exploratory laparotomy with repair of the incarcerated hernia and partial omentectomy with bowel resection with general surgery. Patient was in the ICU extubated successfully although clinically continued to deteriorate with uncontrolled rates. Patient having no significant improvement in prolonged hospitalization family discussed CODE STATUS and made her no code and monitor closely with no real improvement recommending and requesting hospice services. They were familiar with [facility] that they recently just had with patient's who passed in March 2022. Hospice services met with the family and arranged for home with hospice. Overall prognosis poor and guarded. Please refer to other consultation notes for further HPI. Currently no reports of chest pain, shortness of breath, or palpitations. Patient is afebrile. Again prognosis extremely poor and guarded and patient was sent home on hospice services with the EMS Physical exam: Gen: This is a 81-year-old female who was lethargic although arousable, alert and oriented 2, extremely lethargic, thin built, elderly appearing, ill appearing HEENT: Head is atraumatic, normocephalic. Pupils equal, round. Sclerae is anicteric. NECK: Supple. No JVD. No lymphadenopathy. No thyromegaly. LUNGS: Congested lung sounds with bibasilar crackles and rhonchi noted. No intercostal retractions. HEART: S1, S2 are muffled ABDOMEN: Soft. Bowel sounds are sluggish and tender abdomen. No masses. Wound VAC noted EXTREMITIES: No pedal edema. No calf tenderness. NEUROLOGICAL: Patient is asleep although arousable, alert and oriented x2. Diffusely weak Please refer to medication reconciliation sheet for a list of medications. The impression and plan of care has been dictated by Pratibha Kasper, Nurse Practitioner as directed. Dr. Zach MD I have performed a history and examination and MDM of this patient, discussed the same with the dictator, and agree with the dictator's assessment and plan as written ,documented as a scribe. Based on total visit time, I have performed more than 50% of the visit. Patient Condition at Discharge: Poor Plan - Discharge Summary Discharge Rx Participant: No New Discharge Prescriptions: No Action Levothyroxine Sodium [Synthroid] 75 mcg PO MOTUWETHFRSA Fluticasone Nasal [place] [Flonase Nasal [place]] 1 spray EA NOSTRIL HS Furosemide [Lasix] 20 mg PO DAILY Metoprolol Tartrate 25 mg PO TID Insulin Aspart [NovoLOG Flexpen] 10 units SQ AC-TID hydroCHLOROthiazide 25 mg PO DAILY Budesonide [Pulmicort] 0.5 mg INHALATION RT-BID Diphenox-Atrop 2.5-0.025 mg [Lomotil] 1 tab PO QID PRN PRN Reason: Diarrhea Pantoprazole [Protonix] 40 mg PO DAILY amLODIPine [Norvasc] 5 mg PO DAILY predniSONE See Taper PO DIRECTED Metoprolol Tartrate [Lopressor] 50 mg PO TID Apixaban [Eliquis] 2.5 mg PO BID lisinopriL [Zestril] 20 mg PO BID Insulin Glargine,Hum.rec.anlog [Tokelin Solfinesse] 35 units SQ DAILY Discharge Medication List Levothyroxine Sodium [Synthroid] 75 mcg PO MOTUWETHFRSA 06/26/18 [History] Fluticasone Nasal [place] [Flonase Nasal [place]] 1 spray EA NOSTRIL HS 08/25/18 [History] Apixaban [Eliquis] 2.5 mg PO BID 05/25/21 [History] Diphenox-Atrop 2.5-0.025 mg [Lomotil] 1 tab PO QID PRN 05/25/21 [History] Furosemide [Lasix] 20 mg PO DAILY 05/25/21 [History] Insulin Aspart [NovoLOG Flexpen] 10 units SQ AC-TID 05/25/21 [History] Metoprolol Tartrate 25 mg PO TID 05/25/21 [History] Metoprolol Tartrate [Lopressor] 50 mg PO TID 05/25/21 [History] Pantoprazole [Protonix] 40 mg PO DAILY 05/25/21 [History] amLODIPine [Norvasc] 5 mg PO DAILY 05/25/21 [History] predniSONE See Taper PO DIRECTED 05/25/21 [History] lisinopriL [Zestril] 20 mg PO BID 07/27/21 [History] hydroCHLOROthiazide 25 mg PO DAILY 02/08/22 [History] Budesonide [Pulmicort] 0.5 mg INHALATION RT-BID 07/12/22 [History] Insulin Glargine,Hum.rec.anlog [Dalila Tovar] 35 units SQ DAILY 07/12/22 [History] Follow up Appointment(s)/Referral(s): Frederic Babcock MD [Primary Care Provider] - 1-2 days [facility], [NON-STAFF] - 1 Week Discharge Disposition: HOME WITH HOSPICE
--- NOTE | 2022-08-09 11:33 | CDI ---
Documentation Clarification Form Date: 08/09/2022 11:03:17 AM From: Kina Trujillo RN, CCDS Email: [email or web address] Admit Date: 07/12/2022 11:04:00 PM Patient Name: Yanely Hilario Visit Number: [id number] Discharge Date: 07/26/2022 6:22:00 PM ATTENTION: The Clinical Documentation Specialists (CDI) and [facility] Coding Staff appreciate your assistance in clarifying documentation. Please respond to the clarification below the line at the bottom and electronically sign. The CDI & [facility] Coding staff will review the response and follow-up if needed. Please note: Queries are made part of the Legal Health Record. If you have any questions, please contact the author of this message via ITS. Dr. Nickolas Serrano Postoperative hypotension is documented in the progress notes and discharge summary and patient had repair of incarcerated right inguinal hernia, partial omentectomy and small bowel resection. Additional clarification is requested regarding the relationship, if any, that exists between the diagnosis and the procedure. Patients Admitting Diagnosis: incarcerated right inguinal hernia Post-Operative Diagnosis: incarcerated right inguinal hernia with ischemic small bowel and omentum Procedure performed: exploratory laparotomy, repair of incarcerated right inguinal hernia, partial omentectomy and small bowel resection. History/Risk Factors: atrial fibrillation on anticoagulation with Eliquis, permanent pacemaker placement, hypertension, hyperlipidemia, diabetes type 2 insulin-dependent, hypothyroidism. Presents to ER with complaints of SOB for past 2 weeks. Patient was having chest congestion and cough with clear to greenish sputum production. No nausea/vomiting, abdominal pain or diarrhea at the time of admission. Later developed abdominal pain and nausea. CT scan of the abdomen performed and suspicious for small bowel obstruction related to incarcerated right inguinal hernia. Clinical Indicators: 07/20 BP: 89/43-120/53 07/21 BP: 86/43-124/52 07/20 Op note: "The patient had relative hypotension during the entire case. Her blood pressure was in the systolic 80-90 range. It was decided not to extubate the patient in the OR. The patient was sent to the ICU on the ventilator." 07/20 Pulmonary: "Acute hypotension, rule out secondary to abdominal sepsis." 07/21 IM: "Postoperative hypotension, requiring pressor support." 07/22 IM: "Plan is to remain on mechanical ventilation as patient continues to have some hypotension requiring pressor support as well as uncontrolled atrial fibrillation." 07/25 Surgery: "Postoperative hypotension resolved." Discharge summary: "Postoperative hypotension, requiring pressor support, improved, has been off pressor support." Treatment: IV Levophed 07/20-07/25. 1L IV bolus on 07/22. ICU monitoring. Mechanical ventilation What relationship, if any, exists between the diagnosis of postoperative hypotension and the procedure: [ ] postoperative hypotension is a complication of the surgical procedure [ ] postoperative hypotension is related to patients co-morbid conditions & not a complication of the procedure [ ] Other please specify ____ [ ] Unable to determine postoperative hypotension is related to patients co-morbid conditions & not a complication of the procedure RENITA
== END 2022-07-26 18:22 | disposition hospice, home (50) | DRG 264 ==
LOC: EC 17:07 → 3SCARD 23:04 → 5NMEDONC 07-16 23:10 → 3SCARD 07-20 06:34 → 2SICU 07-20 13:52
PROVIDERS: ADMIT Hospitalist; ATTEND Hospitalist
PROC: 0YQ50ZZ Repair Right Inguinal Region, Open Approach (ICD-10-PCS; 2022-07-20)
PROC: 0YJ54ZZ Inspection of Right Inguinal Region, Percutaneous Endoscopic Approach (ICD-10-PCS; 2022-07-20)
PROC: 0DT80ZZ Resection of Small Intestine, Open Approach (ICD-10-PCS; 2022-07-20)
PROC: 3E033XZ Introduction of Vasopressor into Peripheral Vein, Percutaneous Approach (ICD-10-PCS; 2022-07-20)
PROC: 0WJG0ZZ Inspection of Peritoneal Cavity, Open Approach (ICD-10-PCS; principal; 2022-07-20 08:40)
PROC: 3E0436Z Introduction of Nutritional Substance into Central Vein, Percutaneous Approach (ICD-10-PCS; 2022-07-21)
DX: I48.0 Paroxysmal atrial fibrillation (principal); I21.A1 Myocardial infarction type 2; K55.019 Acute (reversible) ischemia of small intestine, extent unspecified; K65.1 Peritoneal abscess; J96.01 Acute respiratory failure with hypoxia; R65.21 Severe sepsis with septic shock; A41.9 Sepsis, unspecified organism; J44.0 Chronic obstructive pulmonary disease with (acute) lower respiratory infection; K40.30 Unilateral inguinal hernia, with obstruction, without gangrene, not specified as recurrent; N17.9 Acute kidney failure, unspecified; K57.20 Diverticulitis of large intestine with perforation and abscess without bleeding; B37.89 Other sites of candidiasis; I48.92 Unspecified atrial flutter; Z51.5 Encounter for palliative care; Z66 Do not resuscitate; I27.20 Pulmonary hypertension, unspecified; E11.649 Type 2 diabetes mellitus with hypoglycemia without coma; I49.5 Sick sinus syndrome; I95.89 Other hypotension; I50.9 Heart failure, unspecified; I11.0 Hypertensive heart disease with heart failure; F32.A Depression, unspecified; M35.3 Polymyalgia rheumatica; E03.9 Hypothyroidism, unspecified; R00.0 Tachycardia, unspecified; G89.29 Other chronic pain; M51.27 Other intervertebral disc displacement, lumbosacral region; M51.26 Other intervertebral disc displacement, lumbar region; M41.9 Scoliosis, unspecified; F43.21 Adjustment disorder with depressed mood; E78.5 Hyperlipidemia, unspecified; F41.9 Anxiety disorder, unspecified; K58.9 Irritable bowel syndrome, unspecified; J20.9 Acute bronchitis, unspecified; M79.7 Fibromyalgia; M19.90 Unspecified osteoarthritis, unspecified site; I25.10 Atherosclerotic heart disease of native coronary artery without angina pectoris; R91.8 Other nonspecific abnormal finding of lung field; Z20.822 Contact with and (suspected) exposure to COVID-19; Z82.49 Family history of ischemic heart disease and other diseases of the circulatory system; Z85.3 Personal history of malignant neoplasm of breast; Z88.2 Allergy status to sulfonamides; Z88.0 Allergy status to penicillin; Z91.011 Allergy to milk products; Z88.5 Allergy status to narcotic agent; Z88.1 Allergy status to other antibiotic agents; Z79.899 Other long term (current) drug therapy; Z86.711 Personal history of pulmonary embolism; Z92.3 Personal history of irradiation; Z79.4 Long term (current) use of insulin; Z79.01 Long term (current) use of anticoagulants; Z79.890 Hormone replacement therapy; Z95.0 Presence of cardiac pacemaker
CPT/HCPCS: 36415; 71045; 71046; 74022; 74150; 80048; 80053; 82330; 82805; 83605; 83735; 83880; 84100; 84145; 84443; 84478; 84484; 85025; 85610; 85730; 87070; 87205; 87636; 88307; 93005; 93306; 94003; 94640; 94760; 96361; 96365; 99285